=== PATIENT | male | born 1945 | race African-American/Black ===

== ENCOUNTER → 2019-02-03 | Outpatient (CLI) | payer OTHER ==
[2019-01-01 11:00] VITALS: BP 118/60
[~2019-02-03] MED LIST: ALEN70TA3 PO; AMMO225L5 TP; APIX2.5T PO; CHOL500016 PO; FERR325T58 PO; OXYC1TAB15 PO
--- NOTE | 2019-02-03 13:57 | RAD ---
EXAM: Left lower extremity venous Doppler sonogram. HISTORY: Left calf swelling and pain. TECHNIQUE: Herron scale and color Doppler sonographic evaluation of the left lower extremity veins with spectral waveform analysis was performed. FINDINGS: There is normal color flow, normal compressibility and there are normal spectral waveforms in the common femoral, superficial femoral, popliteal, posterior tibial and greater saphenous veins. IMPRESSION: No Doppler evidence of lower extremity deep venous thrombosis. Electronically signed by: Joselin Simpson MD (02/03/2019 1:54 PM) [place] [id number]
== END | disposition home or self-care (01) ==
LOC: US 13:07 → EDSEX 13:07
PROVIDERS: ATTEND Physician Assistant
DX: M79.89 Other specified soft tissue disorders (principal); M79.605 Pain in left leg
CPT/HCPCS: 93971

== ENCOUNTER 2019-03-08 14:02 | Inpatient (IN) | payer OTHER ==
[~2019-03-08] VITALS: Ht 165.1 cm; Wt 41.7 kg
--- NOTE | 2019-03-08 16:09 | PDOC1 ---
History and Physical Date of Admission Date of Admission DATE: 03/08/19 TIME: 16:07 Identification/Chief Complaint Chief Complaint Toe auto-amputation Source Source: Caregiver, Chart review, Patient History of Present Illness History of Present Illness Mr Jaimes is a 73 yo male w/ PMHx CAD s/p stenting, HTN, colorectal cancer in remission, DJD of spine, DM2 presenting to the ED per his with right heel ulcer and right necrotic appearing toes. He appears to have cognitive impairment and not a reliable historian. He has been weak and fell yesterday, prior to that he has been pretty much bedbound. No LOC. No complains of chest pain or SOA. No notation of nausea or vomiting. Upon examination and removal of his sock the end of his right middle toe has fallen off. There is a foul smell. Labs notable for Hb 10.6, Cr 1.3, Sodium 148 Past Medical History Cardiovascular: CAD, HTN GI: Other Heme/Onc: Cancer Hepatobiliary: No pertinent hx Psych: No pertinent hx Musculoskeletal: Other Rheumatologic: No pertinent hx Infectious disease: No pertinent hx Renal/: No pertinent hx Endocrine: Diabetes Past Surgical History Past Surgical History: Colon Resection Family History Family History: Diabetes Social History Smoke: No ALCOHOL: none Drugs: None Current Medications Current Medications Active Scripts Active Ammonium Lactate 226 Gm Lotion 1 Nando TP BID 10 Days Percocet 5-325 Mg Tablet (Oxycodone/Acetaminophen) 1 Each Tablet 1 Tab PO PRN Q4HRS PRN 10 Days Eliquis (Apixaban) 2.5 Mg Tablet 2.5 Mg PO BID 14 Days Reported Fosamax (Alendronate Sodium) 70 Mg Tablet 70 Mg PO WEEKLY pt takes medication on friday Vitamin D3 (Cholecalciferol (Vitamin D3)) 5,000 Unit Tablet 5,000 Unit PO WEEKLY Allergies Allergies: Coded Allergies: No Known Drug Allergies (Unverified , 11/17/14) ROS General: YES: Fatigue, Malaise; No: Chills, Night Sweats, Appetite, Other PSYCHOLOGICAL ROS: YES: Disorientation; No: Anxiety, Behavioral Disorder, Concentration difficultie, Decreased libido, Depression, Hallucinations, Hostility, Irritablity, Memory difficulties, Mood Swings, Obsessive thoughts, Physical abuse, Sexual abuse, Sleep disturbances, Suicidal ideation, Other Eyes: No Blurry vision, No Decreased vision, No Double vision, No Dry eyes, No Excessive tearing, No Eye Pain, No Itchy Eyes, No Loss of vision, No Photophobia, No Scotomata, No Uses contacts, No Uses glasses, No Other HEENT: No: Heacaches, Visual Changes, Hearing change, Nasal congestion, Nasal discharge, Oral lesions, Sinus pain, Sore Throat, Epistaxis, Sneezing, Snoring, Tinnitus, Vertigo, Vocal changes, Other ALLERGY AND IMMUNOLOGY: No: Hives, Insect Bite Sensitivity, Itchy/Watery Eyes, Nasal Congestion, Post Nasal Drip, Seasonal Allergies, Other Hematological and Lymphatic: No: Bleeding Problems, Blood Clots, Blood Transfusions, Brusing, Night Sweats, Pallor, Swollen Lymph Nodes, Other ENDOCRINE: No: Breast Changes, Galactorrhea, Hair Pattern Changes, Hot Flashes, Malaise/lethargy, Mood Swings, Palpitations, Polydipsia/polyuria, Skin Changes, Temperature Intolerance, Unexpected Weight Changes, Other Breast: No New/Changing Breast Lumps, No Nipple changes, No Nipple discharge, No Other Respiratory: No: Cough, Hemoptysis, Orthopnea, Pleuritic Pain, Shortness of breath, SOB with excertion, Sputum Changes, Stridor, Tachypnea, Wheezing, Other Cardiovascular: No Chest Pain, No Palpitations, No Orthopnea, No Paroxysmal Noc. Dyspnea, No Edema, No Lt Headedness, No Other Gastrointestinal: No Nausea, No Vomiting, No Abdominal Pain, No Diarrhea, No Constipation, No Melena, No Hematochezia, No Other Genitourinary: No Dysuria, No Frequency, No Incontinence, No Hematuria, No Retention, No Discharge, No Urgency, No Pain, No Flank Pain, No Other, No , No , No , No , No , No , No Musculoskeletal: Yes Gait Disturbance, Yes Muscular Weakness; No Joint Pain, No Joint Stiffness, No Joint Swelling, No Muscle Pain, No Pain In:, No Swelling In:, No Other Neurological: No Behavorial Changes, No Bowel/Bladder ControlChng, No Confusion, No Dizziness, No Gait Disturbance, No Headaches, No Impaired Coord/balance, No Memory Loss, No Numbness/Tingling, No Seizures, No Speech Problems, No Tremors, No Visual Changes, No Weakness, No Other Skin: Yes Dry Skin, Yes Skin Lesion Changes; No Eczema, No Hair Changes, No Lumps, No Mole Changes, No Mottling, No Nail Changes, No Pruritus, No Rash, No Other, No Acne Physical Exam General: Alert, Cooperative, No acute distress HEENT: Atraumatic, PERRLA, EOMI, Mucous membr. moist/pink Lungs: Clear to auscultation, Normal air movement Heart: S1S2, RRR, no thrills, no rubs, no gallops, no murmurs Abdomen: Normal bowel sounds, Soft, No tenderness, No hepatosplenomegaly, No masses Rectal Exam: not examined Extremities: No clubbing, No cyanosis, No edema, Other (Decreased pulses) Skin: Other (Left heel ulcer with bone palpable, right heel ulcer stage III, right middle toe dry gangree, partially autoamputated) Neuro: Normal tone, Sensation intact, Cranial nerves 3-12 NL, Reflexes 2+ Psych/Mental Status: Other (Confused) VTE Prophylaxis Ordered VTE Prophylaxis Devices: Yes VTE Pharmacological Prophylaxi: Yes Assessment/Plan Assessment/Plan A/P: Multiple wounds - Left heel ulcer with bone palpable, right heel ulcer stage III, right middle toe dry gangree, partially autoamputated. Will get arterial dopplers. Consult ID. Will need surgical correction for left heel at the very least. Empiric vancomycin and zosyn for now. 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 Poor nail care - will have podiatry to see as he has multiple ingrown nails Underweight - severe protein calorie malnutrition. It is unclear the etiology. He has no complaints about his diet. I am concerned he has an underlying memory disorder CAD - with remote stenting history, no on any cardiac meds. Will cont DM2 - diet control per his . Will place on low sliding scale NORBERTO - Cr 1.3, likely vasomotor nephropathy from poor PO intake FEN - ADA diet, npo after midnight PPX - lovenox FULL CODE Dispo - inpatient for infected decubitus ulcers CARMEN CONKLIN MD Mar 08, 2019 16:08
[2019-03-08] MEDS ORDERED: VANCOMYCIN PER PHARMACY MC ONE (16:15)
[2019-03-08] MEDS ORDERED: MORPHINE SULFATE 4 MG/ML VIAL. IV/SQ PRN (16:15)
[2019-03-08] MEDS ORDERED: PIPERACILLIN/TAZOBACTAM 4.5 GM in IV NORMAL SALINE 100ML 100 ML IV ONE (16:15)
[2019-03-08 16:24] LABS: BASO # 0.1 x10^3/uL (0.0-0.2); BASO % 1 % (0-3); EOS # 0.1 x10^3/uL (0.0-0.7); EOS % 2 % (0-3); HEMATOCRIT 33.2 % (39.0-53.0); HEMOGLOBIN 10.6 g/dL (13.0-17.5); LYMPH # 1.3 x10^3/uL (1.0-4.8); LYMPH % 21 % (24-48); MEAN CORPUSCULAR HEMOGLOBIN 29 pg (25-35); MEAN CORPUSCULAR HGB CONC 32 g/dL (31-37); MEAN CORPUSCULAR VOLUME 90 fL (79-100); MONO # 0.7 x10^3/uL (0.0-1.1); MONO % 12 % (0-9); NEUT # 3.8 x10^3/uL (1.8-7.7); NEUT % 64 % (31-73); PLATELET COUNT 375 x10^3/uL (140-400); RED BLOOD COUNT 3.69 x10^6/uL (4.30-5.70); RED CELL DISTRIBUTION WIDTH 16.7 % (11.5-14.5); WHITE BLOOD COUNT 5.9 x10^3/uL (4.0-11.0)
[2019-03-08] MEDS ORDERED: VANCOMYCIN 1.25 GM in IV NORMAL SALINE 250ML 250 ML IV ONE (16:30)
[2019-03-08] MEDS: IV NORMAL SALINE 1000ML BAG 1,000 ML IV SCH ×2 (16:42→17:40)
[2019-03-08 16:43] LABS: CALCIUM 8.8 mg/dL (8.5-10.1); CREATININE 1.3 mg/dL (0.7-1.3); GFR 65.5; POTASSIUM 3.5 mmol/L (3.5-5.1)
[2019-03-08 16:49] LABS: ALBUMIN 2.5 g/dL (3.4-5.0); ALBUMIN/GLOBULIN RATIO 0.5 (1.0-1.7); TOTAL BILIRUBIN 0.2 mg/dL (0.2-1.0); TOTAL PROTEIN 7.4 g/dL (6.4-8.2)
--- NOTE | 2019-03-08 16:50 | RAD ---
EXAM: Bilateral lower extremity venous Doppler. HISTORY: Bilateral lower extremity pain/swelling. Bilateral lower extremity nonhealing ulcers. COMPARISON: None. FINDINGS: Grayscale and Doppler analysis of the both lower extremity deep venous systems was performed with graded compression and augmentation. The common femoral, greater saphenous, superficial femoral, popliteal and calf veins were assessed. There is no evidence of deep venous thrombosis. IMPRESSION: 1. No evidence of deep venous thrombosis. Electronically signed by: Soco Jacobson MD (03/08/2019 4:47 PM) [facility]
[2019-03-08 16:56] LABS: PROTHROMBIN TIME PATIENT 13.7 SEC (11.7-14.0)
[2019-03-08] MEDS ORDERED: IV NORMAL SALINE 1000ML BAG 1,000 ML IV ONE (18:15)
[2019-03-08] MEDS ORDERED: ONDANSETRON PF 4 MG/2 ML VIAL. IV PRN ×2 (18:15→21:15)
[2019-03-08] MEDS ORDERED: MORPHINE SULFATE 4 MG/ML VIAL. IV PRN (18:15)
--- NOTE | 2019-03-08 18:24 | RAD ---
Exam: Bilateral feet 3 views INDICATION: Left heel ulcer. Right toe necrosis. TECHNIQUE: Frontal, lateral and oblique views of the left and right foot. Comparisons: None FINDINGS: Left foot: Degenerative change at the toes bilaterally. Soft tissue defect at the heel. Mild osteopenia. Scattered degenerative change noted throughout the foot. No acute fractures are identified. Right foot: Evaluation of the digits is limited secondary to positioning. No acute fractures identified. There is diffuse osteopenia. Soft tissue ulcer at the heel. IMPRESSION: 1. Soft tissue ulcers at the heels bilaterally. 2. Diffuse osteopenia without acute fracture identified. No definite evidence for osteomyelitis identified however evaluation is limited. Electronically signed by: Armani Thapa MD (03/08/2019 6:21 PM) [id number]
--- NOTE | 2019-03-08 18:48 | EKG ---
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
[2019-03-08 19:00] VITALS: BP 108/69
--- NOTE | 2019-03-08 19:02 | PHYS DOC ---
Past Medical History Past Medical History: CAD, Diabetes-Type II, Hypertension Additional Past Medical Histor: colorectal cancer, DJD spine Past Surgical History: Other Additional Past Surgical Histo: lumbar back surgery, L hip Alcohol Use: None Drug Use: None Adult General Chief Complaint Chief Complaint: LOWER EXT PAIN HPI HPI Patient is a 73 year old male with history of diabetes type 2, hypertension, CAD, who presents to the ED today with complaints of the heel ulcers on the left leg as well as necrotic toes, states patient fell down around December and fractured his hip, reports since then this patient has been immobile and has developed multiple wounds to bilateral lower extremities. states she's been trying to take care of them but they have become worse. Patient denies any complaints. Review of Systems Review of Systems Constitutional: Denies fever or chills [] Eyes: Denies change in visual acuity, redness, or eye pain [] HENT: Denies nasal congestion or sore throat [] Respiratory: Denies cough or shortness of breath [] Cardiovascular: No additional information not addressed in HPI [] GI: Denies abdominal pain, nausea, vomiting, bloody stools or diarrhea [] : Denies dysuria or hematuria [] Musculoskeletal: Denies back pain or joint pain [] Integument: Reports wounds to bilateral lower extremities Neurologic: Denies headache, focal weakness or sensory changes [] All other systems were reviewed and found to be within normal limits, except as documented in this note. Current Medications Current Medications Current Medications Medications (Trade) Dose Ordered Sig/Tomasa Start Time Stop Time Status Last Admin Dose Admin Morphine Sulfate (Morphine Sulfate) 4 mg PRN Q15MIN PRN 03/08/19 16:15 03/09/19 16:14 Piperacillin Sod/ Tazobactam Sod 4.5 gm/Sodium Chloride 100 ml @ 200 mls/hr 1X ONCE 03/08/19 16:15 03/08/19 16:44 DC 03/08/19 16:41 200 MLS/HR Sodium Chloride 1,000 ml @ 1,860 mls/hr Q33M 03/08/19 16:04 03/08/19 17:04 DC 03/08/19 17:40 1,860 MLS/HR Vancomycin HCl (Vanco Per Pharmacy) 1 each 1X ONCE 03/08/19 16:15 10/28/19 16:24 DC Vancomycin HCl 1.25 gm/Sodium Chloride 250 ml @ 167 mls/hr ONCE ONCE 03/08/19 16:30 03/08/19 17:59 DC 03/08/19 17:40 167 MLS/HR Allergies Allergies Allergies Coded Allergies Type Severity Reaction Last Updated Verified No Known Drug Allergies 11/17/14 No Physical Exam Physical Exam Constitutional: Thin appearing cachectic patient HENT: Normocephalic, atraumatic, bilateral external ears normal, oropharynx moist, no oral exudates, nose normal. [] Eyes: PERRLA, EOMI, conjunctiva normal, no discharge. [] Neck: Normal range of motion, no tenderness, supple, no stridor. [] Cardiovascular: Bradycardia Lungs & Thorax: Bilateral breath sounds clear to auscultation [] Abdomen: Bowel sounds normal, soft, no tenderness, no masses, no pulsatile masses. [] Skin: Left heel with a stage III ulcer approximately 5 x 6 cm, there is trace amount of drainage from this region, right toes appear necrotic, the right second toe tip fell out as i was i removing patients socks. Muscle wasting noted to bilateral lower extremities with very dark peeling skin. +1 bilateral pedal pulses. Limited sensation to bilateral lower extremities. Very smelly feet. Back: No tenderness, no CVA tenderness. [] Extremities: No tenderness, no cyanosis, no clubbing, ROM intact, no edema. [] Neurologic: Alert and oriented X 3, normal motor function, normal sensory function, no focal deficits noted. [] Psychologic: Affect normal, judgement normal, mood normal. [] Current Patient Data Vital Signs Vital Signs Date Time Temp Pulse Resp B/P (MAP) Pulse Ox O2 Delivery O2 Flow Rate FiO2 03/08/19 17:30 100 16 115/67 (83) 94 Room Air 03/08/19 16:05 98.8 98.8 Lab Values Laboratory Tests Test 03/08/19 16:09 White Blood Count 5.9 x10^3/uL (4.0-11.0) Red Blood Count 3.69 x10^6/uL (4.30-5.70) L Hemoglobin 10.6 g/dL (13.0-17.5) L Hematocrit 33.2 % (39.0-53.0) L Mean Corpuscular Volume 90 fL (79-100) Mean Corpuscular Hemoglobin 29 pg (25-35) Mean Corpuscular Hemoglobin Concent 32 g/dL (31-37) Red Cell Distribution Width 16.7 % (11.5-14.5) H Platelet Count 375 x10^3/uL (140-400) Neutrophils (%) (Auto) 64 % (31-73) Lymphocytes (%) (Auto) 21 % (24-48) L Monocytes (%) (Auto) 12 % (0-9) H Eosinophils (%) (Auto) 2 % (0-3) Basophils (%) (Auto) 1 % (0-3) Neutrophils # (Auto) 3.8 x10^3/uL (1.8-7.7) Lymphocytes # (Auto) 1.3 x10^3/uL (1.0-4.8) Monocytes # (Auto) 0.7 x10^3/uL (0.0-1.1) Eosinophils # (Auto) 0.1 x10^3/uL (0.0-0.7) Basophils # (Auto) 0.1 x10^3/uL (0.0-0.2) Prothrombin Time 13.7 SEC (11.7-14.0) Prothrombin Time INR 1.1 (0.8-1.1) Activated Partial Thromboplast Time 30 SEC (24-38) Sodium Level 148 mmol/L (136-145) H Potassium Level 3.5 mmol/L (3.5-5.1) Chloride Level 109 mmol/L (98-107) H Carbon Dioxide Level 33 mmol/L (21-32) H Anion Gap 6 (6-14) Blood Urea Nitrogen 18 mg/dL (8-26) Creatinine 1.3 mg/dL (0.7-1.3) Estimated GFR (Cockcroft-Gault) 65.5 BUN/Creatinine Ratio 14 (6-20) Glucose Level 84 mg/dL (70-99) Lactic Acid Level 1.3 mmol/L (0.4-2.0) Calcium Level 8.8 mg/dL (8.5-10.1) Total Bilirubin 0.2 mg/dL (0.2-1.0) Aspartate Amino Transferase (AST) 20 U/L (15-37) Alanine Aminotransferase (ALT) 11 U/L (16-63) L Alkaline Phosphatase 76 U/L (46-116) Ammonia < 10 mcmol/L (11-34) L Creatine Kinase 82 U/L (39-308) Creatine Kinase MB (Mass) 1.4 ng/mL (0.0-3.6) Creatine Kinase MB Relative Index 1.7 % (0-4) Total Protein 7.4 g/dL (6.4-8.2) Albumin 2.5 g/dL (3.4-5.0) L Albumin/Globulin Ratio 0.5 (1.0-1.7) L Lipase 115 U/L (73-393) Procalcitonin 0.19 ng/mL (0.00-0.10) H Laboratory Tests 03/08/19 16:09 Laboratory Tests 03/08/19 16:09 EKG EKG [address] Maguire sinus rhythm HR 92 no STEMI[] Radiology/Procedures Radiology/Procedures [] Course & Med Decision Making Course & Med Decision Making Pertinent Labs and Imaging studies reviewed. (See chart for details) This is a 70-year-old male patient who presents to the ED today with complaints of wounds to bilateral lower extremities. See history of present illness and documentation on the wounds on assessment. Vitals on arrival to the ED temperature 98.8, heart rate 54, O2 sats 100% on room air, blood pressure 140/88, respiration 20 room air. On arrival to the ED we started this patient on sepsis protocol including IV fluids and antibiotics. CBC with a normal WBC, CMP with Na of 148, K is normal, glucose is normal. Lactic 1.3, pro-calcitonin 0.19. Spoke with Dr. Mehta who accepted patient for admission. Routine consult placed for wound nurse I spoke with -who will follow-up with patient Dragon Disclaimer Dragon Disclaimer This electronic medical record was generated, in whole or in part, using a voice recognition dictation system. Departure Departure Impression: Primary Impression: Ulcer of left heel Additional Impression: Necrotic toes Disposition: ADMITTED INPATIENT Condition: STABLE Referrals: VIMAL ROBERT MD (PCP) Date and Time of Reassessment Date: Mar 08, 2019 Time: 17:30 Fluid Challenge Is the fluid challenge complet: No IBW Target Volume Used: No BMI > 30: No Vital Signs Vital Signs: Vital Signs Date Time Temp Pulse Resp B/P (MAP) Pulse Ox O2 Delivery O2 Flow Rate FiO2 03/08/19 17:30 100 16 115/67 (83) 94 Room Air 03/08/19 16:05 98.8 98.8 Temperature Source: Oral Respirations Respiratory Effort: Normal Respiratory Pattern: Normal Cardiovascular Pulse Rhythm: Regular Heart: Nml rate, reg. rhythm Lung Sounds Breath Sounds: Clear Capillary Refil Capillary Refill: Rt Hand > 3 seconds Peripheral Pulse Pulse Location: Monitor Pulse Strength: Normal (2+) Pulse Assessment Method: Monitor Integumentary Skin: Warm Skin Moisture: Dry Skin Turgor: Normal Skin Color: warm Fingernail Color: WNL Problem Qualifiers Primary Impression: Ulcer of left heel Non-pressure ulcer stage: unspecified non-pressure ulcer stage Qualified Codes: L97.429 - Non-pressure chronic ulcer of left heel and midfoot with unspecified severity VIRGIL MC APRN Mar 08, 2019 19:02
--- NOTE | 2019-03-08 19:30 | NUR ---
arnulfo was admitted from the er. he is npo. he came in with bilateral heel ulcers and 4 necrotic toes with strong odor. vancomycin infusing in left iv site. answers questions she and arnulfo are poor historians. uncertain about diseases and medications. they saw Dr. Millan a couple of weeks ago. . states that this problem originally started in October before his broken hip in December. she thinks he has lost approx 10 pounds and control his sugar but denies being a diabetic. unable to feel pulses.
[2019-03-08] MEDS: ENOXAPARIN 40 MG/0.4 ML SYRINGE. SQ SCH (21:31)
[2019-03-08] MEDS: DEXTROSE 50% 25 GM / 50ML DISP.SYRIN. IV PRN (21:54)
[2019-03-08 22:00] LABS: BILIRUBIN,URINE NEGATIVE (NEG); CLARITY,URINE CLOUDY; COLOR,URINE YELLOW; NITRITE,URINE NEGATIVE (NEG); PH,URINE 5.5; PROTEIN,URINE NEGATIVE (NEG-TRACE); UROBILINOGEN,URINE 0.2 mg/dL (0.2 mg/dL)
[2019-03-08] MEDS ORDERED: POTASSIUM CHLORIDE 20 MEQ TABLET.ER. PO ONE (22:00)
--- NOTE | 2019-03-08 22:00 | NUR ---
blood sugar was 66. medicated with 25 grams of dextrose. blood sugar went up to 100
[2019-03-08 22:10] LABS: BACTERIA,URINE 0 /HPF (0-FEW); RBC,URINE 0 /HPF (0-2); SQUAMOUS EPITHELIAL CELL,UR OCC /LPF
[2019-03-08] MEDS: PIPERACILLIN/TAZOBACTAM 2.25 GM in IV NORMAL SALINE 50ML 50 ML IV SCH (22:21)
[2019-03-08 23:00] VITALS: BP 124/78
--- NOTE | 2019-03-08 23:00 | NUR ---
3 pictures taken of bilateral heels and right toes. unable to measure related to the slough in the beds of ulcerations
[2019-03-09] MEDS ORDERED: PIPERACILLIN/TAZOBACTAM 3.375 GM in IV NORMAL SALINE 50ML 50 ML IV SCH ×2
--- NOTE | 2019-03-09 00:30 | RAD ---
Lower extremity arterial duplex Doppler examination with spectral analysis HISTORY: Bilateral enlargement ulcers Sonographic examination alert she was informed bilaterally multiple static images were obtained. In addition color Doppler was applied as well as arterial waveform spectral analysis. FINDINGS: On the right there is triphasic flow in the common femoral artery but monophasic flow throughout the remaining right lower cavity. There is no flow seen in the mid SFA and there is no visualization of the peroneal vein and the DPA. There is increased velocity in the common femoral artery with a peak systolic flow of 191 cm/s. On the left there is monophasic flow throughout. There is elevated velocity in the proximal SFA with a peak systolic velocity of 197 cm per second. There is nonvisualization the NUT ORCHARDIST distally on the left and nonvisualization of the DPA. IMPRESSION: 1. Monophasic flow in the lower extremities bilaterally. This is likely secondary to diffuse atherosclerotic disease. 2. Nonvisualization the right peroneal artery and in the DPA bilaterally and the distal left NUT ORCHARDIST. 3. Occlusion of the mid SFA. There is reconstitution of flow in the distal SFA through collaterals. Electronically signed by: Lobito Mcbride III, MD (03/09/2019 12:26 AM) [id number]
[2019-03-09 03:22] VITALS: BP 127/69
[2019-03-09 03:57] LABS: BASO # 0.1 x10^3/uL (0.0-0.2); BASO % 1 % (0-3); EOS # 0.1 x10^3/uL (0.0-0.7); EOS % 2 % (0-3); HEMATOCRIT 31.9 % (39.0-53.0); HEMOGLOBIN 10.2 g/dL (13.0-17.5); LYMPH # 0.8 x10^3/uL (1.0-4.8); LYMPH % 12 % (24-48); MEAN CORPUSCULAR HEMOGLOBIN 29 pg (25-35); MEAN CORPUSCULAR HGB CONC 32 g/dL (31-37); MEAN CORPUSCULAR VOLUME 90 fL (79-100); MONO # 0.7 x10^3/uL (0.0-1.1); MONO % 10 % (0-9); NEUT # 5.1 x10^3/uL (1.8-7.7); NEUT % 74 % (31-73); PLATELET COUNT 350 x10^3/uL (140-400); RED BLOOD COUNT 3.54 x10^6/uL (4.30-5.70); RED CELL DISTRIBUTION WIDTH 16.7 % (11.5-14.5); WHITE BLOOD COUNT 6.8 x10^3/uL (4.0-11.0)
[2019-03-09 04:11] LABS: CALCIUM 7.9 mg/dL (8.5-10.1); CREATININE 1.2 mg/dL (0.7-1.3); GFR 71.8; POTASSIUM 4.2 mmol/L (3.5-5.1)
[2019-03-09] MEDS: PIPERACILLIN/TAZOBACTAM 2.25 GM in IV NORMAL SALINE 50ML 50 ML IV SCH (05:54)
[2019-03-09 07:00] VITALS: BP 114/68
[2019-03-09] MEDS ORDERED: INSULIN LISPRO 300 UNITS/3 ML VIAL. SQ SCH (07:30)
[2019-03-09] MEDS: AMMONIUM LACTATE 12% TOPICAL LOTION 226GM BOTTLE. TP SCH ×2 (08:24→21:00)
[2019-03-09] MEDS ORDERED: ACETAMINOPHEN 500 MG TABLET PO PRN (08:30)
[2019-03-09] MEDS ORDERED: ACETAMINOPHEN/CODEINE 300/30MG TABLET. PO PRN (08:30)
--- NOTE | 2019-03-09 09:44 | PDOC ---
PROGRESS NOTES Chief Complaint Chief Complaint BIlateral heel ulcer/wounds with cellulitis DM 2 ? 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 NORBERTO VMN History of Present Illness History of Present Illness VEryv poor historian NO at bedside RN tells us he ambulates with cane at home I undressed dressing, foul smelling juicy pressure heel ulcers IMaging shows no signs of osteo Pt does not check BS at home PT on eliquis at home, but he cant tell u why Looking at chart, hx CAD etc Arterial studies show, maybe dec flow - might need vasc, given over all clinical picture, poor compliance, wounds etc PLAN: Ortho consulted for possible need I and d so maintain NPO and cont to hold eliquis COnsult vasc sx I rounded with ID student and he saw wounds PT.OT WIll need SNU Await wound care IV abx per ID FULL CODE Vitals Vitals Vital Signs Date Time Temp Pulse Resp B/P (MAP) Pulse Ox O2 Delivery O2 Flow Rate FiO2 03/09/19 07:00 99.2 91 18 114/68 (83) 95 Room Air 99.2 Physical Exam General: Alert, Cooperative, No acute distress Lungs: Clear Abdomen: Normal bowel sounds, Soft, No tenderness, No hepatosplenomegaly, No masses Extremities: No clubbing, No cyanosis, No edema, Other (Decreased pulses) Skin: Other (Left heel ulcer with bone palpable, right heel ulcer stage III, right middle toe dry gangree, partially autoamputated) Labs LABS Laboratory Tests Test 03/08/19 16:09 03/08/19 21:30 03/08/19 21:39 03/08/19 22:32 White Blood Count 5.9 x10^3/uL (4.0-11.0) Red Blood Count 3.69 x10^6/uL (4.30-5.70) Hemoglobin 10.6 g/dL (13.0-17.5) Hematocrit 33.2 % (39.0-53.0) Mean Corpuscular Volume 90 fL (79-100) Mean Corpuscular Hemoglobin 29 pg (25-35) Mean Corpuscular Hemoglobin Concent 32 g/dL (31-37) Red Cell Distribution Width 16.7 % (11.5-14.5) Platelet Count 375 x10^3/uL (140-400) Neutrophils (%) (Auto) 64 % (31-73) Lymphocytes (%) (Auto) 21 % (24-48) Monocytes (%) (Auto) 12 % (0-9) Eosinophils (%) (Auto) 2 % (0-3) Basophils (%) (Auto) 1 % (0-3) Neutrophils # (Auto) 3.8 x10^3/uL (1.8-7.7) Lymphocytes # (Auto) 1.3 x10^3/uL (1.0-4.8) Monocytes # (Auto) 0.7 x10^3/uL (0.0-1.1) Eosinophils # (Auto) 0.1 x10^3/uL (0.0-0.7) Basophils # (Auto) 0.1 x10^3/uL (0.0-0.2) Prothrombin Time 13.7 SEC (11.7-14.0) Prothromb Time International Ratio 1.1 (0.8-1.1) Activated Partial Thromboplast Time 30 SEC (24-38) Sodium Level 148 mmol/L (136-145) Potassium Level 3.5 mmol/L (3.5-5.1) Chloride Level 109 mmol/L (98-107) Carbon Dioxide Level 33 mmol/L (21-32) Anion Gap 6 (6-14) Blood Urea Nitrogen 18 mg/dL (8-26) Creatinine 1.3 mg/dL (0.7-1.3) Estimated GFR (Cockcroft-Gault) 65.5 BUN/Creatinine Ratio 14 (6-20) Glucose Level 84 mg/dL (70-99) Lactic Acid Level 1.3 mmol/L (0.4-2.0) Calcium Level 8.8 mg/dL (8.5-10.1) Total Bilirubin 0.2 mg/dL (0.2-1.0) Aspartate Amino Transf (AST/SGOT) 20 U/L (15-37) Alanine Aminotransferase (ALT/SGPT) 11 U/L (16-63) Alkaline Phosphatase 76 U/L (46-116) Ammonia < 10 mcmol/L (11-34) Creatine Kinase 82 U/L (39-308) Creatine Kinase MB (Mass) 1.4 ng/mL (0.0-3.6) Creatine Kinase MB Relative Index 1.7 % (0-4) Total Protein 7.4 g/dL (6.4-8.2) Albumin 2.5 g/dL (3.4-5.0) Albumin/Globulin Ratio 0.5 (1.0-1.7) Lipase 115 U/L (73-393) Procalcitonin 0.19 ng/mL (0.00-0.10) Urine Color Yellow Urine Clarity Cloudy Urine pH 5.5 Urine Specific Randolph 1.020 Urine Protein Negative mg/dL (NEG-TRACE) Urine Glucose (UA) Negative mg/dL (NEG) Urine Ketones (Stick) Negative mg/dL (NEG) Urine Blood Negative (NEG) Urine Nitrite Negative (NEG) Urine Bilirubin Negative (NEG) Urine Urobilinogen Dipstick 0.2 mg/dL (0.2 mg/dL) Urine Leukocyte Esterase Negative (NEG) Urine RBC 0 /HPF (0-2) Urine WBC 1-4 /HPF (0-4) Urine Squamous Epithelial Cells Occ /LPF Urine Bacteria 0 /HPF (0-FEW) Urine Mucus Mod /LPF Glucose (Fingerstick) 66 mg/dL (70-99) 100 mg/dL (70-99) Test 03/09/19 03:40 White Blood Count 6.8 x10^3/uL (4.0-11.0) Red Blood Count 3.54 x10^6/uL (4.30-5.70) Hemoglobin 10.2 g/dL (13.0-17.5) Hematocrit 31.9 % (39.0-53.0) Mean Corpuscular Volume 90 fL (79-100) Mean Corpuscular Hemoglobin 29 pg (25-35) Mean Corpuscular Hemoglobin Concent 32 g/dL (31-37) Red Cell Distribution Width 16.7 % (11.5-14.5) Platelet Count 350 x10^3/uL (140-400) Neutrophils (%) (Auto) 74 % (31-73) Lymphocytes (%) (Auto) 12 % (24-48) Monocytes (%) (Auto) 10 % (0-9) Eosinophils (%) (Auto) 2 % (0-3) Basophils (%) (Auto) 1 % (0-3) Neutrophils # (Auto) 5.1 x10^3/uL (1.8-7.7) Lymphocytes # (Auto) 0.8 x10^3/uL (1.0-4.8) Monocytes # (Auto) 0.7 x10^3/uL (0.0-1.1) Eosinophils # (Auto) 0.1 x10^3/uL (0.0-0.7) Basophils # (Auto) 0.1 x10^3/uL (0.0-0.2) Sodium Level 148 mmol/L (136-145) Potassium Level 4.2 mmol/L (3.5-5.1) Chloride Level 112 mmol/L (98-107) Carbon Dioxide Level 30 mmol/L (21-32) Anion Gap 6 (6-14) Blood Urea Nitrogen 13 mg/dL (8-26) Creatinine 1.2 mg/dL (0.7-1.3) Estimated GFR (Cockcroft-Gault) 71.8 Glucose Level 75 mg/dL (70-99) Calcium Level 7.9 mg/dL (8.5-10.1) Review of Systems Review of Systems leg wounds, minimal pain, rest 14 pt limited - dementia Assessment and Plan Assessmemt and Plan Problems Medical Problems: (1) Necrotic toes Status: Acute (2) Ulcer of left heel Status: Acute Comment Review of Relevant I have reviewed the following items segun (where applicable) has been applied. Labs Laboratory Tests Test 03/08/19 16:09 03/08/19 21:30 03/08/19 21:39 03/08/19 22:32 White Blood Count 5.9 x10^3/uL (4.0-11.0) Red Blood Count 3.69 x10^6/uL (4.30-5.70) Hemoglobin 10.6 g/dL (13.0-17.5) Hematocrit 33.2 % (39.0-53.0) Mean Corpuscular Volume 90 fL (79-100) Mean Corpuscular Hemoglobin 29 pg (25-35) Mean Corpuscular Hemoglobin Concent 32 g/dL (31-37) Red Cell Distribution Width 16.7 % (11.5-14.5) Platelet Count 375 x10^3/uL (140-400) Neutrophils (%) (Auto) 64 % (31-73) Lymphocytes (%) (Auto) 21 % (24-48) Monocytes (%) (Auto) 12 % (0-9) Eosinophils (%) (Auto) 2 % (0-3) Basophils (%) (Auto) 1 % (0-3) Neutrophils # (Auto) 3.8 x10^3/uL (1.8-7.7) Lymphocytes # (Auto) 1.3 x10^3/uL (1.0-4.8) Monocytes # (Auto) 0.7 x10^3/uL (0.0-1.1) Eosinophils # (Auto) 0.1 x10^3/uL (0.0-0.7) Basophils # (Auto) 0.1 x10^3/uL (0.0-0.2) Prothrombin Time 13.7 SEC (11.7-14.0) Prothromb Time International Ratio 1.1 (0.8-1.1) Activated Partial Thromboplast Time 30 SEC (24-38) Sodium Level 148 mmol/L (136-145) Potassium Level 3.5 mmol/L (3.5-5.1) Chloride Level 109 mmol/L (98-107) Carbon Dioxide Level 33 mmol/L (21-32) Anion Gap 6 (6-14) Blood Urea Nitrogen 18 mg/dL (8-26) Creatinine 1.3 mg/dL (0.7-1.3) Estimated GFR (Cockcroft-Gault) 65.5 BUN/Creatinine Ratio 14 (6-20) Glucose Level 84 mg/dL (70-99) Lactic Acid Level 1.3 mmol/L (0.4-2.0) Calcium Level 8.8 mg/dL (8.5-10.1) Total Bilirubin 0.2 mg/dL (0.2-1.0) Aspartate Amino Transf (AST/SGOT) 20 U/L (15-37) Alanine Aminotransferase (ALT/SGPT) 11 U/L (16-63) Alkaline Phosphatase 76 U/L (46-116) Ammonia < 10 mcmol/L (11-34) Creatine Kinase 82 U/L (39-308) Creatine Kinase MB (Mass) 1.4 ng/mL (0.0-3.6) Creatine Kinase MB Relative Index 1.7 % (0-4) Total Protein 7.4 g/dL (6.4-8.2) Albumin 2.5 g/dL (3.4-5.0) Albumin/Globulin Ratio 0.5 (1.0-1.7) Lipase 115 U/L (73-393) Procalcitonin 0.19 ng/mL (0.00-0.10) Urine Color Yellow Urine Clarity Cloudy Urine pH 5.5 Urine Specific Randolph 1.020 Urine Protein Negative mg/dL (NEG-TRACE) Urine Glucose (UA) Negative mg/dL (NEG) Urine Ketones (Stick) Negative mg/dL (NEG) Urine Blood Negative (NEG) Urine Nitrite Negative (NEG) Urine Bilirubin Negative (NEG) Urine Urobilinogen Dipstick 0.2 mg/dL (0.2 mg/dL) Urine Leukocyte Esterase Negative (NEG) Urine RBC 0 /HPF (0-2) Urine WBC 1-4 /HPF (0-4) Urine Squamous Epithelial Cells Occ /LPF Urine Bacteria 0 /HPF (0-FEW) Urine Mucus Mod /LPF Glucose (Fingerstick) 66 mg/dL (70-99) 100 mg/dL (70-99) Test 03/09/19 03:40 White Blood Count 6.8 x10^3/uL (4.0-11.0) Red Blood Count 3.54 x10^6/uL (4.30-5.70) Hemoglobin 10.2 g/dL (13.0-17.5) Hematocrit 31.9 % (39.0-53.0) Mean Corpuscular Volume 90 fL (79-100) Mean Corpuscular Hemoglobin 29 pg (25-35) Mean Corpuscular Hemoglobin Concent 32 g/dL (31-37) Red Cell Distribution Width 16.7 % (11.5-14.5) Platelet Count 350 x10^3/uL (140-400) Neutrophils (%) (Auto) 74 % (31-73) Lymphocytes (%) (Auto) 12 % (24-48) Monocytes (%) (Auto) 10 % (0-9) Eosinophils (%) (Auto) 2 % (0-3) Basophils (%) (Auto) 1 % (0-3) Neutrophils # (Auto) 5.1 x10^3/uL (1.8-7.7) Lymphocytes # (Auto) 0.8 x10^3/uL (1.0-4.8) Monocytes # (Auto) 0.7 x10^3/uL (0.0-1.1) Eosinophils # (Auto) 0.1 x10^3/uL (0.0-0.7) Basophils # (Auto) 0.1 x10^3/uL (0.0-0.2) Sodium Level 148 mmol/L (136-145) Potassium Level 4.2 mmol/L (3.5-5.1) Chloride Level 112 mmol/L (98-107) Carbon Dioxide Level 30 mmol/L (21-32) Anion Gap 6 (6-14) Blood Urea Nitrogen 13 mg/dL (8-26) Creatinine 1.2 mg/dL (0.7-1.3) Estimated GFR (Cockcroft-Gault) 71.8 Glucose Level 75 mg/dL (70-99) Calcium Level 7.9 mg/dL (8.5-10.1) Laboratory Tests Test 03/08/19 16:09 03/08/19 21:30 03/08/19 21:39 03/08/19 22:32 White Blood Count 5.9 x10^3/uL (4.0-11.0) Red Blood Count 3.69 x10^6/uL (4.30-5.70) Hemoglobin 10.6 g/dL (13.0-17.5) Hematocrit 33.2 % (39.0-53.0) Mean Corpuscular Volume 90 fL (79-100) Mean Corpuscular Hemoglobin 29 pg (25-35) Mean Corpuscular Hemoglobin Concent 32 g/dL (31-37) Red Cell Distribution Width 16.7 % (11.5-14.5) Platelet Count 375 x10^3/uL (140-400) Neutrophils (%) (Auto) 64 % (31-73) Lymphocytes (%) (Auto) 21 % (24-48) Monocytes (%) (Auto) 12 % (0-9) Eosinophils (%) (Auto) 2 % (0-3) Basophils (%) (Auto) 1 % (0-3) Neutrophils # (Auto) 3.8 x10^3/uL (1.8-7.7) Lymphocytes # (Auto) 1.3 x10^3/uL (1.0-4.8) Monocytes # (Auto) 0.7 x10^3/uL (0.0-1.1) Eosinophils # (Auto) 0.1 x10^3/uL (0.0-0.7) Basophils # (Auto) 0.1 x10^3/uL (0.0-0.2) Prothrombin Time 13.7 SEC (11.7-14.0) Prothromb Time International Ratio 1.1 (0.8-1.1) Activated Partial Thromboplast Time 30 SEC (24-38) Sodium Level 148 mmol/L (136-145) Potassium Level 3.5 mmol/L (3.5-5.1) Chloride Level 109 mmol/L (98-107) Carbon Dioxide Level 33 mmol/L (21-32) Anion Gap 6 (6-14) Blood Urea Nitrogen 18 mg/dL (8-26) Creatinine 1.3 mg/dL (0.7-1.3) Estimated GFR (Cockcroft-Gault) 65.5 BUN/Creatinine Ratio 14 (6-20) Glucose Level 84 mg/dL (70-99) Lactic Acid Level 1.3 mmol/L (0.4-2.0) Calcium Level 8.8 mg/dL (8.5-10.1) Total Bilirubin 0.2 mg/dL (0.2-1.0) Aspartate Amino Transf (AST/SGOT) 20 U/L (15-37) Alanine Aminotransferase (ALT/SGPT) 11 U/L (16-63) Alkaline Phosphatase 76 U/L (46-116) Ammonia < 10 mcmol/L (11-34) Creatine Kinase 82 U/L (39-308) Creatine Kinase MB (Mass) 1.4 ng/mL (0.0-3.6) Creatine Kinase MB Relative Index 1.7 % (0-4) Total Protein 7.4 g/dL (6.4-8.2) Albumin 2.5 g/dL (3.4-5.0) Albumin/Globulin Ratio 0.5 (1.0-1.7) Lipase 115 U/L (73-393) Procalcitonin 0.19 ng/mL (0.00-0.10) Urine Color Yellow Urine Clarity Cloudy Urine pH 5.5 Urine Specific Randolph 1.020 Urine Protein Negative mg/dL (NEG-TRACE) Urine Glucose (UA) Negative mg/dL (NEG) Urine Ketones (Stick) Negative mg/dL (NEG) Urine Blood Negative (NEG) Urine Nitrite Negative (NEG) Urine Bilirubin Negative (NEG) Urine Urobilinogen Dipstick 0.2 mg/dL (0.2 mg/dL) Urine Leukocyte Esterase Negative (NEG) Urine RBC 0 /HPF (0-2) Urine WBC 1-4 /HPF (0-4) Urine Squamous Epithelial Cells Occ /LPF Urine Bacteria 0 /HPF (0-FEW) Urine Mucus Mod /LPF Glucose (Fingerstick) 66 mg/dL (70-99) 100 mg/dL (70-99) Test 03/09/19 03:40 White Blood Count 6.8 x10^3/uL (4.0-11.0) Red Blood Count 3.54 x10^6/uL (4.30-5.70) Hemoglobin 10.2 g/dL (13.0-17.5) Hematocrit 31.9 % (39.0-53.0) Mean Corpuscular Volume 90 fL (79-100) Mean Corpuscular Hemoglobin 29 pg (25-35) Mean Corpuscular Hemoglobin Concent 32 g/dL (31-37) Red Cell Distribution Width 16.7 % (11.5-14.5) Platelet Count 350 x10^3/uL (140-400) Neutrophils (%) (Auto) 74 % (31-73) Lymphocytes (%) (Auto) 12 % (24-48) Monocytes (%) (Auto) 10 % (0-9) Eosinophils (%) (Auto) 2 % (0-3) Basophils (%) (Auto) 1 % (0-3) Neutrophils # (Auto) 5.1 x10^3/uL (1.8-7.7) Lymphocytes # (Auto) 0.8 x10^3/uL (1.0-4.8) Monocytes # (Auto) 0.7 x10^3/uL (0.0-1.1) Eosinophils # (Auto) 0.1 x10^3/uL (0.0-0.7) Basophils # (Auto) 0.1 x10^3/uL (0.0-0.2) Sodium Level 148 mmol/L (136-145) Potassium Level 4.2 mmol/L (3.5-5.1) Chloride Level 112 mmol/L (98-107) Carbon Dioxide Level 30 mmol/L (21-32) Anion Gap 6 (6-14) Blood Urea Nitrogen 13 mg/dL (8-26) Creatinine 1.2 mg/dL (0.7-1.3) Estimated GFR (Cockcroft-Gault) 71.8 Glucose Level 75 mg/dL (70-99) Calcium Level 7.9 mg/dL (8.5-10.1) Medications Current Medications Sodium Chloride 1,000 ml @ 1,860 mls/hr Q33M IV Last administered on 03/08/19at 17:40; Start 03/08/19 at 16:04; Stop 03/08/19 at 17:04; Status DC Piperacillin Sod/ Tazobactam Sod 4.5 gm/Sodium Chloride 100 ml @ 200 mls/hr 1X ONCE IV Last administered on 03/08/19at 16:41; Start 03/08/19 at 16:15; Stop 03/08/19 at 16:44; Status DC Vancomycin HCl (Vanco Per Pharmacy) 1 each 1X ONCE MC ; Start 03/08/19 at 16:15; Stop 03/08/19 at 16:24; Status DC Morphine Sulfate (Morphine Sulfate) 4 mg PRN Q15MIN PRN IV/SQ PAIN GREATER THAN 3/10; Start 03/08/19 at 16:15; Stop 03/09/19 at 08:35; Status DC Vancomycin HCl 1.25 gm/Sodium Chloride 250 ml @ 167 mls/hr ONCE ONCE IV Last administered on 03/08/19at 17:40; Start 03/08/19 at 16:30; Stop 03/08/19 at 17:59; Status DC Ondansetron HCl (Zofran) 4 mg PRN Q8HRS PRN IV NAUSEA/VOMITING; Start 03/08/19 at 18:15; Stop 03/08/19 at 21:18; Status DC Morphine Sulfate (Morphine Sulfate) 4 mg PRN Q2HR PRN IV SEVERE PAIN 7-10; Start 03/08/19 at 18:15; Stop 03/09/19 at 08:35; Status DC Sodium Chloride 1,000 ml @ 75 mls/hr 1X ONCE IV Last administered on 03/08/19at 21:25; Start 03/08/19 at 18:15; Stop 03/09/19 at 07:34; Status DC Ondansetron HCl (Zofran) 4 mg PRN Q6HRS PRN IV NAUSEA/VOMITING 1ST CHOICE; Start 03/08/19 at 21:15 Lactic Acid (Lac-Hydrin) 1 nando BID TP ; Start 03/09/19 at 09:00 Non-Formulary Medication (Alendronate Sodium (Fosamax)) 70 mg WEEKLY PO ; Start 03/15/19 at 09:00; Status UNV Vitamin D (Vitamin D3) 5,000 unit WEEKLY PO ; Start 03/15/19 at 09:00 Piperacillin Sod/ Tazobactam Sod 3.375 gm/Sodium Chloride 50 ml @ 100 mls/hr Q6HRS IV ; Start 03/09/19 at 00:00; Status UNV Tramadol HCl (Ultram) 50 mg PRN Q6HRS PRN PO MODERATE PAIN 4-6; Start 03/08/19 at 21:15 Insulin Human Lispro (HumaLOG) 0-5 UNITS TIDACHC SQ ; Start 03/09/19 at 07:30; Stop 03/09/19 at 08:31; Status DC Dextrose (Dextrose 50%-Water Syringe) 12.5 gm PRN Q15MIN PRN IV SEE COMMENTS Last administered on 03/08/19at 21:54; Start 03/08/19 at 21:15 Enoxaparin Sodium (Lovenox 40mg Syringe) 40 mg Q24H SQ Last administered on 03/08/19at 21:31; Start 03/08/19 at 22:00 Piperacillin Sod/ Tazobactam Sod 2.25 gm/Sodium Chloride 50 ml @ 100 mls/hr Q6HRS IV Last administered on 03/09/19at 05:54; Start 03/09/19 at 00:00 Potassium Chloride (Klor-Con) 40 meq 1X ONCE PO Last administered on 03/08/19at 22:20; Start 03/08/19 at 22:00; Stop 03/08/19 at 22:01; Status DC Acetaminophen (Tylenol) 500 mg PRN Q6HRS PRN PO MILD PAIN / TEMP; Start 03/09/19 at 08:30 Acetaminophen/ Codeine Phosphate (Tylenol #3) 1 tab PRN Q6HRS PRN PO PAIN MODERATE; Start 03/09/19 at 08:30 Morphine Sulfate (Morphine Sulfate) 2 mg PRN Q2HR PRN IV PAIN; Start 03/09/19 at 08:30 Oxycodone/ Acetaminophen (Percocet 5/325) 1 tab PRN Q4HRS PRN PO SEVERE PAIN 7- 10; Start 03/09/19 at 08:30 Active Scripts Active Ammonium Lactate 226 Gm Lotion 1 Nando TP BID 10 Days Percocet 5-325 Mg Tablet (Oxycodone/Acetaminophen) 1 Each Tablet 1 Tab PO PRN Q4HRS PRN 10 Days Eliquis (Apixaban) 2.5 Mg Tablet 2.5 Mg PO BID 14 Days Reported Fosamax (Alendronate Sodium) 70 Mg Tablet 70 Mg PO WEEKLY pt takes medication on friday Vitamin D3 (Cholecalciferol (Vitamin D3)) 5,000 Unit Tablet 5,000 Unit PO WEEKLY Vitals/I & O Vital Sign - Last 24 Hours 03/08/19 03/08/19 03/08/19 03/08/19 16:05 16:30 17:00 17:30 Temp 98.8 98.8 Pulse 54 92 96 100 Resp 20 18 18 16 B/P (MAP) 140/88 (105) 123/72 (89) 133/74 (93) 115/67 (83) Pulse Ox 100 94 95 94 O2 Delivery Room Air Room Air Room Air Room Air 03/08/19 03/08/19 03/08/19 03/08/19 18:00 18:33 19:00 20:00 Temp 98.3 98.3 Pulse 100 101 93 Resp 18 18 18 B/P (MAP) 123/66 (85) 109/67 (81) 108/69 (82) Pulse Ox 95 96 92 O2 Delivery Room Air Room Air Room Air 03/08/19 03/09/19 03/09/19 23:00 03:22 07:00 Temp 98.4 98.1 99.2 98.4 98.1 99.2 Pulse 99 98 91 Resp 20 18 18 B/P (MAP) 124/78 (93) 127/69 (88) 114/68 (83) Pulse Ox 91 90 95 O2 Delivery Room Air Room Air Intake and Output 03/08/19 03/08/19 03/09/19 15:00 23:00 07:00 Intake Total 2080 ml 240 ml Output Total 500 ml 700 ml Balance 1580 ml -460 ml HANSA SIMMS MD Mar 09, 2019 09:44
--- NOTE | 2019-03-09 10:03 | PDOC2 ---
CONSULT Date of Consult Date of Consult DATE: 03/09/19 TIME: 10:00 Reason for Consult Reason for Consult: Auto amputation right lesser toe, left heel ulcer Identification/Chief Complaint Chief Complaint Auto amputation right lesser toe, left heel ulcer Source Source: Caregiver, Chart review, Patient History of Present Illness Reason for Visit: This 73-year-old man was admitted with autoamputation of a right lesser toe. He also has heel ulcers. He is a poor historian. He reportedly lives with his and is able to use a cane but the heel ulcers with indicate that he spends much of his day bed bound. He is cachectic and speech is difficult to understand. He does report a broken hip about 3 or 4 months ago treated surgically although he could not remember where that was done Past Medical History Cardiovascular: CAD, HTN GI: Other Heme/Onc: Cancer Hepatobiliary: No pertinent hx Psych: No pertinent hx Musculoskeletal: Other Rheumatologic: No pertinent hx Infectious disease: No pertinent hx Renal/: No pertinent hx Endocrine: Diabetes Past Surgical History Past Surgical History: Colon Resection Family History Family History: Diabetes Social History No ALCOHOL: none Drugs: None Current Problem List Problem List Problems Medical Problems: (1) Necrotic toes Status: Acute (2) Ulcer of left heel Status: Acute Current Medications Current Medications Current Medications Sodium Chloride 1,000 ml @ 1,860 mls/hr Q33M IV Last administered on 03/08/19at 17:40; Start 03/08/19 at 16:04; Stop 03/08/19 at 17:04; Status DC Piperacillin Sod/ Tazobactam Sod 4.5 gm/Sodium Chloride 100 ml @ 200 mls/hr 1X ONCE IV Last administered on 03/08/19at 16:41; Start 03/08/19 at 16:15; Stop 03/08/19 at 16:44; Status DC Vancomycin HCl (Vanco Per Pharmacy) 1 each 1X ONCE MC ; Start 03/08/19 at 16:15; Stop 03/08/19 at 16:24; Status DC Morphine Sulfate (Morphine Sulfate) 4 mg PRN Q15MIN PRN IV/SQ PAIN GREATER THAN 3/10; Start 03/08/19 at 16:15; Stop 03/09/19 at 08:35; Status DC Vancomycin HCl 1.25 gm/Sodium Chloride 250 ml @ 167 mls/hr ONCE ONCE IV Last administered on 03/08/19at 17:40; Start 03/08/19 at 16:30; Stop 03/08/19 at 17:59; Status DC Ondansetron HCl (Zofran) 4 mg PRN Q8HRS PRN IV NAUSEA/VOMITING; Start 03/08/19 at 18:15; Stop 03/08/19 at 21:18; Status DC Morphine Sulfate (Morphine Sulfate) 4 mg PRN Q2HR PRN IV SEVERE PAIN 7-10; Start 03/08/19 at 18:15; Stop 03/09/19 at 08:35; Status DC Sodium Chloride 1,000 ml @ 75 mls/hr 1X ONCE IV Last administered on 03/08/19at 21:25; Start 03/08/19 at 18:15; Stop 03/09/19 at 07:34; Status DC Ondansetron HCl (Zofran) 4 mg PRN Q6HRS PRN IV NAUSEA/VOMITING 1ST CHOICE; Start 03/08/19 at 21:15 Lactic Acid (Lac-Hydrin) 1 nando BID TP ; Start 03/09/19 at 09:00 Non-Formulary Medication (Alendronate Sodium (Fosamax)) 70 mg WEEKLY PO ; Start 03/15/19 at 09:00; Status UNV Vitamin D (Vitamin D3) 5,000 unit WEEKLY PO ; Start 03/15/19 at 09:00 Piperacillin Sod/ Tazobactam Sod 3.375 gm/Sodium Chloride 50 ml @ 100 mls/hr Q6HRS IV ; Start 03/09/19 at 00:00; Status UNV Tramadol HCl (Ultram) 50 mg PRN Q6HRS PRN PO MODERATE PAIN 4-6; Start 03/08/19 at 21:15 Insulin Human Lispro (HumaLOG) 0-5 UNITS TIDACHC SQ ; Start 03/09/19 at 07:30; Stop 03/09/19 at 08:31; Status DC Dextrose (Dextrose 50%-Water Syringe) 12.5 gm PRN Q15MIN PRN IV SEE COMMENTS Last administered on 03/08/19at 21:54; Start 03/08/19 at 21:15 Enoxaparin Sodium (Lovenox 40mg Syringe) 40 mg Q24H SQ Last administered on 03/08/19at 21:31; Start 03/08/19 at 22:00 Piperacillin Sod/ Tazobactam Sod 2.25 gm/Sodium Chloride 50 ml @ 100 mls/hr Q6HRS IV Last administered on 03/09/19at 05:54; Start 03/09/19 at 00:00 Potassium Chloride (Klor-Con) 40 meq 1X ONCE PO Last administered on 03/08/19at 22:20; Start 03/08/19 at 22:00; Stop 03/08/19 at 22:01; Status DC Acetaminophen (Tylenol) 500 mg PRN Q6HRS PRN PO MILD PAIN / TEMP; Start 03/09/19 at 08:30 Acetaminophen/ Codeine Phosphate (Tylenol #3) 1 tab PRN Q6HRS PRN PO PAIN MODERATE; Start 03/09/19 at 08:30 Morphine Sulfate (Morphine Sulfate) 2 mg PRN Q2HR PRN IV PAIN; Start 03/09/19 at 08:30 Oxycodone/ Acetaminophen (Percocet 5/325) 1 tab PRN Q4HRS PRN PO SEVERE PAIN 7- 10; Start 03/09/19 at 08:30 Active Scripts Active Ammonium Lactate 226 Gm Lotion 1 Nando TP BID 10 Days Percocet 5-325 Mg Tablet (Oxycodone/Acetaminophen) 1 Each Tablet 1 Tab PO PRN Q4HRS PRN 10 Days Eliquis (Apixaban) 2.5 Mg Tablet 2.5 Mg PO BID 14 Days Reported Fosamax (Alendronate Sodium) 70 Mg Tablet 70 Mg PO WEEKLY pt takes medication on friday Vitamin D3 (Cholecalciferol (Vitamin D3)) 5,000 Unit Tablet 5,000 Unit PO WEEKLY Allergies Allergies: Coded Allergies: No Known Drug Allergies (Unverified , 11/17/14) Physical Exam Physical Exam Cachectic gentleman in no distress. Difficult to understand his speech. He took a long time to answer questions, and then was unsure of the answer such as at which hospital he had hip surgery recently General: No acute distress Extremities: Other (the right foot has auto amputation of the third toe with dry gangrene. There is an odor. The skin of both calves is dry with patterned scaling which seems most likely related to bilateral lower extremity vascular disease. Bilateral heel ulcers left greater than right. Pulses not palpable. ) Vitals VITALS Vital Signs Date Time Temp Pulse Resp B/P (MAP) Pulse Ox O2 Delivery O2 Flow Rate FiO2 03/09/19 07:00 99.2 91 18 114/68 (83) 95 Room Air 99.2 Labs Labs Laboratory Tests Test 03/08/19 16:09 03/08/19 21:30 03/08/19 21:39 03/08/19 22:32 White Blood Count 5.9 x10^3/uL (4.0-11.0) Red Blood Count 3.69 x10^6/uL (4.30-5.70) Hemoglobin 10.6 g/dL (13.0-17.5) Hematocrit 33.2 % (39.0-53.0) Mean Corpuscular Volume 90 fL (79-100) Mean Corpuscular Hemoglobin 29 pg (25-35) Mean Corpuscular Hemoglobin Concent 32 g/dL (31-37) Red Cell Distribution Width 16.7 % (11.5-14.5) Platelet Count 375 x10^3/uL (140-400) Neutrophils (%) (Auto) 64 % (31-73) Lymphocytes (%) (Auto) 21 % (24-48) Monocytes (%) (Auto) 12 % (0-9) Eosinophils (%) (Auto) 2 % (0-3) Basophils (%) (Auto) 1 % (0-3) Neutrophils # (Auto) 3.8 x10^3/uL (1.8-7.7) Lymphocytes # (Auto) 1.3 x10^3/uL (1.0-4.8) Monocytes # (Auto) 0.7 x10^3/uL (0.0-1.1) Eosinophils # (Auto) 0.1 x10^3/uL (0.0-0.7) Basophils # (Auto) 0.1 x10^3/uL (0.0-0.2) Prothrombin Time 13.7 SEC (11.7-14.0) Prothromb Time International Ratio 1.1 (0.8-1.1) Activated Partial Thromboplast Time 30 SEC (24-38) Sodium Level 148 mmol/L (136-145) Potassium Level 3.5 mmol/L (3.5-5.1) Chloride Level 109 mmol/L (98-107) Carbon Dioxide Level 33 mmol/L (21-32) Anion Gap 6 (6-14) Blood Urea Nitrogen 18 mg/dL (8-26) Creatinine 1.3 mg/dL (0.7-1.3) Estimated GFR (Cockcroft-Gault) 65.5 BUN/Creatinine Ratio 14 (6-20) Glucose Level 84 mg/dL (70-99) Lactic Acid Level 1.3 mmol/L (0.4-2.0) Calcium Level 8.8 mg/dL (8.5-10.1) Total Bilirubin 0.2 mg/dL (0.2-1.0) Aspartate Amino Transf (AST/SGOT) 20 U/L (15-37) Alanine Aminotransferase (ALT/SGPT) 11 U/L (16-63) Alkaline Phosphatase 76 U/L (46-116) Ammonia < 10 mcmol/L (11-34) Creatine Kinase 82 U/L (39-308) Creatine Kinase MB (Mass) 1.4 ng/mL (0.0-3.6) Creatine Kinase MB Relative Index 1.7 % (0-4) Total Protein 7.4 g/dL (6.4-8.2) Albumin 2.5 g/dL (3.4-5.0) Albumin/Globulin Ratio 0.5 (1.0-1.7) Lipase 115 U/L (73-393) Procalcitonin 0.19 ng/mL (0.00-0.10) Urine Color Yellow Urine Clarity Cloudy Urine pH 5.5 Urine Specific [place] 1.020 Urine Protein Negative mg/dL (NEG-TRACE) Urine Glucose (UA) Negative mg/dL (NEG) Urine Ketones (Stick) Negative mg/dL (NEG) Urine Blood Negative (NEG) Urine Nitrite Negative (NEG) Urine Bilirubin Negative (NEG) Urine Urobilinogen Dipstick 0.2 mg/dL (0.2 mg/dL) Urine Leukocyte Esterase Negative (NEG) Urine RBC 0 /HPF (0-2) Urine WBC 1-4 /HPF (0-4) Urine Squamous Epithelial Cells Occ /LPF Urine Bacteria 0 /HPF (0-FEW) Urine Mucus Mod /LPF Glucose (Fingerstick) 66 mg/dL (70-99) 100 mg/dL (70-99) Test 03/09/19 03:40 White Blood Count 6.8 x10^3/uL (4.0-11.0) Red Blood Count 3.54 x10^6/uL (4.30-5.70) Hemoglobin 10.2 g/dL (13.0-17.5) Hematocrit 31.9 % (39.0-53.0) Mean Corpuscular Volume 90 fL (79-100) Mean Corpuscular Hemoglobin 29 pg (25-35) Mean Corpuscular Hemoglobin Concent 32 g/dL (31-37) Red Cell Distribution Width 16.7 % (11.5-14.5) Platelet Count 350 x10^3/uL (140-400) Neutrophils (%) (Auto) 74 % (31-73) Lymphocytes (%) (Auto) 12 % (24-48) Monocytes (%) (Auto) 10 % (0-9) Eosinophils (%) (Auto) 2 % (0-3) Basophils (%) (Auto) 1 % (0-3) Neutrophils # (Auto) 5.1 x10^3/uL (1.8-7.7) Lymphocytes # (Auto) 0.8 x10^3/uL (1.0-4.8) Monocytes # (Auto) 0.7 x10^3/uL (0.0-1.1) Eosinophils # (Auto) 0.1 x10^3/uL (0.0-0.7) Basophils # (Auto) 0.1 x10^3/uL (0.0-0.2) Sodium Level 148 mmol/L (136-145) Potassium Level 4.2 mmol/L (3.5-5.1) Chloride Level 112 mmol/L (98-107) Carbon Dioxide Level 30 mmol/L (21-32) Anion Gap 6 (6-14) Blood Urea Nitrogen 13 mg/dL (8-26) Creatinine 1.2 mg/dL (0.7-1.3) Estimated GFR (Cockcroft-Gault) 71.8 Glucose Level 75 mg/dL (70-99) Calcium Level 7.9 mg/dL (8.5-10.1) Laboratory Tests Test 03/08/19 16:09 03/08/19 21:30 03/08/19 21:39 03/08/19 22:32 White Blood Count 5.9 x10^3/uL (4.0-11.0) Red Blood Count 3.69 x10^6/uL (4.30-5.70) Hemoglobin 10.6 g/dL (13.0-17.5) Hematocrit 33.2 % (39.0-53.0) Mean Corpuscular Volume 90 fL (79-100) Mean Corpuscular Hemoglobin 29 pg (25-35) Mean Corpuscular Hemoglobin Concent 32 g/dL (31-37) Red Cell Distribution Width 16.7 % (11.5-14.5) Platelet Count 375 x10^3/uL (140-400) Neutrophils (%) (Auto) 64 % (31-73) Lymphocytes (%) (Auto) 21 % (24-48) Monocytes (%) (Auto) 12 % (0-9) Eosinophils (%) (Auto) 2 % (0-3) Basophils (%) (Auto) 1 % (0-3) Neutrophils # (Auto) 3.8 x10^3/uL (1.8-7.7) Lymphocytes # (Auto) 1.3 x10^3/uL (1.0-4.8) Monocytes # (Auto) 0.7 x10^3/uL (0.0-1.1) Eosinophils # (Auto) 0.1 x10^3/uL (0.0-0.7) Basophils # (Auto) 0.1 x10^3/uL (0.0-0.2) Prothrombin Time 13.7 SEC (11.7-14.0) Prothromb Time International Ratio 1.1 (0.8-1.1) Activated Partial Thromboplast Time 30 SEC (24-38) Sodium Level 148 mmol/L (136-145) Potassium Level 3.5 mmol/L (3.5-5.1) Chloride Level 109 mmol/L (98-107) Carbon Dioxide Level 33 mmol/L (21-32) Anion Gap 6 (6-14) Blood Urea Nitrogen 18 mg/dL (8-26) Creatinine 1.3 mg/dL (0.7-1.3) Estimated GFR (Cockcroft-Gault) 65.5 BUN/Creatinine Ratio 14 (6-20) Glucose Level 84 mg/dL (70-99) Lactic Acid Level 1.3 mmol/L (0.4-2.0) Calcium Level 8.8 mg/dL (8.5-10.1) Total Bilirubin 0.2 mg/dL (0.2-1.0) Aspartate Amino Transf (AST/SGOT) 20 U/L (15-37) Alanine Aminotransferase (ALT/SGPT) 11 U/L (16-63) Alkaline Phosphatase 76 U/L (46-116) Ammonia < 10 mcmol/L (11-34) Creatine Kinase 82 U/L (39-308) Creatine Kinase MB (Mass) 1.4 ng/mL (0.0-3.6) Creatine Kinase MB Relative Index 1.7 % (0-4) Total Protein 7.4 g/dL (6.4-8.2) Albumin 2.5 g/dL (3.4-5.0) Albumin/Globulin Ratio 0.5 (1.0-1.7) Lipase 115 U/L (73-393) Procalcitonin 0.19 ng/mL (0.00-0.10) Urine Color Yellow Urine Clarity Cloudy Urine pH 5.5 Urine Specific [place] 1.020 Urine Protein Negative mg/dL (NEG-TRACE) Urine Glucose (UA) Negative mg/dL (NEG) Urine Ketones (Stick) Negative mg/dL (NEG) Urine Blood Negative (NEG) Urine Nitrite Negative (NEG) Urine Bilirubin Negative (NEG) Urine Urobilinogen Dipstick 0.2 mg/dL (0.2 mg/dL) Urine Leukocyte Esterase Negative (NEG) Urine RBC 0 /HPF (0-2) Urine WBC 1-4 /HPF (0-4) Urine Squamous Epithelial Cells Occ /LPF Urine Bacteria 0 /HPF (0-FEW) Urine Mucus Mod /LPF Glucose (Fingerstick) 66 mg/dL (70-99) 100 mg/dL (70-99) Test 03/09/19 03:40 White Blood Count 6.8 x10^3/uL (4.0-11.0) Red Blood Count 3.54 x10^6/uL (4.30-5.70) Hemoglobin 10.2 g/dL (13.0-17.5) Hematocrit 31.9 % (39.0-53.0) Mean Corpuscular Volume 90 fL (79-100) Mean Corpuscular Hemoglobin 29 pg (25-35) Mean Corpuscular Hemoglobin Concent 32 g/dL (31-37) Red Cell Distribution Width 16.7 % (11.5-14.5) Platelet Count 350 x10^3/uL (140-400) Neutrophils (%) (Auto) 74 % (31-73) Lymphocytes (%) (Auto) 12 % (24-48) Monocytes (%) (Auto) 10 % (0-9) Eosinophils (%) (Auto) 2 % (0-3) Basophils (%) (Auto) 1 % (0-3) Neutrophils # (Auto) 5.1 x10^3/uL (1.8-7.7) Lymphocytes # (Auto) 0.8 x10^3/uL (1.0-4.8) Monocytes # (Auto) 0.7 x10^3/uL (0.0-1.1) Eosinophils # (Auto) 0.1 x10^3/uL (0.0-0.7) Basophils # (Auto) 0.1 x10^3/uL (0.0-0.2) Sodium Level 148 mmol/L (136-145) Potassium Level 4.2 mmol/L (3.5-5.1) Chloride Level 112 mmol/L (98-107) Carbon Dioxide Level 30 mmol/L (21-32) Anion Gap 6 (6-14) Blood Urea Nitrogen 13 mg/dL (8-26) Creatinine 1.2 mg/dL (0.7-1.3) Estimated GFR (Cockcroft-Gault) 71.8 Glucose Level 75 mg/dL (70-99) Calcium Level 7.9 mg/dL (8.5-10.1) Images Images [facility] [address] [place], [place] [id number] IMAGING REPORT Signed PATIENT: ROSALIA GONZALEZ ACCOUNT: [id number] : 1945 LOCATION: ER AGE: 73 SEX: M EXAM STATUS: REG ER ORD. PHYSICIAN: VIRGIL MC APRN REASON: left heal ulcer, right toes necrosis. stiffness in bilateral legs PROCEDURE: FOOT BILAT 3V Exam: Bilateral feet 3 views INDICATION: Left heel ulcer. Right toe necrosis. TECHNIQUE: Frontal, lateral and oblique views of the left and right foot. Comparisons: None FINDINGS: Left foot: Degenerative change at the toes bilaterally. Soft tissue defect at the heel. Mild osteopenia. Scattered degenerative change noted throughout the foot. No acute fractures are identified. Right foot: Evaluation of the digits is limited secondary to positioning. No acute fractures identified. There is diffuse osteopenia. Soft tissue ulcer at the heel. IMPRESSION: 1. Soft tissue ulcers at the heels bilaterally. 2. Diffuse osteopenia without acute fracture identified. No definite evidence for osteomyelitis identified however evaluation is limited. Electronically signed by: Armani Arambula MD (03/08/2019 6:21 PM) [facility] DICTATED and SIGNED BY: ARMANI ARAMBULA MD DATE: 03/08/19 1821[facility] [address] [place] [address] IMAGING REPORT Signed PATIENT: ROSALIA GONZALEZ ACCOUNT: [id number] : 1945 LOCATION: [address] [place] [address] AGE: 73 SEX: M EXAM STATUS: ADM IN ORD. PHYSICIAN: CARMEN CONKLIN MD REASON: Bilateral LE ulcers PROCEDURE: DUPLEX LOWER EXTREMITY BILAT Lower extremity arterial duplex Doppler examination with spectral analysis HISTORY: Bilateral enlargement ulcers Sonographic examination alert she was informed bilaterally multiple static images were obtained. In addition color Doppler was applied as well as arterial waveform spectral analysis. FINDINGS: On the right there is triphasic flow in the common femoral artery but monophasic flow throughout the remaining right lower cavity. There is no flow seen in the mid SFA and there is no visualization of the peroneal vein and the DPA. There is increased velocity in the common femoral artery with a peak systolic flow of 191 cm/s. On the left there is monophasic flow throughout. There is elevated velocity in the proximal SFA with a peak systolic velocity of 197 cm per second. There is nonvisualization the COMPLIANCE MONITOR distally on the left and nonvisualization of the DPA. IMPRESSION: 1. Monophasic flow in the lower extremities bilaterally. This is likely secondary to diffuse atherosclerotic disease. 2. Nonvisualization the right peroneal artery and in the DPA bilaterally and the distal left COMPLIANCE MONITOR. 3. Occlusion of the mid SFA. There is reconstitution of flow in the distal SFA through collaterals. Electronically signed by: Maritza Tse III, MD (03/09/2019 12:26 AM) [facility] DICTATED and SIGNED BY: MARITZA TSE III, MD DATE: 03/09/19 [id number] [place] [address] IMAGING REPORT Signed PATIENT: ROSALIA GONZALEZ ACCOUNT: [id number] : 1945 LOCATION: ER AGE: 73 SEX: M EXAM STATUS: REG ER ORD. PHYSICIAN: VIRGIL MC APRN REASON: wound BLE PROCEDURE: VENOUS LOWER EXT BILATERAL EXAM: Bilateral lower extremity venous Doppler. HISTORY: Bilateral lower extremity pain/swelling. Bilateral lower extremity nonhealing ulcers. COMPARISON: None. FINDINGS: Grayscale and Doppler analysis of the both lower extremity deep venous systems was performed with graded compression and augmentation. The common femoral, greater saphenous, superficial femoral, popliteal and calf veins were assessed. There is no evidence of deep venous thrombosis. IMPRESSION: 1. No evidence of deep venous thrombosis. Electronically signed by: Soco Jacobson MD (03/08/2019 4:47 PM) [facility] DICTATED and SIGNED BY: EMMIE JACOBSON MD DATE: 03/08/19 [id number] [place] [address] IMAGING REPORT Signed PATIENT: ROSALIA GONZALEZ ACCOUNT: [id number] MRN#: [id number] : 1945 LOCATION: [facility] AGE: 73 SEX: F EXAM STATUS: REG CLI ORD. PHYSICIAN: ANA MATOS MD REASON: PROCEDURE: HIP LEFT 1 VIEW WITH PELVIS EXAM: AP pelvis, lateral view left hip DATE: 01/20/2019 12:00 AM INDICATION: f/u left hip fx 12/25/18 COMPARISON: No Prior FINDINGS: IM nail fixation of the known left intertrochanteric hip fracture, in good alignment without definite hardware complication. Atherosclerotic vascular calcifications are seen. Mild subchondral sclerosis left hip, likely degenerative. IMPRESSION: IM nail fixation of known left intertrochanteric hip fracture, in near-anatomic alignment without definite hardware complication. Electronically signed by: Ashish Samson MD (01/20/2019 1:18 PM) [facility] DICTATED and SIGNED BY: ASHISH SAMSON MD DATE: 01/20/19 1318 Assessment/Plan Assessment/Plan dry gangrene heel ulcers severe PAD skin changes I'm going to ask vascular surgery input. I doubt any toe or foot amputation would heal. I would suggest BKA, possible AKA, but I will defer to vascular gift consultant. MARITZA CONDON MD Mar 09, 2019 10:03
--- NOTE | 2019-03-09 10:30 | PDOC ---
Infectious Disease Note Vital Sign Vital Signs Vital Signs Date Time Temp Pulse Resp B/P (MAP) Pulse Ox O2 Delivery O2 Flow Rate FiO2 03/09/19 07:00 99.2 91 18 114/68 (83) 95 Room Air 99.2 Labs Lab Laboratory Tests Test 03/08/19 16:09 03/08/19 21:30 03/08/19 21:39 03/08/19 22:32 White Blood Count 5.9 x10^3/uL (4.0-11.0) Red Blood Count 3.69 x10^6/uL (4.30-5.70) Hemoglobin 10.6 g/dL (13.0-17.5) Hematocrit 33.2 % (39.0-53.0) Mean Corpuscular Volume 90 fL (79-100) Mean Corpuscular Hemoglobin 29 pg (25-35) Mean Corpuscular Hemoglobin Concent 32 g/dL (31-37) Red Cell Distribution Width 16.7 % (11.5-14.5) Platelet Count 375 x10^3/uL (140-400) Neutrophils (%) (Auto) 64 % (31-73) Lymphocytes (%) (Auto) 21 % (24-48) Monocytes (%) (Auto) 12 % (0-9) Eosinophils (%) (Auto) 2 % (0-3) Basophils (%) (Auto) 1 % (0-3) Neutrophils # (Auto) 3.8 x10^3/uL (1.8-7.7) Lymphocytes # (Auto) 1.3 x10^3/uL (1.0-4.8) Monocytes # (Auto) 0.7 x10^3/uL (0.0-1.1) Eosinophils # (Auto) 0.1 x10^3/uL (0.0-0.7) Basophils # (Auto) 0.1 x10^3/uL (0.0-0.2) Prothrombin Time 13.7 SEC (11.7-14.0) Prothromb Time International Ratio 1.1 (0.8-1.1) Activated Partial Thromboplast Time 30 SEC (24-38) Sodium Level 148 mmol/L (136-145) Potassium Level 3.5 mmol/L (3.5-5.1) Chloride Level 109 mmol/L (98-107) Carbon Dioxide Level 33 mmol/L (21-32) Anion Gap 6 (6-14) Blood Urea Nitrogen 18 mg/dL (8-26) Creatinine 1.3 mg/dL (0.7-1.3) Estimated GFR (Cockcroft-Gault) 65.5 BUN/Creatinine Ratio 14 (6-20) Glucose Level 84 mg/dL (70-99) Lactic Acid Level 1.3 mmol/L (0.4-2.0) Calcium Level 8.8 mg/dL (8.5-10.1) Total Bilirubin 0.2 mg/dL (0.2-1.0) Aspartate Amino Transf (AST/SGOT) 20 U/L (15-37) Alanine Aminotransferase (ALT/SGPT) 11 U/L (16-63) Alkaline Phosphatase 76 U/L (46-116) Ammonia < 10 mcmol/L (11-34) Creatine Kinase 82 U/L (39-308) Creatine Kinase MB (Mass) 1.4 ng/mL (0.0-3.6) Creatine Kinase MB Relative Index 1.7 % (0-4) Total Protein 7.4 g/dL (6.4-8.2) Albumin 2.5 g/dL (3.4-5.0) Albumin/Globulin Ratio 0.5 (1.0-1.7) Lipase 115 U/L (73-393) Procalcitonin 0.19 ng/mL (0.00-0.10) Urine Color Yellow Urine Clarity Cloudy Urine pH 5.5 Urine Specific [place] 1.020 Urine Protein Negative mg/dL (NEG-TRACE) Urine Glucose (UA) Negative mg/dL (NEG) Urine Ketones (Stick) Negative mg/dL (NEG) Urine Blood Negative (NEG) Urine Nitrite Negative (NEG) Urine Bilirubin Negative (NEG) Urine Urobilinogen Dipstick 0.2 mg/dL (0.2 mg/dL) Urine Leukocyte Esterase Negative (NEG) Urine RBC 0 /HPF (0-2) Urine WBC 1-4 /HPF (0-4) Urine Squamous Epithelial Cells Occ /LPF Urine Bacteria 0 /HPF (0-FEW) Urine Mucus Mod /LPF Glucose (Fingerstick) 66 mg/dL (70-99) 100 mg/dL (70-99) Test 10/29/19 03:40 White Blood Count 6.8 x10^3/uL (4.0-11.0) Red Blood Count 3.54 x10^6/uL (4.30-5.70) Hemoglobin 10.2 g/dL (13.0-17.5) Hematocrit 31.9 % (39.0-53.0) Mean Corpuscular Volume 90 fL (79-100) Mean Corpuscular Hemoglobin 29 pg (25-35) Mean Corpuscular Hemoglobin Concent 32 g/dL (31-37) Red Cell Distribution Width 16.7 % (11.5-14.5) Platelet Count 350 x10^3/uL (140-400) Neutrophils (%) (Auto) 74 % (31-73) Lymphocytes (%) (Auto) 12 % (24-48) Monocytes (%) (Auto) 10 % (0-9) Eosinophils (%) (Auto) 2 % (0-3) Basophils (%) (Auto) 1 % (0-3) Neutrophils # (Auto) 5.1 x10^3/uL (1.8-7.7) Lymphocytes # (Auto) 0.8 x10^3/uL (1.0-4.8) Monocytes # (Auto) 0.7 x10^3/uL (0.0-1.1) Eosinophils # (Auto) 0.1 x10^3/uL (0.0-0.7) Basophils # (Auto) 0.1 x10^3/uL (0.0-0.2) Sodium Level 148 mmol/L (136-145) Potassium Level 4.2 mmol/L (3.5-5.1) Chloride Level 112 mmol/L (98-107) Carbon Dioxide Level 30 mmol/L (21-32) Anion Gap 6 (6-14) Blood Urea Nitrogen 13 mg/dL (8-26) Creatinine 1.2 mg/dL (0.7-1.3) Estimated GFR (Cockcroft-Gault) 71.8 Glucose Level 75 mg/dL (70-99) Calcium Level 7.9 mg/dL (8.5-10.1) Objective Assessment Bilateral LE cellulitis L > right with dry gangrene R mid toe tip had fallen off - no notes of abnormalities with last admit December 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 Martin Thank you # [id number] JURGEN MOTA MD Mar 09, 2019 10:30
[2019-03-09 11:00] VITALS: BP 113/61
[2019-03-09] MEDS: VANCOMYCIN PER PHARMACY MC PRN (11:07)
--- NOTE | 2019-03-09 11:08 | NUR ---
Pharmacy Vancomycin Dosing Note S:Consulted to monitor and dose vancomycin started 03/08/19. O:ROSALIA GONZALEZ is a 73 year old M with osteomyelitis. Height: 5 feet, 5 inches Weight: 47.2 kg Dosing Weight: Actual Other Antibiotics: MICAMINE 100 MG IV Q24HRS ZOSYN 3.375G IV Q6HRS LABS: Last BUN: 13 Last Creatinine: 1.2 Creatinine Clearance: 36 mL/min Last WBC: 6.8 Last Procalcitonin: 0.19 Tmax (past 24 hours): 99.2 Microbiology: BLOOD CX IN PROCESS I/O: 2320/1200 A: Patient requires vancomycin for osteomyelitis. Goal trough 15-20 mcg/ml. His SCr is 1.2 with eCrCl of 36 ml/min. Patient received a one time dose of vancomycin 1250 mg yesterday in ER. P: 1. Initiate vancomycin 750 mg IV q24h 2. Follow up Trough level on 03/10/19 at 1630 3. Pharmacy will continue to monitor, follow and adjust therapy as needed. ANISH THURSTON [facility], 03/09/19 [id number]
[2019-03-09] MEDS: MICAFUNGIN 100 MG in IV DEXTROSE 5% 100ML 100 ML IV SCH (11:15)
--- NOTE | 2019-03-09 11:17 | NUR ---
ADALBERTO following for discharge planning. Discussed with RN, pt is from home with . Surgery consult today. SW will continue to follow for any discharge planning needs. Addendum: 03/09/19 at 1431 by LORA PLAZA SW SW following. ADALBERTO met with pt and pt's , Malcolm at bedside. Malcolm reports they live on a split level home, but pt stays on the one level as there is a bathroom on that level. Per pt's , pt uses a cane when they go out, but walks independent at home. Malcolm reported they have 4 children, two live out of town and the younger two sons live with them. Malcolm provided name and number of their son, Nash ([phone]). RN mentioned pt may need bilateral above knee amputation. Pt and family waiting on one more doctor to round before a decision is made. ADALBERTO will continue to follow.
[2019-03-09] MEDS: PIPERACILLIN/TAZOBACTAM 3.375 GM in IV NORMAL SALINE 50ML 50 ML IV SCH ×3 (12:13→23:29)
[2019-03-09] MEDS: DEXTROSE 50% 25 GM / 50ML DISP.SYRIN. IV PRN ×2 (12:14→17:11)
--- NOTE | 2019-03-09 14:09 | PDOC2 ---
CONSULT Date of Consult Date of Consult DATE: 03/09/19 TIME: 14:02 Reason for Consult Reason for Consult: Abnormal arterial Doppler, necrotic heel ulcers. Referring Physician Referring Physician: Dr. Mehta Identification/Chief Complaint Chief Complaint Weakness and fall. Source Source: Chart review, Patient History of Present Illness Reason for Visit: This is a 73-year-old male who was admitted for weakness and recent fall. Upon admission he was noted to have bilateral chronic heel ulcers along with multiple digit gangrene and cellulitis. The patient is a poor historian and is unable to answer questions appropriately. Most of the information is obtained from chart review. He reportedly lives with his and is able to use a cane but most recently has been bedridden . He is cachectic. Patient had surgical repair of a hip fracture back in December and was not noted to extreme dry and scaly skin on bilateral lower extremities without any significant lesions or ulcers. The is unavailable at this time. The patient reports he does use tobacco products. Past Medical History Cardiovascular: CAD, HTN GI: Other Heme/Onc: Cancer Hepatobiliary: No pertinent hx Psych: No pertinent hx Musculoskeletal: Other Rheumatologic: No pertinent hx Infectious disease: No pertinent hx Renal/: No pertinent hx Endocrine: Diabetes Past Surgical History Past Surgical History: Colon Resection, Other (Hip fracture) Family History Family History: Diabetes Social History # pack years (+ for tobacco unable to ascertain pack per year) ALCOHOL: none Drugs: None Current Problem List Problem List Problems Medical Problems: (1) Necrotic toes Status: Acute (2) Ulcer of left heel Status: Acute Current Medications Current Medications Current Medications Sodium Chloride 1,000 ml @ 1,860 mls/hr Q33M IV Last administered on 03/08/19at 17:40; Start 03/08/19 at 16:04; Stop 03/08/19 at 17:04; Status DC Piperacillin Sod/ Tazobactam Sod 4.5 gm/Sodium Chloride 100 ml @ 200 mls/hr 1X ONCE IV Last administered on 03/08/19at 16:41; Start 03/08/19 at 16:15; Stop 03/08/19 at 16:44; Status DC Vancomycin HCl (Vanco Per Pharmacy) 1 each 1X ONCE MC ; Start 03/08/19 at 16:15; Stop 03/08/19 at 16:24; Status DC Morphine Sulfate (Morphine Sulfate) 4 mg PRN Q15MIN PRN IV/SQ PAIN GREATER THAN 3/10; Start 03/08/19 at 16:15; Stop 03/09/19 at 08:35; Status DC Vancomycin HCl 1.25 gm/Sodium Chloride 250 ml @ 167 mls/hr ONCE ONCE IV Last administered on 03/08/19at 17:40; Start 03/08/19 at 16:30; Stop 03/08/19 at 17:59; Status DC Ondansetron HCl (Zofran) 4 mg PRN Q8HRS PRN IV NAUSEA/VOMITING; Start 03/08/19 at 18:15; Stop 03/08/19 at 21:18; Status DC Morphine Sulfate (Morphine Sulfate) 4 mg PRN Q2HR PRN IV SEVERE PAIN 7-10; Start 03/08/19 at 18:15; Stop 03/09/19 at 08:35; Status DC Sodium Chloride 1,000 ml @ 75 mls/hr 1X ONCE IV Last administered on 03/08/19at 21:25; Start 03/08/19 at 18:15; Stop 03/09/19 at 07:34; Status DC Ondansetron HCl (Zofran) 4 mg PRN Q6HRS PRN IV NAUSEA/VOMITING 1ST CHOICE; Start 03/08/19 at 21:15 Lactic Acid (Lac-Hydrin) 1 nando BID TP ; Start 03/09/19 at 09:00 Non-Formulary Medication (Alendronate Sodium (Fosamax)) 70 mg WEEKLY PO ; Start 03/15/19 at 09:00; Status UNV Vitamin D (Vitamin D3) 5,000 unit WEEKLY PO ; Start 03/15/19 at 09:00 Piperacillin Sod/ Tazobactam Sod 3.375 gm/Sodium Chloride 50 ml @ 100 mls/hr Q6HRS IV ; Start 03/09/19 at 00:00; Status UNV Tramadol HCl (Ultram) 50 mg PRN Q6HRS PRN PO MODERATE PAIN; Start 03/08/19 at 21:15 Insulin Human Lispro (HumaLOG) 0-5 UNITS TIDACHC SQ ; Start 03/09/19 at 07:30; Stop 03/09/19 at 08:31; Status DC Dextrose (Dextrose 50%-Water Syringe) 12.5 gm PRN Q15MIN PRN IV SEE COMMENTS Last administered on 03/09/19at 12:14; Start 03/08/19 at 21:15 Enoxaparin Sodium (Lovenox 40mg Syringe) 40 mg Q24H SQ Last administered on 03/08/19at 21:31; Start 03/08/19 at 22:00 Piperacillin Sod/ Tazobactam Sod 2.25 gm/Sodium Chloride 50 ml @ 100 mls/hr Q6HRS IV Last administered on 03/09/19at 05:54; Start 03/09/19 at 00:00; Stop 03/09/19 at 10:17; Status DC Potassium Chloride (Klor-Con) 40 meq 1X ONCE PO Last administered on 03/08/19at 22:20; Start 03/08/19 at 22:00; Stop 03/08/19 at 22:01; Status DC Acetaminophen (Tylenol) 500 mg PRN Q6HRS PRN PO TEMP/HEADACHE; Start 03/09/19 at 08:30 Acetaminophen/ Codeine Phosphate (Tylenol #3) 1 tab PRN Q6HRS PRN PO MILD PAIN 1-3; Start 03/09/19 at 08:30 Morphine Sulfate (Morphine Sulfate) 2 mg PRN Q2HR PRN IV PAIN; Start 03/09/19 at 08:30 Oxycodone/ Acetaminophen (Percocet 5/325) 1 tab PRN Q4HRS PRN PO SEVERE PAIN 7- 10; Start 03/09/19 at 08:30 Piperacillin Sod/ Tazobactam Sod 3.375 gm/Sodium Chloride 50 ml @ 100 mls/hr Q6HRS IV Last administered on 03/09/19at 12:13; Start 03/09/19 at 12:00 Micafungin Sodium 100 mg/Dextrose 100 ml @ 100 mls/hr Q24H IV Last admi nistered on 03/09/19at 11:15; Start 03/09/19 at 11:00 Vancomycin HCl (Vanco Per Pharmacy) 1 each PRN DAILY PRN MC SEE COMMENTS Last administered on 03/09/19at 11:07; Start 03/09/19 at 11:15 Vancomycin HCl 750 mg/Sodium Chloride 250 ml @ 250 mls/hr Q24H IV ; Start 03/09/19 at 17:00 Vancomycin HCl (Vancomycin Trough Level) 1 each 1X ONCE MC ; Start 03/10/19 at 16:30; Stop 03/10/19 at 16:31 Multivitamins (Thera M Plus) 1 tab DAILY PO ; Start 03/10/19 at 09:00 Active Scripts Active Ammonium Lactate 226 Gm Lotion 1 Nando TP BID 10 Days Percocet 5-325 Mg Tablet (Oxycodone/Acetaminophen) 1 Each Tablet 1 Tab PO PRN Q4HRS PRN 10 Days Eliquis (Apixaban) 2.5 Mg Tablet 2.5 Mg PO BID 14 Days Reported Fosamax (Alendronate Sodium) 70 Mg Tablet 70 Mg PO WEEKLY pt takes medication on friday Vitamin D3 (Cholecalciferol (Vitamin D3)) 5,000 Unit Tablet 5,000 Unit PO WEEKLY Allergies Allergies: Coded Allergies: No Known Drug Allergies (Unverified , 11/17/14) ROS Review of System Unable to obtain due to patient's mental status other than lower extremity pain Physical Exam Physical Exam Gen.: Awake and alert, oriented to person only. Thin. Cardiac: HRR Lungs: Nonlabored respirations. Abdomen: Soft, nontender, mild distension, no palpable masses. Extremities: Palpable bilateral femoral pulses. Unable to appreciate distal pulses. Extremely dry and scaly skin bilateral lower extremities from knees to toes. Venous stasis skin changes. RLE: Patient has multiple digit gangrene on his right foot with autoamputation of third toe tip. Necrotic heel with palpable bone. LLE: Large heel ulcer with exposed bone. Skin: As above. Neurological: Moves upper extremities without difficulty. Unable to assess lower extremity motor function or sensation. Vitals VITALS Vital Signs Date Time Temp Pulse Resp B/P (MAP) Pulse Ox O2 Delivery O2 Flow Rate FiO2 03/09/19 11:00 98.3 82 18 113/61 (78) 93 Room Air 98.3 Labs Labs Laboratory Tests Test 03/08/19 16:09 03/08/19 21:30 03/08/19 21:39 03/08/19 22:32 White Blood Count 5.9 x10^3/uL (4.0-11.0) Red Blood Count 3.69 x10^6/uL (4.30-5.70) Hemoglobin 10.6 g/dL (13.0-17.5) Hematocrit 33.2 % (39.0-53.0) Mean Corpuscular Volume 90 fL (79-100) Mean Corpuscular Hemoglobin 29 pg (25-35) Mean Corpuscular Hemoglobin Concent 32 g/dL (31-37) Red Cell Distribution Width 16.7 % (11.5-14.5) Platelet Count 375 x10^3/uL (140-400) Neutrophils (%) (Auto) 64 % (31-73) Lymphocytes (%) (Auto) 21 % (24-48) Monocytes (%) (Auto) 12 % (0-9) Eosinophils (%) (Auto) 2 % (0-3) Basophils (%) (Auto) 1 % (0-3) Neutrophils # (Auto) 3.8 x10^3/uL (1.8-7.7) Lymphocytes # (Auto) 1.3 x10^3/uL (1.0-4.8) Monocytes # (Auto) 0.7 x10^3/uL (0.0-1.1) Eosinophils # (Auto) 0.1 x10^3/uL (0.0-0.7) Basophils # (Auto) 0.1 x10^3/uL (0.0-0.2) Prothrombin Time 13.7 SEC (11.7-14.0) Prothromb Time International Ratio 1.1 (0.8-1.1) Activated Partial Thromboplast Time 30 SEC (24-38) Sodium Level 148 mmol/L (136-145) Potassium Level 3.5 mmol/L (3.5-5.1) Chloride Level 109 mmol/L (98-107) Carbon Dioxide Level 33 mmol/L (21-32) Anion Gap 6 (6-14) Blood Urea Nitrogen 18 mg/dL (8-26) Creatinine 1.3 mg/dL (0.7-1.3) Estimated GFR (Cockcroft-Gault) 65.5 BUN/Creatinine Ratio 14 (6-20) Glucose Level 84 mg/dL (70-99) Lactic Acid Level 1.3 mmol/L (0.4-2.0) Calcium Level 8.8 mg/dL (8.5-10.1) Total Bilirubin 0.2 mg/dL (0.2-1.0) Aspartate Amino Transf (AST/SGOT) 20 U/L (15-37) Alanine Aminotransferase (ALT/SGPT) 11 U/L (16-63) Alkaline Phosphatase 76 U/L (46-116) Ammonia < 10 mcmol/L (11-34) Creatine Kinase 82 U/L (39-308) Creatine Kinase MB (Mass) 1.4 ng/mL (0.0-3.6) Creatine Kinase MB Relative Index 1.7 % (0-4) Total Protein 7.4 g/dL (6.4-8.2) Albumin 2.5 g/dL (3.4-5.0) Albumin/Globulin Ratio 0.5 (1.0-1.7) Lipase 115 U/L (73-393) Procalcitonin 0.19 ng/mL (0.00-0.10) Urine Color Yellow Urine Clarity Cloudy Urine pH 5.5 Urine Specific [place] 1.020 Urine Protein Negative mg/dL (NEG-TRACE) Urine Glucose (UA) Negative mg/dL (NEG) Urine Ketones (Stick) Negative mg/dL (NEG) Urine Blood Negative (NEG) Urine Nitrite Negative (NEG) Urine Bilirubin Negative (NEG) Urine Urobilinogen Dipstick 0.2 mg/dL (0.2 mg/dL) Urine Leukocyte Esterase Negative (NEG) Urine RBC 0 /HPF (0-2) Urine WBC 1-4 /HPF (0-4) Urine Squamous Epithelial Cells Occ /LPF Urine Bacteria 0 /HPF (0-FEW) Urine Mucus Mod /LPF Glucose (Fingerstick) 66 mg/dL (70-99) 100 mg/dL (70-99) Test 03/09/19 03:40 03/09/19 11:50 03/09/19 12:43 White Blood Count 6.8 x10^3/uL (4.0-11.0) Red Blood Count 3.54 x10^6/uL (4.30-5.70) Hemoglobin 10.2 g/dL (13.0-17.5) Hematocrit 31.9 % (39.0-53.0) Mean Corpuscular Volume 90 fL (79-100) Mean Corpuscular Hemoglobin 29 pg (25-35) Mean Corpuscular Hemoglobin Concent 32 g/dL (31-37) Red Cell Distribution Width 16.7 % (11.5-14.5) Platelet Count 350 x10^3/uL (140-400) Neutrophils (%) (Auto) 74 % (31-73) Lymphocytes (%) (Auto) 12 % (24-48) Monocytes (%) (Auto) 10 % (0-9) Eosinophils (%) (Auto) 2 % (0-3) Basophils (%) (Auto) 1 % (0-3) Neutrophils # (Auto) 5.1 x10^3/uL (1.8-7.7) Lymphocytes # (Auto) 0.8 x10^3/uL (1.0-4.8) Monocytes # (Auto) 0.7 x10^3/uL (0.0-1.1) Eosinophils # (Auto) 0.1 x10^3/uL (0.0-0.7) Basophils # (Auto) 0.1 x10^3/uL (0.0-0.2) Sodium Level 148 mmol/L (136-145) Potassium Level 4.2 mmol/L (3.5-5.1) Chloride Level 112 mmol/L (98-107) Carbon Dioxide Level 30 mmol/L (21-32) Anion Gap 6 (6-14) Blood Urea Nitrogen 13 mg/dL (8-26) Creatinine 1.2 mg/dL (0.7-1.3) Estimated GFR (Cockcroft-Gault) 71.8 Glucose Level 75 mg/dL (70-99) Calcium Level 7.9 mg/dL (8.5-10.1) 25-Hydroxy Vitamin D Total 140.4 ng/mL (30-100) Glucose (Fingerstick) 54 mg/dL (70-99) 70 mg/dL (70-99) Laboratory Tests Test 03/08/19 16:09 03/08/19 21:30 03/08/19 21:39 03/08/19 22:32 White Blood Count 5.9 x10^3/uL (4.0-11.0) Red Blood Count 3.69 x10^6/uL (4.30-5.70) Hemoglobin 10.6 g/dL (13.0-17.5) Hematocrit 33.2 % (39.0-53.0) Mean Corpuscular Volume 90 fL (79-100) Mean Corpuscular Hemoglobin 29 pg (25-35) Mean Corpuscular Hemoglobin Concent 32 g/dL (31-37) Red Cell Distribution Width 16.7 % (11.5-14.5) Platelet Count 375 x10^3/uL (140-400) Neutrophils (%) (Auto) 64 % (31-73) Lymphocytes (%) (Auto) 21 % (24-48) Monocytes (%) (Auto) 12 % (0-9) Eosinophils (%) (Auto) 2 % (0-3) Basophils (%) (Auto) 1 % (0-3) Neutrophils # (Auto) 3.8 x10^3/uL (1.8-7.7) Lymphocytes # (Auto) 1.3 x10^3/uL (1.0-4.8) Monocytes # (Auto) 0.7 x10^3/uL (0.0-1.1) Eosinophils # (Auto) 0.1 x10^3/uL (0.0-0.7) Basophils # (Auto) 0.1 x10^3/uL (0.0-0.2) Prothrombin Time 13.7 SEC (11.7-14.0) Prothromb Time International Ratio 1.1 (0.8-1.1) Activated Partial Thromboplast Time 30 SEC (24-38) Sodium Level 148 mmol/L (136-145) Potassium Level 3.5 mmol/L (3.5-5.1) Chloride Level 109 mmol/L (98-107) Carbon Dioxide Level 33 mmol/L (21-32) Anion Gap 6 (6-14) Blood Urea Nitrogen 18 mg/dL (8-26) Creatinine 1.3 mg/dL (0.7-1.3) Estimated GFR (Cockcroft-Gault) 65.5 BUN/Creatinine Ratio 14 (6-20) Glucose Level 84 mg/dL (70-99) Lactic Acid Level 1.3 mmol/L (0.4-2.0) Calcium Level 8.8 mg/dL (8.5-10.1) Total Bilirubin 0.2 mg/dL (0.2-1.0) Aspartate Amino Transf (AST/SGOT) 20 U/L (15-37) Alanine Aminotransferase (ALT/SGPT) 11 U/L (16-63) Alkaline Phosphatase 76 U/L (46-116) Ammonia < 10 mcmol/L (11-34) Creatine Kinase 82 U/L (39-308) Creatine Kinase MB (Mass) 1.4 ng/mL (0.0-3.6) Creatine Kinase MB Relative Index 1.7 % (0-4) Total Protein 7.4 g/dL (6.4-8.2) Albumin 2.5 g/dL (3.4-5.0) Albumin/Globulin Ratio 0.5 (1.0-1.7) Lipase 115 U/L (73-393) Procalcitonin 0.19 ng/mL (0.00-0.10) Urine Color Yellow Urine Clarity Cloudy Urine pH 5.5 Urine Specific [place] 1.020 Urine Protein Negative mg/dL (NEG-TRACE) Urine Glucose (UA) Negative mg/dL (NEG) Urine Ketones (Stick) Negative mg/dL (NEG) Urine Blood Negative (NEG) Urine Nitrite Negative (NEG) Urine Bilirubin Negative (NEG) Urine Urobilinogen Dipstick 0.2 mg/dL (0.2 mg/dL) Urine Leukocyte Esterase Negative (NEG) Urine RBC 0 /HPF (0-2) Urine WBC 1-4 /HPF (0-4) Urine Squamous Epithelial Cells Occ /LPF Urine Bacteria 0 /HPF (0-FEW) Urine Mucus Mod /LPF Glucose (Fingerstick) 66 mg/dL (70-99) 100 mg/dL (70-99) Test 03/09/19 03:40 03/09/19 11:50 03/09/19 12:43 White Blood Count 6.8 x10^3/uL (4.0-11.0) Red Blood Count 3.54 x10^6/uL (4.30-5.70) Hemoglobin 10.2 g/dL (13.0-17.5) Hematocrit 31.9 % (39.0-53.0) Mean Corpuscular Volume 90 fL (79-100) Mean Corpuscular Hemoglobin 29 pg (25-35) Mean Corpuscular Hemoglobin Concent 32 g/dL (31-37) Red Cell Distribution Width 16.7 % (11.5-14.5) Platelet Count 350 x10^3/uL (140-400) Neutrophils (%) (Auto) 74 % (31-73) Lymphocytes (%) (Auto) 12 % (24-48) Monocytes (%) (Auto) 10 % (0-9) Eosinophils (%) (Auto) 2 % (0-3) Basophils (%) (Auto) 1 % (0-3) Neutrophils # (Auto) 5.1 x10^3/uL (1.8-7.7) Lymphocytes # (Auto) 0.8 x10^3/uL (1.0-4.8) Monocytes # (Auto) 0.7 x10^3/uL (0.0-1.1) Eosinophils # (Auto) 0.1 x10^3/uL (0.0-0.7) Basophils # (Auto) 0.1 x10^3/uL (0.0-0.2) Sodium Level 148 mmol/L (136-145) Potassium Level 4.2 mmol/L (3.5-5.1) Chloride Level 112 mmol/L (98-107) Carbon Dioxide Level 30 mmol/L (21-32) Anion Gap 6 (6-14) Blood Urea Nitrogen 13 mg/dL (8-26) Creatinine 1.2 mg/dL (0.7-1.3) Estimated GFR (Cockcroft-Gault) 71.8 Glucose Level 75 mg/dL (70-99) Calcium Level 7.9 mg/dL (8.5-10.1) 25-Hydroxy Vitamin D Total 140.4 ng/mL (30-100) Glucose (Fingerstick) 54 mg/dL (70-99) 70 mg/dL (70-99) Images Images Arterial Ultrasound: FINDINGS: On the right there is triphasic flow in the common femoral artery but monophasic flow throughout the remaining right lower cavity. There is no flow seen in the mid SFA and there is no visualization of the peroneal vein and the DPA. There is increased velocity in the common femoral artery with a peak systolic flow of 191 cm/s. On the left there is monophasic flow throughout. There is elevated velocity in the proximal SFA with a peak systolic velocity of 197 cm per second. There is nonvisualization the INDUSTRIAL ENGINEER distally on the left and nonvisualization of the DPA. IMPRESSION: 1. Monophasic flow in the lower extremities bilaterally. This is likely secondary to diffuse atherosclerotic disease. 2. Nonvisualization the right peroneal artery and in the DPA bilaterally and the distal left INDUSTRIAL ENGINEER. 3. Occlusion of the mid SFA. There is reconstitution of flow in the distal SFA through collaterals. Assessment/Plan Assessment/Plan 73-year-old male with peripheral arterial disease with necrotic heel ulcerations bilateral lower extremities. Patient has a large left heel ulcer with exposed bone. Patient has multiple digit gangrene right foot and a heel ulcer. Patient has severe venous stasis skin changes to the level of the knee. Arterial ultrasound suggest monophasic flow with diffuse atherosclerotic disease bilateral lower extremities. In order to heal any surgical debridement the patient would need revascularization. It is unlikely that he would heal a debridement on his left heel. It is unable to determine the patient's motor function and it is apparent due to the degree of pressure injury that the patient has not ambulated for some time. Patient may best be served by bilateral lower extremity amputations. Due to the poor condition of his skin the best option is above-knee. Will discuss history and physical examination with Dr. Rees, she will see patient and make additional recommendations. Dr. Conde has seen patient. If it is deemed revascularization is not an option and would defer amputation to Dr. Conde. ABDIEL ANAYA APRN Mar 09, 2019 14:09
[2019-03-09] MEDS ORDERED: TIZA4TAB2 PO (14:18)
[2019-03-09 15:00] VITALS: BP_SYST 133; BP_SYST 136; BP_SYST 138; BP_SYST 141; BP_DIAS 62; BP_DIAS 65; BP_DIAS 68; BP_DIAS 74
--- NOTE | 2019-03-09 16:33 | NUR ---
Wound care: Wound care consult for bilateral heel wounds and toe wounds. See wound intervention for details. All wounds cleansed with saline wash, measured and dressed with aquacel ag, ABD and kerlix, recommendation to change every other day and prn. Vascular notes recommending bilateral AKA, pt verbalized being aware of it. Minoo RN notified of wc dressing recommendation for now until pt decides on how to proceed about his wounds. Wound care will follow up 03/15 or earlier if POC changes.
[2019-03-09] MEDS ORDERED: VANCOMYCIN 750 MG in IV NORMAL SALINE 250ML 250 ML IV SCH (17:00)
[2019-03-09] MEDS ORDERED: IV DEXTROSE 5 %-0.45 % NACL 1,000 ML IV SCH (17:30)
--- NOTE | 2019-03-09 18:21 | CONS ---
DATE OF CONSULTATION: 03/09/2019 REQUESTING PHYSICIAN: Dr. Martin REASON FOR CONSULTATION: Necrotic toes, bilateral feet. HISTORY OF PRESENT ILLNESS: The patient is a 73-year-old gentleman. He has got a history of diabetes, additional history of colon cancer in remission, recently admitted to [facility] in 12/2018 secondary to a left hip fracture. At that time, he underwent open reduction and internal fixation of left intertrochanteric hip fracture with an InterTan nail. He now presents to [facility] Emergency Room on 03/08/2019 with complaints of heel ulcers in the left leg as well as necrotic toes. Per report, he has been immobile and developed multiple wounds bilateral to his lower extremities. Apparently, his has been trying to take care of them, but he has been getting worse. On arrival, he had a normal white blood cell count and he has been afebrile. He has been placed on vancomycin and Zosyn. X-rays of his foot have been ordered, did not show any gross osteomyelitis. There are some soft tissue ulcerations of the heels bilaterally. There is some diffuse osteopenia. Of note, he underwent removal of his sock yesterday and part of his right middle toe had fallen off. Currently, the patient is lying in bed. He is comfortable. Denies any gross pains. No fevers, chills, or sweats. He has no headaches. No sore throat, cough, or chest pain. He states he has been passing his urine okay. Additionally, he underwent lower extremity arterial Dopplers which showed some monophasic flow in the lower extremities bilaterally, nonvisualized right peroneal artery, and in the DPA bilaterally and the distal left TENANT SELECTOR, there is occlusion of the mid SFA and reconstitution of flow in the distal SFA through collaterals. PAST MEDICAL HISTORY: Positive for coronary artery disease. He has hypertension, history of colorectal cancer as mentioned above, diabetes, history of previous DJD, and the left hip fracture. PAST SURGICAL HISTORY: Positive for colon resection as well as left hip repair. REVIEW OF SYSTEMS: Otherwise negative. ALLERGIES: No known drug allergies. SOCIAL HISTORY: He is . He does have a history of tobacco use. He has no pets at home. No alcohol. FAMILY HISTORY: He denies. CURRENT MEDICATIONS: Include Zosyn 2.25 mg IV q. 6 hours, vancomycin per pharmacy, Tylenol, Imodium, Lovenox, and tramadol. Other meds are available and reviewed in the chart. PHYSICAL EXAMINATION: VITAL SIGNS: He is afebrile, temperature 99.2, pulse 91, respirations 18, and blood pressure 114/60. He is satting 95% on room air. CONSTITUTIONAL: He is lying in bed. He appears comfortable. He is in no acute distress. HEENT: He has normal conjunctivae. Oral cavity, pharynx is dry. Edentulous. NECK: Without any JVD. No fullness. LUNGS: Decreased in the bases. HEART: S1, S2. ABDOMEN: Soft. No guarding or rebound. Positive bowel sounds. EXTREMITIES: No clubbing or cyanosis. He has decreased pulses. He has a left heel ulcer with palpable bone. He also has a right heel ulcer. His right middle dry gangrene toe also has some tinea associated with it. His legs have some chronic venous stasis changes and some thick peeling skin. He has got some slight warmth to his left lower extremity. SKIN: Warm to touch without generalized signs of rash. NEUROLOGIC: He seems confused, a little bit forgetful, but is cooperative. Moves all extremities. PSYCHIATRIC: Affect is appropriate. LABORATORY DATA: White count 6.8, hemoglobin 10.2, platelets of 350, neutrophils 78, and lymphs are 12. Creatinine of 1.2 and glucose 75. Calcitonin was 0.19. Urinalysis clean. RADIOLOGY: Reviewed in history of present illness. IMPRESSION: 1. Bilateral lower extremity cellulitis, left greater than right with dry gangrene in the right middle toe and the tip has fallen off. No notes of abnormalities with his last admit in December. 2. Left heel osteopenia with exposed bone. 3. Tinea. 4. Peripheral arterial disease. RECOMMENDATIONS: Agree with vancomycin and Zosyn, but we will increase to 3.375 mg q. 6 hours. Add micafungin. Await ortho evaluation. Needs vascular evaluation. We will follow up labs and cultures. This was discussed with Dr. Martin. Thank you for asking me to participate in the patient's care. If you have any questions, please do not hesitate to contact me. JURGEN MOTA MD DR: JOHN PAUL/lashon JOB#: [id number] / [id number] YANELI
[2019-03-09 19:15] VITALS: BP 132/62
[2019-03-09] MEDS: ENOXAPARIN 40 MG/0.4 ML SYRINGE. SQ SCH (21:24)
[2019-03-09 23:21] VITALS: BP 132/77
[2019-03-10 00:08] LABS: HEMOGLOBIN A1C 5.6 % (4.8-5.6)
[2019-03-10 02:55] VITALS: BP 134/68
[2019-03-10 04:16] LABS: CALCIUM 7.5 mg/dL (8.5-10.1); CREATININE 1.2 mg/dL (0.7-1.3); GFR 71.8; POTASSIUM 3.6 mmol/L (3.5-5.1)
[2019-03-10] MEDS: PIPERACILLIN/TAZOBACTAM 3.375 GM in IV NORMAL SALINE 50ML 50 ML IV SCH ×3 (05:51→18:35)
[2019-03-10 07:00] VITALS: BP 133/74
[2019-03-10] MEDS: AMMONIUM LACTATE 12% TOPICAL LOTION 226GM BOTTLE. TP SCH ×2 (09:00→21:00)
[2019-03-10] MEDS: VANCOMYCIN PER PHARMACY MC PRN ×3 (09:23→17:17)
--- NOTE | 2019-03-10 09:50 | PDOC ---
Infectious Disease Note Subjective Subjective Denies pain. No F/C/S/N/V/D/SOA/rash ROS ROS o/w neg Vital Sign Vital Signs Vital Signs Date Time Temp Pulse Resp B/P (MAP) Pulse Ox O2 Delivery O2 Flow Rate FiO2 03/10/19 07:00 97.8 83 16 133/74 (93) 99 Room Air 97.8 Physical Exam PHYSICAL EXAM CONSTITUTIONAL: He is lying in bed. He appears comfortable. He is in no acute distress. HEENT: He has normal conjunctivae. Oral cavity, pharynx is dry. Edentulous. NECK: Without any JVD. No fullness. LUNGS: Decreased in the bases. HEART: S1, S2. ABDOMEN: Soft. No guarding or rebound. Positive bowel sounds. EXTREMITIES: No clubbing or cyanosis. He has decreased pulses. wounds are dressed today. 03/09 He has a left heel ulcer with palpable bone. He also has a right heel ulcer. His right middle dry gangrene toe also has some tinea associated with it. His legs have some chronic venous stasis changes and some thick peeling skin. He has got some slight warmth to his left lower extremity. SKIN: Warm to touch without generalized signs of rash. NEUROLOGIC: He seems confused, a little bit forgetful, but is cooperative. Moves all extremities. PSYCHIATRIC: Affect is appropriate. Labs Lab Laboratory Tests Test 03/09/19 11:50 03/09/19 12:43 03/09/19 14:02 03/09/19 17:07 Glucose (Fingerstick) 54 mg/dL (70-99) 70 mg/dL (70-99) 71 mg/dL (70-99) 47 mg/dL (70-99) Test 03/09/19 17:28 03/09/19 18:22 03/09/19 21:06 03/10/19 03:40 Glucose (Fingerstick) 84 mg/dL (70-99) 89 mg/dL (70-99) 80 mg/dL (70-99) Sodium Level 146 mmol/L (136-145) Potassium Level 3.6 mmol/L (3.5-5.1) Chloride Level 111 mmol/L (98-107) Carbon Dioxide Level 29 mmol/L (21-32) Anion Gap 6 (6-14) Blood Urea Nitrogen 10 mg/dL (8-26) Creatinine 1.2 mg/dL (0.7-1.3) Estimated GFR (Cockcroft-Gault) 71.8 Glucose Level 74 mg/dL (70-99) Calcium Level 7.5 mg/dL (8.5-10.1) Test 03/10/19 07:44 Glucose (Fingerstick) 60 mg/dL (70-99) Micro Microbiology 03/08/19 Blood Culture - Preliminary, Resulted NO GROWTH AFTER 1 DAY Objective Assessment Bilateral LE cellulitis L > right with dry gangrene R mid toe tip had fallen off - no notes of abnormalities with last admit December Left heel osteo with exposed bone Tinea PAD Plan Plan of Care Cont Vanc/Zosyn 3.375 and Micafungin Await surgical decision as both Ortho and Vascular recommending Amputation of left if not both LE F/u labs and cults D/w nursing JURGEN MOTA MD Mar 10, 2019 09:50
[2019-03-10] MEDS: MULTIVITAMIN with MINERAL TABLET. PO SCH (10:06)
[2019-03-10] MEDS: MICAFUNGIN 100 MG in IV DEXTROSE 5% 100ML 100 ML IV SCH (10:08)
--- NOTE | 2019-03-10 10:14 | PDOC ---
PROGRESS NOTES Chief Complaint Chief Complaint IMPRESSION BIlateral heel ulcer/wounds with cellulitis Monophasic flow in the lower extremities bilaterally. This is likely secondary to diffuse atherosclerotic disease. 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 Occlusion of the mid SFA. There is reconstitution of flow in the distal SFA through collaterals. DM 2 ? 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 NORBERTO VMN Cont Vanc/Zosyn 3.375 and Micafungin Await surgical decision as both Ortho and Vascular recommending Amputation of left if not both LE 38 MIN PT EXAM, CHART REVIEW, > 50% OF TIME SPENT WITH EXAM, CHART REVIEW, PT CARE COORDINATION History of Present Illness History of Present Illness VEryv poor historian NO at bedside RN tells us he ambulates with cane at home I undressed dressing, foul smelling juicy pressure heel ulcers IMaging shows no signs of osteo Pt does not check BS at home PT on eliquis at home, but he cant tell u why Looking at chart, hx CAD etc Arterial studies show, maybe dec flow - might need vasc, given over all clinical picture, poor compliance, wounds etc PLAN: Ortho consulted for possible hold eliquis vasc sg following I rounded with ID student and he saw wounds PT.OT WIll need SNU Await wound care IV abx per ID FULL CODE Cont Vanc/Zosyn 3.375 and Micafungin Await surgical decision as both Ortho and Vascular recommending Amputation of left if not both LE Vitals Vitals Vital Signs Date Time Temp Pulse Resp B/P (MAP) Pulse Ox O2 Delivery O2 Flow Rate FiO2 03/10/19 07:00 97.8 83 16 133/74 (93) 99 Room Air 97.8 Physical Exam Physical Exam CONSTITUTIONAL: He is lying in bed. He appears comfortable. He is in no acute distress. HEENT: He has normal conjunctivae. Oral cavity, pharynx is dry. Edentulous. NECK: Without any JVD. No fullness. LUNGS: Decreased in the bases. HEART: S1, S2. ABDOMEN: Soft. No guarding or rebound. Positive bowel sounds. EXTREMITIES: No clubbing or cyanosis. He has decreased pulses. He has a left heel ulcer with palpable bone. He also has a right heel ulcer. His right middle dry gangrene toe also has some tinea associated with it. His legs have some chronic venous stasis changes and some thick peeling skin. He has got some slight warmth to his left lower extremity. SKIN: Warm to touch without generalized signs of rash. NEUROLOGIC: He seems confused, a little bit forgetful, but is cooperative. Moves all extremities. PSYCHIATRIC: Affect is appropriate. 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 There is an odor. The skin of both calves is dry with patterned scaling which seems most likely related to bilateral lower extremity vascular disease. Bilateral heel ulcers left greater than right. Pulses not palpable. ) Skin: Other (Left heel ulcer with bone palpable, right heel ulcer stage III, right middle toe dry gangree, partially autoamputated) Labs LABS : 1945 LOCATION: ER AGE: 73 SEX: M EXAM STATUS: REG ER ORD. PHYSICIAN: VIRGIL MC APRN REASON: left heal ulcer, right toes necrosis. stiffness in bilateral legs PROCEDURE: FOOT BILAT 3V Exam: Bilateral feet 3 views INDICATION: Left heel ulcer. Right toe necrosis. TECHNIQUE: Frontal, lateral and oblique views of the left and right foot. Comparisons: None FINDINGS: Left foot: Degenerative change at the toes bilaterally. Soft tissue defect at the heel. Mild osteopenia. Scattered degenerative change noted throughout the foot. No acute fractures are identified. Right foot: Evaluation of the digits is limited secondary to positioning. No acute fractures identified. There is diffuse osteopenia. Soft tissue ulcer at the heel. IMPRESSION: 1. Soft tissue ulcers at the heels bilaterally. 2. Diffuse osteopenia without acute fracture identified. No definite evidence for osteomyelitis identified however evaluation is limited. Electronically signed by: Armani Arambula MD (03/08/2019 6:21 PM) [facility] DICTATED and SIGNED BY: ARMANI ARAMBULA MD DATE: 03/08/19 1821 REASON: Bilateral LE ulcers PROCEDURE: DUPLEX LOWER EXTREMITY BILAT Lower extremity arterial duplex Doppler examination with spectral analysis HISTORY: Bilateral enlargement ulcers Sonographic examination alert she was informed bilaterally multiple static images were obtained. In addition color Doppler was applied as well as arterial waveform spectral analysis. FINDINGS: On the right there is triphasic flow in the common femoral artery but monophasic flow throughout the remaining right lower cavity. There is no flow seen in the mid SFA and there is no visualization of the peroneal vein and the DPA. There is increased velocity in the common femoral artery with a peak systolic flow of 191 cm/s. On the left there is monophasic flow throughout. There is elevated velocity in the proximal SFA with a peak systolic velocity of 197 cm per second. There is nonvisualization the SHEET ROCK APPLIER distally on the left and nonvisualization of the DPA. IMPRESSION: 1. Monophasic flow in the lower extremities bilaterally. This is likely secondary to diffuse atherosclerotic disease. 2. 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 3. Occlusion of the mid SFA. There is reconstitution of flow in the distal SFA through collaterals. Electronically signed by: Lobito Mcbride III, MD (03/09/2019 12:26 AM) [facility] Laboratory Tests Test 03/09/19 11:50 03/09/19 12:43 03/09/19 14:02 03/09/19 17:07 Glucose (Fingerstick) 54 mg/dL (70-99) 70 mg/dL (70-99) 71 mg/dL (70-99) 47 mg/dL (70-99) Test 03/09/19 17:28 03/09/19 18:22 03/09/19 21:06 03/10/19 03:40 Glucose (Fingerstick) 84 mg/dL (70-99) 89 mg/dL (70-99) 80 mg/dL (70-99) Sodium Level 146 mmol/L (136-145) Potassium Level 3.6 mmol/L (3.5-5.1) Chloride Level 111 mmol/L (98-107) Carbon Dioxide Level 29 mmol/L (21-32) Anion Gap 6 (6-14) Blood Urea Nitrogen 10 mg/dL (8-26) Creatinine 1.2 mg/dL (0.7-1.3) Estimated GFR (Cockcroft-Gault) 71.8 Glucose Level 74 mg/dL (70-99) Calcium Level 7.5 mg/dL (8.5-10.1) Test 03/10/19 07:44 Glucose (Fingerstick) 60 mg/dL (70-99) Assessment and Plan Assessmemt and Plan Problems Medical Problems: (1) Necrotic toes Status: Acute (2) Ulcer of left heel Status: Acute Comment Review of Relevant I have reviewed the following items segun (where applicable) has been applied. Labs Laboratory Tests Test 03/08/19 16:09 03/08/19 21:30 03/08/19 21:39 03/08/19 22:32 White Blood Count 5.9 x10^3/uL (4.0-11.0) Red Blood Count 3.69 x10^6/uL (4.30-5.70) Hemoglobin 10.6 g/dL (13.0-17.5) Hematocrit 33.2 % (39.0-53.0) Mean Corpuscular Volume 90 fL (79-100) Mean Corpuscular Hemoglobin 29 pg (25-35) Mean Corpuscular Hemoglobin Concent 32 g/dL (31-37) Red Cell Distribution Width 16.7 % (11.5-14.5) Platelet Count 375 x10^3/uL (140-400) Neutrophils (%) (Auto) 64 % (31-73) Lymphocytes (%) (Auto) 21 % (24-48) Monocytes (%) (Auto) 12 % (0-9) Eosinophils (%) (Auto) 2 % (0-3) Basophils (%) (Auto) 1 % (0-3) Neutrophils # (Auto) 3.8 x10^3/uL (1.8-7.7) Lymphocytes # (Auto) 1.3 x10^3/uL (1.0-4.8) Monocytes # (Auto) 0.7 x10^3/uL (0.0-1.1) Eosinophils # (Auto) 0.1 x10^3/uL (0.0-0.7) Basophils # (Auto) 0.1 x10^3/uL (0.0-0.2) Prothrombin Time 13.7 SEC (11.7-14.0) Prothromb Time International Ratio 1.1 (0.8-1.1) Activated Partial Thromboplast Time 30 SEC (24-38) Sodium Level 148 mmol/L (136-145) Potassium Level 3.5 mmol/L (3.5-5.1) Chloride Level 109 mmol/L (98-107) Carbon Dioxide Level 33 mmol/L (21-32) Anion Gap 6 (6-14) Blood Urea Nitrogen 18 mg/dL (8-26) Creatinine 1.3 mg/dL (0.7-1.3) Estimated GFR (Cockcroft-Gault) 65.5 BUN/Creatinine Ratio 14 (6-20) Glucose Level 84 mg/dL (70-99) Lactic Acid Level 1.3 mmol/L (0.4-2.0) Calcium Level 8.8 mg/dL (8.5-10.1) Total Bilirubin 0.2 mg/dL (0.2-1.0) Aspartate Amino Transf (AST/SGOT) 20 U/L (15-37) Alanine Aminotransferase (ALT/SGPT) 11 U/L (16-63) Alkaline Phosphatase 76 U/L (46-116) Ammonia < 10 mcmol/L (11-34) Creatine Kinase 82 U/L (39-308) Creatine Kinase MB (Mass) 1.4 ng/mL (0.0-3.6) Creatine Kinase MB Relative Index 1.7 % (0-4) Total Protein 7.4 g/dL (6.4-8.2) Albumin 2.5 g/dL (3.4-5.0) Albumin/Globulin Ratio 0.5 (1.0-1.7) Lipase 115 U/L (73-393) Procalcitonin 0.19 ng/mL (0.00-0.10) Urine Color Yellow Urine Clarity Cloudy Urine pH 5.5 Urine Specific [place] 1.020 Urine Protein Negative mg/dL (NEG-TRACE) Urine Glucose (UA) Negative mg/dL (NEG) Urine Ketones (Stick) Negative mg/dL (NEG) Urine Blood Negative (NEG) Urine Nitrite Negative (NEG) Urine Bilirubin Negative (NEG) Urine Urobilinogen Dipstick 0.2 mg/dL (0.2 mg/dL) Urine Leukocyte Esterase Negative (NEG) Urine RBC 0 /HPF (0-2) Urine WBC 1-4 /HPF (0-4) Urine Squamous Epithelial Cells Occ /LPF Urine Bacteria 0 /HPF (0-FEW) Urine Mucus Mod /LPF Glucose (Fingerstick) 66 mg/dL (70-99) 100 mg/dL (70-99) Test 03/09/19 03:40 03/09/19 11:50 03/09/19 12:43 03/09/19 14:02 White Blood Count 6.8 x10^3/uL (4.0-11.0) Red Blood Count 3.54 x10^6/uL (4.30-5.70) Hemoglobin 10.2 g/dL (13.0-17.5) Hematocrit 31.9 % (39.0-53.0) Mean Corpuscular Volume 90 fL (79-100) Mean Corpuscular Hemoglobin 29 pg (25-35) Mean Corpuscular Hemoglobin Concent 32 g/dL (31-37) Red Cell Distribution Width 16.7 % (11.5-14.5) Platelet Count 350 x10^3/uL (140-400) Neutrophils (%) (Auto) 74 % (31-73) Lymphocytes (%) (Auto) 12 % (24-48) Monocytes (%) (Auto) 10 % (0-9) Eosinophils (%) (Auto) 2 % (0-3) Basophils (%) (Auto) 1 % (0-3) Neutrophils # (Auto) 5.1 x10^3/uL (1.8-7.7) Lymphocytes # (Auto) 0.8 x10^3/uL (1.0-4.8) Monocytes # (Auto) 0.7 x10^3/uL (0.0-1.1) Eosinophils # (Auto) 0.1 x10^3/uL (0.0-0.7) Basophils # (Auto) 0.1 x10^3/uL (0.0-0.2) Sodium Level 148 mmol/L (136-145) Potassium Level 4.2 mmol/L (3.5-5.1) Chloride Level 112 mmol/L (98-107) Carbon Dioxide Level 30 mmol/L (21-32) Anion Gap 6 (6-14) Blood Urea Nitrogen 13 mg/dL (8-26) Creatinine 1.2 mg/dL (0.7-1.3) Estimated GFR (Cockcroft-Gault) 71.8 Glucose Level 75 mg/dL (70-99) Hemoglobin A1c 5.6 % (4.8-5.6) Calcium Level 7.9 mg/dL (8.5-10.1) 25-Hydroxy Vitamin D Total 140.4 ng/mL (30-100) Glucose (Fingerstick) 54 mg/dL (70-99) 70 mg/dL (70-99) 71 mg/dL (70-99) Test 03/09/19 17:07 03/09/19 17:28 03/09/19 18:22 03/09/19 21:06 Glucose (Fingerstick) 47 mg/dL (70-99) 84 mg/dL (70-99) 89 mg/dL (70-99) 80 mg/dL (70-99) Test 03/10/19 03:40 03/10/19 07:44 Sodium Level 146 mmol/L (136-145) Potassium Level 3.6 mmol/L (3.5-5.1) Chloride Level 111 mmol/L (98-107) Carbon Dioxide Level 29 mmol/L (21-32) Anion Gap 6 (6-14) Blood Urea Nitrogen 10 mg/dL (8-26) Creatinine 1.2 mg/dL (0.7-1.3) Estimated GFR (Cockcroft-Gault) 71.8 Glucose Level 74 mg/dL (70-99) Calcium Level 7.5 mg/dL (8.5-10.1) Glucose (Fingerstick) 60 mg/dL (70-99) Laboratory Tests Test 03/09/19 11:50 03/09/19 12:43 03/09/19 14:02 03/09/19 17:07 Glucose (Fingerstick) 54 mg/dL (70-99) 70 mg/dL (70-99) 71 mg/dL (70-99) 47 mg/dL (70-99) Test 03/09/19 17:28 03/09/19 18:22 03/09/19 21:06 03/10/19 03:40 Glucose (Fingerstick) 84 mg/dL (70-99) 89 mg/dL (70-99) 80 mg/dL (70-99) Sodium Level 146 mmol/L (136-145) Potassium Level 3.6 mmol/L (3.5-5.1) Chloride Level 111 mmol/L (98-107) Carbon Dioxide Level 29 mmol/L (21-32) Anion Gap 6 (6-14) Blood Urea Nitrogen 10 mg/dL (8-26) Creatinine 1.2 mg/dL (0.7-1.3) Estimated GFR (Cockcroft-Gault) 71.8 Glucose Level 74 mg/dL (70-99) Calcium Level 7.5 mg/dL (8.5-10.1) Test 03/10/19 07:44 Glucose (Fingerstick) 60 mg/dL (70-99) Microbiology 03/08/19 Blood Culture - Preliminary, Resulted NO GROWTH AFTER 1 DAY Medications Current Medications Sodium Chloride 1,000 ml @ 1,860 mls/hr Q33M IV Last administered on 03/08/19at 17:40; Start 03/08/19 at 16:04; Stop 03/08/19 at 17:04; Status DC Piperacillin Sod/ Tazobactam Sod 4.5 gm/Sodium Chloride 100 ml @ 200 mls/hr 1X ONCE IV Last administered on 03/08/19at 16:41; Start 03/08/19 at 16:15; Stop 03/08/19 at 16:44; Status DC Vancomycin HCl (Vanco Per Pharmacy) 1 each 1X ONCE MC ; Start 03/08/19 at 16:15; Stop 03/08/19 at 16:24; Status DC Morphine Sulfate (Morphine Sulfate) 4 mg PRN Q15MIN PRN IV/SQ PAIN GREATER THAN 3/10; Start 03/08/19 at 16:15; Stop 03/09/19 at 08:35; Status DC Vancomycin HCl 1.25 gm/Sodium Chloride 250 ml @ 167 mls/hr ONCE ONCE IV Last administered on 03/08/19at 17:40; Start 03/08/19 at 16:30; Stop 03/08/19 at 17:59; Status DC Ondansetron HCl (Zofran) 4 mg PRN Q8HRS PRN IV NAUSEA/VOMITING; Start 03/08/19 at 18:15; Stop 03/08/19 at 21:18; Status DC Morphine Sulfate (Morphine Sulfate) 4 mg PRN Q2HR PRN IV SEVERE PAIN 7-10; Start 03/08/19 at 18:15; Stop 03/09/19 at 08:35; Status DC Sodium Chloride 1,000 ml @ 75 mls/hr 1X ONCE IV Last administered on 03/08/19at 21:25; Start 03/08/19 at 18:15; Stop 03/09/19 at 07:34; Status DC Ondansetron HCl (Zofran) 4 mg PRN Q6HRS PRN IV NAUSEA/VOMITING 1ST CHOICE; Start 03/08/19 at 21:15 Lactic Acid (Lac-Hydrin) 1 nando BID TP Last administered on 03/10/19at 09:00; Start 03/09/19 at 09:00 Non-Formulary Medication (Alendronate Sodium (Fosamax)) 70 mg WEEKLY PO ; Start 03/15/19 at 09:00; Status UNV Vitamin D (Vitamin D3) 5,000 unit WEEKLY PO ; Start 03/15/19 at 09:00 Piperacillin Sod/ Tazobactam Sod 3.375 gm/Sodium Chloride 50 ml @ 100 mls/hr Q6HRS IV ; Start 03/09/19 at 00:00; Status UNV Tramadol HCl (Ultram) 50 mg PRN Q6HRS PRN PO MODERATE PAIN; Start 03/08/19 at 21:15 Insulin Human Lispro (HumaLOG) 0-5 UNITS TIDACHC SQ ; Start 03/09/19 at 07:30; Stop 03/09/19 at 08:31; Status DC Dextrose (Dextrose 50%-Water Syringe) 12.5 gm PRN Q15MIN PRN IV SEE COMMENTS Last administered on 03/09/19at 17:11; Start 03/08/19 at 21:15 Enoxaparin Sodium (Lovenox 40mg Syringe) 40 mg Q24H SQ Last administered on 03/09/19at 21:24; Start 03/08/19 at 22:00 Piperacillin Sod/ Tazobactam Sod 2.25 gm/Sodium Chloride 50 ml @ 100 mls/hr Q6HRS IV Last administered on 03/09/19at 05:54; Start 03/09/19 at 00:00; Stop 03/09/19 at 10:17; Status DC Potassium Chloride (Klor-Con) 40 meq 1X ONCE PO Last administered on 03/08/19at 22:20; Start 03/08/19 at 22:00; Stop 03/08/19 at 22:01; Status DC Acetaminophen (Tylenol) 500 mg PRN Q6HRS PRN PO TEMP/HEADACHE; Start 03/09/19 at 08:30 Acetaminophen/ Codeine Phosphate (Tylenol #3) 1 tab PRN Q6HRS PRN PO MILD PAIN 1-3; Start 03/09/19 at 08:30 Morphine Sulfate (Morphine Sulfate) 2 mg PRN Q2HR PRN IV PAIN; Start 03/09/19 at 08:30 Oxycodone/ Acetaminophen (Percocet 5/325) 1 tab PRN Q4HRS PRN PO SEVERE PAIN 7- 10; Start 03/09/19 at 08:30 Piperacillin Sod/ Tazobactam Sod 3.375 gm/Sodium Chloride 50 ml @ 100 mls/hr Q6HRS IV Last administered on 03/10/19at 05:51; Start 03/09/19 at 12:00 Micafungin Sodium 100 mg/Dextrose 100 ml @ 100 mls/hr Q24H IV Last administered on 03/10/19at 10:08; Start 03/09/19 at 11:00 Vancomycin HCl (Vanco Per Pharmacy) 1 each PRN DAILY PRN MC SEE COMMENTS Last administered on 03/10/19at 09:23; Start 03/09/19 at 11:15 Vancomycin HCl 750 mg/Sodium Chloride 250 ml @ 250 mls/hr Q24H IV Last administered on 03/09/19at 17:11; Start 03/09/19 at 17:00 Vancomycin HCl (Vancomycin Trough Level) 1 each 1X ONCE MC ; Start 03/10/19 at 16:30; Stop 03/10/19 at 16:31 Multivitamins (Thera M Plus) 1 tab DAILY PO Last administered on 03/10/19at 10:06; Start 03/10/19 at 09:00 Dextrose/Sodium Chloride 1,000 ml @ 75 mls/hr [id number] IV Last administered on 03/09/19at 17:30; Start 03/09/19 at 17:30; Stop 03/10/19 at 06:49; Status DC Active Scripts Active Ammonium Lactate 226 Gm Lotion 1 Nando TP BID 10 Days Percocet 5-325 Mg Tablet (Oxycodone/Acetaminophen) 1 Each Tablet 1 Tab PO PRN Q4HRS PRN 10 Days Eliquis (Apixaban) 2.5 Mg Tablet 2.5 Mg PO BID 14 Days Reported Tizanidine Hcl 4 Mg Tablet 1 Tab PO QHS Fosamax (Alendronate Sodium) 70 Mg Tablet 70 Mg PO WEEKLY pt takes medication on friday Vitamin D3 (Cholecalciferol (Vitamin D3)) 5,000 Unit Tablet 5,000 Unit PO WEEKLY Vitals/I & O Vital Sign - Last 24 Hours 03/09/19 03/09/19 03/09/19 03/09/19 11:00 15:00 19:15 20:00 Temp 98.3 98.3 98.4 98.3 98.3 98.4 Pulse 82 80 80 Resp 18 18 18 B/P (MAP) 113/61 (78) 141/68 (92) 132/62 (85) Pulse Ox 93 93 94 O2 Delivery Room Air Room Air Room Air Room Air 03/09/19 03/10/19 03/10/19 23:21 02:55 07:00 Temp 98.1 98.1 97.8 98.1 98.1 97.8 Pulse 87 84 83 Resp 18 18 16 B/P (MAP) 132/77 (95) 134/68 (90) 133/74 (93) Pulse Ox 93 94 99 O2 Delivery Room Air Room Air Room Air Intake and Output 03/09/19 03/09/19 03/10/19 15:00 23:00 07:00 Intake Total 120 ml Output Total 250 ml 100 ml 200 ml Balance -250 ml -100 ml -80 ml Nutrition Consultation Dietary Evaluation: Recommendations by RD: Increase Calorie Intake, Protein supplementation Comments: REC ADA, Cardiac diet with glucerna bid and rosa bid REC mvi q day per wound protocal, discused w/ RN Anitra Expected Outcomes/Goals: to meet >75% est nutr needs improved wound status BS control Interpretation of weight loss: >1-2% in 1 week Malnutrition Findings: Body Fat Depletion (Non Severe: Mod to Severe Weight Status: Underweight NIHARIKA BONNER MD Mar 10, 2019 10:14
[2019-03-10 11:00] VITALS: BP 139/74
--- NOTE | 2019-03-10 12:36 | NUR ---
SW following for discharge planning. Discussed with RN, awaiting surgical decision. SW will continue to follow for discharge planning needs.
--- NOTE | 2019-03-10 13:09 | PDOC ---
Provider Note Provider Note I again visited with the patient. I reviewed the vascular surgery consultation. I spoke to Dr. Rees personally about this patient. She and I both agree that above-knee amputation bilaterally is recommended. He is not a good candidate for revascularization. Lower level amputation is quite unlikely to heal and simply will cause him to have multiple surgeries. I discussed this with him, and recommended bilateral above-knee indications on Friday. His was not present who is his power of patient transport orderly for healthcare. I will try to speak to her directly or by phone and tentatively schedule surgery for Friday. MARITZA CONDON MD Mar 10, 2019 13:09
[2019-03-10 15:00] VITALS: BP 150/60
[2019-03-10 16:48] LABS: VANC TR 11.5 mcg/mL (10.0-20.0)
--- NOTE | 2019-03-10 17:20 | NUR ---
Pharmacy Vancomycin Dosing Note S:Consulted to monitor and dose vancomycin started 03/08/19. O:ROSALIA GONZALEZ is a 73 year old M with Osteomyelitis. Height: 5 feet, 5 inches Weight: 47.190342 kg [place] Body Weight: 61.50 Adjusted Body Weight: 55.70 Dosing Weight: Actual Other Antibiotics: MICAMINE 100 MG IV Q24HRS ZOSYN 3.375G IV Q6HRS LABS: Last BUN: 10 Last Creatinine: 1.2 Creatinine Clearance: 36 mL/min Last WBC: 6.8 Last Procalcitonin: 0.19 Tmax (past 24 hours): 99.2 Microbiology: 03/10 BLOOD CX NG x 1 day I/O: 120/550 + 1 void Drug Levels: Last Trough level: 11.5 on 03/10/19 at 1615 Last dose given 03/09/19 at 1711 Vancomycin Dosing: Loading Dose: 1250 mg x1 Dosing Weight: Actual Target Trough: 15-20 A: Based on: Patient's vancomycin trough of 11.5 drawn prior to the 3rd dose, patient's renal function, PMH, and severity of suspected infection: P: 1. Will increase the dose to Vancomycin 1000 mg IV q24h 2. Follow up Trough level on 03/12/19 at 1700 3. Pharmacy will continue to monitor, follow and adjust therapy as needed. DOMINGUEZ GONZALEZ [facility], 03/10/19 1720
[2019-03-10] MEDS: VANCOMYCIN 1 GM in IV NORMAL SALINE 250ML 250 ML IV SCH (17:29)
[2019-03-10 19:00] VITALS: BP 136/74
[2019-03-10] MEDS: ENOXAPARIN 40 MG/0.4 ML SYRINGE. SQ SCH (21:23)
[2019-03-10] MEDS: LACTOBACILLUS RHAMNOSUS GG 1 CAPSULE. PO SCH (21:23)
[2019-03-10 23:00] VITALS: BP 156/87
[2019-03-11] MEDS: PIPERACILLIN/TAZOBACTAM 3.375 GM in IV NORMAL SALINE 50ML 50 ML IV SCH ×4 (00:09→18:48)
[2019-03-11 03:00] VITALS: BP 131/78
[2019-03-11 04:25] LABS: BASO # 0.1 x10^3/uL (0.0-0.2); BASO % 2 % (0-3); EOS # 0.4 x10^3/uL (0.0-0.7); EOS % 9 % (0-3); HEMATOCRIT 31.8 % (39.0-53.0); HEMOGLOBIN 10.1 g/dL (13.0-17.5); LYMPH # 0.8 x10^3/uL (1.0-4.8); LYMPH % 19 % (24-48); MEAN CORPUSCULAR HEMOGLOBIN 29 pg (25-35); MEAN CORPUSCULAR HGB CONC 32 g/dL (31-37); MEAN CORPUSCULAR VOLUME 90 fL (79-100); MONO # 0.5 x10^3/uL (0.0-1.1); MONO % 12 % (0-9); NEUT # 2.4 x10^3/uL (1.8-7.7); NEUT % 58 % (31-73); PLATELET COUNT 311 x10^3/uL (140-400); RED BLOOD COUNT 3.54 x10^6/uL (4.30-5.70); RED CELL DISTRIBUTION WIDTH 16.4 % (11.5-14.5); WHITE BLOOD COUNT 4.2 x10^3/uL (4.0-11.0)
[2019-03-11 04:42] LABS: CREATININE 1.2 mg/dL (0.7-1.3); GFR 71.8
[2019-03-11 04:45] LABS: ALBUMIN 1.8 g/dL (3.4-5.0); ALBUMIN/GLOBULIN RATIO 0.6 (1.0-1.7); CALCIUM 7.5 mg/dL (8.5-10.1); CREATININE 1.1 mg/dL (0.7-1.3); GFR 79.4; POTASSIUM 3.8 mmol/L (3.5-5.1); TOTAL BILIRUBIN 0.3 mg/dL (0.2-1.0)
[2019-03-11 07:00] VITALS: BP 147/87
--- NOTE | 2019-03-11 08:31 | PDOC ---
Infectious Disease Note Subjective Subjective Denies pain but is cold this am. No F/C/S/N/V/D/SOA/rash ROS ROS o/w neg Vital Sign Vital Signs Vital Signs Date Time Temp Pulse Resp B/P (MAP) Pulse Ox O2 Delivery O2 Flow Rate FiO2 03/11/19 03:00 97.4 72 18 131/78 (95) 90 Room Air 97.4 Physical Exam PHYSICAL EXAM CONSTITUTIONAL: He is lying in bed. He appears comfortable. He is in no acute distress. HEENT: He has normal conjunctivae. Oral cavity, pharynx is dry. Edentulous. NECK: Without any JVD. No fullness. LUNGS: Decreased in the bases. HEART: S1, S2. ABDOMEN: Soft. No guarding or rebound. Positive bowel sounds. EXTREMITIES: No clubbing or cyanosis. He has decreased pulses. wounds are dr obando today. 03/09 He has a left heel ulcer with palpable bone. He also has a right heel ulcer. His right middle dry gangrene toe also has some tinea associated with it. His legs have some chronic venous stasis changes and some thick peeling skin. He has got some slight warmth to his left lower extremity. SKIN: Warm to touch without generalized signs of rash. NEUROLOGIC: alert cooperative. Moves all extremities. PSYCHIATRIC: Affect is appropriate. Labs Lab Laboratory Tests Test 03/10/19 11:57 03/10/19 16:15 03/10/19 17:29 03/10/19 20:32 Glucose (Fingerstick) 90 mg/dL (70-99) 96 mg/dL (70-99) 72 mg/dL (70-99) Vancomycin Level Trough 11.5 mcg/mL (10.0-20.0) Vancomycin Last Dose Date 03/09/19 Vancomycin Last Dose Time 1700 Test 03/11/19 03:20 03/11/19 07:22 White Blood Count 4.2 x10^3/uL (4.0-11.0) Red Blood Count 3.54 x10^6/uL (4.30-5.70) Hemoglobin 10.1 g/dL (13.0-17.5) Hematocrit 31.8 % (39.0-53.0) Mean Corpuscular Volume 90 fL (79-100) Mean Corpuscular Hemoglobin 29 pg (25-35) Mean Corpuscular Hemoglobin Concent 32 g/dL (31-37) Red Cell Distribution Width 16.4 % (11.5-14.5) Platelet Count 311 x10^3/uL (140-400) Neutrophils (%) (Auto) 58 % (31-73) Lymphocytes (%) (Auto) 19 % (24-48) Monocytes (%) (Auto) 12 % (0-9) Eosinophils (%) (Auto) 9 % (0-3) Basophils (%) (Auto) 2 % (0-3) Neutrophils # (Auto) 2.4 x10^3/uL (1.8-7.7) Lymphocytes # (Auto) 0.8 x10^3/uL (1.0-4.8) Monocytes # (Auto) 0.5 x10^3/uL (0.0-1.1) Eosinophils # (Auto) 0.4 x10^3/uL (0.0-0.7) Basophils # (Auto) 0.1 x10^3/uL (0.0-0.2) Sodium Level 144 mmol/L (136-145) Potassium Level 3.8 mmol/L (3.5-5.1) Chloride Level 109 mmol/L (98-107) Carbon Dioxide Level 28 mmol/L (21-32) Anion Gap 7 (6-14) Blood Urea Nitrogen 8 mg/dL (8-26) Creatinine 1.1 mg/dL (0.7-1.3) Estimated GFR (Cockcroft-Gault) 79.4 BUN/Creatinine Ratio 7 (6-20) Glucose Level 72 mg/dL (70-99) Calcium Level 7.5 mg/dL (8.5-10.1) Total Bilirubin 0.3 mg/dL (0.2-1.0) Aspartate Amino Transf (AST/SGOT) 22 U/L (15-37) Alanine Aminotransferase (ALT/SGPT) 9 U/L (16-63) Alkaline Phosphatase 58 U/L (46-116) Total Protein 5.0 g/dL (6.4-8.2) Albumin 1.8 g/dL (3.4-5.0) Albumin/Globulin Ratio 0.6 (1.0-1.7) Glucose (Fingerstick) 59 mg/dL (70-99) Micro Microbiology 03/08/19 Blood Culture - Preliminary, Resulted NO GROWTH AFTER 1 DAY Objective Assessment Bilateral LE cellulitis L > right with dry gangrene R mid toe tip had fallen off - no notes of abnormalities with last admit December Left heel osteo with exposed bone Tinea PAD Plan Plan of Care Cont Vanc/Zosyn 3.375 and Micafungin Await surgical decision as both Ortho and Vascular recommending Amputations / scheduled for 03/12 F/u labs and cults D/w nursing JURGEN MOTA MD Mar 11, 2019 08:31
[2019-03-11] MEDS: MULTIVITAMIN with MINERAL TABLET. PO SCH (08:40)
[2019-03-11] MEDS: LACTOBACILLUS RHAMNOSUS GG 1 CAPSULE. PO SCH ×2 (08:40→21:15)
[2019-03-11] MEDS: AMMONIUM LACTATE 12% TOPICAL LOTION 226GM BOTTLE. TP SCH ×2 (08:40→21:00)
--- NOTE | 2019-03-11 10:30 | PDOC ---
PROGRESS NOTES Chief Complaint Chief Complaint IMPRESSION BIlateral heel ulcer/wounds with cellulitis SEVERE PROTEIN-CALORIC MALNUTRITION Monophasic flow in the lower extremities bilaterally. This is likely secondary to diffuse atherosclerotic disease. 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 Occlusion of the mid SFA. There is reconstitution of flow in the distal SFA through collaterals. DM 2 ? 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 NORBERTO VMN BORDERLINE HYPOXIA, CHK ABG CAD: cardiac repair in the past and also remote PCI/stent HTN: controlled Cont Vanc/Zosyn 3.375 and Micafungin both Ortho and Vascular recommending Amputation both LE CONSULT CARDIOLOGY, PULM PRE-OP ABG 38 MIN PT EXAM, CHART REVIEW, > 50% OF TIME SPENT WITH EXAM, CHART REVIEW, PT CARE COORDINATION History of Present Illness History of Present Illness VEryv poor historian NO at bedside RN tells us he ambulates with cane at home I undressed dressing, foul smelling juicy pressure heel ulcers IMaging shows no signs of osteo Pt does not check BS at home PT on eliquis at home, but he cant tell u why Looking at chart, hx CAD etc Arterial studies show, maybe dec flow - might need vasc, given over all clinical picture, poor compliance, wounds etc PLAN: Ortho consulted for possible hold eliquis vasc sg following I rounded with ID student and he saw wounds PT.OT WIll need SNU Await wound care IV abx per ID FULL CODE Cont Vanc/Zosyn 3.375 and Micafungin Await surgical decision as both Ortho and Vascular recommending Amputation of left if not both LE Vitals Vitals Vital Signs Date Time Temp Pulse Resp B/P (MAP) Pulse Ox O2 Delivery O2 Flow Rate FiO2 03/11/19 07:00 97.9 67 18 147/87 (107) 93 Room Air 97.9 Physical Exam Physical Exam CONSTITUTIONAL: He is lying in bed. He appears comfortable. He is in no acute distress. HEENT: He has normal conjunctivae. Oral cavity, pharynx is dry. Edentulous. NECK: Without any JVD. No fullness. LUNGS: Decreased in the bases. HEART: S1, S2. ABDOMEN: Soft. No guarding or rebound. Positive bowel sounds. EXTREMITIES: No clubbing or cyanosis. He has decreased pulses. wounds are dressed today. 03/09 He has a left heel ulcer with palpable bone. He also has a right heel ulcer. His right middle dry gangrene toe also has some tinea His legs have chronic venous stasis changes and some thick peeling skin. slight warmth to his left lower extremity. SKIN: Warm to touch without generalized signs of rash. NEUROLOGIC: alert cooperative. Moves all extremities. PSYCHIATRIC: Affect is appropriate. 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 There is an odor. The skin of both calves is dry with patterned scaling which seems most likely related to bilateral lower extremity vascular disease. Bilateral heel ulcers left greater than right. Pulses not palpable. ) Skin: Other (Left heel ulcer with bone palpable, right heel ulcer stage III, right middle toe dry gangree, partially autoamputated) Labs LABS Laboratory Tests Test 03/10/19 11:57 03/10/19 16:15 03/10/19 17:29 03/10/19 20:32 Glucose (Fingerstick) 90 mg/dL (70-99) 96 mg/dL (70-99) 72 mg/dL (70-99) Vancomycin Level Trough 11.5 mcg/mL (10.0-20.0) Vancomycin Last Dose Date 03/09/19 Vancomycin Last Dose Time 1700 Test 03/11/19 03:20 03/11/19 07:22 White Blood Count 4.2 x10^3/uL (4.0-11.0) Red Blood Count 3.54 x10^6/uL (4.30-5.70) Hemoglobin 10.1 g/dL (13.0-17.5) Hematocrit 31.8 % (39.0-53.0) Mean Corpuscular Volume 90 fL (79-100) Mean Corpuscular Hemoglobin 29 pg (25-35) Mean Corpuscular Hemoglobin Concent 32 g/dL (31-37) Red Cell Distribution Width 16.4 % (11.5-14.5) Platelet Count 311 x10^3/uL (140-400) Neutrophils (%) (Auto) 58 % (31-73) Lymphocytes (%) (Auto) 19 % (24-48) Monocytes (%) (Auto) 12 % (0-9) Eosinophils (%) (Auto) 9 % (0-3) Basophils (%) (Auto) 2 % (0-3) Neutrophils # (Auto) 2.4 x10^3/uL (1.8-7.7) Lymphocytes # (Auto) 0.8 x10^3/uL (1.0-4.8) Monocytes # (Auto) 0.5 x10^3/uL (0.0-1.1) Eosinophils # (Auto) 0.4 x10^3/uL (0.0-0.7) Basophils # (Auto) 0.1 x10^3/uL (0.0-0.2) Sodium Level 144 mmol/L (136-145) Potassium Level 3.8 mmol/L (3.5-5.1) Chloride Level 109 mmol/L (98-107) Carbon Dioxide Level 28 mmol/L (21-32) Anion Gap 7 (6-14) Blood Urea Nitrogen 8 mg/dL (8-26) Creatinine 1.1 mg/dL (0.7-1.3) Estimated GFR (Cockcroft-Gault) 79.4 BUN/Creatinine Ratio 7 (6-20) Glucose Level 72 mg/dL (70-99) Calcium Level 7.5 mg/dL (8.5-10.1) Total Bilirubin 0.3 mg/dL (0.2-1.0) Aspartate Amino Transf (AST/SGOT) 22 U/L (15-37) Alanine Aminotransferase (ALT/SGPT) 9 U/L (16-63) Alkaline Phosphatase 58 U/L (46-116) Total Protein 5.0 g/dL (6.4-8.2) Albumin 1.8 g/dL (3.4-5.0) Albumin/Globulin Ratio 0.6 (1.0-1.7) Glucose (Fingerstick) 59 mg/dL (70-99) Assessment and Plan Assessmemt and Plan Problems Medical Problems: (1) Necrotic toes Status: Acute (2) Ulcer of left heel Status: Acute Comment Review of Relevant I have reviewed the following items segun (where applicable) has been applied. Labs Laboratory Tests Test 03/09/19 11:50 03/09/19 12:43 03/09/19 14:02 03/09/19 17:07 Glucose (Fingerstick) 54 mg/dL (70-99) 70 mg/dL (70-99) 71 mg/dL (70-99) 47 mg/dL (70-99) Test 03/09/19 17:28 03/09/19 18:22 03/09/19 21:06 03/10/19 03:40 Glucose (Fingerstick) 84 mg/dL (70-99) 89 mg/dL (70-99) 80 mg/dL (70-99) Sodium Level 146 mmol/L (136-145) Potassium Level 3.6 mmol/L (3.5-5.1) Chloride Level 111 mmol/L (98-107) Carbon Dioxide Level 29 mmol/L (21-32) Anion Gap 6 (6-14) Blood Urea Nitrogen 10 mg/dL (8-26) Creatinine 1.2 mg/dL (0.7-1.3) Estimated GFR (Cockcroft-Gault) 71.8 Glucose Level 74 mg/dL (70-99) Calcium Level 7.5 mg/dL (8.5-10.1) Test 03/10/19 07:44 03/10/19 11:57 03/10/19 16:15 03/10/19 17:29 Glucose (Fingerstick) 60 mg/dL (70-99) 90 mg/dL (70-99) 96 mg/dL (70-99) Vancomycin Level Trough 11.5 mcg/mL (10.0-20.0) Vancomycin Last Dose Date 03/09/19 Vancomycin Last Dose Time 1700 Test 03/10/19 20:32 03/11/19 03:20 03/11/19 07:22 Glucose (Fingerstick) 72 mg/dL (70-99) 59 mg/dL (70-99) White Blood Count 4.2 x10^3/uL (4.0-11.0) Red Blood Count 3.54 x10^6/uL (4.30-5.70) Hemoglobin 10.1 g/dL (13.0-17.5) Hematocrit 31.8 % (39.0-53.0) Mean Corpuscular Volume 90 fL (79-100) Mean Corpuscular Hemoglobin 29 pg (25-35) Mean Corpuscular Hemoglobin Concent 32 g/dL (31-37) Red Cell Distribution Width 16.4 % (11.5-14.5) Platelet Count 311 x10^3/uL (140-400) Neutrophils (%) (Auto) 58 % (31-73) Lymphocytes (%) (Auto) 19 % (24-48) Monocytes (%) (Auto) 12 % (0-9) Eosinophils (%) (Auto) 9 % (0-3) Basophils (%) (Auto) 2 % (0-3) Neutrophils # (Auto) 2.4 x10^3/uL (1.8-7.7) Lymphocytes # (Auto) 0.8 x10^3/uL (1.0-4.8) Monocytes # (Auto) 0.5 x10^3/uL (0.0-1.1) Eosinophils # (Auto) 0.4 x10^3/uL (0.0-0.7) Basophils # (Auto) 0.1 x10^3/uL (0.0-0.2) Sodium Level 144 mmol/L (136-145) Potassium Level 3.8 mmol/L (3.5-5.1) Chloride Level 109 mmol/L (98-107) Carbon Dioxide Level 28 mmol/L (21-32) Anion Gap 7 (6-14) Blood Urea Nitrogen 8 mg/dL (8-26) Creatinine 1.1 mg/dL (0.7-1.3) Estimated GFR (Cockcroft-Gault) 79.4 BUN/Creatinine Ratio 7 (6-20) Glucose Level 72 mg/dL (70-99) Calcium Level 7.5 mg/dL (8.5-10.1) Total Bilirubin 0.3 mg/dL (0.2-1.0) Aspartate Amino Transf (AST/SGOT) 22 U/L (15-37) Alanine Aminotransferase (ALT/SGPT) 9 U/L (16-63) Alkaline Phosphatase 58 U/L (46-116) Total Protein 5.0 g/dL (6.4-8.2) Albumin 1.8 g/dL (3.4-5.0) Albumin/Globulin Ratio 0.6 (1.0-1.7) Laboratory Tests Test 03/10/19:57 03/10/19 16:15 03/10/19 17:29 03/10/19 20:32 Glucose (Fingerstick) 90 mg/dL (70-99) 96 mg/dL (70-99) 72 mg/dL (70-99) Vancomycin Level Trough 11.5 mcg/mL (10.0-20.0) Vancomycin Last Dose Date 03/09/19 Vancomycin Last Dose Time 1700 Test 03/11/19 03:20 03/11/19 07:22 White Blood Count 4.2 x10^3/uL (4.0-11.0) Red Blood Count 3.54 x10^6/uL (4.30-5.70) Hemoglobin 10.1 g/dL (13.0-17.5) Hematocrit 31.8 % (39.0-53.0) Mean Corpuscular Volume 90 fL (79-100) Mean Corpuscular Hemoglobin 29 pg (25-35) Mean Corpuscular Hemoglobin Concent 32 g/dL (31-37) Red Cell Distribution Width 16.4 % (11.5-14.5) Platelet Count 311 x10^3/uL (140-400) Neutrophils (%) (Auto) 58 % (31-73) Lymphocytes (%) (Auto) 19 % (24-48) Monocytes (%) (Auto) 12 % (0-9) Eosinophils (%) (Auto) 9 % (0-3) Basophils (%) (Auto) 2 % (0-3) Neutrophils # (Auto) 2.4 x10^3/uL (1.8-7.7) Lymphocytes # (Auto) 0.8 x10^3/uL (1.0-4.8) Monocytes # (Auto) 0.5 x10^3/uL (0.0-1.1) Eosinophils # (Auto) 0.4 x10^3/uL (0.0-0.7) Basophils # (Auto) 0.1 x10^3/uL (0.0-0.2) Sodium Level 144 mmol/L (136-145) Potassium Level 3.8 mmol/L (3.5-5.1) Chloride Level 109 mmol/L (98-107) Carbon Dioxide Level 28 mmol/L (21-32) Anion Gap 7 (6-14) Blood Urea Nitrogen 8 mg/dL (8-26) Creatinine 1.1 mg/dL (0.7-1.3) Estimated GFR (Cockcroft-Gault) 79.4 BUN/Creatinine Ratio 7 (6-20) Glucose Level 72 mg/dL (70-99) Calcium Level 7.5 mg/dL (8.5-10.1) Total Bilirubin 0.3 mg/dL (0.2-1.0) Aspartate Amino Transf (AST/SGOT) 22 U/L (15-37) Alanine Aminotransferase (ALT/SGPT) 9 U/L (16-63) Alkaline Phosphatase 58 U/L (46-116) Total Protein 5.0 g/dL (6.4-8.2) Albumin 1.8 g/dL (3.4-5.0) Albumin/Globulin Ratio 0.6 (1.0-1.7) Glucose (Fingerstick) 59 mg/dL (70-99) Microbiology 03/08/19 Blood Culture - Preliminary, Resulted NO GROWTH AFTER 2 DAYS Medications Current Medications Sodium Chloride 1,000 ml @ 1,860 mls/hr Q33M IV Last administered on 03/08/19at 17:40; Start 03/08/19 at 16:04; Stop 03/08/19 at 17:04; Status DC Piperacillin Sod/ Tazobactam Sod 4.5 gm/Sodium Chloride 100 ml @ 200 mls/hr 1X ONCE IV Last administered on 03/08/19at 16:41; Start 03/08/19 at 16:15; Stop 03/08/19 at 16:44; Status DC Vancomycin HCl (Vanco Per Pharmacy) 1 each 1X ONCE MC ; Start 03/08/19 at 16:15; Stop 03/08/19 at 16:24; Status DC Morphine Sulfate (Morphine Sulfate) 4 mg PRN Q15MIN PRN IV/SQ PAIN GREATER THAN 3/10; Start 03/08/19 at 16:15; Stop 03/09/19 at 08:35; Status DC Vancomycin HCl 1.25 gm/Sodium Chloride 250 ml @ 167 mls/hr ONCE ONCE IV Last administered on 03/08/19at 17:40; Start 03/08/19 at 16:30; Stop 03/08/19 at 17:59; Status DC Ondansetron HCl (Zofran) 4 mg PRN Q8HRS PRN IV NAUSEA/VOMITING; Start 03/08/19 at 18:15; Stop 03/08/19 at 21:18; Status DC Morphine Sulfate (Morphine Sulfate) 4 mg PRN Q2HR PRN IV SEVERE PAIN 7-10; Start 03/08/19 at 18:15; Stop 03/09/19 at 08:35; Status DC Sodium Chloride 1,000 ml @ 75 mls/hr 1X ONCE IV Last administered on 03/08/19at 21:25; Start 03/08/19 at 18:15; Stop 03/09/19 at 07:34; Status DC Ondansetron HCl (Zofran) 4 mg PRN Q6HRS PRN IV NAUSEA/VOMITING 1ST CHOICE; Start 03/08/19 at 21:15 Lactic Acid (Lac-Hydrin) 1 nando BID TP Last administered on 03/11/19at 08:40; Start 03/09/19 at 09:00 Non-Formulary Medication (Alendronate Sodium (Fosamax)) 70 mg WEEKLY PO ; Start 03/15/19 at 09:00; Status UNV Vitamin D (Vitamin D3) 5,000 unit WEEKLY PO ; Start 03/15/19 at 09:00 Piperacillin Sod/ Tazobactam Sod 3.375 gm/Sodium Chloride 50 ml @ 100 mls/hr Q6HRS IV ; Start 03/09/19 at 00:00; Status UNV Tramadol HCl (Ultram) 50 mg PRN Q6HRS PRN PO MODERATE PAIN; Start 03/08/19 at 21:15 Insulin Human Lispro (HumaLOG) 0-5 UNITS TIDACHC SQ ; Start 03/09/19 at 07:30; Stop 03/09/19 at 08:31; Status DC Dextrose (Dextrose 50%-Water Syringe) 12.5 gm PRN Q15MIN PRN IV SEE COMMENTS Last administered on 03/09/19at 17:11; Start 03/08/19 at 21:15 Enoxaparin Sodium (Lovenox 40mg Syringe) 40 mg Q24H SQ Last administered on 03/10/19at 21:23; Start 03/08/19 at 22:00 Piperacillin Sod/ Tazobactam Sod 2.25 gm/Sodium Chloride 50 ml @ 100 mls/hr Q6HRS IV Last administered on 03/09/19at 05:54; Start 03/09/19 at 00:00; Stop 03/09/19 at 10:17; Status DC Potassium Chloride (Klor-Con) 40 meq 1X ONCE PO Last administered on 03/08/19at 22:20; Start 03/08/19 at 22:00; Stop 03/08/19 at 22:01; Status DC Acetaminophen (Tylenol) 500 mg PRN Q6HRS PRN PO TEMP/HEADACHE; Start 03/09/19 at 08:30 Acetaminophen/ Codeine Phosphate (Tylenol #3) 1 tab PRN Q6HRS PRN PO MILD PAIN 1-3; Start 03/09/19 at 08:30 Morphine Sulfate (Morphine Sulfate) 2 mg PRN Q2HR PRN IV PAIN; Start 03/09/19 at 08:30 Oxycodone/ Acetaminophen (Percocet 5/325) 1 tab PRN Q4HRS PRN PO SEVERE PAIN 7- 10; Start 03/09/19 at 08:30 Piperacillin Sod/ Tazobactam Sod 3.375 gm/Sodium Chloride 50 ml @ 100 mls/hr Q6HRS IV Last administered on 03/11/19at 05:58; Start 03/09/19 at 12:00 Micafungin Sodium 100 mg/Dextrose 100 ml @ 100 mls/hr Q24H IV Last administered on 03/10/19at 10:08; Start 03/09/19 at 11:00 Vancomycin HCl (Vanco Per Pharmacy) 1 each PRN DAILY PRN MC SEE COMMENTS Last administered on 03/10/19at 17:17; Start 03/09/19 at 11:15 Vancomycin HCl 750 mg/Sodium Chloride 250 ml @ 250 mls/hr Q24H IV Last administered on 03/09/19at 17:11; Start 03/09/19 at 17:00; Stop 03/10/19 at 17:02; Status DC Vancomycin HCl (Vancomycin Trough Level) 1 each 1X ONCE MC Last administered on 03/10/19at 16:30; Start 03/10/19 at 16:30; Stop 03/10/19 at 16:31; Status DC Multivitamins (Thera M Plus) 1 tab DAILY PO Last administered on 03/11/19at 08:40; Start 03/10/19 at 09:00 Dextrose/Sodium Chloride 1,000 ml @ 75 mls/hr [id number] IV Last administered on 03/09/19at 17:30; Start 03/09/19 at 17:30; Stop 03/10/19 at 06:49; Status DC Lactobacillus Rhamnosus (Culturelle) 1 cap BID PO Last administered on 03/11/19at 08:40; Start 03/10/19 at 21:00 Vancomycin HCl 1 gm/Sodium Chloride 250 ml @ 250 mls/hr Q24H IV Last administered on 03/10/19at 17:29; Start 03/10/19 at 17:30 Vancomycin HCl (Vancomycin Trough Level) 1 each 1X ONCE MC ; Start 03/12/19 at 17:00; Stop 03/12/19 at 17:01 Active Scripts Active Ammonium Lactate 226 Gm Lotion 1 Nando TP BID 10 Days Percocet 5-325 Mg Tablet (Oxycodone/Acetaminophen) 1 Each Tablet 1 Tab PO PRN Q4HRS PRN 10 Days Eliquis (Apixaban) 2.5 Mg Tablet 2.5 Mg PO BID 14 Days Reported Tizanidine Hcl 4 Mg Tablet 1 Tab PO QHS Fosamax (Alendronate Sodium) 70 Mg Tablet 70 Mg PO WEEKLY pt takes medication on friday Vitamin D3 (Cholecalciferol (Vitamin D3)) 5,000 Unit Tablet 5,000 Unit PO WEEKLY Vitals/I & O Vital Sign - Last 24 Hours 03/10/19 03/10/19 03/10/19 03/10/19 11:00 15:00 19:00 20:00 Temp 97.8 98.8 98.9 97.8 98.8 98.9 Pulse 40 44 76 Resp 16 16 18 B/P (MAP) 139/74 (95) 150/60 (90) 136/74 (94) Pulse Ox 95 92 93 O2 Delivery Room Air Room Air Room Air Room Air 03/10/19 03/11/19 03/11/19 23:00 03:00 07:00 Temp 97.9 97.4 97.9 97.9 97.4 97.9 Pulse 82 72 67 Resp 18 18 18 B/P (MAP) 156/87 (110) 131/78 (95) 147/87 (107) Pulse Ox 90 90 93 O2 Delivery Room Air Room Air Room Air Intake and Output 03/10/19 03/10/19 03/11/19 15:00 23:00 07:00 Output Total 450 ml 250 ml Balance -450 ml -250 ml Nutrition Consultation Dietary Evaluation: Recommendations by RD: Increase Calorie Intake, Protein supplementation Comments: REC ADA, Cardiac diet with glucerna bid and rosa bid REC mvi q day per wound protocal, discused w/ RN Anitra Expected Outcomes/Goals: to meet >75% est nutr needs improved wound status BS control Interpretation of weight loss: >1-2% in 1 week Malnutrition Findings: Body Fat Depletion (Non Severe: Mod to Severe Weight Status: Underweight NIHARIKA BONNER MD Mar 11, 2019 10:30
[2019-03-11 11:00] VITALS: BP 128/77
[2019-03-11] MEDS: MICAFUNGIN 100 MG in IV DEXTROSE 5% 100ML 100 ML IV SCH (11:38)
--- NOTE | 2019-03-11 11:49 | NUR ---
SW following for discharge planning. Chart reviewed, discussed with RN. Surgery recommendation is bilateral AKA, potential for surgery to occur on Friday03/12/19. SW will continue to follow.
--- NOTE | 2019-03-11 12:56 | PDOC2 ---
CARDIAC CONSULT DATE OF CONSULT Date of Consult DATE: 03/11/19 TIME: 12:48 REASON FOR CONSULT Reason for Consult: preop eval REFERRING PHYSICIAN Referring Physician: Fullbright SOURCE Source: Chart review HISTORY OF PRESENT ILLNESS HISTORY OF PRESENT ILLNESS This is a 73 yo male admitted for complains of heel ulcers with necrotic toes. After further testing it has been deemed that he needed bilateral AKA with severe bilateral LE PAD. He is a poor historian and has been basically WC and bed bound. He has had episodes of fall with recent ORIF of his hip. He tolerated the procedure well. He has not been having any chest pain or SOA. No complains of palpitations. PAST MEDICAL HISTORY Past Medical History Cardiovascular: CAD (cardiac stent repaired hole in heart in ), HTN GI: Other Heme/Onc: Cancer (rectal hx burton transrectal excision and then chemo and radiation rx ) Hepatobiliary: No pertinent hx Psych: No pertinent hx Musculoskeletal: Other (degenerative disc disease) Rheumatologic: No pertinent hx Infectious disease: No pertinent hx ENT: No pertinent hx Renal/: No pertinent hx Endocrine: Diabetes Dermatology: No pertinent hx PAST SURGICAL HISTORY Past Surgical History back surgery transrectal excision of maliqnant colon polyp, PCI, left ORIF hip FAMILY HISTORY Family History: Diabetes SOCIAL HISTORY Smoke: Quit ALCOHOL: none Drugs: None CURRENT MEDICATIONS CURRENT MEDICATIONS Current Medications Medications (Trade) Dose Ordered Sig/Tomasa Route PRN Reason Start Time Stop Time Status Last Admin Dose Admin Vancomycin HCl (Vancomycin Trough Level) 1 each 1X ONCE MC 03/10/19 16:30 03/10/19 16:31 DC 03/10/19 16:30 Lactobacillus Rhamnosus (Culturelle) 1 cap BID PO 03/10/19 21:00 03/11/19 08:40 Vancomycin HCl 1 gm/Sodium Chloride 250 ml @ 250 mls/hr Q24H IV 03/10/19 17:30 03/10/19 17:29 ALLERGIES ALLERGIES: Coded Allergies: No Known Drug Allergies (Unverified , 11/17/14) ROS Review of System limited poor historian PHYSICAL EXAM General: Alert, Oriented X3, Cooperative, No acute distress HEENT: Atraumatic, Mucous membr. moist/pink Lungs: Clear to auscultation, Normal air movement Heart: Regular rate (SR per EKG), Normal S1, Normal S2, Other (S/6 systolic murmur to LLS border) Abdomen: Soft, No tenderness Extremities: No cyanosis, No edema Skin: Other (necrotic toes with heel ulcers, scaly LE skin) Neuro: Normal speech, Sensation intact Psych/Mental Status: Other (anxious) MUSCULOSKELETAL: Osteoarthritic changes both hands VITALS/I&O VITALS/I&O: Vital Signs Date Time Temp Pulse Resp B/P (MAP) Pulse Ox O2 Delivery O2 Flow Rate FiO2 03/11/19 08:00 Room Air 03/11/19 07:00 97.9 67 18 147/87 (107) 93 97.9 I & O 03/10/19 03/10/19 03/11/19 15:00 23:00 07:00 Output Total 450 ml 250 ml Balance -450 ml -250 ml LABS Lab: Laboratory Tests Test 03/10/19 16:15 03/10/19 17:29 03/10/19 20:32 03/11/19 03:20 Vancomycin Level Trough 11.5 mcg/mL (10.0-20.0) Vancomycin Last Dose Date 03/09/19 Vancomycin Last Dose Time 1700 Glucose (Fingerstick) 96 mg/dL (70-99) 72 mg/dL (70-99) White Blood Count 4.2 x10^3/uL (4.0-11.0) Red Blood Count 3.54 x10^6/uL (4.30-5.70) L Hemoglobin 10.1 g/dL (13.0-17.5) L Hematocrit 31.8 % (39.0-53.0) L Mean Corpuscular Volume 90 fL (79-100) Mean Corpuscular Hemoglobin 29 pg (25-35) Mean Corpuscular Hemoglobin Concent 32 g/dL (31-37) Red Cell Distribution Width 16.4 % (11.5-14.5) H Platelet Count 311 x10^3/uL (140-400) Neutrophils (%) (Auto) 58 % (31-73) Lymphocytes (%) (Auto) 19 % (24-48) L Monocytes (%) (Auto) 12 % (0-9) H Eosinophils (%) (Auto) 9 % (0-3) H Basophils (%) (Auto) 2 % (0-3) Neutrophils # (Auto) 2.4 x10^3/uL (1.8-7.7) Lymphocytes # (Auto) 0.8 x10^3/uL (1.0-4.8) L Monocytes # (Auto) 0.5 x10^3/uL (0.0-1.1) Eosinophils # (Auto) 0.4 x10^3/uL (0.0-0.7) Basophils # (Auto) 0.1 x10^3/uL (0.0-0.2) Sodium Level 144 mmol/L (136-145) Potassium Level 3.8 mmol/L (3.5-5.1) Chloride Level 109 mmol/L (98-107) H Carbon Dioxide Level 28 mmol/L (21-32) Anion Gap 7 (6-14) Blood Urea Nitrogen 8 mg/dL (8-26) Creatinine 1.1 mg/dL (0.7-1.3) Estimated GFR (Cockcroft-Gault) 79.4 BUN/Creatinine Ratio 7 (6-20) Glucose Level 72 mg/dL (70-99) Calcium Level 7.5 mg/dL (8.5-10.1) L Total Bilirubin 0.3 mg/dL (0.2-1.0) Aspartate Amino Transferase (AST) 22 U/L (15-37) Alanine Aminotransferase (ALT) 9 U/L (16-63) L Alkaline Phosphatase 58 U/L (46-116) Total Protein 5.0 g/dL (6.4-8.2) L Albumin 1.8 g/dL (3.4-5.0) L Albumin/Globulin Ratio 0.6 (1.0-1.7) L Test 03/11/19 07:22 03/11/19 11:01 Glucose (Fingerstick) 59 mg/dL (70-99) L 103 mg/dL (70-99) H Laboratory Tests 03/11/19 03:20 Laboratory Tests 03/11/19 03:20 ECHOCARDIOGRAM ECHOCARDIOGRAM <Conclusion> The left ventricle is normal size. The left ventricular systolic function is normal and the ejection fraction is within normal range. LV ejection fraction is 50-55%. There is normal LV segmental wall motion. There is borderline concentric left ventricular hypertrophy. There is no significant aortic valvular stenosis. Doppler and Color Flow revealed no significant aortic regurgitation. Doppler and Color Flow revealed trace mitral valve regurgitation. Doppler and Color Flow revealed mild tricuspid regurgitation with an estimated PAP of 47 mmHg. DATE: 12/25/18 1423 ASSESSMENT/PLAN ASSESSMENT/PLAN 1. Mechanical fall with severe PAD and bilateral heel ulcers 2. CAD: cardiac repair in the past and also remote PCI/stent, clinically stable 3. HTN: controlled 4. DM2 5. Suspect dementia 6. Tobaccoism 7. Preop eval for bilateral AKA 8. Cachexia Recommendations 1. ASA. statin 2. Moderate risks for perioperative CV events for noncardiac surgery. 3. Smoking cessation 4. Currently no noted BP meds and BP is controlled. Will place on metoprolol IV PRN ETHAN RICHARDS APRN Mar 11, 2019 12:56
[2019-03-11 15:00] VITALS: BP 120/70
[2019-03-11] MEDS: VANCOMYCIN PER PHARMACY MC PRN (15:33)
[2019-03-11] MEDS ORDERED: METOPROLOL TARTRATE 5 MG/5 ML VIAL. IVP PRN (16:00)
[2019-03-11 16:15] LABS: BASE EXCESS COOX 2 mmol/L (-3-3); HCO3 COOX 27 mmol/L (21-28); METHEMOGLOBIN 0.1 % (0.0-1.9); OXYHEMOGLOBIN 88.5 %; PCO2 COOX 46 mmHg (35-46); PO2 COOX 57 mmHg (65-108); SAT O2 COOX 89 % (92-99)
--- NOTE | 2019-03-11 16:38 | PDOC ---
PULMONARY PROGRESS NOTES Vitals Vital Signs Date Time Temp Pulse Resp B/P (MAP) Pulse Ox O2 Delivery O2 Flow Rate FiO2 03/11/19 16:13 93 03/11/19 11:00 97.7 74 16 128/77 (94) Room Air 97.7 Lungs: Clear Skin: Warm Labs Laboratory Tests Test 03/09/19 17:07 03/09/19 17:28 03/09/19 18:22 03/09/19 21:06 Glucose (Fingerstick) 47 mg/dL (70-99) 84 mg/dL (70-99) 89 mg/dL (70-99) 80 mg/dL (70-99) Test 03/10/19 03:40 03/10/19 07:44 03/10/19 11:57 03/10/19 16:15 Sodium Level 146 mmol/L (136-145) Potassium Level 3.6 mmol/L (3.5-5.1) Chloride Level 111 mmol/L (98-107) Carbon Dioxide Level 29 mmol/L (21-32) Anion Gap 6 (6-14) Blood Urea Nitrogen 10 mg/dL (8-26) Creatinine 1.2 mg/dL (0.7-1.3) Estimated GFR (Cockcroft-Gault) 71.8 Glucose Level 74 mg/dL (70-99) Calcium Level 7.5 mg/dL (8.5-10.1) Glucose (Fingerstick) 60 mg/dL (70-99) 90 mg/dL (70-99) Vancomycin Level Trough 11.5 mcg/mL (10.0-20.0) Vancomycin Last Dose Date 03/09/19 Vancomycin Last Dose Time 1700 Test 03/10/19 17:29 03/10/19 20:32 03/11/19 03:20 03/11/19 07:22 Glucose (Fingerstick) 96 mg/dL (70-99) 72 mg/dL (70-99) 59 mg/dL (70-99) White Blood Count 4.2 x10^3/uL (4.0-11.0) Red Blood Count 3.54 x10^6/uL (4.30-5.70) Hemoglobin 10.1 g/dL (13.0-17.5) Hematocrit 31.8 % (39.0-53.0) Mean Corpuscular Volume 90 fL (79-100) Mean Corpuscular Hemoglobin 29 pg (25-35) Mean Corpuscular Hemoglobin Concent 32 g/dL (31-37) Red Cell Distribution Width 16.4 % (11.5-14.5) Platelet Count 311 x10^3/uL (140-400) Neutrophils (%) (Auto) 58 % (31-73) Lymphocytes (%) (Auto) 19 % (24-48) Monocytes (%) (Auto) 12 % (0-9) Eosinophils (%) (Auto) 9 % (0-3) Basophils (%) (Auto) 2 % (0-3) Neutrophils # (Auto) 2.4 x10^3/uL (1.8-7.7) Lymphocytes # (Auto) 0.8 x10^3/uL (1.0-4.8) Monocytes # (Auto) 0.5 x10^3/uL (0.0-1.1) Eosinophils # (Auto) 0.4 x10^3/uL (0.0-0.7) Basophils # (Auto) 0.1 x10^3/uL (0.0-0.2) Sodium Level 144 mmol/L (136-145) Potassium Level 3.8 mmol/L (3.5-5.1) Chloride Level 109 mmol/L (98-107) Carbon Dioxide Level 28 mmol/L (21-32) Anion Gap 7 (6-14) Blood Urea Nitrogen 8 mg/dL (8-26) Creatinine 1.1 mg/dL (0.7-1.3) Estimated GFR (Cockcroft-Gault) 79.4 BUN/Creatinine Ratio 7 (6-20) Glucose Level 72 mg/dL (70-99) Calcium Level 7.5 mg/dL (8.5-10.1) Total Bilirubin 0.3 mg/dL (0.2-1.0) Aspartate Amino Transf (AST/SGOT) 22 U/L (15-37) Alanine Aminotransferase (ALT/SGPT) 9 U/L (16-63) Alkaline Phosphatase 58 U/L (46-116) Total Protein 5.0 g/dL (6.4-8.2) Albumin 1.8 g/dL (3.4-5.0) Albumin/Globulin Ratio 0.6 (1.0-1.7) Test 03/11/19 11:01 03/11/19 16:13 Glucose (Fingerstick) 103 mg/dL (70-99) O2 Saturation 89 % (92-99) Arterial Blood pH 7.39 (7.35-7.45) Arterial Blood pCO2 at Patient Temp 46 mmHg (35-46) Arterial Blood pO2 at Patient Temp 57 mmHg (65-108) Arterial Blood HCO3 27 mmol/L (21-28) Arterial Blood Base Excess 2 mmol/L (-3-3) Oxyhemoglobin 88.5 % Methemoglobin 0.1 % (0.0-1.9) Carbon Monoxide, Quantitative 0.5 % (0.0-1.9) FiO2 21 Laboratory Tests Test 03/10/19 17:29 03/10/19 20:32 03/11/19 03:20 03/11/19 07:22 Glucose (Fingerstick) 96 mg/dL (70-99) 72 mg/dL (70-99) 59 mg/dL (70-99) White Blood Count 4.2 x10^3/uL (4.0-11.0) Red Blood Count 3.54 x10^6/uL (4.30-5.70) Hemoglobin 10.1 g/dL (13.0-17.5) Hematocrit 31.8 % (39.0-53.0) Mean Corpuscular Volume 90 fL (79-100) Mean Corpuscular Hemoglobin 29 pg (25-35) Mean Corpuscular Hemoglobin Concent 32 g/dL (31-37) Red Cell Distribution Width 16.4 % (11.5-14.5) Platelet Count 311 x10^3/uL (140-400) Neutrophils (%) (Auto) 58 % (31-73) Lymphocytes (%) (Auto) 19 % (24-48) Monocytes (%) (Auto) 12 % (0-9) Eosinophils (%) (Auto) 9 % (0-3) Basophils (%) (Auto) 2 % (0-3) Neutrophils # (Auto) 2.4 x10^3/uL (1.8-7.7) Lymphocytes # (Auto) 0.8 x10^3/uL (1.0-4.8) Monocytes # (Auto) 0.5 x10^3/uL (0.0-1.1) Eosinophils # (Auto) 0.4 x10^3/uL (0.0-0.7) Basophils # (Auto) 0.1 x10^3/uL (0.0-0.2) Sodium Level 144 mmol/L (136-145) Potassium Level 3.8 mmol/L (3.5-5.1) Chloride Level 109 mmol/L (98-107) Carbon Dioxide Level 28 mmol/L (21-32) Anion Gap 7 (6-14) Blood Urea Nitrogen 8 mg/dL (8-26) Creatinine 1.1 mg/dL (0.7-1.3) Estimated GFR (Cockcroft-Gault) 79.4 BUN/Creatinine Ratio 7 (6-20) Glucose Level 72 mg/dL (70-99) Calcium Level 7.5 mg/dL (8.5-10.1) Total Bilirubin 0.3 mg/dL (0.2-1.0) Aspartate Amino Transf (AST/SGOT) 22 U/L (15-37) Alanine Aminotransferase (ALT/SGPT) 9 U/L (16-63) Alkaline Phosphatase 58 U/L (46-116) Total Protein 5.0 g/dL (6.4-8.2) Albumin 1.8 g/dL (3.4-5.0) Albumin/Globulin Ratio 0.6 (1.0-1.7) Test 03/11/19 11:01 03/11/19 16:13 Glucose (Fingerstick) 103 mg/dL (70-99) O2 Saturation 89 % (92-99) Arterial Blood pH 7.39 (7.35-7.45) Arterial Blood pCO2 at Patient Temp 46 mmHg (35-46) Arterial Blood pO2 at Patient Temp 57 mmHg (65-108) Arterial Blood HCO3 27 mmol/L (21-28) Arterial Blood Base Excess 2 mmol/L (-3-3) Oxyhemoglobin 88.5 % Methemoglobin 0.1 % (0.0-1.9) Carbon Monoxide, Quantitative 0.5 % (0.0-1.9) FiO2 21 Medications Active Scripts Medications Dose Route/Sig Max Daily Dose Days Date Category Dose Instructions Tizanidine Hcl 4 Mg Tablet 1 Tab PO QHS 03/09/19 Reported Ammonium Lactate 226 Gm Lotion 1 Nando TP BID 10 12/31/18 Rx Percocet 5-325 Mg Tablet (Oxycodone/Acetaminophen) 1 Each Tablet 1 Tab PO PRN Q4HRS PRN 10 12/31/18 Rx Eliquis (Apixaban) 2.5 Mg Tablet 2.5 Mg PO BID 14 12/31/18 Rx Fosamax (Alendronate Sodium) 70 Mg Tablet 70 Mg PO WEEKLY 12/25/18 Reported pt takes medication on friday Vitamin D3 (Cholecalciferol (Vitamin D3)) 5,000 Unit Tablet 5,000 Unit PO WEEKLY 11/17/14 Reported Impression . FULL NOTE DICTATED THANKS HYPOXEMIA OK TO PROCEED WITH SURGERY MEHREEN BANSAL MD Mar 11, 2019 16:38
[2019-03-11] MEDS: VANCOMYCIN 1 GM in IV NORMAL SALINE 250ML 250 ML IV SCH (17:24)
[2019-03-11 19:15] VITALS: BP 123/74
--- NOTE | 2019-03-11 19:40 | CONS ---
DATE OF CONSULTATION: 03/11/2019 ATTENDING PHYSICIAN: Dr. Francois. REASON FOR CONSULTATION: The patient is seen in pulmonary consultation at the request of Dr. Francois for hypoxemia, pH of 7.39, PaCO2 of 46, pO2 of 57 on room air. HISTORY OF PRESENT ILLNESS: The patient is a 73-year-old with comorbidities including coronary artery disease, hypertension, colorectal cancer, diabetes and peripheral vascular disease, previous degenerative joint disease, presented with necrotic toe, bilateral feet. He is tentatively scheduled to undergo surgery. I was asked to see him in consultation for his hypoxemia. He has had bilateral lower extremity cellulitis, left greater than right, some right gangrene of the right mid toe, which had fallen off. He has left heel osteomyelitis. He is scheduled to tentatively undergo surgical intervention. The patient is scheduled to undergo above-knee amputation bilaterally. The patient does have a history of tobacco use, but has never been told that he has COPD. He does not frequently experience COPD exacerbation. He does not wear oxygen. He was smoking up until the day of his admission. PAST MEDICAL HISTORY: Remarkable for coronary artery disease, tobacco dependent, possible COPD, hypertension, colorectal cancer, peripheral vascular disease, previous left hip fracture. PAST SURGICAL HISTORY: Positive for colon cancer resection, left hip repair. ALLERGIES: No known drug allergies. CURRENT MEDICATIONS: List was reviewed. SOCIAL HISTORY: The patient continues to smoke. He has had multiple occupations. FAMILY HISTORY: No family history of early lung disorders. REVIEW OF SYSTEMS: As indicated above, otherwise, the 10-point system was reviewed and negative. PHYSICAL EXAMINATION: GENERAL: The patient appeared to be older than stated age. According to his , he has lost a great deal of weight. He has some temporal wasting. HEENT: Eyes, the sclerae were nonicteric. NECK: Jugular venous distention was not elevated. No lymphadenopathy. CHEST: Full expansion. LUNGS: Poor airway flow with no wheezes. CARDIOVASCULAR: Regular rate and rhythm with S1, S2, no S3. ABDOMEN: Soft, nontender. EXTREMITIES: Evidence of peripheral vascular disease. He had necrotic toes. LABORATORY DATA: Reviewed. Arterial blood as indicated above. White count was noted. Electrolytes were noted. BUN and creatinine were normal. Albumin is quite low. UA was noted. Chest x-ray, none in the last week. Lower extremity ultrasound revealed no evidence of deep venous thrombosis. His duplex scan revealed occlusion of the mid superior femoral artery. IMPRESSION: 1. Hypoxemia. 2. Chronic obstructive pulmonary disease. 3. Osteomyelitis. 4. Peripheral vascular disease requiring surgical intervention possible below-knee amputation. 5. Severe protein malnutrition. 6. Osteomyelitis. 7. Severe weight loss. PLAN: Proceed with surgery, considering the patient's underlying COPD, malnutrition and significant weight loss, he is certainly at risk for postop complications including postop respiratory distress, subacute bronchitis, pneumonia. We will follow along. Arterial blood gas has been noted. Recommend 2 liters of oxygen supplementation per nasal cannula. DVT and GI prophylaxis postoperatively. I do appreciate the privilege in sharing in the patient's care. MEHREEN BANSAL MD DR: JONAH/lashon JOB#: [id number] / [id number]
[2019-03-11] MEDS: ENOXAPARIN 40 MG/0.4 ML SYRINGE. SQ SCH (21:15)
[2019-03-11] MEDS: ATORVASTATIN CALCIUM 10 MG TABLET. PO SCH (21:15)
[2019-03-11 23:35] VITALS: BP 124/74
--- NOTE | 2019-03-11 23:49 | RAD ---
PORTABLE CHEST 1V Clinical History: COPD Technique: AP view of the chest was obtained at 03/11/2019 5:10 PM. Comparison: None. Findings: The cardiomediastinal silhouette is normal. The pulmonary vasculature is normal. Reticular opacities of the lungs is likely chronic pulmonary fibrosis. Impression: No evidence of an acute cardiopulmonary process. Electronically signed by: Lobito Mcbride III, MD (03/11/2019 11:46 PM) [id number]
[2019-03-12] VITALS (9 sets, daily range): BP systolic 76–145; BP diastolic 44–79
[2019-03-12] MEDS: PIPERACILLIN/TAZOBACTAM 3.375 GM in IV NORMAL SALINE 50ML 50 ML IV SCH ×5 (06:00→17:30)
[2019-03-12 06:43] LABS: BASO # 0.1 x10^3/uL (0.0-0.2); BASO % 2 % (0-3); EOS # 0.4 x10^3/uL (0.0-0.7); EOS % 9 % (0-3); HEMATOCRIT 32.3 % (39.0-53.0); HEMOGLOBIN 10.4 g/dL (13.0-17.5); LYMPH # 0.8 x10^3/uL (1.0-4.8); LYMPH % 18 % (24-48); MEAN CORPUSCULAR HEMOGLOBIN 29 pg (25-35); MEAN CORPUSCULAR HGB CONC 32 g/dL (31-37); MEAN CORPUSCULAR VOLUME 89 fL (79-100); MONO # 0.4 x10^3/uL (0.0-1.1); MONO % 9 % (0-9); NEUT # 2.8 x10^3/uL (1.8-7.7); NEUT % 62 % (31-73); PLATELET COUNT 321 x10^3/uL (140-400); RED BLOOD COUNT 3.62 x10^6/uL (4.30-5.70); RED CELL DISTRIBUTION WIDTH 16.6 % (11.5-14.5); WHITE BLOOD COUNT 4.6 x10^3/uL (4.0-11.0)
[2019-03-12] MEDS ORDERED: HYDROmorphone 2 MG/ML VIAL IV PRN (07:00)
[2019-03-12] MEDS ORDERED: ONDANSETRON PF 4 MG/2 ML VIAL. IV PRN (07:00)
[2019-03-12] MEDS ORDERED: LIDOCAINE 1% PF 2 ML VIAL. ID PRN (07:00)
[2019-03-12] MEDS ORDERED: IV RINGERS,LACTATED 1000ML 1,000 ML IV SCH (07:00)
[2019-03-12] MEDS ORDERED: PROCHLORPERAZINE 10 MG/2 ML VIAL. IV PRN (07:00)
[2019-03-12] MEDS ORDERED: fentaNYL PF VIAL 100 MCG/2 ML VIAL IV PRN (07:00)
[2019-03-12] MEDS ORDERED: MORPHINE SULFATE 2 MG/ML VIAL. IV PRN (07:00)
[2019-03-12 07:03] LABS: ALBUMIN 1.8 g/dL (3.4-5.0); ALBUMIN/GLOBULIN RATIO 0.4 (1.0-1.7); CALCIUM 8.2 mg/dL (8.5-10.1); CREATININE 1.2 mg/dL (0.7-1.3); GFR 71.8; POTASSIUM 3.5 mmol/L (3.5-5.1); TOTAL BILIRUBIN 0.3 mg/dL (0.2-1.0)
[2019-03-12] MEDS: DEXTROSE 50% 25 GM / 50ML DISP.SYRIN. IV PRN ×2 (07:20→17:13)
--- NOTE | 2019-03-12 07:57 | NUR ---
BS this am at 0715 was 42, D50 given, Dr. Martin notified, telephone orders received. Retaken at 91.
[2019-03-12] MEDS: AMMONIUM LACTATE 12% TOPICAL LOTION 226GM BOTTLE. TP SCH ×2 (08:00→21:00)
[2019-03-12] MEDS: ASPIRIN ENTERIC COATED 81 MG TABLET.DR. PO SCH (08:00)
[2019-03-12] MEDS ORDERED: BUPIVACAINE-EPI 0.25%-1:200000 MPF 30 ML VIAL. INJ ONE (08:00)
[2019-03-12] MEDS: MULTIVITAMIN with MINERAL TABLET. PO SCH (08:00)
[2019-03-12] MEDS: LACTOBACILLUS RHAMNOSUS GG 1 CAPSULE. PO SCH ×2 (08:28→21:00)
[2019-03-12] MEDS: POTASSIUM CL 20MEQ D5-0.45NACL 1,000 ML IV SCH (09:08)
--- NOTE | 2019-03-12 09:25 | PDOC ---
PROGRESS NOTES Chief Complaint Chief Complaint IMPRESSION BIlateral heel ulcer/wounds with cellulitis SEVERE PROTEIN-CALORIC MALNUTRITION Monophasic flow in the lower extremities bilaterally. This is likely secondary to diffuse atherosclerotic disease. 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 Occlusion of the mid SFA. There is reconstitution of flow in the distal SFA through collaterals. DM 2 ? 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 NORBERTO VMN BORDERLINE HYPOXIA, CHK ABG CAD: cardiac repair in the past and also remote PCI/stent HTN: controlled Cont Vanc/Zosyn 3.375 and Micafungin both Ortho and Vascular recommending Amputation both LE CONSULT CARDIOLOGY, PULM PRE-OP ABG 38 MIN PT EXAM, CHART REVIEW, > 50% OF TIME SPENT WITH EXAM, CHART REVIEW, PT CARE COORDINATION History of Present Illness History of Present Illness hypoglycemia again today, start PPN for malnutrition, severe malnutrition plan surg today , vasc, ortho following , poor compliance, wounds etc WIll need SNU Await wound care IV abx per ID FULL CODE Cont Vanc/Zosyn 3.375 and Micafungin Vitals Vitals Vital Signs Date Time Temp Pulse Resp B/P (MAP) Pulse Ox O2 Delivery O2 Flow Rate FiO2 03/12/19 07:00 98.2 80 16 136/77 (96) 95 Room Air 98.2 Physical Exam Physical Exam CONSTITUTIONAL: He is lying in bed. He appears comfortable. He is in no acute distress. HEENT: He has normal conjunctivae. Oral cavity, pharynx is dry. Edentulous. NECK: Without any JVD. No fullness. LUNGS: Decreased in the bases. HEART: S1, S2. ABDOMEN: Soft. No guarding or rebound. Positive bowel sounds. EXTREMITIES: No clubbing or cyanosis. He has decreased pulses. wounds are dressed today. 03/09 He has a left heel ulcer with palpable bone. He also has a right heel ulcer. His right middle dry gangrene toe also has some tinea His legs have chronic venous stasis changes and some thick peeling skin. slight warmth to his left lower extremity. SKIN: Warm to touch without generalized signs of rash. NEUROLOGIC: alert cooperative. Moves all extremities. PSYCHIATRIC: Affect is appropriate. CONFUSED TO DETAILS General: Alert, Oriented X3, Cooperative, No acute distress Heart: Regular rate (SR per EKG), Normal S1, Normal S2, Other (S/6 systolic murmur to LLS border) Lungs: Clear Abdomen: Soft, No tenderness Extremities: No cyanosis, No edema Skin: Other (necrotic toes with heel ulcers, scaly LE skin) Labs LABS Laboratory Tests Test 03/11/19 11:01 03/11/19 16:13 03/11/19 17:11 03/11/19 21:20 Glucose (Fingerstick) 103 mg/dL (70-99) 96 mg/dL (70-99) 71 mg/dL (70-99) O2 Saturation 89 % (92-99) Arterial Blood pH 7.39 (7.35-7.45) Arterial Blood pCO2 at Patient Temp 46 mmHg (35-46) Arterial Blood pO2 at Patient Temp 57 mmHg (65-108) Arterial Blood HCO3 27 mmol/L (21-28) Arterial Blood Base Excess 2 mmol/L (-3-3) Oxyhemoglobin 88.5 % Methemoglobin 0.1 % (0.0-1.9) Carbon Monoxide, Quantitative 0.5 % (0.0-1.9) FiO2 21 Test 03/12/19 05:25 03/12/19 07:14 03/12/19 07:56 White Blood Count 4.6 x10^3/uL (4.0-11.0) Red Blood Count 3.62 x10^6/uL (4.30-5.70) Hemoglobin 10.4 g/dL (13.0-17.5) Hematocrit 32.3 % (39.0-53.0) Mean Corpuscular Volume 89 fL (79-100) Mean Corpuscular Hemoglobin 29 pg (25-35) Mean Corpuscular Hemoglobin Concent 32 g/dL (31-37) Red Cell Distribution Width 16.6 % (11.5-14.5) Platelet Count 321 x10^3/uL (140-400) Neutrophils (%) (Auto) 62 % (31-73) Lymphocytes (%) (Auto) 18 % (24-48) Monocytes (%) (Auto) 9 % (0-9) Eosinophils (%) (Auto) 9 % (0-3) Basophils (%) (Auto) 2 % (0-3) Neutrophils # (Auto) 2.8 x10^3/uL (1.8-7.7) Lymphocytes # (Auto) 0.8 x10^3/uL (1.0-4.8) Monocytes # (Auto) 0.4 x10^3/uL (0.0-1.1) Eosinophils # (Auto) 0.4 x10^3/uL (0.0-0.7) Basophils # (Auto) 0.1 x10^3/uL (0.0-0.2) Sodium Level 142 mmol/L (136-145) Potassium Level 3.5 mmol/L (3.5-5.1) Chloride Level 107 mmol/L (98-107) Carbon Dioxide Level 29 mmol/L (21-32) Anion Gap 6 (6-14) Blood Urea Nitrogen 6 mg/dL (8-26) Creatinine 1.2 mg/dL (0.7-1.3) Estimated GFR (Cockcroft-Gault) 71.8 BUN/Creatinine Ratio 5 (6-20) Glucose Level 50 mg/dL (70-99) Calcium Level 8.2 mg/dL (8.5-10.1) Total Bilirubin 0.3 mg/dL (0.2-1.0) Aspartate Amino Transf (AST/SGOT) 24 U/L (15-37) Alanine Aminotransferase (ALT/SGPT) 7 U/L (16-63) Alkaline Phosphatase 59 U/L (46-116) Total Protein 6.0 g/dL (6.4-8.2) Albumin 1.8 g/dL (3.4-5.0) Albumin/Globulin Ratio 0.4 (1.0-1.7) Glucose (Fingerstick) 42 mg/dL (70-99) 91 mg/dL (70-99) Review of Systems Review of Systems no n.v.d Assessment and Plan Assessmemt and Plan Problems Medical Problems: (1) Necrotic toes Status: Acute (2) Ulcer of left heel Status: Acute Comment Review of Relevant I have reviewed the following items segun (where applicable) has been applied. Labs Laboratory Tests Test 03/10/19 11:57 03/10/19 16:15 03/10/19 17:29 03/10/19 20:32 Glucose (Fingerstick) 90 mg/dL (70-99) 96 mg/dL (70-99) 72 mg/dL (70-99) Vancomycin Level Trough 11.5 mcg/mL (10.0-20.0) Vancomycin Last Dose Date 03/09/19 Vancomycin Last Dose Time 1700 Test 03/11/19 03:20 03/11/19 07:22 03/11/19 11:01 03/11/19 16:13 White Blood Count 4.2 x10^3/uL (4.0-11.0) Red Blood Count 3.54 x10^6/uL (4.30-5.70) Hemoglobin 10.1 g/dL (13.0-17.5) Hematocrit 31.8 % (39.0-53.0) Mean Corpuscular Volume 90 fL (79-100) Mean Corpuscular Hemoglobin 29 pg (25-35) Mean Corpuscular Hemoglobin Concent 32 g/dL (31-37) Red Cell Distribution Width 16.4 % (11.5-14.5) Platelet Count 311 x10^3/uL (140-400) Neutrophils (%) (Auto) 58 % (31-73) Lymphocytes (%) (Auto) 19 % (24-48) Monocytes (%) (Auto) 12 % (0-9) Eosinophils (%) (Auto) 9 % (0-3) Basophils (%) (Auto) 2 % (0-3) Neutrophils # (Auto) 2.4 x10^3/uL (1.8-7.7) Lymphocytes # (Auto) 0.8 x10^3/uL (1.0-4.8) Monocytes # (Auto) 0.5 x10^3/uL (0.0-1.1) Eosinophils # (Auto) 0.4 x10^3/uL (0.0-0.7) Basophils # (Auto) 0.1 x10^3/uL (0.0-0.2) Sodium Level 144 mmol/L (136-145) Potassium Level 3.8 mmol/L (3.5-5.1) Chloride Level 109 mmol/L (98-107) Carbon Dioxide Level 28 mmol/L (21-32) Anion Gap 7 (6-14) Blood Urea Nitrogen 8 mg/dL (8-26) Creatinine 1.1 mg/dL (0.7-1.3) Estimated GFR (Cockcroft-Gault) 79.4 BUN/Creatinine Ratio 7 (6-20) Glucose Level 72 mg/dL (70-99) Calcium Level 7.5 mg/dL (8.5-10.1) Total Bilirubin 0.3 mg/dL (0.2-1.0) Aspartate Amino Transf (AST/SGOT) 22 U/L (15-37) Alanine Aminotransferase (ALT/SGPT) 9 U/L (16-63) Alkaline Phosphatase 58 U/L (46-116) Total Protein 5.0 g/dL (6.4-8.2) Albumin 1.8 g/dL (3.4-5.0) Albumin/Globulin Ratio 0.6 (1.0-1.7) Glucose (Fingerstick) 59 mg/dL (70-99) 103 mg/dL (70-99) O2 Saturation 89 % (92-99) Arterial Blood pH 7.39 (7.35-7.45) Arterial Blood pCO2 at Patient Temp 46 mmHg (35-46) Arterial Blood pO2 at Patient Temp 57 mmHg (65-108) Arterial Blood HCO3 27 mmol/L (21-28) Arterial Blood Base Excess 2 mmol/L (-3-3) Oxyhemoglobin 88.5 % Methemoglobin 0.1 % (0.0-1.9) Carbon Monoxide, Quantitative 0.5 % (0.0-1.9) FiO2 21 Test 03/11/19 17:11 03/11/19 21:20 03/12/19 05:25 03/12/19 07:14 Glucose (Fingerstick) 96 mg/dL (70-99) 71 mg/dL (70-99) 42 mg/dL (70-99) White Blood Count 4.6 x10^3/uL (4.0-11.0) Red Blood Count 3.62 x10^6/uL (4.30-5.70) Hemoglobin 10.4 g/dL (13.0-17.5) Hematocrit 32.3 % (39.0-53.0) Mean Corpuscular Volume 89 fL (79-100) Mean Corpuscular Hemoglobin 29 pg (25-35) Mean Corpuscular Hemoglobin Concent 32 g/dL (31-37) Red Cell Distribution Width 16.6 % (11.5-14.5) Platelet Count 321 x10^3/uL (140-400) Neutrophils (%) (Auto) 62 % (31-73) Lymphocytes (%) (Auto) 18 % (24-48) Monocytes (%) (Auto) 9 % (0-9) Eosinophils (%) (Auto) 9 % (0-3) Basophils (%) (Auto) 2 % (0-3) Neutrophils # (Auto) 2.8 x10^3/uL (1.8-7.7) Lymphocytes # (Auto) 0.8 x10^3/uL (1.0-4.8) Monocytes # (Auto) 0.4 x10^3/uL (0.0-1.1) Eosinophils # (Auto) 0.4 x10^3/uL (0.0-0.7) Basophils # (Auto) 0.1 x10^3/uL (0.0-0.2) Sodium Level 142 mmol/L (136-145) Potassium Level 3.5 mmol/L (3.5-5.1) Chloride Level 107 mmol/L (98-107) Carbon Dioxide Level 29 mmol/L (21-32) Anion Gap 6 (6-14) Blood Urea Nitrogen 6 mg/dL (8-26) Creatinine 1.2 mg/dL (0.7-1.3) Estimated GFR (Cockcroft-Gault) 71.8 BUN/Creatinine Ratio 5 (6-20) Glucose Level 50 mg/dL (70-99) Calcium Level 8.2 mg/dL (8.5-10.1) Total Bilirubin 0.3 mg/dL (0.2-1.0) Aspartate Amino Transf (AST/SGOT) 24 U/L (15-37) Alanine Aminotransferase (ALT/SGPT) 7 U/L (16-63) Alkaline Phosphatase 59 U/L (46-116) Total Protein 6.0 g/dL (6.4-8.2) Albumin 1.8 g/dL (3.4-5.0) Albumin/Globulin Ratio 0.4 (1.0-1.7) Test 03/12/19 07:56 Glucose (Fingerstick) 91 mg/dL (70-99) Laboratory Tests Test 03/11/19 11:01 03/11/19 16:13 03/11/19 17:11 03/11/19 21:20 Glucose (Fingerstick) 103 mg/dL (70-99) 96 mg/dL (70-99) 71 mg/dL (70-99) O2 Saturation 89 % (92-99) Arterial Blood pH 7.39 (7.35-7.45) Arterial Blood pCO2 at Patient Temp 46 mmHg (35-46) Arterial Blood pO2 at Patient Temp 57 mmHg (65-108) Arterial Blood HCO3 27 mmol/L (21-28) Arterial Blood Base Excess 2 mmol/L (-3-3) Oxyhemoglobin 88.5 % Methemoglobin 0.1 % (0.0-1.9) Carbon Monoxide, Quantitative 0.5 % (0.0-1.9) FiO2 21 Test 03/12/19 05:25 03/12/19 07:14 03/12/19 07:56 White Blood Count 4.6 x10^3/uL (4.0-11.0) Red Blood Count 3.62 x10^6/uL (4.30-5.70) Hemoglobin 10.4 g/dL (13.0-17.5) Hematocrit 32.3 % (39.0-53.0) Mean Corpuscular Volume 89 fL (79-100) Mean Corpuscular Hemoglobin 29 pg (25-35) Mean Corpuscular Hemoglobin Concent 32 g/dL (31-37) Red Cell Distribution Width 16.6 % (11.5-14.5) Platelet Count 321 x10^3/uL (140-400) Neutrophils (%) (Auto) 62 % (31-73) Lymphocytes (%) (Auto) 18 % (24-48) Monocytes (%) (Auto) 9 % (0-9) Eosinophils (%) (Auto) 9 % (0-3) Basophils (%) (Auto) 2 % (0-3) Neutrophils # (Auto) 2.8 x10^3/uL (1.8-7.7) Lymphocytes # (Auto) 0.8 x10^3/uL (1.0-4.8) Monocytes # (Auto) 0.4 x10^3/uL (0.0-1.1) Eosinophils # (Auto) 0.4 x10^3/uL (0.0-0.7) Basophils # (Auto) 0.1 x10^3/uL (0.0-0.2) Sodium Level 142 mmol/L (136-145) Potassium Level 3.5 mmol/L (3.5-5.1) Chloride Level 107 mmol/L (98-107) Carbon Dioxide Level 29 mmol/L (21-32) Anion Gap 6 (6-14) Blood Urea Nitrogen 6 mg/dL (8-26) Creatinine 1.2 mg/dL (0.7-1.3) Estimated GFR (Cockcroft-Gault) 71.8 BUN/Creatinine Ratio 5 (6-20) Glucose Level 50 mg/dL (70-99) Calcium Level 8.2 mg/dL (8.5-10.1) Total Bilirubin 0.3 mg/dL (0.2-1.0) Aspartate Amino Transf (AST/SGOT) 24 U/L (15-37) Alanine Aminotransferase (ALT/SGPT) 7 U/L (16-63) Alkaline Phosphatase 59 U/L (46-116) Total Protein 6.0 g/dL (6.4-8.2) Albumin 1.8 g/dL (3.4-5.0) Albumin/Globulin Ratio 0.4 (1.0-1.7) Glucose (Fingerstick) 42 mg/dL (70-99) 91 mg/dL (70-99) Microbiology 03/08/19 Blood Culture - Preliminary, Resulted NO GROWTH AFTER 3 DAYS Medications Current Medications Sodium Chloride 1,000 ml @ 1,860 mls/hr Q33M IV Last administered on 03/08/19at 17:40; Start 03/08/19 at 16:04; Stop 03/08/19 at 17:04; Status DC Piperacillin Sod/ Tazobactam Sod 4.5 gm/Sodium Chloride 100 ml @ 200 mls/hr 1X ONCE IV Last administered on 03/08/19at 16:41; Start 03/08/19 at 16:15; Stop 03/08/19 at 16:44; Status DC Vancomycin HCl (Vanco Per Pharmacy) 1 each 1X ONCE MC ; Start 03/08/19 at 16:15; Stop 03/08/19 at 16:24; Status DC Morphine Sulfate (Morphine Sulfate) 4 mg PRN Q15MIN PRN IV/SQ PAIN GREATER THAN 3/10; Start 03/08/19 at 16:15; Stop 03/09/19 at 08:35; Status DC Vancomycin HCl 1.25 gm/Sodium Chloride 250 ml @ 167 mls/hr ONCE ONCE IV Last administered on 03/08/19at 17:40; Start 03/08/19 at 16:30; Stop 03/08/19 at 17:59; Status DC Ondansetron HCl (Zofran) 4 mg PRN Q8HRS PRN IV NAUSEA/VOMITING; Start 03/08/19 at 18:15; Stop 03/08/19 at 21:18; Status DC Morphine Sulfate (Morphine Sulfate) 4 mg PRN Q2HR PRN IV SEVERE PAIN 7-10; Start 03/08/19 at 18:15; Stop 03/09/19 at 08:35; Status DC Sodium Chloride 1,000 ml @ 75 mls/hr 1X ONCE IV Last administered on 03/08/19at 21:25; Start 03/08/19 at 18:15; Stop 03/09/19 at 07:34; Status DC Ondansetron HCl (Zofran) 4 mg PRN Q6HRS PRN IV NAUSEA/VOMITING 1ST CHOICE; Start 03/08/19 at 21:15 Lactic Acid (Lac-Hydrin) 1 nando BID TP Last administered on 03/11/19at 21:00; Start 03/09/19 at 09:00 Non-Formulary Medication (Alendronate Sodium (Fosamax)) 70 mg WEEKLY PO ; Start 03/15/19 at 09:00; Status UNV Vitamin D (Vitamin D3) 5,000 unit WEEKLY PO ; Start 03/15/19 at 09:00 Piperacillin Sod/ Tazobactam Sod 3.375 gm/Sodium Chloride 50 ml @ 100 mls/hr Q6HRS IV ; Start 03/09/19 at 00:00; Status UNV Tramadol HCl (Ultram) 50 mg PRN Q6HRS PRN PO MODERATE PAIN; Start 03/08/19 at 21:15 Insulin Human Lispro (HumaLOG) 0-5 UNITS TIDACHC SQ ; Start 03/09/19 at 07:30; Stop 03/09/19 at 08:31; Status DC Dextrose (Dextrose 50%-Water Syringe) 12.5 gm PRN Q15MIN PRN IV SEE COMMENTS Last administered on 03/12/19at 07:20; Start 03/08/19 at 21:15 Enoxaparin Sodium (Lovenox 40mg Syringe) 40 mg Q24H SQ Last administered on 03/11/19at 21:15; Start 03/08/19 at 22:00 Piperacillin Sod/ Tazobactam Sod 2.25 gm/Sodium Chloride 50 ml @ 100 mls/hr Q6HRS IV Last administered on 03/09/19at 05:54; Start 03/09/19 at 00:00; Stop 03/09/19 at 10:17; Status DC Potassium Chloride (Klor-Con) 40 meq 1X ONCE PO Last administered on 03/08/19at 22:20; Start 03/08/19 at 22:00; Stop 03/08/19 at 22:01; Status DC Acetaminophen (Tylenol) 500 mg PRN Q6HRS PRN PO TEMP/HEADACHE; Start 03/09/19 at 08:30 Acetaminophen/ Codeine Phosphate (Tylenol #3) 1 tab PRN Q6HRS PRN PO MILD PAIN 1-3; Start 03/09/19 at 08:30 Morphine Sulfate (Morphine Sulfate) 2 mg PRN Q2HR PRN IV PAIN; Start 03/09/19 at 08:30 Oxycodone/ Acetaminophen (Percocet 5/325) 1 tab PRN Q4HRS PRN PO SEVERE PAIN 7- 10; Start 03/09/19 at 08:30 Piperacillin Sod/ Tazobactam Sod 3.375 gm/Sodium Chloride 50 ml @ 100 mls/hr Q6HRS IV Last administered on 03/12/19at 06:00; Start 03/09/19 at 12:00 Micafungin Sodium 100 mg/Dextrose 100 ml @ 100 mls/hr Q24H IV Last administered on 03/11/19at 11:38; Start 03/09/19 at 11:00 Vancomycin HCl (Vanco Per Pharmacy) 1 each PRN DAILY PRN MC SEE COMMENTS Last administered on 03/11/19at 15:33; Start 03/09/19 at 11:15 Vancomycin HCl 750 mg/Sodium Chloride 250 ml @ 250 mls/hr Q24H IV Last administered on 03/09/19at 17:11; Start 03/09/19 at 17:00; Stop 03/10/19 at 17:02; Status DC Vancomycin HCl (Vancomycin Trough Level) 1 each 1X ONCE MC Last administered on 03/10/19at 16:30; Start 03/10/19 at 16:30; Stop 03/10/19 at 16:31; Status DC Multivitamins (Thera M Plus) 1 tab DAILY PO Last administered on 03/11/19at 08:40; Start 03/10/19 at 09:00 Dextrose/Sodium Chloride 1,000 ml @ 75 mls/hr [id number] IV Last administered on 03/09/19at 17:30; Start 03/09/19 at 17:30; Stop 03/10/19 at 06:49; Status DC Lactobacillus Rhamnosus (Culturelle) 1 cap BID PO Last administered on 03/11/19at 21:15; Start 03/10/19 at 21:00 Vancomycin HCl 1 gm/Sodium Chloride 250 ml @ 250 mls/hr Q24H IV Last administered on 03/11/19at 17:24; Start 03/10/19 at 17:30 Vancomycin HCl (Vancomycin Trough Level) 1 each 1X ONCE MC ; Start 03/12/19 at 17:00; Stop 03/12/19 at 17:01 Bupivacaine HCl/ Epinephrine Bitart (Sensorcaine-Epi 0.25%-1:131019 Mpf) 30 ml 1X ONCE INJ ; Start 03/12/19 at 08:00; Stop 03/12/19 at 08:01; Status DC Aspirin (Ecotrin) 81 mg DAILYWBKFT PO ; Start 03/12/19 at 08:00 Atorvastatin Calcium (Lipitor) 10 mg QHS PO Last administered on 03/11/19at 21:15; Start 03/11/19 at 21:00 Metoprolol Tartrate (Lopressor Vial) 5 mg PRN Q6HRS PRN IVP HYPERTENSION; Start 03/11/19 at 16:00 Ondansetron HCl (Zofran) 4 mg PRN Q6HRS PRN IV NAUSEA/VOMITING; Start 03/12/19 at 07:00; Stop 03/13/19 at 06:59 Fentanyl Citrate (Fentanyl 2ml Vial) 25 mcg PRN Q5MIN PRN IV MILD PAIN 1-3; Start 03/12/19 at 07:00; Stop 03/13/19 at 06:59 Fentanyl Citrate (Fentanyl 2ml Vial) 50 mcg PRN Q5MIN PRN IV MODERATE TO SEVERE PAIN; Start 03/12/19 at 07:00; Stop 03/13/19 at 06:59 Morphine Sulfate (Morphine Sulfate) 1 mg PRN Q10MIN PRN IV SEVERE PAIN 7-10; Start 03/12/19 at 07:00; Stop 03/13/19 at 06:59 Ringer's Solution 1,000 ml @ 30 mls/hr Q24H IV ; Start 03/12/19 at 07:00; Stop 03/12/19 at 18:59 Lidocaine HCl (Xylocaine-Mpf 1% 2ml Vial) 2 ml PRN 1X PRN ID PRIOR TO IV START; Start 03/12/19 at 07:00; Stop 03/13/19 at 06:59 Hydromorphone HCl (Dilaudid) 0.5 mg PRN Q10MIN PRN IV SEV PAIN, Second choice; Start 03/12/19 at 07:00; Stop 03/13/19 at 06:59 Prochlorperazine Edisylate (Compazine) 5 mg PACU PRN PRN IV NAUSEA, MRX1; Start 03/12/19 at 07:00; Stop 03/13/19 at 06:59 Potassium Chloride/Dextrose/ Sod Cl 1,000 ml @ 50 mls/hr Q20H IV Last administered on 03/12/19at 09:08; Start 03/12/19 at 07:45 Active Scripts Active Ammonium Lactate 226 Gm Lotion 1 Nando TP BID 10 Days Percocet 5-325 Mg Tablet (Oxycodone/Acetaminophen) 1 Each Tablet 1 Tab PO PRN Q4HRS PRN 10 Days Eliquis (Apixaban) 2.5 Mg Tablet 2.5 Mg PO BID 14 Days Reported Tizanidine Hcl 4 Mg Tablet 1 Tab PO QHS Fosamax (Alendronate Sodium) 70 Mg Tablet 70 Mg PO WEEKLY pt takes medication on friday Vitamin D3 (Cholecalciferol (Vitamin D3)) 5,000 Unit Tablet 5,000 Unit PO WEEKLY Vitals/I & O Vital Sign - Last 24 Hours 03/11/19 03/11/19 03/11/19 03/11/19 11:00 15:00 16:13 19:15 Temp 97.7 98.0 98.4 97.7 98.0 98.4 Pulse 74 75 78 Resp 16 16 18 B/P (MAP) 128/77 (94) 120/70 (87) 123/74 (90) Pulse Ox 96 96 93 92 O2 Delivery Room Air Room Air Room Air 03/11/19 03/11/19 03/12/19 03/12/19 20:00 23:35 03:31 07:00 Temp 98.5 98.0 98.2 98.5 98.0 98.2 Pulse 78 80 80 Resp 18 18 16 B/P (MAP) 124/74 (91) 128/74 (92) 136/77 (96) Pulse Ox 93 99 95 O2 Delivery Room Air Room Air Room Air Room Air Intake and Output0 03/11/19 03/11/19 03/12/19 14:59 22:59 06:59 Intake Total 315 ml 350 ml 120 ml Output Total 180 ml 350 ml Balance 135 ml 350 ml -230 ml Nutrition Consultation Dietary Evaluation: Recommendations by RD: Increase Calorie Intake, Protein supplementation Comments: REC ADA, Cardiac diet with glucerna bid and rosa bid REC mvi q day per wound protocal, discused w/ RN Anitra Expected Outcomes/Goals: to meet >75% est nutr needs improved wound status BS control Interpretation of weight loss: >1-2% in 1 week Malnutrition Findings: Body Fat Depletion (Non Severe: Mod to Severe Weight Status: Underweight MARY STEVENSON MD Mar 12, 2019 09:25
[2019-03-12] MEDS ORDERED: AMINO AC 3%/ELECTROLYTE/GLYCER 1,000 ML IV SCH (09:30)
--- NOTE | 2019-03-12 10:14 | PDOC ---
PULMONARY PROGRESS NOTES Vitals Vital Signs Date Time Temp Pulse Resp B/P (MAP) Pulse Ox O2 Delivery O2 Flow Rate FiO2 03/12/19 07:00 98.2 80 16 136/77 (96) 95 Room Air 98.2 Lungs: Clear Skin: Warm Labs Laboratory Tests Test 03/10/19 11:57 03/10/19 16:15 03/10/19 17:29 03/10/19 20:32 Glucose (Fingerstick) 90 mg/dL (70-99) 96 mg/dL (70-99) 72 mg/dL (70-99) Vancomycin Level Trough 11.5 mcg/mL (10.0-20.0) Vancomycin Last Dose Date 03/09/19 Vancomycin Last Dose Time 1700 Test 03/11/19 03:20 03/11/19 07:22 03/11/19 11:01 03/11/19 16:13 White Blood Count 4.2 x10^3/uL (4.0-11.0) Red Blood Count 3.54 x10^6/uL (4.30-5.70) Hemoglobin 10.1 g/dL (13.0-17.5) Hematocrit 31.8 % (39.0-53.0) Mean Corpuscular Volume 90 fL (79-100) Mean Corpuscular Hemoglobin 29 pg (25-35) Mean Corpuscular Hemoglobin Concent 32 g/dL (31-37) Red Cell Distribution Width 16.4 % (11.5-14.5) Platelet Count 311 x10^3/uL (140-400) Neutrophils (%) (Auto) 58 % (31-73) Lymphocytes (%) (Auto) 19 % (24-48) Monocytes (%) (Auto) 12 % (0-9) Eosinophils (%) (Auto) 9 % (0-3) Basophils (%) (Auto) 2 % (0-3) Neutrophils # (Auto) 2.4 x10^3/uL (1.8-7.7) Lymphocytes # (Auto) 0.8 x10^3/uL (1.0-4.8) Monocytes # (Auto) 0.5 x10^3/uL (0.0-1.1) Eosinophils # (Auto) 0.4 x10^3/uL (0.0-0.7) Basophils # (Auto) 0.1 x10^3/uL (0.0-0.2) Sodium Level 144 mmol/L (136-145) Potassium Level 3.8 mmol/L (3.5-5.1) Chloride Level 109 mmol/L (98-107) Carbon Dioxide Level 28 mmol/L (21-32) Anion Gap 7 (6-14) Blood Urea Nitrogen 8 mg/dL (8-26) Creatinine 1.1 mg/dL (0.7-1.3) Estimated GFR (Cockcroft-Gault) 79.4 BUN/Creatinine Ratio 7 (6-20) Glucose Level 72 mg/dL (70-99) Calcium Level 7.5 mg/dL (8.5-10.1) Total Bilirubin 0.3 mg/dL (0.2-1.0) Aspartate Amino Transf (AST/SGOT) 22 U/L (15-37) Alanine Aminotransferase (ALT/SGPT) 9 U/L (16-63) Alkaline Phosphatase 58 U/L (46-116) Total Protein 5.0 g/dL (6.4-8.2) Albumin 1.8 g/dL (3.4-5.0) Albumin/Globulin Ratio 0.6 (1.0-1.7) Glucose (Fingerstick) 59 mg/dL (70-99) 103 mg/dL (70-99) O2 Saturation 89 % (92-99) Arterial Blood pH 7.39 (7.35-7.45) Arterial Blood pCO2 at Patient Temp 46 mmHg (35-46) Arterial Blood pO2 at Patient Temp 57 mmHg (65-108) Arterial Blood HCO3 27 mmol/L (21-28) Arterial Blood Base Excess 2 mmol/L (-3-3) Oxyhemoglobin 88.5 % Methemoglobin 0.1 % (0.0-1.9) Carbon Monoxide, Quantitative 0.5 % (0.0-1.9) FiO2 21 Test 03/11/19 17:11 03/11/19 21:20 03/12/19 05:25 03/12/19 07:14 Glucose (Fingerstick) 96 mg/dL (70-99) 71 mg/dL (70-99) 42 mg/dL (70-99) White Blood Count 4.6 x10^3/uL (4.0-11.0) Red Blood Count 3.62 x10^6/uL (4.30-5.70) Hemoglobin 10.4 g/dL (13.0-17.5) Hematocrit 32.3 % (39.0-53.0) Mean Corpuscular Volume 89 fL (79-100) Mean Corpuscular Hemoglobin 29 pg (25-35) Mean Corpuscular Hemoglobin Concent 32 g/dL (31-37) Red Cell Distribution Width 16.6 % (11.5-14.5) Platelet Count 321 x10^3/uL (140-400) Neutrophils (%) (Auto) 62 % (31-73) Lymphocytes (%) (Auto) 18 % (24-48) Monocytes (%) (Auto) 9 % (0-9) Eosinophils (%) (Auto) 9 % (0-3) Basophils (%) (Auto) 2 % (0-3) Neutrophils # (Auto) 2.8 x10^3/uL (1.8-7.7) Lymphocytes # (Auto) 0.8 x10^3/uL (1.0-4.8) Monocytes # (Auto) 0.4 x10^3/uL (0.0-1.1) Eosinophils # (Auto) 0.4 x10^3/uL (0.0-0.7) Basophils # (Auto) 0.1 x10^3/uL (0.0-0.2) Sodium Level 142 mmol/L (136-145) Potassium Level 3.5 mmol/L (3.5-5.1) Chloride Level 107 mmol/L (98-107) Carbon Dioxide Level 29 mmol/L (21-32) Anion Gap 6 (6-14) Blood Urea Nitrogen 6 mg/dL (8-26) Creatinine 1.2 mg/dL (0.7-1.3) Estimated GFR (Cockcroft-Gault) 71.8 BUN/Creatinine Ratio 5 (6-20) Glucose Level 50 mg/dL (70-99) Calcium Level 8.2 mg/dL (8.5-10.1) Total Bilirubin 0.3 mg/dL (0.2-1.0) Aspartate Amino Transf (AST/SGOT) 24 U/L (15-37) Alanine Aminotransferase (ALT/SGPT) 7 U/L (16-63) Alkaline Phosphatase 59 U/L (46-116) Total Protein 6.0 g/dL (6.4-8.2) Albumin 1.8 g/dL (3.4-5.0) Albumin/Globulin Ratio 0.4 (1.0-1.7) Test 03/12/19 07:56 Glucose (Fingerstick) 91 mg/dL (70-99) Laboratory Tests Test 03/11/19 11:01 03/11/19 16:13 03/11/19 17:11 03/11/19 21:20 Glucose (Fingerstick) 103 mg/dL (70-99) 96 mg/dL (70-99) 71 mg/dL (70-99) O2 Saturation 89 % (92-99) Arterial Blood pH 7.39 (7.35-7.45) Arterial Blood pCO2 at Patient Temp 46 mmHg (35-46) Arterial Blood pO2 at Patient Temp 57 mmHg (65-108) Arterial Blood HCO3 27 mmol/L (21-28) Arterial Blood Base Excess 2 mmol/L (-3-3) Oxyhemoglobin 88.5 % Methemoglobin 0.1 % (0.0-1.9) Carbon Monoxide, Quantitative 0.5 % (0.0-1.9) FiO2 21 Test 03/12/19 05:25 03/12/19 07:14 03/12/19 07:56 White Blood Count 4.6 x10^3/uL (4.0-11.0) Red Blood Count 3.62 x10^6/uL (4.30-5.70) Hemoglobin 10.4 g/dL (13.0-17.5) Hematocrit 32.3 % (39.0-53.0) Mean Corpuscular Volume 89 fL (79-100) Mean Corpuscular Hemoglobin 29 pg (25-35) Mean Corpuscular Hemoglobin Concent 32 g/dL (31-37) Red Cell Distribution Width 16.6 % (11.5-14.5) Platelet Count 321 x10^3/uL (140-400) Neutrophils (%) (Auto) 62 % (31-73) Lymphocytes (%) (Auto) 18 % (24-48) Monocytes (%) (Auto) 9 % (0-9) Eosinophils (%) (Auto) 9 % (0-3) Basophils (%) (Auto) 2 % (0-3) Neutrophils # (Auto) 2.8 x10^3/uL (1.8-7.7) Lymphocytes # (Auto) 0.8 x10^3/uL (1.0-4.8) Monocytes # (Auto) 0.4 x10^3/uL (0.0-1.1) Eosinophils # (Auto) 0.4 x10^3/uL (0.0-0.7) Basophils # (Auto) 0.1 x10^3/uL (0.0-0.2) Sodium Level 142 mmol/L (136-145) Potassium Level 3.5 mmol/L (3.5-5.1) Chloride Level 107 mmol/L (98-107) Carbon Dioxide Level 29 mmol/L (21-32) Anion Gap 6 (6-14) Blood Urea Nitrogen 6 mg/dL (8-26) Creatinine 1.2 mg/dL (0.7-1.3) Estimated GFR (Cockcroft-Gault) 71.8 BUN/Creatinine Ratio 5 (6-20) Glucose Level 50 mg/dL (70-99) Calcium Level 8.2 mg/dL (8.5-10.1) Total Bilirubin 0.3 mg/dL (0.2-1.0) Aspartate Amino Transf (AST/SGOT) 24 U/L (15-37) Alanine Aminotransferase (ALT/SGPT) 7 U/L (16-63) Alkaline Phosphatase 59 U/L (46-116) Total Protein 6.0 g/dL (6.4-8.2) Albumin 1.8 g/dL (3.4-5.0) Albumin/Globulin Ratio 0.4 (1.0-1.7) Glucose (Fingerstick) 42 mg/dL (70-99) 91 mg/dL (70-99) Medications Active Scripts Medications Dose Route/Sig Max Daily Dose Days Date Category Dose Instructions Tizanidine Hcl 4 Mg Tablet 1 Tab PO QHS 03/09/19 Reported Ammonium Lactate 226 Gm Lotion 1 Nando TP BID 12/31/18 Rx Percocet 5-325 Mg Tablet (Oxycodone/Acetaminophen) 1 Each Tablet 1 Tab PO PRN Q4HRS PRN 12/31/18 Rx Eliquis (Apixaban) 2.5 Mg Tablet 2.5 Mg PO BID 14 12/31/18 Rx Fosamax (Alendronate Sodium) 70 Mg Tablet 70 Mg PO WEEKLY 12/25/18 Reported pt takes medication on friday Vitamin D3 (Cholecalciferol (Vitamin D3)) 5,000 Unit Tablet 5,000 Unit PO WEEKLY 11/17/14 Reported Impression . IMPRESSION: 1. Hypoxemia. 2. Chronic obstructive pulmonary disease. 3. Osteomyelitis. 4. Peripheral vascular disease requiring surgical intervention possible below-knee amputation. 5. Severe protein malnutrition. 6. Osteomyelitis. 7. Severe weight loss. Plan . Proceed with surgery, considering the patient's underlying COPD, malnutrition and significant weight loss, he is certainly at risk for postop complications including postop respiratory distress, subacute bronchitis, pneumonia. We will follow along. Arterial blood gas has been noted. Recommend 2 liters of oxygen supplementation per nasal cannula. DVT and GI prophylaxis postoperatively. I do appreciate the privilege in sharing in the patient's care. MEHREEN BANSAL MD Mar 12, 2019 10:14
[2019-03-12] MEDS: MICAFUNGIN 100 MG in IV DEXTROSE 5% 100ML 100 ML IV SCH (11:03)
--- NOTE | 2019-03-12 11:22 | PDOC ---
Infectious Disease Note Subjective Subjective Denies pain No F/C/S/N/V/D/SOA/rash ROS ROS o/w neg Vital Sign Vital Signs Vital Signs Date Time Temp Pulse Resp B/P (MAP) Pulse Ox O2 Delivery O2 Flow Rate FiO2 03/12/19 08:00 Room Air 03/12/19 07:00 98.2 80 16 136/77 (96) 95 98.2 Physical Exam PHYSICAL EXAM CONSTITUTIONAL: He is lying in bed. He appears comfortable. He is in no acute distress. HEENT: He has normal conjunctivae. Oral cavity, pharynx is dry. Edentulous. NECK: Without any JVD. No fullness. LUNGS: Decreased in the bases. HEART: S1, S2. ABDOMEN: Soft. No guarding or rebound. Positive bowel sounds. EXTREMITIES: No clubbing or cyanosis. Less edema - He has decreased pulses. wounds are dressed today. 03/09 He has a left heel ulcer with palpable bone. He also has a right heel ulcer. His right middle dry gangrene toe also has some tinea His legs have chronic venous stasis changes and some thick peeling skin. slight warmth to his left lower extremity. SKIN: Warm to touch without generalized signs of rash. NEUROLOGIC: alert cooperative. Moves all extremities. PSYCHIATRIC: Affect is appropriate. CONFUSED TO DETAILS Labs Lab Laboratory Tests Test 03/11/19 16:13 03/11/19 17:11 03/11/19 21:20 03/12/19 05:25 O2 Saturation 89 % (92-99) Arterial Blood pH 7.39 (7.35-7.45) Arterial Blood pCO2 at Patient Temp 46 mmHg (35-46) Arterial Blood pO2 at Patient Temp 57 mmHg (65-108) Arterial Blood HCO3 27 mmol/L (21-28) Arterial Blood Base Excess 2 mmol/L (-3-3) Oxyhemoglobin 88.5 % Methemoglobin 0.1 % (0.0-1.9) Carbon Monoxide, Quantitative 0.5 % (0.0-1.9) FiO2 21 Glucose (Fingerstick) 96 mg/dL (70-99) 71 mg/dL (70-99) White Blood Count 4.6 x10^3/uL (4.0-11.0) Red Blood Count 3.62 x10^6/uL (4.30-5.70) Hemoglobin 10.4 g/dL (13.0-17.5) Hematocrit 32.3 % (39.0-53.0) Mean Corpuscular Volume 89 fL (79-100) Mean Corpuscular Hemoglobin 29 pg (25-35) Mean Corpuscular Hemoglobin Concent 32 g/dL (31-37) Red Cell Distribution Width 16.6 % (11.5-14.5) Platelet Count 321 x10^3/uL (140-400) Neutrophils (%) (Auto) 62 % (31-73) Lymphocytes (%) (Auto) 18 % (24-48) Monocytes (%) (Auto) 9 % (0-9) Eosinophils (%) (Auto) 9 % (0-3) Basophils (%) (Auto) 2 % (0-3) Neutrophils # (Auto) 2.8 x10^3/uL (1.8-7.7) Lymphocytes # (Auto) 0.8 x10^3/uL (1.0-4.8) Monocytes # (Auto) 0.4 x10^3/uL (0.0-1.1) Eosinophils # (Auto) 0.4 x10^3/uL (0.0-0.7) Basophils # (Auto) 0.1 x10^3/uL (0.0-0.2) Sodium Level 142 mmol/L (136-145) Potassium Level 3.5 mmol/L (3.5-5.1) Chloride Level 107 mmol/L (98-107) Carbon Dioxide Level 29 mmol/L (21-32) Anion Gap 6 (6-14) Blood Urea Nitrogen 6 mg/dL (8-26) Creatinine 1.2 mg/dL (0.7-1.3) Estimated GFR (Cockcroft-Gault) 71.8 BUN/Creatinine Ratio 5 (6-20) Glucose Level 50 mg/dL (70-99) Calcium Level 8.2 mg/dL (8.5-10.1) Total Bilirubin 0.3 mg/dL (0.2-1.0) Aspartate Amino Transf (AST/SGOT) 24 U/L (15-37) Alanine Aminotransferase (ALT/SGPT) 7 U/L (16-63) Alkaline Phosphatase 59 U/L (46-116) Total Protein 6.0 g/dL (6.4-8.2) Albumin 1.8 g/dL (3.4-5.0) Albumin/Globulin Ratio 0.4 (1.0-1.7) Test 03/12/19 07:14 03/12/19 07:56 Glucose (Fingerstick) 42 mg/dL (70-99) 91 mg/dL (70-99) Micro Microbiology 03/08/19 Blood Culture - Preliminary, Resulted NO GROWTH AFTER 1 DAY Objective Assessment Bilateral LE cellulitis L > right with dry gangrene R mid toe tip had fallen off - no notes of abnormalities with last admit December Left heel osteo with exposed bone Tinea PAD Plan Plan of Care Cont Vanc/Zosyn 3.375 and Micafungin Await surgical decision as both Ortho and Vascular recommending Amputations awaiting clearance F/u labs and cults D/w nursing JURGEN MOTA MD Mar 12, 2019 11:22
[2019-03-12] MEDS: VANCOMYCIN PER PHARMACY MC PRN ×2 (13:33→17:23)
--- NOTE | 2019-03-12 15:00 | NUR ---
Pt. down to OR via bed per transportation, at bedside.
[2019-03-12] MEDS ORDERED: ROCURONIUM 50 MG/5 ML VIAL. ONE (15:32)
[2019-03-12] MEDS ORDERED: fentaNYL PF VIAL 100 MCG/2 ML VIAL ONE (15:32)
[2019-03-12] MEDS ORDERED: SEVOFLURANE > 120 MINUTES. IH ONE (15:32)
[2019-03-12] MEDS ORDERED: DEXAMETHASONE SOD PHOS 4 MG/ML VIAL ONE (15:33)
[2019-03-12] MEDS ORDERED: NEOSTIGMINE METHYLSULFATE 5 MG/5 ML SYRINGE. ONE (15:33)
[2019-03-12] MEDS ORDERED: ONDANSETRON PF 4 MG/2 ML VIAL. ONE (15:33)
[2019-03-12] MEDS ORDERED: PROPOFOL 20 ML IV ONE (15:33)
[2019-03-12] MEDS ORDERED: LIDOCAINE 2% PF 5 ML VIAL. ONE (15:33)
[2019-03-12] MEDS ORDERED: GLYCOPYRROLATE 1 MG/5 ML VIAL. ONE (15:33)
[2019-03-12 17:09] LABS: VANC TR 15.5 mcg/mL (10.0-20.0)
--- NOTE | 2019-03-12 17:24 | NUR ---
Pharmacy Vancomycin Dosing Note S: Consulted to monitor and dose vancomycin started 03/08/19. O: ROSALIA GONZALEZ is a 73 year old M with Osteomyelitis Other Antibiotics: MICAMINE 100 MG IV Q24HRS ZOSYN 3.375G IV Q6HRS LABS: Last BUN: 6 Last Creatinine: 1.2 Creatinine Clearance: 36 mL/min Last WBC: 4.6 Last Procalcitonin: 0.19 Tmax (past 24 hours): 98.5 Microbiology: 03/10 BLOOD CX NG x 2 days I/O: 785/530 Drug Levels: Last Trough level: 15.5 on 03/12/19 at 1645 Last dose given 03/11/19 at 1724 Vancomycin Dosing: Dosing Weight: Actual Target Trough: 15-20 A: Based on: trough P: 1. Continue Vancomycin 1000 mg IV q24h 2. Follow up Trough level in 5 days if needed 3. Pharmacy will continue to monitor, follow and adjust therapy as needed. Dixie Soto RPH, 03/12/19 [id number]
[2019-03-12] MEDS ORDERED: PHENYLEPHRINE in 0.9% NACL PF 1 MG/10 ML SYRINGE. IV ONE (17:27)
[2019-03-12] MEDS: VANCOMYCIN 1 GM in IV NORMAL SALINE 250ML 250 ML IV SCH (17:30)
[2019-03-12] MEDS ORDERED: ePHEDrine PF IN SALINE 50 MG/10 ML SYRINGE. IV ONE (17:43)
--- NOTE | 2019-03-12 19:36 | PDOC4 ---
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 I asked for a second opinion from vascular surgery, who recommended bilateral above-knee amputation which was also my recommendation. I spoke to the patient and his his DPOA about my recommendations. The patient and I and his talked about the potential risks of wound breakdown, need for additional surgery, poor healing, phantom pain, bleeding, infection, or other potential surgical or anesthetic complications. All of their questions about surgery were answered and they desired to proceed. Written consent was obtained. Procedure in Detail: The patient was identified in the preoperative holding area. Bilateral lower extremity is were marked on the thigh by me with a surgical marker. The patient was taken to the operating room where general anesthesia was used. The patient was positioned supine on the operating table. The patient remains on scheduled antibiotics and no additional doses were given, he recently received vancomycin and Zosyn. A timeout procedure was performed. A tourniquet was applied to the upper thigh bilaterally. The lower limbs were draped non-sterilely with adhesive drapes below the knee. The skin was scrubbed with chlorhexidine scrub brushes on the thighs. Finally both lower extremities were prepared from the tourniquet to the lower non-sterile drapes with ChloraPrep solution. Impervious sterile stockinettes were now placed over the lower limb covering the nonsterile drapes. A bilateral limb drape was used. The right leg was elevated and exsanguinated in the calf and thigh with an Esmarch bandage. The tourniquet was inflated to 350 mmHg. A fishmouth incision was planned with a marker with anterior and posterior flaps. A 10 blade scalpel was used and the anterior incision was made. Medially I did scissor dissection and identified the femoral artery and associated veins. These were ligated first with a 0 silk pop-off stick tie, and proximal to that an 0 silk free tie. The vessels were transected with scissors. The sciatic nerve was identified and injected with local anesthetic and epinephrine to help prevent phantom pain. Later, the sciatic nerve was pulled taut, and transected sharply with a scalpel and allowed to withdraw within the tissues. The posterior incision was made through the skin and soft tissues, with a scalpel. The soft tissues were retracted with an elevator, up the femoral shaft proximal to the skin incision. An oscillating saw was used to transect the femur. The specimen was removed. The Kandis interpulse manager er was used and saline irrigation was used. The tourniquet was released. Electrocautery was used as needed for additional hemostasis. I debulked any additional muscle or tendon. The flaps were now reapproximated. I used #2 PDS and #1 PDS to repair the quadriceps tendon to the posterior fascia in a [id number] fashion. #2-0 PDS was used in subcutaneous tissues. Armida were placed in the skin. My patient services assistant did much of that closure of the 2-0 PDS and armida. The left leg was elevated and exsanguinated at the calf and thigh with an Esmarch bandage. The tourniquet was inflated to 350 mmHg. A fishmouth incision was planned with a marker. 10 blade scalpel was used and the anterior incision was made. Medially I did scissor dissection and identified the femoral artery and associated veins. These were ligated first with a 0 silk pop-off stick tie, and proximal to that an 0 silk free tie. The vessels were transected with sci ssors. The sciatic nerve was identified and injected with local anesthetic and epinephrine to help prevent phantom pain. Later, the sciatic nerve was pulled taut, and transected sharply with a scalpel and allowed to withdraw within the tissues. The posterior incision was made through the skin and soft tissues, with a scalpel. The quadriceps was elevated with an elevator, proximal to the level of the skin incision. An oscillating saw was used to transect the femur. The specimen was removed. The Kandis interpulse manager er was used and saline irrigation was used. The tourniquet was released. Electrocautery was used as needed for additional hemostasis. I debulked any additional muscle or tendon. The flaps were now reapproximated. I used #1 PDS to repair the quadriceps tendon to the posterior fascia in a [id number] fashion. #2-0 PDS was used in subcutaneous tissues. Armida were placed in the skin. My patient services assistant did much of that closure of the 2-0 PDS and armida. Sterile dressings were applied with Xeroform, 4 x 4s, ABDs, soft roll and Andrew wraps. Needle and sponge counts were correct. There were no apparent complications. The patient tolerated the procedure well and returned to the PACU in stable condition. MARITZA CONDE MD Mar 12, 2019 19:36
[2019-03-12] MEDS ORDERED: ALBUTEROL SULFATE 2.5 MG/3 ML NEBU. ONE (20:06)
[2019-03-12] MEDS ORDERED: ALBUTEROL SULFATE 2.5 MG/3 ML NEBU. NEB ONE (20:15)
[2019-03-12] MEDS: fentaNYL PF VIAL 100 MCG/2 ML VIAL IV PRN ×2 (20:23→21:28)
--- NOTE | 2019-03-12 20:45 | NUR ---
Patient arrived per bed from PACU post bilateral AKA. left side some oozing noted Addendum: 03/12/19 at 2342 by DIANNE MUELLER RN Amended: Links added.
[2019-03-12] MEDS: ATORVASTATIN CALCIUM 10 MG TABLET. PO SCH (21:00)
[2019-03-12] MEDS: ENOXAPARIN 40 MG/0.4 ML SYRINGE. SQ SCH (22:00)
[2019-03-12] MEDS: MORPHINE SULFATE 2 MG/ML VIAL. IV PRN (22:15)
[2019-03-13] VITALS (9 sets, daily range): BP systolic 104–135; BP diastolic 61–91
[2019-03-13] MEDS: PIPERACILLIN/TAZOBACTAM 3.375 GM in IV NORMAL SALINE 50ML 50 ML IV SCH ×6 (06:00→23:50)
[2019-03-13 06:03] LABS: BASO % 0 % (0-3); EOS % 0 % (0-3); HEMATOCRIT 29.3 % (39.0-53.0); HEMOGLOBIN 9.4 g/dL (13.0-17.5); LYMPH # 0.7 x10^3/uL (1.0-4.8); LYMPH % 6 % (24-48); MEAN CORPUSCULAR HEMOGLOBIN 29 pg (25-35); MEAN CORPUSCULAR HGB CONC 32 g/dL (31-37); MEAN CORPUSCULAR VOLUME 90 fL (79-100); MONO # 0.9 x10^3/uL (0.0-1.1); MONO % 9 % (0-9); NEUT # 9.4 x10^3/uL (1.8-7.7); NEUT % 85 % (31-73); PLATELET COUNT 316 x10^3/uL (140-400); RED BLOOD COUNT 3.27 x10^6/uL (4.30-5.70); RED CELL DISTRIBUTION WIDTH 16.4 % (11.5-14.5); WHITE BLOOD COUNT 11.1 x10^3/uL (4.0-11.0)
[2019-03-13 06:26] LABS: ALBUMIN 1.7 g/dL (3.4-5.0); ALBUMIN/GLOBULIN RATIO 0.4 (1.0-1.7); CALCIUM 7.7 mg/dL (8.5-10.1); CREATININE 1.3 mg/dL (0.7-1.3); GFR 65.5; POTASSIUM 3.7 mmol/L (3.5-5.1); TOTAL BILIRUBIN 0.3 mg/dL (0.2-1.0); TOTAL PROTEIN 5.9 g/dL (6.4-8.2)
--- NOTE | 2019-03-13 07:50 | PDOC ---
Infectious Disease Note Subjective Subjective Denies pain No F/C/S/N/V/D/SOA/rash ROS ROS o/w neg Vital Sign Vital Signs Vital Signs Date Time Temp Pulse Resp B/P (MAP) Pulse Ox O2 Delivery O2 Flow Rate FiO2 03/13/19 03:10 97.5 89 19 126/74 (91) 97 Venturi Mask 15.0 97.5 Physical Exam PHYSICAL EXAM CONSTITUTIONAL: He is lying in bed. He appears comfortable. He is in no acute distress. HEENT: He has normal conjunctivae. Oral cavity, pharynx is dry. Edentulous. NECK: Without any JVD. No fullness. LUNGS: Decreased in the bases.on Venti mask HEART: S1, S2. ABDOMEN: Soft. No guarding or rebound. Positive bowel sounds. EXTREMITIES: No clubbing or cyanosis. Less edema - He has decreased pulses. w ounds are dressed today. Post op wounds SKIN: Warm to touch without generalized signs of rash. NEUROLOGIC: alert cooperative. Moves all extremities. PSYCHIATRIC: Affect is appropriate. Labs Lab Laboratory Tests Test 03/12/19 07:56 03/12/19 11:35 03/12/19 16:45 03/12/19 17:10 Glucose (Fingerstick) 91 mg/dL (70-99) 71 mg/dL (70-99) 47 mg/dL (70-99) Vancomycin Level Trough 15.5 mcg/mL (10.0-20.0) Vancomycin Last Dose Date 03/11/19 Vancomycin Last Dose Time 1730 Test 03/12/19 17:57 03/12/19 19:49 03/13/19 00:29 03/13/19 05:23 Glucose (Fingerstick) 87 mg/dL (70-99) 114 mg/dL (70-99) 119 mg/dL (70-99) White Blood Count 11.1 x10^3/uL (4.0-11.0) Red Blood Count 3.27 x10^6/uL (4.30-5.70) Hemoglobin 9.4 g/dL (13.0-17.5) Hematocrit 29.3 % (39.0-53.0) Mean Corpuscular Volume 90 fL (79-100) Mean Corpuscular Hemoglobin 29 pg (25-35) Mean Corpuscular Hemoglobin Concent 32 g/dL (31-37) Red Cell Distribution Width 16.4 % (11.5-14.5) Platelet Count 316 x10^3/uL (140-400) Neutrophils (%) (Auto) 85 % (31-73) Lymphocytes (%) (Auto) 6 % (24-48) Monocytes (%) (Auto) 9 % (0-9) Eosinophils (%) (Auto) 0 % (0-3) Basophils (%) (Auto) 0 % (0-3) Neutrophils # (Auto) 9.4 x10^3/uL (1.8-7.7) Lymphocytes # (Auto) 0.7 x10^3/uL (1.0-4.8) Monocytes # (Auto) 0.9 x10^3/uL (0.0-1.1) Eosinophils # (Auto) 0.0 x10^3/uL (0.0-0.7) Basophils # (Auto) 0.0 x10^3/uL (0.0-0.2) Sodium Level 140 mmol/L (136-145) Potassium Level 3.7 mmol/L (3.5-5.1) Chloride Level 105 mmol/L (98-107) Carbon Dioxide Level 31 mmol/L (21-32) Anion Gap 4 (6-14) Blood Urea Nitrogen 5 mg/dL (8-26) Creatinine 1.3 mg/dL (0.7-1.3) Estimated GFR (Cockcroft-Gault) 65.5 BUN/Creatinine Ratio 4 (6-20) Glucose Level 144 mg/dL (70-99) Calcium Level 7.7 mg/dL (8.5-10.1) Total Bilirubin 0.3 mg/dL (0.2-1.0) Aspartate Amino Transf (AST/SGOT) 27 U/L (15-37) Alanine Aminotransferase (ALT/SGPT) 10 U/L (16-63) Alkaline Phosphatase 53 U/L (46-116) Total Protein 5.9 g/dL (6.4-8.2) Albumin 1.7 g/dL (3.4-5.0) Albumin/Globulin Ratio 0.4 (1.0-1.7) Micro Microbiology 03/08/19 Blood Culture - Preliminary, Resulted NO GROWTH AFTER 1 DAY Objective Assessment S/p Amputation, thigh, through femur (above-knee amputation), bilateral 03/12 - closed Leukocytosis - post op and s/p Steroid 03/12 Bilateral LE cellulitis L > right with dry gangrene R mid toe tip had fallen off - no notes of abnormalities with last admit December Left heel osteo with exposed bone Tinea PAD Plan Plan of Care Cont Vanc/Zosyn 3.375 and Micafungin - wean in next day or so F/u labs and cults D/w nursing JURGEN MOTA MD Mar 13, 2019 07:50
[2019-03-13 08:02] LABS: % ATYL 1 % (0-0); % LYMPHS 5 % (24-48); % MONOS 8 % (0-10); % SEGS 68 % (35-66)
[2019-03-13 08:03] LABS: % BANDS 18 % (0-9); PLT ESTIMATE ADEQUATE (ADEQUATE)
[2019-03-13 08:04] LABS: ANISOCYTOSIS SLIGHT; BURR CELLS OCC; OVALOCYTES FEW
[2019-03-13] MEDS: AMMONIUM LACTATE 12% TOPICAL LOTION 226GM BOTTLE. TP SCH ×2 (09:00→21:00)
[2019-03-13] MEDS: POTASSIUM CL 20MEQ D5-0.45NACL 1,000 ML IV SCH ×3 (09:30→23:50)
--- NOTE | 2019-03-13 09:47 | PDOC ---
PROGRESS NOTES Chief Complaint Chief Complaint BIlateral heel ulcer/wounds with cellulitis SEVERE PROTEIN-CALORIC MALNUTRITION Monophasic flow in the lower extremities bilaterally. This is likely secondary to diffuse atherosclerotic disease. 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 Occlusion of the mid SFA. There is reconstitution of flow in the distal SFA through collaterals. DM 2 ? 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 HE has no complaints HE is bilateral AKA HE came from home with and refuses SNU Some hypoglycemia few days, seems better now - On IV abx and IV micafungin per ID PLAn: CPM LAbs, cultures PT OT SW - will need on dc dispo/plans Vitals Vitals Vital Signs Date Time Temp Pulse Resp B/P (MAP) Pulse Ox O2 Delivery O2 Flow Rate FiO2 03/13/19 07:00 98.0 86 18 114/73 (87) 100 Venturi Mask 15.0 98.0 Physical Exam Physical Exam CONSTITUTIONAL: He is lying in bed. He appears comfortable. He is in no acute distress. HEENT: He has normal conjunctivae. Oral cavity, pharynx is dry. Edentulous. NECK: Without any JVD. No fullness. LUNGS: Decreased in the bases.on Venti mask HEART: S1, S2. ABDOMEN: Soft. No guarding or rebound. Positive bowel sounds. EXTREMITIES: No clubbing or cyanosis. Less edema - He has decreased pulses. wounds are dressed today. Post op wounds SKIN: Warm to touch without generalized signs of rash. NEUROLOGIC: alert cooperative. Moves all extremities. PSYCHIATRIC: Affect is appropriate. General: Alert, Oriented X3, Cooperative, No acute distress Heart: Regular rate (SR per EKG), Normal S1, Normal S2, Other (S/6 systolic murmur to LLS border) Lungs: Clear Abdomen: Soft, No tenderness Extremities: No cyanosis, No edema Skin: Other (necrotic toes with heel ulcers, scaly LE skin) Labs LABS Laboratory Tests Test 03/12/19 11:35 03/12/19 16:45 03/12/19 17:10 03/12/19 17:57 Glucose (Fingerstick) 71 mg/dL (70-99) 47 mg/dL (70-99) 87 mg/dL (70-99) Vancomycin Level Trough 15.5 mcg/mL (10.0-20.0) Vancomycin Last Dose Date 03/11/19 Vancomycin Last Dose Time 1730 Test 03/12/19 19:49 03/13/19 00:29 03/13/19 05:23 03/13/19 07:41 Glucose (Fingerstick) 114 mg/dL (70-99) 119 mg/dL (70-99) 106 mg/dL (70-99) White Blood Count 11.1 x10^3/uL (4.0-11.0) Red Blood Count 3.27 x10^6/uL (4.30-5.70) Hemoglobin 9.4 g/dL (13.0-17.5) Hematocrit 29.3 % (39.0-53.0) Mean Corpuscular Volume 90 fL (79-100) Mean Corpuscular Hemoglobin 29 pg (25-35) Mean Corpuscular Hemoglobin Concent 32 g/dL (31-37) Red Cell Distribution Width 16.4 % (11.5-14.5) Platelet Count 316 x10^3/uL (140-400) Neutrophils (%) (Auto) 85 % (31-73) Lymphocytes (%) (Auto) 6 % (24-48) Monocytes (%) (Auto) 9 % (0-9) Eosinophils (%) (Auto) 0 % (0-3) Basophils (%) (Auto) 0 % (0-3) Neutrophils # (Auto) 9.4 x10^3/uL (1.8-7.7) Lymphocytes # (Auto) 0.7 x10^3/uL (1.0-4.8) Monocytes # (Auto) 0.9 x10^3/uL (0.0-1.1) Eosinophils # (Auto) 0.0 x10^3/uL (0.0-0.7) Basophils # (Auto) 0.0 x10^3/uL (0.0-0.2) Segmented Neutrophils % 68 % (35-66) Band Neutrophils % 18 % (0-9) Lymphocytes % 5 % (24-48) Atypical Lymphocytes % (Manual) 1 % (0-0) Monocytes % 8 % (0-10) Platelet Estimate Adequate (ADEQUATE) Anisocytosis Slight Ovalocytes Few [place] Cells Occ Sodium Level 140 mmol/L (136-145) Potassium Level 3.7 mmol/L (3.5-5.1) Chloride Level 105 mmol/L (98-107) Carbon Dioxide Level 31 mmol/L (21-32) Anion Gap 4 (6-14) Blood Urea Nitrogen 5 mg/dL (8-26) Creatinine 1.3 mg/dL (0.7-1.3) Estimated GFR (Cockcroft-Gault) 65.5 BUN/Creatinine Ratio 4 (6-20) Glucose Level 144 mg/dL (70-99) Calcium Level 7.7 mg/dL (8.5-10.1) Total Bilirubin 0.3 mg/dL (0.2-1.0) Aspartate Amino Transf (AST/SGOT) 27 U/L (15-37) Alanine Aminotransferase (ALT/SGPT) 10 U/L (16-63) Alkaline Phosphatase 53 U/L (46-116) Total Protein 5.9 g/dL (6.4-8.2) Albumin 1.7 g/dL (3.4-5.0) Albumin/Globulin Ratio 0.4 (1.0-1.7) Review of Systems Review of Systems neg 14 pt reviewed with him Assessment and Plan Assessmemt and Plan Problems Medical Problems: (1) Necrotic toes Status: Acute (2) Ulcer of left heel Status: Acute Comment Review of Relevant I have reviewed the following items segun (where applicable) has been applied. Labs Laboratory Tests Test 03/11/19 11:01 03/11/19 16:13 03/11/19 17:11 03/11/19 21:20 Glucose (Fingerstick) 103 mg/dL (70-99) 96 mg/dL (70-99) 71 mg/dL (70-99) O2 Saturation 89 % (92-99) Arterial Blood pH 7.39 (7.35-7.45) Arterial Blood pCO2 at Patient Temp 46 mmHg (35-46) Arterial Blood pO2 at Patient Temp 57 mmHg (65-108) Arterial Blood HCO3 27 mmol/L (21-28) Arterial Blood Base Excess 2 mmol/L (-3-3) Oxyhemoglobin 88.5 % Methemoglobin 0.1 % (0.0-1.9) Carbon Monoxide, Quantitative 0.5 % (0.0-1.9) FiO2 21 Test 03/12/19 05:25 03/12/19 07:14 03/12/19 07:56 03/12/19 11:35 White Blood Count 4.6 x10^3/uL (4.0-11.0) Red Blood Count 3.62 x10^6/uL (4.30-5.70) Hemoglobin 10.4 g/dL (13.0-17.5) Hematocrit 32.3 % (39.0-53.0) Mean Corpuscular Volume 89 fL (79-100) Mean Corpuscular Hemoglobin 29 pg (25-35) Mean Corpuscular Hemoglobin Concent 32 g/dL (31-37) Red Cell Distribution Width 16.6 % (11.5-14.5) Platelet Count 321 x10^3/uL (140-400) Neutrophils (%) (Auto) 62 % (31-73) Lymphocytes (%) (Auto) 18 % (24-48) Monocytes (%) (Auto) 9 % (0-9) Eosinophils (%) (Auto) 9 % (0-3) Basophils (%) (Auto) 2 % (0-3) Neutrophils # (Auto) 2.8 x10^3/uL (1.8-7.7) Lymphocytes # (Auto) 0.8 x10^3/uL (1.0-4.8) Monocytes # (Auto) 0.4 x10^3/uL (0.0-1.1) Eosinophils # (Auto) 0.4 x10^3/uL (0.0-0.7) Basophils # (Auto) 0.1 x10^3/uL (0.0-0.2) Sodium Level 142 mmol/L (136-145) Potassium Level 3.5 mmol/L (3.5-5.1) Chloride Level 107 mmol/L (98-107) Carbon Dioxide Level 29 mmol/L (21-32) Anion Gap 6 (6-14) Blood Urea Nitrogen 6 mg/dL (8-26) Creatinine 1.2 mg/dL (0.7-1.3) Estimated GFR (Cockcroft-Gault) 71.8 BUN/Creatinine Ratio 5 (6-20) Glucose Level 50 mg/dL (70-99) Calcium Level 8.2 mg/dL (8.5-10.1) Total Bilirubin 0.3 mg/dL (0.2-1.0) Aspartate Amino Transf (AST/SGOT) 24 U/L (15-37) Alanine Aminotransferase (ALT/SGPT) 7 U/L (16-63) Alkaline Phosphatase 59 U/L (46-116) Total Protein 6.0 g/dL (6.4-8.2) Albumin 1.8 g/dL (3.4-5.0) Albumin/Globulin Ratio 0.4 (1.0-1.7) Glucose (Fingerstick) 42 mg/dL (70-99) 91 mg/dL (70-99) 71 mg/dL (70-99) Test 03/12/19 16:45 03/12/19 17:10 03/12/19 17:57 03/12/19 19:49 Vancomycin Level Trough 15.5 mcg/mL (10.0-20.0) Vancomycin Last Dose Date 03/11/19 Vancomycin Last Dose Time 1730 Glucose (Fingerstick) 47 mg/dL (70-99) 87 mg/dL (70-99) 114 mg/dL (70-99) Test 03/13/19 00:29 03/13/19 05:23 03/13/19 07:41 Glucose (Fingerstick) 119 mg/dL (70-99) 106 mg/dL (70-99) White Blood Count 11.1 x10^3/uL (4.0-11.0) Red Blood Count 3.27 x10^6/uL (4.30-5.70) Hemoglobin 9.4 g/dL (13.0-17.5) Hematocrit 29.3 % (39.0-53.0) Mean Corpuscular Volume 90 fL (79-100) Mean Corpuscular Hemoglobin 29 pg (25-35) Mean Corpuscular Hemoglobin Concent 32 g/dL (31-37) Red Cell Distribution Width 16.4 % (11.5-14.5) Platelet Count 316 x10^3/uL (140-400) Neutrophils (%) (Auto) 85 % (31-73) Lymphocytes (%) (Auto) 6 % (24-48) Monocytes (%) (Auto) 9 % (0-9) Eosinophils (%) (Auto) 0 % (0-3) Basophils (%) (Auto) 0 % (0-3) Neutrophils # (Auto) 9.4 x10^3/uL (1.8-7.7) Lymphocytes # (Auto) 0.7 x10^3/uL (1.0-4.8) Monocytes # (Auto) 0.9 x10^3/uL (0.0-1.1) Eosinophils # (Auto) 0.0 x10^3/uL (0.0-0.7) Basophils # (Auto) 0.0 x10^3/uL (0.0-0.2) Segmented Neutrophils % 68 % (35-66) Band Neutrophils % 18 % (0-9) Lymphocytes % 5 % (24-48) Atypical Lymphocytes % (Manual) 1 % (0-0) Monocytes % 8 % (0-10) Platelet Estimate Adequate (ADEQUATE) Anisocytosis Slight Ovalocytes Few [place] Cells Occ Sodium Level 140 mmol/L (136-145) Potassium Level 3.7 mmol/L (3.5-5.1) Chloride Level 105 mmol/L (98-107) Carbon Dioxide Level 31 mmol/L (21-32) Anion Gap 4 (6-14) Blood Urea Nitrogen 5 mg/dL (8-26) Creatinine 1.3 mg/dL (0.7-1.3) Estimated GFR (Cockcroft-Gault) 65.5 BUN/Creatinine Ratio 4 (6-20) Glucose Level 144 mg/dL (70-99) Calcium Level 7.7 mg/dL (8.5-10.1) Total Bilirubin 0.3 mg/dL (0.2-1.0) Aspartate Amino Transf (AST/SGOT) 27 U/L (15-37) Alanine Aminotransferase (ALT/SGPT) 10 U/L (16-63) Alkaline Phosphatase 53 U/L (46-116) Total Protein 5.9 g/dL (6.4-8.2) Albumin 1.7 g/dL (3.4-5.0) Albumin/Globulin Ratio 0.4 (1.0-1.7) Laboratory Tests Test 03/12/19 11:35 03/12/19 16:45 03/12/19 17:10 03/12/19 17:57 Glucose (Fingerstick) 71 mg/dL (70-99) 47 mg/dL (70-99) 87 mg/dL (70-99) Vancomycin Level Trough 15.5 mcg/mL (10.0-20.0) Vancomycin Last Dose Date 03/11/19 Vancomycin Last Dose Time 1730 Test 03/12/19 19:49 03/13/19 00:29 03/13/19 05:23 03/13/19 07:41 Glucose (Fingerstick) 114 mg/dL (70-99) 119 mg/dL (70-99) 106 mg/dL (70-99) White Blood Count 11.1 x10^3/uL (4.0-11.0) Red Blood Count 3.27 x10^6/uL (4.30-5.70) Hemoglobin 9.4 g/dL (13.0-17.5) Hematocrit 29.3 % (39.0-53.0) Mean Corpuscular Volume 90 fL (79-100) Mean Corpuscular Hemoglobin 29 pg (25-35) Mean Corpuscular Hemoglobin Concent 32 g/dL (31-37) Red Cell Distribution Width 16.4 % (11.5-14.5) Platelet Count 316 x10^3/uL (140-400) Neutrophils (%) (Auto) 85 % (31-73) Lymphocytes (%) (Auto) 6 % (24-48) Monocytes (%) (Auto) 9 % (0-9) Eosinophils (%) (Auto) 0 % (0-3) Basophils (%) (Auto) 0 % (0-3) Neutrophils # (Auto) 9.4 x10^3/uL (1.8-7.7) Lymphocytes # (Auto) 0.7 x10^3/uL (1.0-4.8) Monocytes # (Auto) 0.9 x10^3/uL (0.0-1.1) Eosinophils # (Auto) 0.0 x10^3/uL (0.0-0.7) Basophils # (Auto) 0.0 x10^3/uL (0.0-0.2) Segmented Neutrophils % 68 % (35-66) Band Neutrophils % 18 % (0-9) Lymphocytes % 5 % (24-48) Atypical Lymphocytes % (Manual) 1 % (0-0) Monocytes % 8 % (0-10) Platelet Estimate Adequate (ADEQUATE) Anisocytosis Slight Ovalocytes Few [place] Cells Occ Sodium Level 140 mmol/L (136-145) Potassium Level 3.7 mmol/L (3.5-5.1) Chloride Level 105 mmol/L (98-107) Carbon Dioxide Level 31 mmol/L (21-32) Anion Gap 4 (6-14) Blood Urea Nitrogen 5 mg/dL (8-26) Creatinine 1.3 mg/dL (0.7-1.3) Estimated GFR (Cockcroft-Gault) 65.5 BUN/Creatinine Ratio 4 (6-20) Glucose Level 144 mg/dL (70-99) Calcium Level 7.7 mg/dL (8.5-10.1) Total Bilirubin 0.3 mg/dL (0.2-1.0) Aspartate Amino Transf (AST/SGOT) 27 U/L (15-37) Alanine Aminotransferase (ALT/SGPT) 10 U/L (16-63) Alkaline Phosphatase 53 U/L (46-116) Total Protein 5.9 g/dL (6.4-8.2) Albumin 1.7 g/dL (3.4-5.0) Albumin/Globulin Ratio 0.4 (1.0-1.7) Microbiology 03/08/19 Blood Culture - Preliminary, Resulted NO GROWTH AFTER 4 DAYS Medications Current Medications Sodium Chloride 1,000 ml @ 1,860 mls/hr Q33M IV Last administered on 03/08/19at 17:40; Start 03/08/19 at 16:04; Stop 03/08/19 at 17:04; Status DC Piperacillin Sod/ Tazobactam Sod 4.5 gm/Sodium Chloride 100 ml @ 200 mls/hr 1X ONCE IV Last administered on 03/08/19at 16:41; Start 03/08/19 at 16:15; Stop 03/08/19 at 16:44; Status DC Vancomycin HCl (Vanco Per Pharmacy) 1 each 1X ONCE MC ; Start 03/08/19 at 16:15; Stop 03/08/19 at 16:24; Status DC Morphine Sulfate (Morphine Sulfate) 4 mg PRN Q15MIN PRN IV/SQ PAIN GREATER THAN 3/10; Start 03/08/19 at 16:15; Stop 03/09/19 at 08:35; Status DC Vancomycin HCl 1.25 gm/Sodium Chloride 250 ml @ 167 mls/hr ONCE ONCE IV Last administered on 03/08/19at 17:40; Start 03/08/19 at 16:30; Stop 03/08/19 at 17:59; Status DC Ondansetron HCl (Zofran) 4 mg PRN Q8HRS PRN IV NAUSEA/VOMITING; Start 03/08/19 at 18:15; Stop 03/08/19 at 21:18; Status DC Morphine Sulfate (Morphine Sulfate) 4 mg PRN Q2HR PRN IV SEVERE PAIN 7-10; Start 03/08/19 at 18:15; Stop 03/09/19 at 08:35; Status DC Sodium Chloride 1,000 ml @ 75 mls/hr 1X ONCE IV Last administered on 03/08/19at 21:25; Start 03/08/19 at 18:15; Stop 03/09/19 at 07:34; Status DC Ondansetron HCl (Zofran) 4 mg PRN Q6HRS PRN IV NAUSEA/VOMITING 1ST CHOICE; Start 03/08/19 at 21:15 Lactic Acid (Lac-Hydrin) 1 nando BID TP Last administered on 03/11/19at 21:00; Start 03/09/19 at 09:00 Non-Formulary Medication (Alendronate Sodium (Fosamax)) 70 mg WEEKLY PO ; Start 03/15/19 at 09:00; Status UNV Vitamin D (Vitamin D3) 5,000 unit WEEKLY PO ; Start 03/15/19 at 09:00 Piperacillin Sod/ Tazobactam Sod 3.375 gm/Sodium Chloride 50 ml @ 100 mls/hr Q6HRS IV ; Start 03/09/19 at 00:00; Status UNV Tramadol HCl (Ultram) 50 mg PRN Q6HRS PRN PO MODERATE PAIN; Start 03/08/19 at 21:15 Insulin Human Lispro (HumaLOG) 0-5 UNITS TIDACHC SQ ; Start 03/09/19 at 07:30; Stop 03/09/19 at 08:31; Status DC Dextrose (Dextrose 50%-Water Syringe) 12.5 gm PRN Q15MIN PRN IV SEE COMMENTS Last administered on 03/12/19at 17:13; Start 03/08/19 at 21:15 Enoxaparin Sodium (Lovenox 40mg Syringe) 40 mg Q24H SQ Last administered on 03/11/19at 21:15; Start 03/08/19 at 22:00 Piperacillin Sod/ Tazobactam Sod 2.25 gm/Sodium Chloride 50 ml @ 100 mls/hr Q6HRS IV Last administered on 03/09/19at 05:54; Start 03/09/19 at 00:00; Stop 03/09/19 at 10:17; Status DC Potassium Chloride (Klor-Con) 40 meq 1X ONCE PO Last administered on 03/08/19at 22:20; Start 03/08/19 at 22:00; Stop 03/08/19 at 22:01; Status DC Acetaminophen (Tylenol) 500 mg PRN Q6HRS PRN PO TEMP/HEADACHE; Start 03/09/19 at 08:30 Acetaminophen/ Codeine Phosphate (Tylenol #3) 1 tab PRN Q6HRS PRN PO MILD PAIN 1-3; Start 03/09/19 at 08:30 Morphine Sulfate (Morphine Sulfate) 2 mg PRN Q2HR PRN IV PAIN Last administered on 03/12/19at 22:15; Start 03/09/19 at 08:30 Oxycodone/ Acetaminophen (Percocet 5/325) 1 tab PRN Q4HRS PRN PO SEVERE PAIN 7- 10; Start 03/09/19 at 08:30 Piperacillin Sod/ Tazobactam Sod 3.375 gm/Sodium Chloride 50 ml @ 100 mls/hr Q6HRS IV Last administered on 03/13/19at 06:00; Start 03/09/19 at 12:00 Micafungin Sodium 100 mg/Dextrose 100 ml @ 100 mls/hr Q24H IV Last administered on 03/12/19at 11:03; Start 03/09/19 at 11:00 Vancomycin HCl (Vanco Per Pharmacy) 1 each PRN DAILY PRN MC SEE COMMENTS Last administered on 03/12/19at 17:23; Start 03/09/19 at 11:15 Vancomycin HCl 750 mg/Sodium Chloride 250 ml @ 250 mls/hr Q24H IV Last administered on 03/09/19at 17:11; Start 03/09/19 at 17:00; Stop 03/10/19 at 17:02; Status DC Vancomycin HCl (Vancomycin Trough Level) 1 each 1X ONCE MC Last administered on 03/10/19at 16:30; Start 03/10/19 at 16:30; Stop 03/10/19 at 16:31; Status DC Multivitamins (Thera M Plus) 1 tab DAILY PO Last administered on 03/11/19at 08:40; Start 03/10/19 at 09:00 Dextrose/Sodium Chloride 1,000 ml @ 75 mls/hr [id number] IV Last administered on 03/09/19at 17:30; Start 03/09/19 at 17:30; Stop 03/10/19 at 06:49; Status DC Lactobacillus Rhamnosus (Culturelle) 1 cap BID PO Last administered on 03/11/19at 21:15; Start 03/10/19 at 21:00 Vancomycin HCl 1 gm/Sodium Chloride 250 ml @ 250 mls/hr Q24H IV Last administered on 03/11/19at 17:24; Start 03/10/19 at 17:30 Vancomycin HCl (Vancomycin Trough Level) 1 each 1X ONCE MC Last administered on 03/12/19at 17:00; Start 03/12/19 at 17:00; Stop 03/12/19 at 17:01; Status DC Bupivacaine HCl/ Epinephrine Bitart (Sensorcaine-Epi 0.25%-1:[id number] Mpf) 30 ml 1X ONCE INJ Last administered on 03/12/19at 18:04; Start 03/12/19 at 08:00; Stop 03/12/19 at 08:01; Status DC Aspirin (Ecotrin) 81 mg [id number] PO ; Start 03/12/19 at 08:00 Atorvastatin Calcium (Lipitor) 10 mg QHS PO Last administered on 03/11/19at 21:15; Start 03/11/19 at 21:00 Metoprolol Tartrate (Lopressor Vial) 5 mg PRN Q6HRS PRN IVP HYPERTENSION; Start 03/11/19 at 16:00 Ondansetron HCl (Zofran) 4 mg PRN Q6HRS PRN IV NAUSEA/VOMITING; Start 03/12/19 at 07:00; Stop 03/13/19 at 06:59; Status DC Fentanyl Citrate (Fentanyl 2ml Vial) 25 mcg PRN Q5MIN PRN IV MILD PAIN 1-3 Last administered on 03/12/19at 21:28; Start 03/12/19 at 07:00; Stop 03/13/19 at 06:59; Status DC Fentanyl Citrate (Fentanyl 2ml Vial) 50 mcg PRN Q5MIN PRN IV MODERATE TO SEVERE PAIN; Start 03/12/19 at 07:00; Stop 03/13/19 at 06:59; Status DC Morphine Sulfate (Morphine Sulfate) 1 mg PRN Q10MIN PRN IV SEVERE PAIN 7-10; Start 03/12/19 at 07:00; Stop 03/13/19 at 06:59; Status DC Ringer's Solution 1,000 ml @ 30 mls/hr Q24H IV Last administered on 03/12/19at 17:12; Start 03/12/19 at 07:00; Stop 03/12/19 at 18:59; Status DC Lidocaine HCl (Xylocaine-Mpf 1% 2ml Vial) 2 ml PRN 1X PRN ID PRIOR TO IV START; Start 03/12/19 at 07:00; Stop 03/13/19 at 06:59; Status DC Hydromorphone HCl (Dilaudid) 0.5 mg PRN Q10MIN PRN IV SEV PAIN, Second choice; Start 03/12/19 at 07:00; Stop 03/13/19 at 06:59; Status DC Prochlorperazine Edisylate (Compazine) 5 mg PACU PRN PRN IV NAUSEA, MRX1; Start 03/12/19 at 07:00; Stop 03/13/19 at 06:59; Status DC Potassium Chloride/Dextrose/ Sod Cl 1,000 ml @ 80 mls/hr [id number] IV Last administered on 03/12/19at 09:08; Start 03/12/19 at 07:45 Amino Acids/ Glycerin/ Electrolytes 1,000 ml @ 80 mls/hr [id number] IV ; Start 03/12/19 at 09:30; Stop 03/12/19 at 09:47; Status DC Sevoflurane (Ultane) 90 ml STK-MED ONCE IH ; Start 03/12/19 at 15:32; Stop 03/12/19 at 15:33; Status DC Rocuronium [place] (Zemuron) 50 mg STK-MED ONCE .ROUTE ; Start 03/12/19 at 15:32; Stop 03/12/19 at 15:33; Status DC Fentanyl Citrate (Fentanyl 2ml Vial) 100 mcg STK-MED ONCE .ROUTE ; Start 03/12/19 at 15:32; Stop 03/12/19 at 15:33; Status DC Neostigmine Methylsulfate (Neostigmine Methylsulfate) 5 mg STK-MED ONCE .ROUTE ; Start 03/12/19 at 15:33; Stop 03/12/19 at 15:33; Status DC Glycopyrrolate (Robinul) 1 mg STK-MED ONCE .ROUTE ; Start 03/12/19 at 15:33; Stop 03/12/19 at 15:33; Status DC Dexamethasone Sodium Phosphate (Decadron) 4 mg STK-MED ONCE .ROUTE ; Start 03/12/19 at 15:33; Stop 03/12/19 at 15:33; Status DC Propofol 20 ml @ As Directed STK-MED ONCE IV ; Start 03/12/19 at 15:33; Stop 03/12/19 at 15:33; Status DC Lidocaine HCl (Lidocaine Pf 2% Vial) 5 ml STK-MED ONCE .ROUTE ; Start 03/12/19 at 15:33; Stop 03/12/19 at 15:33; Status DC Ondansetron HCl (Zofran) 4 mg STK-MED ONCE .ROUTE ; Start 03/12/19 at 15:33; Stop 03/12/19 at 15:33; Status DC Phenylephrine HCl (PHENYLEPHRINE in 0.9% NACL PF) 1 mg STK-MED ONCE IV ; Start 03/12/19 at 17:27; Stop 03/12/19 at 17:27; Status DC Ephedrine Sulfate (ePHEDrine PF IN SALINE SYRINGE) 50 mg STK-MED ONCE IV ; Start 03/12/19 at 17:43; Stop 03/12/19 at 17:43; Status DC Albuterol Sulfate (Ventolin Neb Soln) 2.5 mg STK-MED ONCE .ROUTE ; Start 03/12/19 at 20:06; Stop 03/12/19 at 20:07; Status DC Albuterol Sulfate (Ventolin Neb Soln) 2.5 mg 1X ONCE NEB Last administered on 03/12/19at 20:21; Start 03/12/19 at 20:15; Stop 03/12/19 at 20:32; Status DC Active Scripts Active Ammonium Lactate 226 Gm Lotion 1 Nando TP BID 10 Days Percocet 5-325 Mg Tablet (Oxycodone/Acetaminophen) 1 Each Tablet 1 Tab PO PRN Q4HRS PRN 10 Days Eliquis (Apixaban) 2.5 Mg Tablet 2.5 Mg PO BID 14 Days Reported Tizanidine Hcl 4 Mg Tablet 1 Tab PO QHS Fosamax (Alendronate Sodium) 70 Mg Tablet 70 Mg PO WEEKLY pt takes medication on friday Vitamin D3 (Cholecalciferol (Vitamin D3)) 5,000 Unit Tablet 5,000 Unit PO WEEKLY Vitals/I & O Vital Sign - Last 24 Hours 03/12/19 03/12/19 03/12/19 03/12/19 11:00 16:07 19:30 19:30 Temp 97.9 97.9 98.1 97.9 97.9 98.1 Pulse 66 77 96 Resp 14 20 22 B/P (MAP) 145/79 (101) 120/76 131/87 Pulse Ox 93 93 100 O2 Delivery Room Air Room Air Mask Simple Mask O2 Flow Rate 10 10 03/12/19 03/12/19 03/12/19 03/12/19 19:45 20:00 20:15 20:23 Pulse 98 89 68 Resp 20 22 20 22 B/P (MAP) 125/80 115/77 117/67 Pulse Ox 97 89 98 89 O2 Delivery Simple Mask Simple Mask Simple Mask O2 Flow Rate 10 10 10 03/12/19 03/12/19 03/12/19 03/12/19 20:30 20:45 21:00 21:04 Temp 98.0 98.0 Pulse 67 66 68 Resp 22 22 22 B/P (MAP) 117/68 113/67 105/55 Pulse Ox 98 95 92 O2 Delivery Simple Mask Simple Mask Venturi Mask Venturi Mask O2 Flow Rate 10 10 10 10 03/12/19 03/12/19 03/12/19 03/12/19 21:15 21:28 22:00 22:15 Pulse 66 70 72 Resp 22 20 20 18 B/P (MAP) 90/56 90/51 (64) 93/53 (66) Pulse Ox 96 92 82 O2 Delivery Room Air Room Air Room Air Room Air 03/12/19 03/12/19 03/12/19 03/12/19 22:30 22:45 22:45 23:00 Temp 97.4 97.4 Pulse 58 60 63 Resp 20 20 18 18 B/P (MAP) 76/44 (55) 77/44 (55) 84/47 (59) Pulse Ox 97 82 O2 Delivery Room Air Venturi Mask Room Air Room Air 03/12/19 03/13/19 03/13/19 03/13/19 23:30 00:00 01:00 02:00 Pulse 71 69 82 79 Resp 18 20 20 18 B/P (MAP) 87/49 (62) 104/61 (75) 135/91 (106) 109/61 (77) O2 Delivery Room Air Room Air Room Air Room Air 03/13/19 03/13/19 03:10 07:00 Temp 97.5 98.0 97.5 98.0 Pulse 89 86 Resp 19 18 B/P (MAP) 126/74 (91) 114/73 (87) Pulse Ox 97 100 O2 Delivery Venturi Mask Venturi Mask O2 Flow Rate 15.0 15.0 Intake and Output 03/12/19 03/12/19 03/13/19 15:00 23:00 07:00 Intake Total 50 ml 1150 ml 50 ml Output Total 200 ml 100 ml 100 ml Balance -150 ml 1050 ml -50 ml Nutrition Consultation Dietary Evaluation: Recommendations by RD: Increase Calorie Intake, Protein supplementation Comments: REC ADA, Cardiac diet with glucerna bid and rosa bid REC continue mvi q day per wound protocal Expected Outcomes/Goals: to meet >75% est nutr needs improved wound status BS control Interpretation of weight loss: >1-2% in 1 week Malnutrition Findings: Body Fat Depletion (Non Severe: Mod to Severe Weight Status: Underweight HANSA SIMMS MD Mar 13, 2019 09:47
--- NOTE | 2019-03-13 11:27 | PDOC ---
PROGRESS NOTES Subjective Subjective No complaints. On face mask oxygen. Objective Vital Signs Vital Signs Date Time Temp Pulse Resp B/P (MAP) Pulse Ox O2 Delivery O2 Flow Rate FiO2 03/13/19 07:00 98.0 86 18 114/73 (87) 100 Venturi Mask 15.0 98.0 Physical Exam Bilateral thigh residual limb dressings are intact. Slight bloody drainage from the right dressing. He appears comfortable and responds to questions. Labs Laboratory Tests Test 03/11/19 16:13 03/11/19 17:11 03/11/19 21:20 03/12/19 05:25 O2 Saturation 89 % (92-99) Arterial Blood pH 7.39 (7.35-7.45) Arterial Blood pCO2 at Patient Temp 46 mmHg (35-46) Arterial Blood pO2 at Patient Temp 57 mmHg (65-108) Arterial Blood HCO3 27 mmol/L (21-28) Arterial Blood Base Excess 2 mmol/L (-3-3) Oxyhemoglobin 88.5 % Methemoglobin 0.1 % (0.0-1.9) Carbon Monoxide, Quantitative 0.5 % (0.0-1.9) FiO2 21 Glucose (Fingerstick) 96 mg/dL (70-99) 71 mg/dL (70-99) White Blood Count 4.6 x10^3/uL (4.0-11.0) Red Blood Count 3.62 x10^6/uL (4.30-5.70) Hemoglobin 10.4 g/dL (13.0-17.5) Hematocrit 32.3 % (39.0-53.0) Mean Corpuscular Volume 89 fL (79-100) Mean Corpuscular Hemoglobin 29 pg (25-35) Mean Corpuscular Hemoglobin Concent 32 g/dL (31-37) Red Cell Distribution Width 16.6 % (11.5-14.5) Platelet Count 321 x10^3/uL (140-400) Neutrophils (%) (Auto) 62 % (31-73) Lymphocytes (%) (Auto) 18 % (24-48) Monocytes (%) (Auto) 9 % (0-9) Eosinophils (%) (Auto) 9 % (0-3) Basophils (%) (Auto) 2 % (0-3) Neutrophils # (Auto) 2.8 x10^3/uL (1.8-7.7) Lymphocytes # (Auto) 0.8 x10^3/uL (1.0-4.8) Monocytes # (Auto) 0.4 x10^3/uL (0.0-1.1) Eosinophils # (Auto) 0.4 x10^3/uL (0.0-0.7) Basophils # (Auto) 0.1 x10^3/uL (0.0-0.2) Sodium Level 142 mmol/L (136-145) Potassium Level 3.5 mmol/L (3.5-5.1) Chloride Level 107 mmol/L (98-107) Carbon Dioxide Level 29 mmol/L (21-32) Anion Gap 6 (6-14) Blood Urea Nitrogen 6 mg/dL (8-26) Creatinine 1.2 mg/dL (0.7-1.3) Estimated GFR (Cockcroft-Gault) 71.8 BUN/Creatinine Ratio 5 (6-20) Glucose Level 50 mg/dL (70-99) Calcium Level 8.2 mg/dL (8.5-10.1) Total Bilirubin 0.3 mg/dL (0.2-1.0) Aspartate Amino Transf (AST/SGOT) 24 U/L (15-37) Alanine Aminotransferase (ALT/SGPT) 7 U/L (16-63) Alkaline Phosphatase 59 U/L (46-116) Total Protein 6.0 g/dL (6.4-8.2) Albumin 1.8 g/dL (3.4-5.0) Albumin/Globulin Ratio 0.4 (1.0-1.7) Test 03/12/19 07:14 03/12/19 07:56 03/12/19 11:35 03/12/19 16:45 Glucose (Fingerstick) 42 mg/dL (70-99) 91 mg/dL (70-99) 71 mg/dL (70-99) Vancomycin Level Trough 15.5 mcg/mL (10.0-20.0) Vancomycin Last Dose Date 03/11/19 Vancomycin Last Dose Time 1730 Test 03/12/19 17:10 03/12/19 17:57 03/12/19 19:49 03/13/19 00:29 Glucose (Fingerstick) 47 mg/dL (70-99) 87 mg/dL (70-99) 114 mg/dL (70-99) 119 mg/dL (70-99) Test 03/13/19 05:23 03/13/19 07:41 White Blood Count 11.1 x10^3/uL (4.0-11.0) Red Blood Count 3.27 x10^6/uL (4.30-5.70) Hemoglobin 9.4 g/dL (13.0-17.5) Hematocrit 29.3 % (39.0-53.0) Mean Corpuscular Volume 90 fL (79-100) Mean Corpuscular Hemoglobin 29 pg (25-35) Mean Corpuscular Hemoglobin Concent 32 g/dL (31-37) Red Cell Distribution Width 16.4 % (11.5-14.5) Platelet Count 316 x10^3/uL (140-400) Neutrophils (%) (Auto) 85 % (31-73) Lymphocytes (%) (Auto) 6 % (24-48) Monocytes (%) (Auto) 9 % (0-9) Eosinophils (%) (Auto) 0 % (0-3) Basophils (%) (Auto) 0 % (0-3) Neutrophils # (Auto) 9.4 x10^3/uL (1.8-7.7) Lymphocytes # (Auto) 0.7 x10^3/uL (1.0-4.8) Monocytes # (Auto) 0.9 x10^3/uL (0.0-1.1) Eosinophils # (Auto) 0.0 x10^3/uL (0.0-0.7) Basophils # (Auto) 0.0 x10^3/uL (0.0-0.2) Segmented Neutrophils % 68 % (35-66) Band Neutrophils % 18 % (0-9) Lymphocytes % 5 % (24-48) Atypical Lymphocytes % (Manual) 1 % (0-0) Monocytes % 8 % (0-10) Platelet Estimate Adequate (ADEQUATE) Anisocytosis Slight Ovalocytes Few [place] Cells Occ Sodium Level 140 mmol/L (136-145) Potassium Level 3.7 mmol/L (3.5-5.1) Chloride Level 105 mmol/L (98-107) Carbon Dioxide Level 31 mmol/L (21-32) Anion Gap 4 (6-14) Blood Urea Nitrogen 5 mg/dL (8-26) Creatinine 1.3 mg/dL (0.7-1.3) Estimated GFR (Cockcroft-Gault) 65.5 BUN/Creatinine Ratio 4 (6-20) Glucose Level 144 mg/dL (70-99) Calcium Level 7.7 mg/dL (8.5-10.1) Total Bilirubin 0.3 mg/dL (0.2-1.0) Aspartate Amino Transf (AST/SGOT) 27 U/L (15-37) Alanine Aminotransferase (ALT/SGPT) 10 U/L (16-63) Alkaline Phosphatase 53 U/L (46-116) Total Protein 5.9 g/dL (6.4-8.2) Albumin 1.7 g/dL (3.4-5.0) Albumin/Globulin Ratio 0.4 (1.0-1.7) Glucose (Fingerstick) 106 mg/dL (70-99) Laboratory Tests Test 03/12/19 11:35 03/12/19 16:45 03/12/19 17:10 03/12/19 17:57 Glucose (Fingerstick) 71 mg/dL (70-99) 47 mg/dL (70-99) 87 mg/dL (70-99) Vancomycin Level Trough 15.5 mcg/mL (10.0-20.0) Vancomycin Last Dose Date 03/11/19 Vancomycin Last Dose Time 1730 Test 03/12/19 19:49 03/13/19 00:29 03/13/19 05:23 03/13/19 07:41 Glucose (Fingerstick) 114 mg/dL (70-99) 119 mg/dL (70-99) 106 mg/dL (70-99) White Blood Count 11.1 x10^3/uL (4.0-11.0) Red Blood Count 3.27 x10^6/uL (4.30-5.70) Hemoglobin 9.4 g/dL (13.0-17.5) Hematocrit 29.3 % (39.0-53.0) Mean Corpuscular Volume 90 fL (79-100) Mean Corpuscular Hemoglobin 29 pg (25-35) Mean Corpuscular Hemoglobin Concent 32 g/dL (31-37) Red Cell Distribution Width 16.4 % (11.5-14.5) Platelet Count 316 x10^3/uL (140-400) Neutrophils (%) (Auto) 85 % (31-73) Lymphocytes (%) (Auto) 6 % (24-48) Monocytes (%) (Auto) 9 % (0-9) Eosinophils (%) (Auto) 0 % (0-3) Basophils (%) (Auto) 0 % (0-3) Neutrophils # (Auto) 9.4 x10^3/uL (1.8-7.7) Lymphocytes # (Auto) 0.7 x10^3/uL (1.0-4.8) Monocytes # (Auto) 0.9 x10^3/uL (0.0-1.1) Eosinophils # (Auto) 0.0 x10^3/uL (0.0-0.7) Basophils # (Auto) 0.0 x10^3/uL (0.0-0.2) Segmented Neutrophils % 68 % (35-66) Band Neutrophils % 18 % (0-9) Lymphocytes % 5 % (24-48) Atypical Lymphocytes % (Manual) 1 % (0-0) Monocytes % 8 % (0-10) Platelet Estimate Adequate (ADEQUATE) Anisocytosis Slight Ovalocytes Few [place] Cells Occ Sodium Level 140 mmol/L (136-145) Potassium Level 3.7 mmol/L (3.5-5.1) Chloride Level 105 mmol/L (98-107) Carbon Dioxide Level 31 mmol/L (21-32) Anion Gap 4 (6-14) Blood Urea Nitrogen 5 mg/dL (8-26) Creatinine 1.3 mg/dL (0.7-1.3) Estimated GFR (Cockcroft-Gault) 65.5 BUN/Creatinine Ratio 4 (6-20) Glucose Level 144 mg/dL (70-99) Calcium Level 7.7 mg/dL (8.5-10.1) Total Bilirubin 0.3 mg/dL (0.2-1.0) Aspartate Amino Transf (AST/SGOT) 27 U/L (15-37) Alanine Aminotransferase (ALT/SGPT) 10 U/L (16-63) Alkaline Phosphatase 53 U/L (46-116) Total Protein 5.9 g/dL (6.4-8.2) Albumin 1.7 g/dL (3.4-5.0) Albumin/Globulin Ratio 0.4 (1.0-1.7) Assessment Assessment POD#1 bilateral transfemoral (aka AKA) amputation Acute blood loss anemia at 9.4 Plan Plan of Care Stable postop. Blood loss anemia, and on 02. Will defer to hospitalist about possible transfusion. MARITZA CONDON MD Mar 13, 2019 11:27
[2019-03-13] MEDS: MICAFUNGIN 100 MG in IV DEXTROSE 5% 100ML 100 ML IV SCH (11:57)
[2019-03-13] MEDS: MULTIVITAMIN with MINERAL TABLET. PO SCH (11:59)
[2019-03-13] MEDS: ASPIRIN ENTERIC COATED 81 MG TABLET.DR. PO SCH (11:59)
[2019-03-13] MEDS: LACTOBACILLUS RHAMNOSUS GG 1 CAPSULE. PO SCH ×2 (11:59→21:00)
[2019-03-13] MEDS: MORPHINE SULFATE 2 MG/ML VIAL. IV PRN (14:15)
[2019-03-13] MEDS: VANCOMYCIN PER PHARMACY MC PRN (16:16)
[2019-03-13] MEDS: VANCOMYCIN 1 GM in IV NORMAL SALINE 250ML 250 ML IV SCH ×2 (17:38→17:41)
--- NOTE | 2019-03-13 17:58 | PDOC ---
PULMONARY PROGRESS NOTES Subjective Patient admitted with gangrenous lower extremities. He underwent bilateral amputations 03/12. Resting comfortably in bed on low flow oxygen by NC. Vitals Vital Signs Date Time Temp Pulse Resp B/P (MAP) Pulse Ox O2 Delivery O2 Flow Rate FiO2 03/13/19 15:00 99.6 93 18 104/62 (76) 91 Nasal Cannula 1.0 99.6 ROS: No Nausea, No Chest Pain, No Abdominal Pain, No Increase Cough General: Alert, No acute distress Lungs: Clear Cardiovascular: S1, S2 Abdomen: Soft Neuro Exam: Alert, No Focal Findings Extremities: No Edema Skin: Warm Labs Laboratory Tests Test 03/11/19 21:20 03/12/19 05:25 03/12/19 07:14 03/12/19 07:56 Glucose (Fingerstick) 71 mg/dL (70-99) 42 mg/dL (70-99) 91 mg/dL (70-99) White Blood Count 4.6 x10^3/uL (4.0-11.0) Red Blood Count 3.62 x10^6/uL (4.30-5.70) Hemoglobin 10.4 g/dL (13.0-17.5) Hematocrit 32.3 % (39.0-53.0) Mean Corpuscular Volume 89 fL (79-100) Mean Corpuscular Hemoglobin 29 pg (25-35) Mean Corpuscular Hemoglobin Concent 32 g/dL (31-37) Red Cell Distribution Width 16.6 % (11.5-14.5) Platelet Count 321 x10^3/uL (140-400) Neutrophils (%) (Auto) 62 % (31-73) Lymphocytes (%) (Auto) 18 % (24-48) Monocytes (%) (Auto) 9 % (0-9) Eosinophils (%) (Auto) 9 % (0-3) Basophils (%) (Auto) 2 % (0-3) Neutrophils # (Auto) 2.8 x10^3/uL (1.8-7.7) Lymphocytes # (Auto) 0.8 x10^3/uL (1.0-4.8) Monocytes # (Auto) 0.4 x10^3/uL (0.0-1.1) Eosinophils # (Auto) 0.4 x10^3/uL (0.0-0.7) Basophils # (Auto) 0.1 x10^3/uL (0.0-0.2) Sodium Level 142 mmol/L (136-145) Potassium Level 3.5 mmol/L (3.5-5.1) Chloride Level 107 mmol/L (98-107) Carbon Dioxide Level 29 mmol/L (21-32) Anion Gap 6 (6-14) Blood Urea Nitrogen 6 mg/dL (8-26) Creatinine 1.2 mg/dL (0.7-1.3) Estimated GFR (Cockcroft-Gault) 71.8 BUN/Creatinine Ratio 5 (6-20) Glucose Level 50 mg/dL (70-99) Calcium Level 8.2 mg/dL (8.5-10.1) Total Bilirubin 0.3 mg/dL (0.2-1.0) Aspartate Amino Transf (AST/SGOT) 24 U/L (15-37) Alanine Aminotransferase (ALT/SGPT) 7 U/L (16-63) Alkaline Phosphatase 59 U/L (46-116) Total Protein 6.0 g/dL (6.4-8.2) Albumin 1.8 g/dL (3.4-5.0) Albumin/Globulin Ratio 0.4 (1.0-1.7) Test 03/12/19 11:35 03/12/19 16:45 03/12/19 17:10 03/12/19 17:57 Glucose (Fingerstick) 71 mg/dL (70-99) 47 mg/dL (70-99) 87 mg/dL (70-99) Vancomycin Level Trough 15.5 mcg/mL (10.0-20.0) Vancomycin Last Dose Date 03/11/19 Vancomycin Last Dose Time 1730 Test 03/12/19 19:49 03/13/19 00:29 03/13/19 05:23 03/13/19 07:41 Glucose (Fingerstick) 114 mg/dL (70-99) 119 mg/dL (70-99) 106 mg/dL (70-99) White Blood Count 11.1 x10^3/uL (4.0-11.0) Red Blood Count 3.27 x10^6/uL (4.30-5.70) Hemoglobin 9.4 g/dL (13.0-17.5) Hematocrit 29.3 % (39.0-53.0) Mean Corpuscular Volume 90 fL (79-100) Mean Corpuscular Hemoglobin 29 pg (25-35) Mean Corpuscular Hemoglobin Concent 32 g/dL (31-37) Red Cell Distribution Width 16.4 % (11.5-14.5) Platelet Count 316 x10^3/uL (140-400) Neutrophils (%) (Auto) 85 % (31-73) Lymphocytes (%) (Auto) 6 % (24-48) Monocytes (%) (Auto) 9 % (0-9) Eosinophils (%) (Auto) 0 % (0-3) Basophils (%) (Auto) 0 % (0-3) Neutrophils # (Auto) 9.4 x10^3/uL (1.8-7.7) Lymphocytes # (Auto) 0.7 x10^3/uL (1.0-4.8) Monocytes # (Auto) 0.9 x10^3/uL (0.0-1.1) Eosinophils # (Auto) 0.0 x10^3/uL (0.0-0.7) Basophils # (Auto) 0.0 x10^3/uL (0.0-0.2) Segmented Neutrophils % 68 % (35-66) Band Neutrophils % 18 % (0-9) Lymphocytes % 5 % (24-48) Atypical Lymphocytes % (Manual) 1 % (0-0) Monocytes % 8 % (0-10) Platelet Estimate Adequate (ADEQUATE) Anisocytosis Slight Ovalocytes Few [place] Cells Occ Sodium Level 140 mmol/L (136-145) Potassium Level 3.7 mmol/L (3.5-5.1) Chloride Level 105 mmol/L (98-107) Carbon Dioxide Level 31 mmol/L (21-32) Anion Gap 4 (6-14) Blood Urea Nitrogen 5 mg/dL (8-26) Creatinine 1.3 mg/dL (0.7-1.3) Estimated GFR (Cockcroft-Gault) 65.5 BUN/Creatinine Ratio 4 (6-20) Glucose Level 144 mg/dL (70-99) Calcium Level 7.7 mg/dL (8.5-10.1) Total Bilirubin 0.3 mg/dL (0.2-1.0) Aspartate Amino Transf (AST/SGOT) 27 U/L (15-37) Alanine Aminotransferase (ALT/SGPT) 10 U/L (16-63) Alkaline Phosphatase 53 U/L (46-116) Total Protein 5.9 g/dL (6.4-8.2) Albumin 1.7 g/dL (3.4-5.0) Albumin/Globulin Ratio 0.4 (1.0-1.7) Test 03/13/19 11:45 03/13/19 15:28 Glucose (Fingerstick) 80 mg/dL (70-99) 115 mg/dL (70-99) Laboratory Tests Test 03/12/19 17:57 03/12/19 19:49 03/13/19 00:29 03/13/19 05:23 Glucose (Fingerstick) 87 mg/dL (70-99) 114 mg/dL (70-99) 119 mg/dL (70-99) White Blood Count 11.1 x10^3/uL (4.0-11.0) Red Blood Count 3.27 x10^6/uL (4.30-5.70) Hemoglobin 9.4 g/dL (13.0-17.5) Hematocrit 29.3 % (39.0-53.0) Mean Corpuscular Volume 90 fL (79-100) Mean Corpuscular Hemoglobin 29 pg (25-35) Mean Corpuscular Hemoglobin Concent 32 g/dL (31-37) Red Cell Distribution Width 16.4 % (11.5-14.5) Platelet Count 316 x10^3/uL (140-400) Neutrophils (%) (Auto) 85 % (31-73) Lymphocytes (%) (Auto) 6 % (24-48) Monocytes (%) (Auto) 9 % (0-9) Eosinophils (%) (Auto) 0 % (0-3) Basophils (%) (Auto) 0 % (0-3) Neutrophils # (Auto) 9.4 x10^3/uL (1.8-7.7) Lymphocytes # (Auto) 0.7 x10^3/uL (1.0-4.8) Monocytes # (Auto) 0.9 x10^3/uL (0.0-1.1) Eosinophils # (Auto) 0.0 x10^3/uL (0.0-0.7) Basophils # (Auto) 0.0 x10^3/uL (0.0-0.2) Segmented Neutrophils % 68 % (35-66) Band Neutrophils % 18 % (0-9) Lymphocytes % 5 % (24-48) Atypical Lymphocytes % (Manual) 1 % (0-0) Monocytes % 8 % (0-10) Platelet Estimate Adequate (ADEQUATE) Anisocytosis Slight Ovalocytes Few [place] Cells Occ Sodium Level 140 mmol/L (136-145) Potassium Level 3.7 mmol/L (3.5-5.1) Chloride Level 105 mmol/L (98-107) Carbon Dioxide Level 31 mmol/L (21-32) Anion Gap 4 (6-14) Blood Urea Nitrogen 5 mg/dL (8-26) Creatinine 1.3 mg/dL (0.7-1.3) Estimated GFR (Cockcroft-Gault) 65.5 BUN/Creatinine Ratio 4 (6-20) Glucose Level 144 mg/dL (70-99) Calcium Level 7.7 mg/dL (8.5-10.1) Total Bilirubin 0.3 mg/dL (0.2-1.0) Aspartate Amino Transf (AST/SGOT) 27 U/L (15-37) Alanine Aminotransferase (ALT/SGPT) 10 U/L (16-63) Alkaline Phosphatase 53 U/L (46-116) Total Protein 5.9 g/dL (6.4-8.2) Albumin 1.7 g/dL (3.4-5.0) Albumin/Globulin Ratio 0.4 (1.0-1.7) Test 03/13/19 07:41 03/13/19 11:45 03/13/19 15:28 Glucose (Fingerstick) 106 mg/dL (70-99) 80 mg/dL (70-99) 115 mg/dL (70-99) Medications Active Scripts Medications Dose Route/Sig Max Daily Dose Days Date Category Dose Instructions Tizanidine Hcl 4 Mg Tablet 1 Tab PO QHS 03/09/19 Reported Ammonium Lactate 226 Gm Lotion 1 Nando TP BID 10 12/31/18 Rx Percocet 5-325 Mg Tablet (Oxycodone/Acetaminophen) 1 Each Tablet 1 Tab PO PRN Q4HRS PRN 10 12/31/18 Rx Eliquis (Apixaban) 2.5 Mg Tablet 2.5 Mg PO BID 14 12/31/18 Rx Fosamax (Alendronate Sodium) 70 Mg Tablet 70 Mg PO WEEKLY 12/25/18 Reported pt takes medication on friday Vitamin D3 (Cholecalciferol (Vitamin D3)) 5,000 Unit Tablet 5,000 Unit PO WEEKLY 11/17/14 Reported Impression . IMPRESSION: 1. Hypoxemia. 2. Chronic obstructive pulmonary disease. 3. Osteomyelitis. 4. s/p bilateral lower extremity amputations 5. Severe protein malnutrition. 6. Osteomyelitis. 7. Severe weight loss. Plan . continue low flow oxygen and nebulized bronchodilators. Will follow. ML DONOVAN MD Mar 13, 2019 17:58
[2019-03-13] MEDS: ENOXAPARIN 40 MG/0.4 ML SYRINGE. SQ SCH (21:13)
[2019-03-13] MEDS: ATORVASTATIN CALCIUM 10 MG TABLET. PO SCH (21:14)
[2019-03-13] MEDS: traMADol 50 MG TABLET PO PRN (21:14)
[2019-03-14 03:00] VITALS: BP 106/55
[2019-03-14] MEDS: PIPERACILLIN/TAZOBACTAM 3.375 GM in IV NORMAL SALINE 50ML 50 ML IV SCH ×4 (05:16→23:58)
[2019-03-14 07:00] VITALS: BP 130/66
--- NOTE | 2019-03-14 08:10 | PDOC ---
Infectious Disease Note Subjective Subjective Denies pain No F/C/S/N/V/D/SOA/rash Vital Sign Vital Signs Vital Signs Date Time Temp Pulse Resp B/P (MAP) Pulse Ox O2 Delivery O2 Flow Rate FiO2 03/14/19 03:00 98.5 81 18 106/55 (72) 96 Nasal Cannula 1.0 98.5 Physical Exam PHYSICAL EXAM CONSTITUTIONAL: He is lying in bed. He appears comfortable. He is in no acute distress. HEENT: He has normal conjunctivae. Oral cavity, pharynx is dry. Edentulous. NECK: Without any JVD. No fullness. LUNGS: Decreased in the bases.on Venti mask HEART: S1, S2. ABDOMEN: Soft. No guarding or rebound. Positive bowel sounds. EXTREMITIES: No clubbing or cyanosis. Less edema - He has decreased pulses. wounds are dressed today. Post op wounds SKIN: Warm to touch without generalized signs of rash. NEUROLOGIC: alert cooperative. Moves all extremities. PSYCHIATRIC: Affect is appropriate. 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
[2019-03-14] MEDS: AMMONIUM LACTATE 12% TOPICAL LOTION 226GM BOTTLE. TP SCH ×2 (09:00→20:41)
--- NOTE | 2019-03-14 10:24 | PDOC ---
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 PLAn: CPM LAbs, cultures PT OT SW - will need on dc dispo/plans - just wants HH Vitals Vitals Vital Signs Date Time Temp Pulse Resp B/P (MAP) Pulse Ox O2 Delivery O2 Flow Rate FiO2 03/14/19 07:00 97.9 71 16 130/66 (87) 100 Room Air 97.9 03/14/19 03:00 1.0 Physical Exam Physical Exam CONSTITUTIONAL: He is lying in bed. He appears comfortable. He is in no acute distress. HEENT: He has normal conjunctivae. Oral cavity, pharynx is dry. Edentulous. NECK: Without any JVD. No fullness. LUNGS: Decreased in the bases.on Venti mask HEART: S1, S2. ABDOMEN: Soft. No guarding or rebound. Positive bowel sounds. EXTREMITIES: No clubbing or cyanosis. Less edema - He has decreased pulses. wounds are dressed today. Post op wounds SKIN: Warm to touch without generalized signs of rash. NEUROLOGIC: alert cooperative. Moves all extremities. PSYCHIATRIC: Affect is appropriate. General: Alert, Oriented X3, Cooperative, No acute distress Heart: Regular rate (SR per EKG), Normal S1, Normal S2, Other (S/6 systolic murmur to LLS border) Lungs: Clear Abdomen: Soft, No tenderness Extremities: No cyanosis, No edema Skin: Other (necrotic toes with heel ulcers, scaly LE skin) Labs LABS Laboratory Tests Test 03/13/19 11:45 03/13/19 15:28 03/13/19 20:12 Glucose (Fingerstick) 80 mg/dL (70-99) 115 mg/dL (70-99) 83 mg/dL (70-99) Review of Systems Review of Systems neg 14 pt reviewed with him Assessment and Plan Assessmemt and Plan Problems Medical Problems: (1) Necrotic toes Status: Acute (2) Ulcer of left heel Status: Acute Comment Review of Relevant I have reviewed the following items segun (where applicable) has been applied. Labs Laboratory Tests Test 03/12/19 11:35 03/12/19 16:45 03/12/19 17:10 03/12/19 17:57 Glucose (Fingerstick) 71 mg/dL (70-99) 47 mg/dL (70-99) 87 mg/dL (70-99) Vancomycin Level Trough 15.5 mcg/mL (10.0-20.0) Vancomycin Last Dose Date 03/11/19 Vancomycin Last Dose Time 1730 Test 03/12/19 19:49 03/13/19 00:29 03/13/19 05:23 03/13/19 07:41 Glucose (Fingerstick) 114 mg/dL (70-99) 119 mg/dL (70-99) 106 mg/dL (70-99) White Blood Count 11.1 x10^3/uL (4.0-11.0) Red Blood Count 3.27 x10^6/uL (4.30-5.70) Hemoglobin 9.4 g/dL (13.0-17.5) Hematocrit 29.3 % (39.0-53.0) Mean Corpuscular Volume 90 fL (79-100) Mean Corpuscular Hemoglobin 29 pg (25-35) Mean Corpuscular Hemoglobin Concent 32 g/dL (31-37) Red Cell Distribution Width 16.4 % (11.5-14.5) Platelet Count 316 x10^3/uL (140-400) Neutrophils (%) (Auto) 85 % (31-73) Lymphocytes (%) (Auto) 6 % (24-48) Monocytes (%) (Auto) 9 % (0-9) Eosinophils (%) (Auto) 0 % (0-3) Basophils (%) (Auto) 0 % (0-3) Neutrophils # (Auto) 9.4 x10^3/uL (1.8-7.7) Lymphocytes # (Auto) 0.7 x10^3/uL (1.0-4.8) Monocytes # (Auto) 0.9 x10^3/uL (0.0-1.1) Eosinophils # (Auto) 0.0 x10^3/uL (0.0-0.7) Basophils # (Auto) 0.0 x10^3/uL (0.0-0.2) Segmented Neutrophils % 68 % (35-66) Band Neutrophils % 18 % (0-9) Lymphocytes % 5 % (24-48) Atypical Lymphocytes % (Manual) 1 % (0-0) Monocytes % 8 % (0-10) Platelet Estimate Adequate (ADEQUATE) Anisocytosis Slight Ovalocytes Few [place] Cells Occ Sodium Level 140 mmol/L (136-145) Potassium Level 3.7 mmol/L (3.5-5.1) Chloride Level 105 mmol/L (98-107) Carbon Dioxide Level 31 mmol/L (21-32) Anion Gap 4 (6-14) Blood Urea Nitrogen 5 mg/dL (8-26) Creatinine 1.3 mg/dL (0.7-1.3) Estimated GFR (Cockcroft-Gault) 65.5 BUN/Creatinine Ratio 4 (6-20) Glucose Level 144 mg/dL (70-99) Calcium Level 7.7 mg/dL (8.5-10.1) Total Bilirubin 0.3 mg/dL (0.2-1.0) Aspartate Amino Transf (AST/SGOT) 27 U/L (15-37) Alanine Aminotransferase (ALT/SGPT) 10 U/L (16-63) Alkaline Phosphatase 53 U/L (46-116) Total Protein 5.9 g/dL (6.4-8.2) Albumin 1.7 g/dL (3.4-5.0) Albumin/Globulin Ratio 0.4 (1.0-1.7) Test 03/13/19 11:45 03/13/19 15:28 03/13/19 20:12 Glucose (Fingerstick) 80 mg/dL (70-99) 115 mg/dL (70-99) 83 mg/dL (70-99) Laboratory Tests Test 03/13/19 11:45 03/13/19 15:28 03/13/19 20:12 Glucose (Fingerstick) 80 mg/dL (70-99) 115 mg/dL (70-99) 83 mg/dL (70-99) Microbiology 03/08/19 Blood Culture - Final, Complete NO GROWTH AFTER 5 DAYS Medications Current Medications Sodium Chloride 1,000 ml @ 1,860 mls/hr Q33M IV Last administered on 03/08/19at 17:40; Start 03/08/19 at 16:04; Stop 03/08/19 at 17:04; Status DC Piperacillin Sod/ Tazobactam Sod 4.5 gm/Sodium Chloride 100 ml @ 200 mls/hr 1X ONCE IV Last administered on 03/08/19at 16:41; Start 03/08/19 at 16:15; Stop 03/08/19 at 16:44; Status DC Vancomycin HCl (Vanco Per Pharmacy) 1 each 1X ONCE MC ; Start 03/08/19 at 16:15; Stop 03/08/19 at 16:24; Status DC Morphine Sulfate (Morphine Sulfate) 4 mg PRN Q15MIN PRN IV/SQ PAIN GREATER THAN 3/10; Start 03/08/19 at 16:15; Stop 03/09/19 at 08:35; Status DC Vancomycin HCl 1.25 gm/Sodium Chloride 250 ml @ 167 mls/hr ONCE ONCE IV Last administered on 03/08/19at 17:40; Start 03/08/19 at 16:30; Stop 03/08/19 at 17:59; Status DC Ondansetron HCl (Zofran) 4 mg PRN Q8HRS PRN IV NAUSEA/VOMITING; Start 03/08/19 at 18:15; Stop 03/08/19 at 21:18; Status DC Morphine Sulfate (Morphine Sulfate) 4 mg PRN Q2HR PRN IV SEVERE PAIN 7-10; Start 03/08/19 at 18:15; Stop 03/09/19 at 08:35; Status DC Sodium Chloride 1,000 ml @ 75 mls/hr 1X ONCE IV Last administered on 03/08/19at 21:25; Start 03/08/19 at 18:15; Stop 03/09/19 at 07:34; Status DC Ondansetron HCl (Zofran) 4 mg PRN Q6HRS PRN IV NAUSEA/VOMITING 1ST CHOICE; Start 03/08/19 at 21:15 Lactic Acid (Lac-Hydrin) 1 nando BID TP Last administered on 03/11/19at 21:00; Start 03/09/19 at 09:00 Non-Formulary Medication (Alendronate Sodium (Fosamax)) 70 mg WEEKLY PO ; Start 03/15/19 at 09:00; Status UNV Vitamin D (Vitamin D3) 5,000 unit WEEKLY PO ; Start 03/15/19 at 09:00 Piperacillin Sod/ Tazobactam Sod 3.375 gm/Sodium Chloride 50 ml @ 100 mls/hr Q6HRS IV ; Start 03/09/19 at 00:00; Status UNV Tramadol HCl (Ultram) 50 mg PRN Q6HRS PRN PO MODERATE PAIN Last administered on 03/13/19at 21:14; Start 03/08/19 at 21:15 Insulin Human Lispro (HumaLOG) 0-5 UNITS TIDACHC SQ ; Start 03/09/19 at 07:30; Stop 03/09/19 at 08:31; Status DC Dextrose (Dextrose 50%-Water Syringe) 12.5 gm PRN Q15MIN PRN IV SEE COMMENTS Last administered on 03/12/19at 17:13; Start 03/08/19 at 21:15 Enoxaparin Sodium (Lovenox 40mg Syringe) 40 mg Q24H SQ Last administered on 03/13/19at 21:13; Start 03/08/19 at 22:00 Piperacillin Sod/ Tazobactam Sod 2.25 gm/Sodium Chloride 50 ml @ 100 mls/hr Q6HRS IV Last administered on 03/09/19at 05:54; Start 03/09/19 at 00:00; Stop 03/09/19 at 10:17; Status DC Potassium Chloride (Klor-Con) 40 meq 1X ONCE PO Last administered on 03/08/19at 22:20; Start 03/08/19 at 22:00; Stop 03/08/19 at 22:01; Status DC Acetaminophen (Tylenol) 500 mg PRN Q6HRS PRN PO TEMP/HEADACHE; Start 03/09/19 at 08:30 Acetaminophen/ Codeine Phosphate (Tylenol #3) 1 tab PRN Q6HRS PRN PO MILD PAIN 1-3; Start 03/09/19 at 08:30 Morphine Sulfate (Morphine Sulfate) 2 mg PRN Q2HR PRN IV PAIN Last administered on 03/13/19at 14:15; Start 03/09/19 at 08:30 Oxycodone/ Acetaminophen (Percocet 5/325) 1 tab PRN Q4HRS PRN PO SEVERE PAIN 7- 10; Start 03/09/19 at 08:30 Piperacillin Sod/ Tazobactam Sod 3.375 gm/Sodium Chloride 50 ml @ 100 mls/hr Q6HRS IV Last administered on 03/14/19at 05:16; Start 03/09/19 at 12:00 Micafungin Sodium 100 mg/Dextrose 100 ml @ 100 mls/hr Q24H IV Last administered on 03/13/19at 11:57; Start 03/09/19 at 11:00; Stop 03/14/19 at 08:23; Status DC Vancomycin HCl (Vanco Per Pharmacy) 1 each PRN DAILY PRN MC SEE COMMENTS Last administered on 03/13/19at 16:16; Start 03/09/19 at 11:15; Stop 03/14/19 at 08:23; Status DC Vancomycin HCl 750 mg/Sodium Chloride 250 ml @ 250 mls/hr Q24H IV Last administered on 03/09/19at 17:11; Start 03/09/19 at 17:00; Stop 03/10/19 at 17:02; Status DC Vancomycin HCl (Vancomycin Trough Level) 1 each 1X ONCE MC Last administered on 03/10/19at 16:30; Start 03/10/19 at 16:30; Stop 03/10/19 at 16:31; Status DC Multivitamins (Thera M Plus) 1 tab DAILY PO Last administered on 03/13/19at 11:59; Start 03/10/19 at 09:00 Dextrose/Sodium Chloride 1,000 ml @ 75 mls/hr [id number] IV Last administered on 03/09/19at 17:30; Start 03/09/19 at 17:30; Stop 03/10/19 at 06:49; Status DC Lactobacillus Rhamnosus (Culturelle) 1 cap BID PO Last administered on 03/13/19at 21:00; Start 03/10/19 at 21:00 Vancomycin HCl 1 gm/Sodium Chloride 250 ml @ 250 mls/hr Q24H IV Last administered on 03/13/19at 17:41; Start 03/10/19 at 17:30; Stop 03/14/19 at 08:23; Status DC Vancomycin HCl (Vancomycin Trough Level) 1 each 1X ONCE MC Last administered on 03/12/19at 17:00; Start 03/12/19 at 17:00; Stop 03/12/19 at 17:01; Status DC Bupivacaine HCl/ Epinephrine Bitart (Sensorcaine-Epi 0.25%-1:[id number] Mpf) 30 ml 1X ONCE INJ Last administered on 03/12/19at 18:04; Start 03/12/19 at 08:00; Stop 03/12/19 at 08:01; Status DC Aspirin (Ecotrin) 81 mg [id number] PO Last administered on 03/13/19at 11:59; Start 03/12/19 at 08:00 Atorvastatin Calcium (Lipitor) 10 mg QHS PO Last administered on 03/13/19at 21:14; Start 03/11/19 at 21:00 Metoprolol Tartrate (Lopressor Vial) 5 mg PRN Q6HRS PRN IVP HYPERTENSION; Start 03/11/19 at 16:00 Ondansetron HCl (Zofran) 4 mg PRN Q6HRS PRN IV NAUSEA/VOMITING; Start 03/12/19 at 07:00; Stop 03/13/19 at 06:59; Status DC Fentanyl Citrate (Fentanyl 2ml Vial) 25 mcg PRN Q5MIN PRN IV MILD PAIN 1-3 Last administered on 03/12/19at 21:28; Start 03/12/19 at 07:00; Stop 03/13/19 at 06:59; Status DC Fentanyl Citrate (Fentanyl 2ml Vial) 50 mcg PRN Q5MIN PRN IV MODERATE TO SEVERE PAIN; Start 03/12/19 at 07:00; Stop 03/13/19 at 06:59; Status DC Morphine Sulfate (Morphine Sulfate) 1 mg PRN Q10MIN PRN IV SEVERE PAIN 7-10; Start 03/12/19 at 07:00; Stop 03/13/19 at 06:59; Status DC Ringer's Solution 1,000 ml @ 30 mls/hr Q24H IV Last administered on 03/12/19at 17:12; Start 03/12/19 at 07:00; Stop 03/12/19 at 18:59; Status DC Lidocaine HCl (Xylocaine-Mpf 1% 2ml Vial) 2 ml PRN 1X PRN ID PRIOR TO IV START; Start 03/12/19 at 07:00; Stop 03/13/19 at 06:59; Status DC Hydromorphone HCl (Dilaudid) 0.5 mg PRN Q10MIN PRN IV SEV PAIN, Second choice; Start 03/12/19 at 07:00; Stop 03/13/19 at 06:59; Status DC Prochlorperazine Edisylate (Compazine) 5 mg PACU PRN PRN IV NAUSEA, MRX1; Start 03/12/19 at 07:00; Stop 03/13/19 at 06:59; Status DC Potassium Chloride/Dextrose/ Sod Cl 1,000 ml @ 80 mls/hr [id number] IV Last administered on 03/13/19at 23:50; Start 03/12/19 at 07:45 Amino Acids/ Glycerin/ Electrolytes 1,000 ml @ 80 mls/hr [id number] IV ; Start 03/12/19 at 09:30; Stop 03/12/19 at 09:47; Status DC Sevoflurane (Ultane) 90 ml STK-MED ONCE IH ; Start 03/12/19 at 15:32; Stop 03/12/19 at 15:33; Status DC Rocuronium [place] (Zemuron) 50 mg STK-MED ONCE .ROUTE ; Start 03/12/19 at 15:32; Stop 03/12/19 at 15:33; Status DC Fentanyl Citrate (Fentanyl 2ml Vial) 100 mcg STK-MED ONCE .ROUTE ; Start at 15:32; Stop 03/12/19 at 15:33; Status DC Neostigmine Methylsulfate (Neostigmine Methylsulfate) 5 mg STK-MED ONCE .ROUTE ; Start 03/12/19 at 15:33; Stop 03/12/19 at 15:33; Status DC Glycopyrrolate (Robinul) 1 mg STK-MED ONCE .ROUTE ; Start 03/12/19 at 15:33; Stop 03/12/19 at 15:33; Status DC Dexamethasone Sodium Phosphate (Decadron) 4 mg STK-MED ONCE .ROUTE ; Start 03/12/19 at 15:33; Stop 03/12/19 at 15:33; Status DC Propofol 20 ml @ As Directed STK-MED ONCE IV ; Start 03/12/19 at 15:33; Stop 03/12/19 at 15:33; Status DC Lidocaine HCl (Lidocaine Pf 2% Vial) 5 ml STK-MED ONCE .ROUTE ; Start 03/12/19 at 15:33; Stop 03/12/19 at 15:33; Status DC Ondansetron HCl (Zofran) 4 mg STK-MED ONCE .ROUTE ; Start 03/12/19 at 15:33; Stop 03/12/19 at 15:33; Status DC Phenylephrine HCl (PHENYLEPHRINE in 0.9% NACL PF) 1 mg STK-MED ONCE IV ; Start 03/12/19 at 17:27; Stop 03/12/19 at 17:27; Status DC Ephedrine Sulfate (ePHEDrine PF IN SALINE SYRINGE) 50 mg STK-MED ONCE IV ; Start 03/12/19 at 17:43; Stop 03/12/19 at 17:43; Status DC Albuterol Sulfate (Ventolin Neb Soln) 2.5 mg STK-MED ONCE .ROUTE ; Start 03/12/19 at 20:06; Stop 03/12/19 at 20:07; Status DC Albuterol Sulfate (Ventolin Neb Soln) 2.5 mg 1X ONCE NEB Last administered on 03/12/19at 20:21; Start 03/12/19 at 20:15; Stop 03/12/19 at 20:32; Status DC Active Scripts Active Ammonium Lactate 226 Gm Lotion 1 Nando TP BID 10 Days Percocet 5-325 Mg Tablet (Oxycodone/Acetaminophen) 1 Each Tablet 1 Tab PO PRN Q4HRS PRN 10 Days Eliquis (Apixaban) 2.5 Mg Tablet 2.5 Mg PO BID 14 Days Reported Tizanidine Hcl 4 Mg Tablet 1 Tab PO QHS Fosamax (Alendronate Sodium) 70 Mg Tablet 70 Mg PO WEEKLY pt takes medication on friday Vitamin D3 (Cholecalciferol (Vitamin D3)) 5,000 Unit Tablet 5,000 Unit PO WEEKLY Vitals/I & O Vital Sign - Last 24 Hours 03/13/19 03/13/19 03/13/19 03/13/19 11:00 14:15 14:45 15:00 Temp 98.0 99.6 98.0 99.6 Pulse 86 93 Resp 18 20 20 18 B/P (MAP) 128/81 (97) 104/62 (76) Pulse Ox 100 91 O2 Delivery Venturi Mask Room Air Room Air Nasal Cannula O2 Flow Rate 15.0 1.0 03/13/19 03/13/19 03/13/19 03/13/19 19:00 20:30 21:37 23:00 Temp 98.5 97.4 98.5 97.4 Pulse 87 92 Resp 18 18 B/P (MAP) 120/64 (82) 105/63 (77) Pulse Ox 98 98 O2 Delivery Nasal Cannula Room Air Room Air Nasal Cannula O2 Flow Rate 1.0 1.0 1.0 1.0 03/14/19 03/14/19 03:00 07:00 Temp 98.5 97.9 98.5 97.9 Pulse 81 71 Resp 18 16 B/P (MAP) 106/55 (72) 130/66 (87) Pulse Ox 96 100 O2 Delivery Nasal Cannula Room Air O2 Flow Rate 1.0 Intake and Output 03/13/19 03/13/19 03/14/19 15:00 23:00 07:00 Intake Total 600 ml 1100 ml Output Total 125 ml 325 ml 250 ml Balance -125 ml 275 ml 850 ml Nutrition Consultation Dietary Evaluation: Recommendations by RD: Increase Calorie Intake, Protein supplementation Comments: REC ADA, Cardiac diet with glucerna bid and rosa bid REC continue mvi q day per wound protocal Expected Outcomes/Goals: to meet >75% est nutr needs improved wound status BS control Interpretation of weight loss: >1-2% in 1 week Malnutrition Findings: Body Fat Depletion (Non Severe: Mod to Severe Weight Status: Underweight HANSA SIMMS MD Mar 14, 2019 10:24
--- NOTE | 2019-03-14 10:32 | PDOC ---
PULMONARY PROGRESS NOTES Subjective Patient admitted with gangrenous lower extremities. He underwent bilateral amputations 03/12. Resting comfortably in bed on low flow oxygen. His O2 has been titrated down and at times on RA or 1L O2. No shortness of air. Vitals Vital Signs Date Time Temp Pulse Resp B/P (MAP) Pulse Ox O2 Delivery O2 Flow Rate FiO2 03/14/19 08:00 Room Air 03/14/19 07:00 97.9 71 16 130/66 (87) 100 97.9 03/14/19 03:00 1.0 ROS: No Nausea, No Chest Pain, No Abdominal Pain, No Increase Cough General: Alert, No acute distress Lungs: Clear Cardiovascular: S1, S2 Abdomen: Soft Neuro Exam: Alert, No Focal Findings Extremities: No Edema Skin: Warm Labs Laboratory Tests Test 03/12/19 11:35 03/12/19 16:45 03/12/19 17:10 03/12/19 17:57 Glucose (Fingerstick) 71 mg/dL (70-99) 47 mg/dL (70-99) 87 mg/dL (70-99) Vancomycin Level Trough 15.5 mcg/mL (10.0-20.0) Vancomycin Last Dose Date 03/11/19 Vancomycin Last Dose Time 1730 Test 03/12/19 19:49 03/13/19 00:29 03/13/19 05:23 03/13/19 07:41 Glucose (Fingerstick) 114 mg/dL (70-99) 119 mg/dL (70-99) 106 mg/dL (70-99) White Blood Count 11.1 x10^3/uL (4.0-11.0) Red Blood Count 3.27 x10^6/uL (4.30-5.70) Hemoglobin 9.4 g/dL (13.0-17.5) Hematocrit 29.3 % (39.0-53.0) Mean Corpuscular Volume 90 fL (79-100) Mean Corpuscular Hemoglobin 29 pg (25-35) Mean Corpuscular Hemoglobin Concent 32 g/dL (31-37) Red Cell Distribution Width 16.4 % (11.5-14.5) Platelet Count 316 x10^3/uL (140-400) Neutrophils (%) (Auto) 85 % (31-73) Lymphocytes (%) (Auto) 6 % (24-48) Monocytes (%) (Auto) 9 % (0-9) Eosinophils (%) (Auto) 0 % (0-3) Basophils (%) (Auto) 0 % (0-3) Neutrophils # (Auto) 9.4 x10^3/uL (1.8-7.7) Lymphocytes # (Auto) 0.7 x10^3/uL (1.0-4.8) Monocytes # (Auto) 0.9 x10^3/uL (0.0-1.1) Eosinophils # (Auto) 0.0 x10^3/uL (0.0-0.7) Basophils # (Auto) 0.0 x10^3/uL (0.0-0.2) Segmented Neutrophils % 68 % (35-66) Band Neutrophils % 18 % (0-9) Lymphocytes % 5 % (24-48) Atypical Lymphocytes % (Manual) 1 % (0-0) Monocytes % 8 % (0-10) Platelet Estimate Adequate (ADEQUATE) Anisocytosis Slight Ovalocytes Few [place] Cells Occ Sodium Level 140 mmol/L (136-145) Potassium Level 3.7 mmol/L (3.5-5.1) Chloride Level 105 mmol/L (98-107) Carbon Dioxide Level 31 mmol/L (21-32) Anion Gap 4 (6-14) Blood Urea Nitrogen 5 mg/dL (8-26) Creatinine 1.3 mg/dL (0.7-1.3) Estimated GFR (Cockcroft-Gault) 65.5 BUN/Creatinine Ratio 4 (6-20) Glucose Level 144 mg/dL (70-99) Calcium Level 7.7 mg/dL (8.5-10.1) Total Bilirubin 0.3 mg/dL (0.2-1.0) Aspartate Amino Transf (AST/SGOT) 27 U/L (15-37) Alanine Aminotransferase (ALT/SGPT) 10 U/L (16-63) Alkaline Phosphatase 53 U/L (46-116) Total Protein 5.9 g/dL (6.4-8.2) Albumin 1.7 g/dL (3.4-5.0) Albumin/Globulin Ratio 0.4 (1.0-1.7) Test 03/13/19 11:45 03/13/19 15:28 03/13/19 20:12 Glucose (Fingerstick) 80 mg/dL (70-99) 115 mg/dL (70-99) 83 mg/dL (70-99) Laboratory Tests Test 03/13/19 11:45 03/13/19 15:28 03/13/19 20:12 Glucose (Fingerstick) 80 mg/dL (70-99) 115 mg/dL (70-99) 83 mg/dL (70-99) Medications Active Scripts Medications Dose Route/Sig Max Daily Dose Days Date Category Dose Instructions Tizanidine Hcl 4 Mg Tablet 1 Tab PO QHS 03/09/19 Reported Ammonium Lactate 226 Gm Lotion 1 [place] TP BID 10 12/31/18 Rx Percocet 5-325 Mg Tablet (Oxycodone/Acetaminophen) 1 Each Tablet 1 Tab PO PRN Q4HRS PRN 10 12/31/18 Rx Eliquis (Apixaban) 2.5 Mg Tablet 2.5 Mg PO BID 14 12/31/18 Rx Fosamax (Alendronate Sodium) 70 Mg Tablet 70 Mg PO WEEKLY 12/25/18 Reported pt takes medication on friday Vitamin D3 (Cholecalciferol (Vitamin D3)) 5,000 Unit Tablet 5,000 Unit PO WEEKLY 11/17/14 Reported Impression . IMPRESSION: 1. Resolving hypoxemia. 2. Chronic obstructive pulmonary disease. 3. Osteomyelitis. 4. s/p bilateral lower extremity amputations 5. Severe protein malnutrition. 6. Osteomyelitis. 7. Severe weight loss. Plan . continue nebulized bronchodilators and low flow O2 as needed. Will follow. ML DONOVAN MD Mar 14, 2019 10:32
[2019-03-14 11:00] VITALS: BP 129/73
--- NOTE | 2019-03-14 11:31 | PDOC ---
PROGRESS NOTES Subjective Subjective Resting in bed. Objective Vital Signs Vital Signs Date Time Temp Pulse Resp B/P (MAP) Pulse Ox O2 Delivery O2 Flow Rate FiO2 03/14/19 11:00 97.7 81 18 129/73 (91) 98 Room Air 97.7 03/14/19 03:00 1.0 Physical Exam Dressings were changed yesterday, and apparently the stapled incisions appear intact with slight bloody drainage. Labs Laboratory Tests Test 03/12/19 11:35 03/12/19 16:45 03/12/19 17:10 03/12/19 17:57 Glucose (Fingerstick) 71 mg/dL (70-99) 47 mg/dL (70-99) 87 mg/dL (70-99) Vancomycin Level Trough 15.5 mcg/mL (10.0-20.0) Vancomycin Last Dose Date 03/11/19 Vancomycin Last Dose Time 1730 Test 03/12/19 19:49 03/13/19 00:29 03/13/19 05:23 03/13/19 07:41 Glucose (Fingerstick) 114 mg/dL (70-99) 119 mg/dL (70-99) 106 mg/dL (70-99) White Blood Count 11.1 x10^3/uL (4.0-11.0) Red Blood Count 3.27 x10^6/uL (4.30-5.70) Hemoglobin 9.4 g/dL (13.0-17.5) Hematocrit 29.3 % (39.0-53.0) Mean Corpuscular Volume 90 fL (79-100) Mean Corpuscular Hemoglobin 29 pg (25-35) Mean Corpuscular Hemoglobin Concent 32 g/dL (31-37) Red Cell Distribution Width 16.4 % (11.5-14.5) Platelet Count 316 x10^3/uL (140-400) Neutrophils (%) (Auto) 85 % (31-73) Lymphocytes (%) (Auto) 6 % (24-48) Monocytes (%) (Auto) 9 % (0-9) Eosinophils (%) (Auto) 0 % (0-3) Basophils (%) (Auto) 0 % (0-3) Neutrophils # (Auto) 9.4 x10^3/uL (1.8-7.7) Lymphocytes # (Auto) 0.7 x10^3/uL (1.0-4.8) Monocytes # (Auto) 0.9 x10^3/uL (0.0-1.1) Eosinophils # (Auto) 0.0 x10^3/uL (0.0-0.7) Basophils # (Auto) 0.0 x10^3/uL (0.0-0.2) Segmented Neutrophils % 68 % (35-66) Band Neutrophils % 18 % (0-9) Lymphocytes % 5 % (24-48) Atypical Lymphocytes % (Manual) 1 % (0-0) Monocytes % 8 % (0-10) Platelet Estimate Adequate (ADEQUATE) Anisocytosis Slight Ovalocytes Few [place] Cells Occ Sodium Level 140 mmol/L (136-145) Potassium Level 3.7 mmol/L (3.5-5.1) Chloride Level 105 mmol/L (98-107) Carbon Dioxide Level 31 mmol/L (21-32) Anion Gap 4 (6-14) Blood Urea Nitrogen 5 mg/dL (8-26) Creatinine 1.3 mg/dL (0.7-1.3) Estimated GFR (Cockcroft-Gault) 65.5 BUN/Creatinine Ratio 4 (6-20) Glucose Level 144 mg/dL (70-99) Calcium Level 7.7 mg/dL (8.5-10.1) Total Bilirubin 0.3 mg/dL (0.2-1.0) Aspartate Amino Transf (AST/SGOT) 27 U/L (15-37) Alanine Aminotransferase (ALT/SGPT) 10 U/L (16-63) Alkaline Phosphatase 53 U/L (46-116) Total Protein 5.9 g/dL (6.4-8.2) Albumin 1.7 g/dL (3.4-5.0) Albumin/Globulin Ratio 0.4 (1.0-1.7) Test 03/13/19 11:45 03/13/19 15:28 03/13/19 20:12 03/14/19 08:28 Glucose (Fingerstick) 80 mg/dL (70-99) 115 mg/dL (70-99) 83 mg/dL (70-99) 81 mg/dL (70-99) Test 03/14/19 10:52 Glucose (Fingerstick) 80 mg/dL (70-99) Laboratory Tests Test 03/13/19 11:45 03/13/19 15:28 03/13/19 20:12 03/14/19 08:28 Glucose (Fingerstick) 80 mg/dL (70-99) 115 mg/dL (70-99) 83 mg/dL (70-99) 81 mg/dL (70-99) Test 03/14/19 10:52 Glucose (Fingerstick) 80 mg/dL (70-99) Assessment Assessment 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 PT/OT. Discharge planning. MARITZA CONDON MD Mar 14, 2019 11:31
[2019-03-14] MEDS: traMADol 50 MG TABLET PO PRN (13:13)
[2019-03-14] MEDS: LACTOBACILLUS RHAMNOSUS GG 1 CAPSULE. PO SCH ×2 (13:13→20:41)
[2019-03-14] MEDS: ASPIRIN ENTERIC COATED 81 MG TABLET.DR. PO SCH (13:13)
[2019-03-14] MEDS: MULTIVITAMIN with MINERAL TABLET. PO SCH (13:13)
[2019-03-14] MEDS: oxyCODONE/APAP 5/325 1 TAB TABLET PO PRN ×2 (14:47→20:40)
[2019-03-14 15:00] VITALS: BP 114/67
[2019-03-14] MEDS: MORPHINE SULFATE 2 MG/ML VIAL. IV PRN (16:10)
[2019-03-14] MEDS: POTASSIUM CL 20MEQ D5-0.45NACL 1,000 ML IV SCH ×2 (16:16→23:58)
[2019-03-14 19:00] VITALS: BP 116/63
[2019-03-14] MEDS: ATORVASTATIN CALCIUM 10 MG TABLET. PO SCH (20:41)
[2019-03-14] MEDS: ENOXAPARIN 40 MG/0.4 ML SYRINGE. SQ SCH (20:41)
[2019-03-14 23:00] VITALS: BP 114/62
[2019-03-15] VITALS (7 sets, daily range): BP systolic 98–155; BP diastolic 53–95
[2019-03-15 04:44] LABS: BASO # 0.1 x10^3/uL (0.0-0.2); BASO % 1 % (0-3); EOS # 0.4 x10^3/uL (0.0-0.7); EOS % 7 % (0-3); HEMOGLOBIN 8.1 g/dL (13.0-17.5); LYMPH % 19 % (24-48); MEAN CORPUSCULAR HEMOGLOBIN 29 pg (25-35); MEAN CORPUSCULAR HGB CONC 33 g/dL (31-37); MEAN CORPUSCULAR VOLUME 89 fL (79-100); MONO # 0.6 x10^3/uL (0.0-1.1); MONO % 11 % (0-9); NEUT # 3.3 x10^3/uL (1.8-7.7); NEUT % 62 % (31-73); PLATELET COUNT 288 x10^3/uL (140-400); RED BLOOD COUNT 2.82 x10^6/uL (4.30-5.70); RED CELL DISTRIBUTION WIDTH 16.6 % (11.5-14.5); WHITE BLOOD COUNT 5.3 x10^3/uL (4.0-11.0)
[2019-03-15 05:02] LABS: GFR 88.6
[2019-03-15] MEDS: PIPERACILLIN/TAZOBACTAM 3.375 GM in IV NORMAL SALINE 50ML 50 ML IV SCH (05:39)
[2019-03-15] MEDS ORDERED: ASPI-612 PO (08:10)
[2019-03-15] MEDS ORDERED: ATOR10TA60 PO (08:10)
[2019-03-15] MEDS ORDERED: MULT1TAB90 PO (08:10)
[2019-03-15] MEDS ORDERED: OXYC1TAB15 PO (08:10)
--- NOTE | 2019-03-15 08:11 | SNU/HH DC ---
DISCHARGE WITH HOME HEALTH DISCHARGE INFORMATION: Discharge Date: Mar 15, 2019 Final Diagnosis: Problems Medical Problems: (1) Necrotic toes Status: Acute (2) Ulcer of left heel Status: Acute Condition on Discharge: Stable CODE STATUS: Code Status: Full HOME HEALTH: Face to Face: I certify this patient is under my care and that I, or a nurse practitioner or physician's academic support assistant working with me, had a face to face encounter that meets the physician face to face encounter requirements with this patient on []. RN For Eval/Treatment: Yes Physical Therapy For: Evalulation/Treatment Occupational Therapy For: Evaluation/Treatment Speech Language Pathology For: Evaluation/Treatment Home Health Aide For: Self-care CAR DISPATCHER For: Community Resources Pt Meets Homebound Status: Extreme weakness w/ amb. POST DISCHARGE ORDERS: Activity Instructions for Disc: Activity as tolerated DIET AFTER DISCHARGE: Cardiac Wound/Incision Care: Keep wound/cast CDI, Change dressing CHECKS AFTER DISCHARGE: Checks after discharge: Check blood press - daily FOLLOW-UP: PCP to follow Home Health: ff up dr davila 4 weeks (ortho) Follow up with: stump dressing change/care daily TREATMENT/EQUIPMENT ORDERS: Adaptive Equipment Issued: Front wheeled walker CERTIFICATION STATEMENT: Certification Statement: Certification Statement: Based on the above finding, I certify that this patient is confined to the home and needs intermittent usp care, physical therapy and/or speech therapy, or continues to need occupational therapy.~ This patient is under my care, and I have initiated the establishment of the plan of care.~ This patient will be followed by myself or a community physician who will periodically review the plan of care. Home Meds Active Scripts Multivits,Ca,Minerals/Iron/Fa (THERA-M TABLET) 1 Each Tablet, 1 TAB PO DAILY for mvi, #60 TAB Prov:HANSA SIMMS MD 03/15/19 Aspirin (ASPIRIN EC) 81 Mg Tablet., 81 MG PO DAILYWBKFT for PAD, #60 TAB.SR Prov:HANSA SIMMS MD 03/15/19 Atorvastatin Calcium (ATORVASTATIN CALCIUM) 10 Mg Tablet, 10 MG PO QHS for lipids, #60 TAB Prov:HANSA SIMMS MD 03/15/19 Oxycodone/Apap 5-325 (PERCOCET 5-325 MG TABLET ) 1 Each Tablet, 1 TAB PO PRN Q4HRS PRN for SEVERE PAIN 7-10 for 10 Days, #20 TAB Prov:HANSA SIMMS MD 03/15/19 Ammonium Lactate (Ammonium Lactate) 226 Gm Lotion, 1 SACHIN TP BID for DRY SKIN for 10 Days, #90 MISC Prov:NIHARIKA BONNER MD 12/31/18 Apixaban (ELIQUIS) 2.5 Mg Tablet, 2.5 MG PO BID for DVT PREVENTION for 14 Days, #28 TAB Prov:NIHARIKA BONNER MD 12/31/18 Reported Medications Tizanidine Hcl (TIZANIDINE HCL) 4 Mg Tablet, 1 TAB PO QHS for muscle relaxer, #30 TAB 03/09/19 Alendronate Sodium (FOSAMAX) 70 Mg Tablet, 70 MG PO WEEKLY for bones, TAB pt takes medication on friday12/25/18 Cholecalciferol (Vitamin D3) (VITAMIN D3) 5,000 Unit Tablet, 5000 UNIT PO WEEKLY for bones 11/17/14 HANSA SIMMS MD Mar 15, 2019 08:11
[2019-03-15] MEDS: MULTIVITAMIN with MINERAL TABLET. PO SCH (08:15)
[2019-03-15] MEDS: ASPIRIN ENTERIC COATED 81 MG TABLET.DR. PO SCH (08:15)
[2019-03-15] MEDS: CHOLECALCIFEROL (VITAMIN D3) 5,000 UNIT CAPSULE PO SCH (08:15)
[2019-03-15] MEDS: LACTOBACILLUS RHAMNOSUS GG 1 CAPSULE. PO SCH ×2 (08:15→20:53)
[2019-03-15] MEDS: AMMONIUM LACTATE 12% TOPICAL LOTION 226GM BOTTLE. TP SCH (08:16)
--- NOTE | 2019-03-15 08:39 | PDOC ---
PULMONARY PROGRESS NOTES Subjective no new complaints Vitals Vital Signs Date Time Temp Pulse Resp B/P (MAP) Pulse Ox O2 Delivery O2 Flow Rate FiO2 03/15/19 03:00 97.8 73 18 110/67 (81) 95 Room Air 97.8 03/14/19 16:10 1.0 ROS: No Nausea, No Chest Pain, No Abdominal Pain, No Increase Cough General: Alert, No acute distress Lungs: Clear Cardiovascular: S1, S2 Abdomen: Soft Neuro Exam: Alert, No Focal Findings Extremities: No Edema Skin: Warm Labs Laboratory Tests Test 03/13/19 11:45 03/13/19 15:28 03/13/19 20:12 03/14/19 08:28 Glucose (Fingerstick) 80 mg/dL (70-99) 115 mg/dL (70-99) 83 mg/dL (70-99) 81 mg/dL (70-99) Test 03/14/19 10:52 03/15/19 03:30 03/15/19 07:33 Glucose (Fingerstick) 80 mg/dL (70-99) 114 mg/dL (70-99) White Blood Count 5.3 x10^3/uL (4.0-11.0) Red Blood Count 2.82 x10^6/uL (4.30-5.70) Hemoglobin 8.1 g/dL (13.0-17.5) Hematocrit 25.0 % (39.0-53.0) Mean Corpuscular Volume 89 fL (79-100) Mean Corpuscular Hemoglobin 29 pg (25-35) Mean Corpuscular Hemoglobin Concent 33 g/dL (31-37) Red Cell Distribution Width 16.6 % (11.5-14.5) Platelet Count 288 x10^3/uL (140-400) Neutrophils (%) (Auto) 62 % (31-73) Lymphocytes (%) (Auto) 19 % (24-48) Monocytes (%) (Auto) 11 % (0-9) Eosinophils (%) (Auto) 7 % (0-3) Basophils (%) (Auto) 1 % (0-3) Neutrophils # (Auto) 3.3 x10^3/uL (1.8-7.7) Lymphocytes # (Auto) 1.0 x10^3/uL (1.0-4.8) Monocytes # (Auto) 0.6 x10^3/uL (0.0-1.1) Eosinophils # (Auto) 0.4 x10^3/uL (0.0-0.7) Basophils # (Auto) 0.1 x10^3/uL (0.0-0.2) Creatinine 1.0 mg/dL (0.7-1.3) Estimated GFR (Cockcroft-Gault) 88.6 Laboratory Tests Test 03/14/19 10:52 03/15/19 03:30 03/15/19 07:33 Glucose (Fingerstick) 80 mg/dL (70-99) 114 mg/dL (70-99) White Blood Count 5.3 x10^3/uL (4.0-11.0) Red Blood Count 2.82 x10^6/uL (4.30-5.70) Hemoglobin 8.1 g/dL (13.0-17.5) Hematocrit 25.0 % (39.0-53.0) Mean Corpuscular Volume 89 fL (79-100) Mean Corpuscular Hemoglobin 29 pg (25-35) Mean Corpuscular Hemoglobin Concent 33 g/dL (31-37) Red Cell Distribution Width 16.6 % (11.5-14.5) Platelet Count 288 x10^3/uL (140-400) Neutrophils (%) (Auto) 62 % (31-73) Lymphocytes (%) (Auto) 19 % (24-48) Monocytes (%) (Auto) 11 % (0-9) Eosinophils (%) (Auto) 7 % (0-3) Basophils (%) (Auto) 1 % (0-3) Neutrophils # (Auto) 3.3 x10^3/uL (1.8-7.7) Lymphocytes # (Auto) 1.0 x10^3/uL (1.0-4.8) Monocytes # (Auto) 0.6 x10^3/uL (0.0-1.1) Eosinophils # (Auto) 0.4 x10^3/uL (0.0-0.7) Basophils # (Auto) 0.1 x10^3/uL (0.0-0.2) Creatinine 1.0 mg/dL (0.7-1.3) Estimated GFR (Cockcroft-Gault) 88.6 Medications Active Scripts Medications Dose Route/Sig Max Daily Dose Days Date Category Dose Instructions Tizanidine Hcl 4 Mg Tablet 1 Tab PO QHS 03/09/19 Reported Ammonium Lactate 226 Gm Lotion 1 Nando TP BID 10 12/31/18 Rx Percocet 5-325 Mg Tablet (Oxycodone/Acetaminophen) 1 Each Tablet 1 Tab PO PRN Q4HRS PRN 10 12/31/18 Rx Eliquis (Apixaban) 2.5 Mg Tablet 2.5 Mg PO BID 14 12/31/18 Rx Fosamax (Alendronate Sodium) 70 Mg Tablet 70 Mg PO WEEKLY 12/25/18 Reported pt takes medication on friday Vitamin D3 (Cholecalciferol (Vitamin D3)) 5,000 Unit Tablet 5,000 Unit PO WEEKLY 11/17/14 Reported Impression . IMPRESSION: 1. acute resp failue 2. Chronic obstructive pulmonary disease. 3. Osteomyelitis. 4. s/p bilateral lower extremity amputations 5. Severe protein malnutrition. 6. Osteomyelitis. 7. Severe weight loss. Plan . continue nebulized bronchodilators and low flow O2 as needed. better ok to transfer MEHREEN BANSAL MD Mar 15, 2019 08:39
--- NOTE | 2019-03-15 08:44 | PDOC ---
Infectious Disease Note Subjective Subjective Denies pain No F/C/S/N/V/D/SOA/rash Vital Sign Vital Signs Vital Signs Date Time Temp Pulse Resp B/P (MAP) Pulse Ox O2 Delivery O2 Flow Rate FiO2 03/15/19 03:00 97.8 73 18 110/67 (81) 95 Room Air 97.8 03/14/19 16:10 1.0 Physical Exam PHYSICAL EXAM CONSTITUTIONAL: He is lying in bed. He appears comfortable. He is in no acute distress. HEENT: He has normal conjunctivae. Oral cavity, pharynx is dry. Edentulous. NECK: Without any JVD. No fullness. LUNGS: Decreased in the bases.on Venti mask HEART: S1, S2. ABDOMEN: Soft. No guarding or rebound. Positive bowel sounds. EXTREMITIES: No clubbing or cyanosis. Less edema - He has decreased pulses. wounds are dressed today. Post op wounds SKIN: Warm to touch without generalized signs of rash. NEUROLOGIC: alert cooperative. Moves all extremities. PSYCHIATRIC: Affect is appropriate. Labs Lab Laboratory Tests Test 03/14/19 10:52 03/15/19 03:30 03/15/19 07:33 Glucose (Fingerstick) 80 mg/dL (70-99) 114 mg/dL (70-99) White Blood Count 5.3 x10^3/uL (4.0-11.0) Red Blood Count 2.82 x10^6/uL (4.30-5.70) Hemoglobin 8.1 g/dL (13.0-17.5) Hematocrit 25.0 % (39.0-53.0) Mean Corpuscular Volume 89 fL (79-100) Mean Corpuscular Hemoglobin 29 pg (25-35) Mean Corpuscular Hemoglobin Concent 33 g/dL (31-37) Red Cell Distribution Width 16.6 % (11.5-14.5) Platelet Count 288 x10^3/uL (140-400) Neutrophils (%) (Auto) 62 % (31-73) Lymphocytes (%) (Auto) 19 % (24-48) Monocytes (%) (Auto) 11 % (0-9) Eosinophils (%) (Auto) 7 % (0-3) Basophils (%) (Auto) 1 % (0-3) Neutrophils # (Auto) 3.3 x10^3/uL (1.8-7.7) Lymphocytes # (Auto) 1.0 x10^3/uL (1.0-4.8) Monocytes # (Auto) 0.6 x10^3/uL (0.0-1.1) Eosinophils # (Auto) 0.4 x10^3/uL (0.0-0.7) Basophils # (Auto) 0.1 x10^3/uL (0.0-0.2) Creatinine 1.0 mg/dL (0.7-1.3) Estimated GFR (Cockcroft-Gault) 88.6 Micro Microbiology 03/08/19 Blood Culture - Final, Complete NO GROWTH AFTER 5 DAYS Objective Assessment S/p Amputation, thigh, through femur (above-knee amputation), bilateral 03/12 - closed Leukocytosis - post op and s/p Steroid 03/12 Bilateral LE cellulitis L > right with dry gangrene R mid toe tip had fallen off - no notes of abnormalities with last admit December Left heel osteo with exposed bone Tinea PAD Plan Plan of Care change zosyn to po augmentin for 5 days ok to d/c to SNF D/w nursing MANDY FELIX MD Mar 15, 2019 08:44
[2019-03-15] MEDS ORDERED: NON FORMULARY ITEM (Alendronate Sodium (Fosamax) 70 MG) PO SCH (09:00)
[2019-03-15] MEDS: AMOXICILLIN/K CLAV 500/125MG TABLET. PO SCH ×2 (10:15→20:54)
[2019-03-15] MEDS ORDERED: AMOX1TAB61 PO (10:58)
--- NOTE | 2019-03-15 11:00 | PDOC3 ---
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 NORBERTO VMN Final Diagnosis Problems Medical Problems: (1) Necrotic toes Status: Acute (2) Ulcer of left heel Status: Acute Brief Hospital Course Allergies Allergies Coded Allergies Type Severity Reaction Last Updated Verified No Known Drug Allergies 11/17/14 No Vital Signs Vital Signs Date Time Temp Pulse Resp B/P (MAP) Pulse Ox O2 Delivery O2 Flow Rate FiO2 03/15/19 08:00 Room Air 2.0 03/15/19 07:00 98.5 74 18 98/57 (71) 96 98.5 Lab Results Laboratory Tests Test 03/13/19 11:45 03/13/19 15:28 03/13/19 20:12 03/14/19 08:28 Glucose (Fingerstick) 80 mg/dL (70-99) 115 mg/dL (70-99) 83 mg/dL (70-99) 81 mg/dL (70-99) Test 03/14/19 10:52 03/15/19 03:30 03/15/19 07:33 Glucose (Fingerstick) 80 mg/dL (70-99) 114 mg/dL (70-99) White Blood Count 5.3 x10^3/uL (4.0-11.0) Red Blood Count 2.82 x10^6/uL (4.30-5.70) Hemoglobin 8.1 g/dL (13.0-17.5) Hematocrit 25.0 % (39.0-53.0) Mean Corpuscular Volume 89 fL (79-100) Mean Corpuscular Hemoglobin 29 pg (25-35) Mean Corpuscular Hemoglobin Concent 33 g/dL (31-37) Red Cell Distribution Width 16.6 % (11.5-14.5) Platelet Count 288 x10^3/uL (140-400) Neutrophils (%) (Auto) 62 % (31-73) Lymphocytes (%) (Auto) 19 % (24-48) Monocytes (%) (Auto) 11 % (0-9) Eosinophils (%) (Auto) 7 % (0-3) Basophils (%) (Auto) 1 % (0-3) Neutrophils # (Auto) 3.3 x10^3/uL (1.8-7.7) Lymphocytes # (Auto) 1.0 x10^3/uL (1.0-4.8) Monocytes # (Auto) 0.6 x10^3/uL (0.0-1.1) Eosinophils # (Auto) 0.4 x10^3/uL (0.0-0.7) Basophils # (Auto) 0.1 x10^3/uL (0.0-0.2) Creatinine 1.0 mg/dL (0.7-1.3) Estimated GFR (Cockcroft-Gault) 88.6 Laboratory Tests Test 03/15/19 03:30 03/15/19 07:33 White Blood Count 5.3 x10^3/uL (4.0-11.0) Red Blood Count 2.82 x10^6/uL (4.30-5.70) Hemoglobin 8.1 g/dL (13.0-17.5) Hematocrit 25.0 % (39.0-53.0) Mean Corpuscular Volume 89 fL (79-100) Mean Corpuscular Hemoglobin 29 pg (25-35) Mean Corpuscular Hemoglobin Concent 33 g/dL (31-37) Red Cell Distribution Width 16.6 % (11.5-14.5) Platelet Count 288 x10^3/uL (140-400) Neutrophils (%) (Auto) 62 % (31-73) Lymphocytes (%) (Auto) 19 % (24-48) Monocytes (%) (Auto) 11 % (0-9) Eosinophils (%) (Auto) 7 % (0-3) Basophils (%) (Auto) 1 % (0-3) Neutrophils # (Auto) 3.3 x10^3/uL (1.8-7.7) Lymphocytes # (Auto) 1.0 x10^3/uL (1.0-4.8) Monocytes # (Auto) 0.6 x10^3/uL (0.0-1.1) Eosinophils # (Auto) 0.4 x10^3/uL (0.0-0.7) Basophils # (Auto) 0.1 x10^3/uL (0.0-0.2) Creatinine 1.0 mg/dL (0.7-1.3) Estimated GFR (Cockcroft-Gault) 88.6 Glucose (Fingerstick) 114 mg/dL (70-99) Brief Hospital Course Mr. Jaimes is a 73 old AA male who had severe bilateral leg wounds likely from PAD,. He is NON DM, NEEDED bilateral AKA< co managed with ID< HOme today PO augmentin and ASA 81 etc PLs see mar i did HE refuses SNU, so HH with COnsuts: ortho, ID PRoc: Bilateral AKA Discharge Information Condition at Discharge: Improved, Stable Disposition/Orders: D/C to Home w/ HH Scheduled Alendronate Sodium (Fosamax) 70 Mg Tablet, 70 MG PO WEEKLY for bones, (Reported) pt takes medication on friday Entered as Reported by: BUNNY CAPONE on 12/25/18 0713 Last Action: Converted on 03/08/192117 by CARMEN CONKLIN MD Ammonium Lactate (Ammonium Lactate) 226 Gm Lotion, 1 SACHIN TP BID for DRY SKIN for 10 Days, #90 Prescribed by: NIHARIKA BONNER MD on 12/31/181799 Last Action: Continued on 03/08/192117 by CARMEN CONKLIN MD Amoxicillin/Potassium Clav (Augmentin 875-125 Tablet) 1 Each Tablet, 1 TAB PO BID for leg cellultisi for 10 Days, #20 Ref 0 Prescribed by: HANSA SIMMS on 03/15/19 1058 Apixaban (Eliquis) 2.5 Mg Tablet, 2.5 MG PO BID for DVT PREVENTION for 14 Days, #28 Prescribed by: NIHARIKA BONNER MD on 12/31/18 1800 Aspirin (Aspirin Ec) 81 Mg Tablet., 81 MG PO DAILYWBKFT for PAD, #60 Prescribed by: HANSA SIMMS on 03/15/19 0810 Atorvastatin Calcium (Atorvastatin Calcium) 10 Mg Tablet, 10 MG PO QHS for lipids, #60 Prescribed by: HANSA SIMMS on 03/15/19 0810 Cholecalciferol (Vitamin D3) (Vitamin D3) 5,000 Unit Tablet, 5,000 UNIT PO WEEKLY for bones, (Reported) Entered as Reported by: ERI ABEL on 11/17/141104 Last Action: Converted on 03/08/192117 by CARMEN CONKLIN MD Multivits,Ca,Minerals/Iron/Fa (Thera-M Tablet) 1 Each Tablet, 1 TAB PO DAILY for mvi, #60 Prescribed by: HANSA SIMMS on 03/15/19 0810 Tizanidine Hcl (Tizanidine Hcl) 4 Mg Tablet, 1 TAB PO QHS for muscle relaxer, #30 (Reported) Entered as Reported by: SARAH RENO RN on 03/09/191417 Last Action: New Order on 03/09/191417 by SARAH RENO RN Scheduled PRN Oxycodone/Apap 5-325 (Percocet 5-325 Mg Tablet ) 1 Each Tablet, 1 TAB PO PRN Q4HRS PRN for SEVERE PAIN 7-10 for 10 Days, #20 Prescribed by: HANSA SIMMS on 03/15/19 08 HANSA SIMMS MD Mar 15, 2019 11:00
--- NOTE | 2019-03-15 11:07 | SNU/HH DC ---
DISCHARGE ORDERS DISCHARGE INFORMATION: DISCHARGE DATE: Mar 15, 2019 FINAL DIAGNOSIS Problems Medical Problems: (1) Necrotic toes Status: Acute (2) Ulcer of left heel Status: Acute CONDITION ON DISCHARGE: Stable CODE STATUS: Code Status: Full CUSTODIAL: SNF STAY <30 DAYS: Yes HOSPICE: HOSPICE: No HOSPICE EVAL & TREAT: No LTAC: ADMIT TO LTAC: No POST DISCHARGE ORDERS: ACTIVITY ORDERS: Activity as tolerated DIET AFTER DISCHARGE: Cardiac WOUND/INCISION CARE: Keep wound/cast CDI, Change dressing CHECKS AFTER DISCHARGE: CHECKS AFTER DISCHARGE: Check blood press - daily FOLLOW-UP: PHYSICIAN FOLLOW-UP: stump dressing change/care daily TREATMENT/EQUIPMENT ORDERS: ADAPTIVE EQUIPMENT NEEDED: Front wheeled walker Physical Therapy For: Evalulation/Treatment Occupational Therapy For: Evaluation/Treatment Speech Language Pathology For: Evaluation/Treatment DISCHARGE MEDICATIONS: Home Meds Active Scripts Amoxicillin/Potassium Clav (AUGMENTIN 875-125 TABLET) 1 Each Tablet, 1 TAB PO BID for leg cellultisi for 10 Days, #20 TAB 0 Refills Prov:HANSA SIMMS MD 03/15/19 Multivits,Ca,Minerals/Iron/Fa (THERA-M TABLET) 1 Each Tablet, 1 TAB PO DAILY for mvi, #60 TAB Prov:HANSA SIMMS MD 03/15/19 Aspirin (ASPIRIN EC) 81 Mg Tablet.dr, 81 MG PO DAILYWBKFT for PAD, #60 TAB.SR Prov:HANSA SIMMS MD 03/15/19 Atorvastatin Calcium (ATORVASTATIN CALCIUM) 10 Mg Tablet, 10 MG PO QHS for lipids, #60 TAB Prov:HANSA SIMMS MD 03/15/19 Oxycodone/Apap 5-325 (PERCOCET 5-325 MG TABLET ) 1 Each Tablet, 1 TAB PO PRN Q4HRS PRN for SEVERE PAIN 7-10 for 10 Days, #20 TAB Prov:HANSA SIMMS MD 03/15/19 Ammonium Lactate (Ammonium Lactate) 226 Gm Lotion, 1 SACHIN TP BID for DRY SKIN for 10 Days, #90 MISC Prov:NIHARIKA BONNER MD 12/31/18 Apixaban (ELIQUIS) 2.5 Mg Tablet, 2.5 MG PO BID for DVT PREVENTION for 14 Days, #28 TAB Prov:NIHARIKA BONNER MD 12/31/18 Reported Medications Tizanidine Hcl (TIZANIDINE HCL) 4 Mg Tablet, 1 TAB PO QHS for muscle relaxer, #30 TAB 03/09/19 Alendronate Sodium (FOSAMAX) 70 Mg Tablet, 70 MG PO WEEKLY for bones, TAB pt takes medication on friday12/25/18 Cholecalciferol (Vitamin D3) (VITAMIN D3) 5,000 Unit Tablet, 5000 UNIT PO WEEKLY for bones 11/17/14 HANSA SIMMS MD Mar 15, 2019 11:07
[2019-03-15] MEDS: POTASSIUM CL 20MEQ D5-0.45NACL 1,000 ML IV SCH ×2 (12:07→22:22)
--- NOTE | 2019-03-15 14:57 | NUR ---
SW following for discharge planning. Chart reviewed, discussed with RN. Pt was refusing to go to SNU/rehab and was only wanting to go home with home health. SW spoke with pt's around 11am, Malcolm () reported she would not be taking pt home as she does not know how to care for him with his bilateral AKA. ADALBERTO met with pt to discuss discharge planning. SW informed pt his will not take him home and he will need to go to acute rehab or to SNU. Pt agreeable. ADALBERTO met with pt and pt's at bedside, pt's would like a facility around here if possible, agreeable to acute rehab or SNU. SW awaiting PT/OT to determine if pt would be appropriate and able to manage acute rehab. Pt/OT worked with pt around 1430, they advised pt would not be able to manage 3 hours of therapy at acute rehab. ADALBERTO faxed facesheet to [facility] to determine if they take pt's insurance - awaiting confirmation. [facility] and [facility] do not take pt's insurance. ADALBERTO contacted [facility] to determine if they take pt's insurance, [facility] is confirming whether they take pt's insurance. ADALBERTO will continue to follow.
[2019-03-15] MEDS: ENOXAPARIN 40 MG/0.4 ML SYRINGE. SQ SCH (20:54)
[2019-03-15] MEDS: ATORVASTATIN CALCIUM 10 MG TABLET. PO SCH (20:54)
[2019-03-16 03:00] VITALS: BP 126/81
[2019-03-16 07:00] VITALS: BP 149/84
--- NOTE | 2019-03-16 07:46 | PDOC ---
Infectious Disease Note Subjective Subjective Denies pain No F/C/S/N/V/D/SOA/rash Vital Sign Vital Signs Vital Signs Date Time Temp Pulse Resp B/P (MAP) Pulse Ox O2 Delivery O2 Flow Rate FiO2 03/16/19 03:00 98.0 97 16 126/81 (96) 87 pt refusing cannula 98.0 03/15/19 23:00 2.0 Physical Exam PHYSICAL EXAM CONSTITUTIONAL: He is lying in bed. He appears comfortable. He is in no acute distress. HEENT: He has normal conjunctivae. Oral cavity, pharynx is dry. Edentulous. NECK: Without any JVD. No fullness. LUNGS: Decreased in the bases.on Venti mask HEART: S1, S2. ABDOMEN: Soft. No guarding or rebound. Positive bowel sounds. EXTREMITIES: brayan AKA, incision good Post op wounds SKIN: Warm to touch without generalized signs of rash. NEUROLOGIC: alert cooperative. Moves all extremities. PSYCHIATRIC: Affect is appropriate. Labs Lab Laboratory Tests Test 03/15/19 10:58 03/15/19 17:18 03/15/19 20:44 Glucose (Fingerstick) 121 mg/dL (70-99) 109 mg/dL (70-99) 87 mg/dL (70-99) Micro Microbiology 03/08/19 Blood Culture - Final, Complete NO GROWTH AFTER 5 DAYS Objective Assessment S/p Amputation, thigh, through femur (above-knee amputation), bilateral 03/12 - closed Leukocytosis - post op and s/p Steroid 03/12 Bilateral LE cellulitis L > right with dry gangrene R mid toe tip had fallen off - no notes of abnormalities with last admit December Left heel osteo with exposed bone Tinea PAD Plan Plan of Care po augmentin for 5 days ok to d/c to SNF D/w nursing MANDY FELIX MD Mar 16, 2019 07:46
--- NOTE | 2019-03-16 08:40 | NUR ---
SW following. Referral was sent to [facility] (ph: [phone], fax: [phone]). SW awaiting acceptance decision from [facility], and insurance approval. RN notified. ADALBERTO will continue to follow. Addendum: 03/16/19 at 1443 by LORA GLOVER SW following. ADALBERTO spoke with [employer] and sales representative womens health over [employer] [facility] [employer]. They are needing pt to work more with PT and need better therapy notes in order to accept and send to insurance. ADALBERTO met with pt and advised pt he needs to work with therapy, and try his best to do all he can, otherwise we will not be able to find somewhere for him to go, and reminded him his cannot take him home at this time. Pt agreeable. ADALBERTO contacted therapy to notify of this also. SW awaiting therapy notes in order to send to [facility]. RN notified.
[2019-03-16] MEDS: ASPIRIN ENTERIC COATED 81 MG TABLET.DR. PO SCH (09:31)
[2019-03-16] MEDS: LACTOBACILLUS RHAMNOSUS GG 1 CAPSULE. PO SCH ×2 (09:31→20:22)
[2019-03-16] MEDS: AMOXICILLIN/K CLAV 500/125MG TABLET. PO SCH ×2 (09:31→20:22)
[2019-03-16] MEDS: MULTIVITAMIN with MINERAL TABLET. PO SCH (09:31)
--- NOTE | 2019-03-16 09:39 | PDOC ---
[facility] [facility] PROGRESS NOTE Chief Complaint Chief Complaint Bilateral heel ulcer/wounds with cellulitis s/p Bilateral AKA 03/12/2019 Severe Protein Calorie Malnutrition PAD, mild to mod, medical mx/ now s.p AKA DM 2 fair control Dementia HTN Underweight Gen weakness Dry skin Cad with remote stenting hx on eliquis NORBERTO VMN History of Present Illness History of Present Illness 03/16/2019 Pt was seen and examined. Pt reports that he lives at home with his and three children and would like to go home to live with them. Reports no acute changes or complaints since last evaluation. 03/14/2019 s/p sx 03/12 - bilateral AKA WOund care, ID iv abx on board WAnt to go home with , no SNU or rehab HE has no complaints EARLIER ENTRY Some hypoglycemia few days, seems better now - On IV abx and IV micafungin per ID I did not undress dressing post AKA . PLAn: CPM LAbs, cultures PT OT SW - will need on dc dispo/plans - just wants HH Vitals/I&O Vitals/I&O: Vital Signs Date Time Temp Pulse Resp B/P (MAP) Pulse Ox O2 Delivery O2 Flow Rate FiO2 03/16/19 07:00 98.2 79 16 149/84 (105) 97 Room Air 98.2 03/15/19 23:00 2.0 l I & O 03/15/19 03/15/19 03/16/19 15:00 23:00 07:00 Intake Total 100 ml Output Total 250 ml 475 ml Balance -150 ml -475 ml Physical Exam Physical Exam: CONSTITUTIONAL: He is lying in bed. He appears comfortable. He is in no acute distress. HEENT: He has normal conjunctivae. Oral cavity, pharynx is dry. Edentulous. NECK: Without any JVD. No fullness. LUNGS: Decreased in the bases.on Venti mask HEART: S1, S2. ABDOMEN: Soft. No guarding or rebound. Positive bowel sounds. EXTREMITIES: brayan AKA, incision good Post op wounds SKIN: Warm to touch without generalized signs of rash. NEUROLOGIC: alert cooperative. Moves all extremities. PSYCHIATRIC: Affect is appropriate. General: Alert, Oriented X3, Cooperative, No acute distress Heart: Regular rate (SR per EKG), Normal S1, Normal S2, Other (S/6 systolic murmur to LLS border) Lungs: Clear Abdomen: Soft, No tenderness Extremities: No cyanosis, No edema, Other (Bilateral AKA, dressing is clean dry and intact. No erythema, or rashes surrounding the incisions.) Skin: No rashes, No breakdown Labs Labs: Laboratory Tests Test 03/15/19 10:58 03/15/19 17:18 03/15/19 20:44 03/16/19 07:30 Glucose (Fingerstick) 121 mg/dL (70-99) 109 mg/dL (70-99) 87 mg/dL (70-99) 83 mg/dL (70-99) Review of Systems Review of Systems: Denies chest pain Denies SOB. 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 MAHESH HARE III DO Mar 16, 2019 09:39
[2019-03-16 11:00] VITALS: BP 141/80
[2019-03-16] MEDS: POTASSIUM CL 20MEQ D5-0.45NACL 1,000 ML IV SCH (11:53)
[2019-03-16 15:00] VITALS: BP 133/73
--- NOTE | 2019-03-16 15:34 | PDOC ---
PULMONARY PROGRESS NOTES Subjective no new complaints Vitals Vital Signs Date Time Temp Pulse Resp B/P (MAP) Pulse Ox O2 Delivery O2 Flow Rate FiO2 03/16/19 15:00 98.9 75 18 133/73 (93) 98 Nasal Cannula 2.0 98.9 ROS: No Nausea, No Chest Pain, No Abdominal Pain, No Increase Cough General: Alert, No acute distress Lungs: Clear Cardiovascular: S1, S2 Abdomen: Soft Neuro Exam: Alert, No Focal Findings Extremities: No Edema Skin: Warm Labs Laboratory Tests Test 03/15/19 03:30 03/15/19 07:33 03/15/19 10:58 03/15/19 17:18 White Blood Count 5.3 x10^3/uL (4.0-11.0) Red Blood Count 2.82 x10^6/uL (4.30-5.70) Hemoglobin 8.1 g/dL (13.0-17.5) Hematocrit 25.0 % (39.0-53.0) Mean Corpuscular Volume 89 fL (79-100) Mean Corpuscular Hemoglobin 29 pg (25-35) Mean Corpuscular Hemoglobin Concent 33 g/dL (31-37) Red Cell Distribution Width 16.6 % (11.5-14.5) Platelet Count 288 x10^3/uL (140-400) Neutrophils (%) (Auto) 62 % (31-73) Lymphocytes (%) (Auto) 19 % (24-48) Monocytes (%) (Auto) 11 % (0-9) Eosinophils (%) (Auto) 7 % (0-3) Basophils (%) (Auto) 1 % (0-3) Neutrophils # (Auto) 3.3 x10^3/uL (1.8-7.7) Lymphocytes # (Auto) 1.0 x10^3/uL (1.0-4.8) Monocytes # (Auto) 0.6 x10^3/uL (0.0-1.1) Eosinophils # (Auto) 0.4 x10^3/uL (0.0-0.7) Basophils # (Auto) 0.1 x10^3/uL (0.0-0.2) Creatinine 1.0 mg/dL (0.7-1.3) Estimated GFR (Cockcroft-Gault) 88.6 Glucose (Fingerstick) 114 mg/dL (70-99) 121 mg/dL (70-99) 109 mg/dL (70-99) Test 03/15/19 20:44 03/16/19 07:30 03/16/19 11:48 Glucose (Fingerstick) 87 mg/dL (70-99) 83 mg/dL (70-99) 99 mg/dL (70-99) Laboratory Tests Test 03/15/19 17:18 03/15/19 20:44 03/16/19 07:30 03/16/19 11:48 Glucose (Fingerstick) 109 mg/dL (70-99) 87 mg/dL (70-99) 83 mg/dL (70-99) 99 mg/dL (70-99) Medications Active Scripts Medications Dose Route/Sig Max Daily Dose Days Date Category Dose Instructions Tizanidine Hcl 4 Mg Tablet 1 Tab PO QHS 03/09/19 Reported Ammonium Lactate 226 Gm Lotion 1 Nando TP BID 10 12/31/18 Rx Percocet 5-325 Mg Tablet (Oxycodone/Acetaminophen) 1 Each Tablet 1 Tab PO PRN Q4HRS PRN 10 12/31/18 Rx Eliquis (Apixaban) 2.5 Mg Tablet 2.5 Mg PO BID 14 12/31/18 Rx Fosamax (Alendronate Sodium) 70 Mg Tablet 70 Mg PO WEEKLY 12/25/18 Reported pt takes medication on friday Vitamin D3 (Cholecalciferol (Vitamin D3)) 5,000 Unit Tablet 5,000 Unit PO WEEKLY 11/17/14 Reported Impression . IMPRESSION: 1. acute resp failue 2. Chronic obstructive pulmonary disease. 3. Osteomyelitis. 4. s/p bilateral lower extremity amputations 5. Severe protein malnutrition. 6. Osteomyelitis. 7. Severe weight loss. Plan . OK TO TRANSFER continue nebulized bronchodilators and low flow O2 as needed. MEHREEN BANSAL MD Mar 16, 2019 15:34
[2019-03-16 19:56] VITALS: BP 120/74
[2019-03-16] MEDS: ENOXAPARIN 40 MG/0.4 ML SYRINGE. SQ SCH (20:22)
[2019-03-16] MEDS: ATORVASTATIN CALCIUM 10 MG TABLET. PO SCH (20:22)
[2019-03-16 23:10] VITALS: BP 107/70
[2019-03-17] MEDS: POTASSIUM CL 20MEQ D5-0.45NACL 1,000 ML IV SCH ×2 (00:12→13:30)
[2019-03-17 03:02] VITALS: BP 144/76
[2019-03-17 05:06] LABS: BASO # 0.1 x10^3/uL (0.0-0.2); BASO % 2 % (0-3); EOS # 0.5 x10^3/uL (0.0-0.7); EOS % 9 % (0-3); HEMATOCRIT 26.5 % (39.0-53.0); HEMOGLOBIN 8.8 g/dL (13.0-17.5); LYMPH # 1.2 x10^3/uL (1.0-4.8); LYMPH % 22 % (24-48); MEAN CORPUSCULAR HEMOGLOBIN 29 pg (25-35); MEAN CORPUSCULAR HGB CONC 33 g/dL (31-37); MEAN CORPUSCULAR VOLUME 87 fL (79-100); MONO # 0.6 x10^3/uL (0.0-1.1); MONO % 10 % (0-9); NEUT # 3.1 x10^3/uL (1.8-7.7); NEUT % 57 % (31-73); PLATELET COUNT 456 x10^3/uL (140-400); RED BLOOD COUNT 3.05 x10^6/uL (4.30-5.70); RED CELL DISTRIBUTION WIDTH 16.7 % (11.5-14.5); WHITE BLOOD COUNT 5.5 x10^3/uL (4.0-11.0)
[2019-03-17 05:42] LABS: ALBUMIN 1.4 g/dL (3.4-5.0); ALBUMIN/GLOBULIN RATIO 0.3 (1.0-1.7); CALCIUM 8.1 mg/dL (8.5-10.1); CREATININE 0.9 mg/dL (0.7-1.3); GFR 100.1; POTASSIUM 4.9 mmol/L (3.5-5.1); TOTAL BILIRUBIN 0.2 mg/dL (0.2-1.0); TOTAL PROTEIN 5.7 g/dL (6.4-8.2)
[2019-03-17 07:00] VITALS: BP 134/72
[2019-03-17] MEDS: AMOXICILLIN/K CLAV 500/125MG TABLET. PO SCH ×2 (08:11→21:53)
[2019-03-17] MEDS: LACTOBACILLUS RHAMNOSUS GG 1 CAPSULE. PO SCH ×2 (08:11→21:54)
[2019-03-17] MEDS: ASPIRIN ENTERIC COATED 81 MG TABLET.DR. PO SCH (08:11)
[2019-03-17] MEDS: MULTIVITAMIN with MINERAL TABLET. PO SCH (08:11)
--- NOTE | 2019-03-17 08:58 | PDOC ---
PULMONARY PROGRESS NOTES Subjective no new complaints REFUSES THERAPY Vitals Vital Signs Date Time Temp Pulse Resp B/P (MAP) Pulse Ox O2 Delivery O2 Flow Rate FiO2 03/17/19 07:00 97.9 74 17 134/72 (92) 98 Nasal Cannula 2.0 97.9 ROS: No Nausea, No Chest Pain, No Abdominal Pain, No Increase Cough General: Alert, No acute distress Lungs: Clear Cardiovascular: S1, S2 Abdomen: Soft Neuro Exam: Alert, No Focal Findings Extremities: No Edema Skin: Warm Labs Laboratory Tests Test 03/15/19 10:58 03/15/19 17:18 03/15/19 20:44 03/16/19 07:30 Glucose (Fingerstick) 121 mg/dL (70-99) 109 mg/dL (70-99) 87 mg/dL (70-99) 83 mg/dL (70-99) Test 03/16/19 11:48 03/16/19 16:50 03/16/19 20:49 03/17/19 04:05 Glucose (Fingerstick) 99 mg/dL (70-99) 94 mg/dL (70-99) 123 mg/dL (70-99) White Blood Count 5.5 x10^3/uL (4.0-11.0) Red Blood Count 3.05 x10^6/uL (4.30-5.70) Hemoglobin 8.8 g/dL (13.0-17.5) Hematocrit 26.5 % (39.0-53.0) Mean Corpuscular Volume 87 fL (79-100) Mean Corpuscular Hemoglobin 29 pg (25-35) Mean Corpuscular Hemoglobin Concent 33 g/dL (31-37) Red Cell Distribution Width 16.7 % (11.5-14.5) Platelet Count 456 x10^3/uL (140-400) Neutrophils (%) (Auto) 57 % (31-73) Lymphocytes (%) (Auto) 22 % (24-48) Monocytes (%) (Auto) 10 % (0-9) Eosinophils (%) (Auto) 9 % (0-3) Basophils (%) (Auto) 2 % (0-3) Neutrophils # (Auto) 3.1 x10^3/uL (1.8-7.7) Lymphocytes # (Auto) 1.2 x10^3/uL (1.0-4.8) Monocytes # (Auto) 0.6 x10^3/uL (0.0-1.1) Eosinophils # (Auto) 0.5 x10^3/uL (0.0-0.7) Basophils # (Auto) 0.1 x10^3/uL (0.0-0.2) Sodium Level 138 mmol/L (136-145) Potassium Level 4.9 mmol/L (3.5-5.1) Chloride Level 105 mmol/L (98-107) Carbon Dioxide Level 31 mmol/L (21-32) Anion Gap 2 (6-14) Blood Urea Nitrogen 4 mg/dL (8-26) Creatinine 0.9 mg/dL (0.7-1.3) Estimated GFR (Cockcroft-Gault) 100.1 BUN/Creatinine Ratio 4 (6-20) Glucose Level 104 mg/dL (70-99) Calcium Level 8.1 mg/dL (8.5-10.1) Total Bilirubin 0.2 mg/dL (0.2-1.0) Aspartate Amino Transf (AST/SGOT) 28 U/L (15-37) Alanine Aminotransferase (ALT/SGPT) 11 U/L (16-63) Alkaline Phosphatase 55 U/L (46-116) Total Protein 5.7 g/dL (6.4-8.2) Albumin 1.4 g/dL (3.4-5.0) Albumin/Globulin Ratio 0.3 (1.0-1.7) Test 03/17/19 07:16 Glucose (Fingerstick) 98 mg/dL (70-99) Laboratory Tests Test 03/16/19 11:48 03/16/19 16:50 03/16/19 20:49 03/17/19 04:05 Glucose (Fingerstick) 99 mg/dL (70-99) 94 mg/dL (70-99) 123 mg/dL (70-99) White Blood Count 5.5 x10^3/uL (4.0-11.0) Red Blood Count 3.05 x10^6/uL (4.30-5.70) Hemoglobin 8.8 g/dL (13.0-17.5) Hematocrit 26.5 % (39.0-53.0) Mean Corpuscular Volume 87 fL (79-100) Mean Corpuscular Hemoglobin 29 pg (25-35) Mean Corpuscular Hemoglobin Concent 33 g/dL (31-37) Red Cell Distribution Width 16.7 % (11.5-14.5) Platelet Count 456 x10^3/uL (140-400) Neutrophils (%) (Auto) 57 % (31-73) Lymphocytes (%) (Auto) 22 % (24-48) Monocytes (%) (Auto) 10 % (0-9) Eosinophils (%) (Auto) 9 % (0-3) Basophils (%) (Auto) 2 % (0-3) Neutrophils # (Auto) 3.1 x10^3/uL (1.8-7.7) Lymphocytes # (Auto) 1.2 x10^3/uL (1.0-4.8) Monocytes # (Auto) 0.6 x10^3/uL (0.0-1.1) Eosinophils # (Auto) 0.5 x10^3/uL (0.0-0.7) Basophils # (Auto) 0.1 x10^3/uL (0.0-0.2) Sodium Level 138 mmol/L (136-145) Potassium Level 4.9 mmol/L (3.5-5.1) Chloride Level 105 mmol/L (98-107) Carbon Dioxide Level 31 mmol/L (21-32) Anion Gap 2 (6-14) Blood Urea Nitrogen 4 mg/dL (8-26) Creatinine 0.9 mg/dL (0.7-1.3) Estimated GFR (Cockcroft-Gault) 100.1 BUN/Creatinine Ratio 4 (6-20) Glucose Level 104 mg/dL (70-99) Calcium Level 8.1 mg/dL (8.5-10.1) Total Bilirubin 0.2 mg/dL (0.2-1.0) Aspartate Amino Transf (AST/SGOT) 28 U/L (15-37) Alanine Aminotransferase (ALT/SGPT) 11 U/L (16-63) Alkaline Phosphatase 55 U/L (46-116) Total Protein 5.7 g/dL (6.4-8.2) Albumin 1.4 g/dL (3.4-5.0) Albumin/Globulin Ratio 0.3 (1.0-1.7) Test 03/17/19 07:16 Glucose (Fingerstick) 98 mg/dL (70-99) Medications Active Scripts Medications Dose Route/Sig Max Daily Dose Days Date Category Dose Instructions Tizanidine Hcl 4 Mg Tablet 1 Tab PO QHS 03/09/19 Reported Ammonium Lactate 226 Gm Lotion 1 Nando TP BID 10 12/31/18 Rx Percocet 5-325 Mg Tablet (Oxycodone/Acetaminophen) 1 Each Tablet 1 Tab PO PRN Q4HRS PRN 10 12/31/18 Rx Eliquis (Apixaban) 2.5 Mg Tablet 2.5 Mg PO BID 14 12/31/18 Rx Fosamax (Alendronate Sodium) 70 Mg Tablet 70 Mg PO WEEKLY 12/25/18 Reported pt takes medication on friday Vitamin D3 (Cholecalciferol (Vitamin D3)) 5,000 Unit Tablet 5,000 Unit PO WEEKLY 11/17/14 Reported Impression . IMPRESSION: 1. acute resp failue 2. Chronic obstructive pulmonary disease. 3. Osteomyelitis. 4. s/p bilateral lower extremity amputations 5. Severe protein malnutrition. 6. Osteomyelitis. 7. Severe weight loss. Plan . OK TO TRANSFER, INFORMED PT THAT HE MUST PARTICIPATE WITH THERAPY IN ORDER TO HELP US MANAGE HIS DC PLANNING MEHREEN BANSAL MD Mar 17, 2019 08:58
--- NOTE | 2019-03-17 09:20 | PDOC ---
Infectious Disease Note Subjective Subjective Denies pain No F/C/S/N/V/D/SOA/rash Vital Sign Vital Signs Vital Signs Date Time Temp Pulse Resp B/P (MAP) Pulse Ox O2 Delivery O2 Flow Rate FiO2 03/17/19 07:00 97.9 74 17 134/72 (92) 98 Nasal Cannula 2.0 97.9 Physical Exam PHYSICAL EXAM CONSTITUTIONAL: He is lying in bed. He appears comfortable. He is in no acute distress. HEENT: He has normal conjunctivae. Oral cavity, pharynx is dry. Edentulous. NECK: Without any JVD. No fullness. LUNGS: Decreased in the bases.on Venti mask HEART: S1, S2. ABDOMEN: Soft. No guarding or rebound. Positive bowel sounds. EXTREMITIES: brayan AKA, incision good Post op wounds SKIN: Warm to touch without generalized signs of rash. NEUROLOGIC: alert cooperative. Moves all extremities. PSYCHIATRIC: Affect is appropriate. Labs Lab Laboratory Tests Test 03/16/19 11:48 03/16/19 16:50 03/16/19 20:49 03/17/19 04:05 Glucose (Fingerstick) 99 mg/dL (70-99) 94 mg/dL (70-99) 123 mg/dL (70-99) White Blood Count 5.5 x10^3/uL (4.0-11.0) Red Blood Count 3.05 x10^6/uL (4.30-5.70) Hemoglobin 8.8 g/dL (13.0-17.5) Hematocrit 26.5 % (39.0-53.0) Mean Corpuscular Volume 87 fL (79-100) Mean Corpuscular Hemoglobin 29 pg (25-35) Mean Corpuscular Hemoglobin Concent 33 g/dL (31-37) Red Cell Distribution Width 16.7 % (11.5-14.5) Platelet Count 456 x10^3/uL (140-400) Neutrophils (%) (Auto) 57 % (31-73) Lymphocytes (%) (Auto) 22 % (24-48) Monocytes (%) (Auto) 10 % (0-9) Eosinophils (%) (Auto) 9 % (0-3) Basophils (%) (Auto) 2 % (0-3) Neutrophils # (Auto) 3.1 x10^3/uL (1.8-7.7) Lymphocytes # (Auto) 1.2 x10^3/uL (1.0-4.8) Monocytes # (Auto) 0.6 x10^3/uL (0.0-1.1) Eosinophils # (Auto) 0.5 x10^3/uL (0.0-0.7) Basophils # (Auto) 0.1 x10^3/uL (0.0-0.2) Sodium Level 138 mmol/L (136-145) Potassium Level 4.9 mmol/L (3.5-5.1) Chloride Level 105 mmol/L (98-107) Carbon Dioxide Level 31 mmol/L (21-32) Anion Gap 2 (6-14) Blood Urea Nitrogen 4 mg/dL (8-26) Creatinine 0.9 mg/dL (0.7-1.3) Estimated GFR (Cockcroft-Gault) 100.1 BUN/Creatinine Ratio 4 (6-20) Glucose Level 104 mg/dL (70-99) Calcium Level 8.1 mg/dL (8.5-10.1) Total Bilirubin 0.2 mg/dL (0.2-1.0) Aspartate Amino Transf (AST/SGOT) 28 U/L (15-37) Alanine Aminotransferase (ALT/SGPT) 11 U/L (16-63) Alkaline Phosphatase 55 U/L (46-116) Total Protein 5.7 g/dL (6.4-8.2) Albumin 1.4 g/dL (3.4-5.0) Albumin/Globulin Ratio 0.3 (1.0-1.7) Test 03/17/19 07:16 Glucose (Fingerstick) 98 mg/dL (70-99) Micro Microbiology 03/08/19 Blood Culture - Final, Complete NO GROWTH AFTER 5 DAYS Objective Assessment S/p Amputation, thigh, through femur (above-knee amputation), bilateral 03/12 - closed Leukocytosis - post op and s/p Steroid 03/12 Bilateral LE cellulitis L > right with dry gangrene R mid toe tip had fallen off - no notes of abnormalities with last admit December Left heel osteo with exposed bone Tinea PAD Plan Plan of Care po augmentin for 5 days ok to d/c to SNF D/w nursing MANDY FELIX MD Mar 17, 2019 09:20
--- NOTE | 2019-03-17 10:06 | NUR ---
ADALBERTO following. Discussed with RN, pt was not willing to work with therapy yesterday. ADALBERTO contacted pt's , she will NOT take him home and is willing to speak with him this morning to tell him he needs to work with therapy etc. Rehab to [facility] is the plan per . SW to fax therapy notes to [facility]/ [facility] when completed. RN notified. ADALBERTO will continue to follow. Addendum: 03/17/19 at 1520 by LORA GLOVER ADALBERTO following. PT note entered in chart around 1500. ADALBERTO faxed PT/OT notes to [facility]. Awaiting acceptance decision. Insurance will have to give auth. ADALBERTO will continue to follow.
[2019-03-17 10:39] VITALS: BP 129/70
--- NOTE | 2019-03-17 13:57 | PDOC ---
[employer] PROGRESS NOTE Chief Complaint Chief Complaint Bilateral heel ulcer/wounds with cellulitis - Bilateral AKA 03/12/2019 Depression Severe Protein Calorie Malnutrition PAD, mild to mod, medical mx/ now s.p AKA DM 2 fair control Dementia HTN Underweight Gen weakness Dry skin Cad with remote stenting hx on eliquis NORBERTO [facility] History of Present Illness History of Present Illness 03/17/19 Pt seen and examined. Pt refused PT/OT yesterday, but says he will try to work with PT/OT today. Mood is low. OK with prozac qd. 03/16/2019 Pt was seen and examined. Pt reports that he lives at home with his and three children and would like to go home to live with them. Reports no acute changes or complaints since last evaluation. 03/14/2019 s/p sx 03/12 - bilateral AKA WOund care, ID iv abx on board WAnt to go home with , no SNU or rehab HE has no complaints EARLIER ENTRY Some hypoglycemia few days, seems better now - On IV abx and IV micafungin per ID I did not undress dressing post AKA 11. PLAn: CPM LAbs, cultures PT OT SW - will need on dc dispo/plans - just wants HH Vitals/I&O Vitals/I&O: Vital Signs Date Time Temp Pulse Resp B/P (MAP) Pulse Ox O2 Delivery O2 Flow Rate FiO2 03/17/19 10:39 97.9 78 17 129/70 (89) 98 Room Air 97.9 03/17/19 07:00 2.0 I & O 03/16/19 03/16/19 03/17/19 15:00 23:00 07:00 Intake Total 1000 ml 120 ml Output Total 100 ml 400 ml Balance 900 ml -280 ml Physical Exam Physical Exam: CONSTITUTIONAL: He is lying in bed. He appears comfortable. He is in no acute distress. HEENT: He has normal conjunctivae. Oral cavity, pharynx is dry. Edentulous. NECK: Without any JVD. No fullness. LUNGS: Decreased in the bases. HEART: S1, S2. ABDOMEN: Soft. No guarding or rebound. Positive bowel sounds. EXTREMITIES: brayan AKA, incision good Post op wounds SKIN: Warm to touch without generalized signs of rash. NEUROLOGIC: alert cooperative. Moves all extremities. General: Alert, Oriented X3, Cooperative, No acute distress Heart: Regular rate (SR per EKG), Normal S1, Normal S2, Other (S/6 systolic murmur to LLS border) Lungs: Clear Abdomen: Soft, No tenderness Extremities: No cyanosis, No edema, Other (Bilateral AKA, dressing is clean dry and intact. No erythema, or rashes surrounding the incisions.) Skin: No rashes, No breakdown Labs Labs: Laboratory Tests Test 03/16/19 16:50 03/16/19 20:49 03/17/19 04:05 03/17/19 07:16 Glucose (Fingerstick) 94 mg/dL (70-99) 123 mg/dL (70-99) 98 mg/dL (70-99) White Blood Count 5.5 x10^3/uL (4.0-11.0) Red Blood Count 3.05 x10^6/uL (4.30-5.70) Hemoglobin 8.8 g/dL (13.0-17.5) Hematocrit 26.5 % (39.0-53.0) Mean Corpuscular Volume 87 fL (79-100) Mean Corpuscular Hemoglobin 29 pg (25-35) Mean Corpuscular Hemoglobin Concent 33 g/dL (31-37) Red Cell Distribution Width 16.7 % (11.5-14.5) Platelet Count 456 x10^3/uL (140-400) Neutrophils (%) (Auto) 57 % (31-73) Lymphocytes (%) (Auto) 22 % (24-48) Monocytes (%) (Auto) 10 % (0-9) Eosinophils (%) (Auto) 9 % (0-3) Basophils (%) (Auto) 2 % (0-3) Neutrophils # (Auto) 3.1 x10^3/uL (1.8-7.7) Lymphocytes # (Auto) 1.2 x10^3/uL (1.0-4.8) Monocytes # (Auto) 0.6 x10^3/uL (0.0-1.1) Eosinophils # (Auto) 0.5 x10^3/uL (0.0-0.7) Basophils # (Auto) 0.1 x10^3/uL (0.0-0.2) Sodium Level 138 mmol/L (136-145) Potassium Level 4.9 mmol/L (3.5-5.1) Chloride Level 105 mmol/L (98-107) Carbon Dioxide Level 31 mmol/L (21-32) Anion Gap 2 (6-14) Blood Urea Nitrogen 4 mg/dL (8-26) Creatinine 0.9 mg/dL (0.7-1.3) Estimated GFR (Cockcroft-Gault) 100.1 BUN/Creatinine Ratio 4 (6-20) Glucose Level 104 mg/dL (70-99) Calcium Level 8.1 mg/dL (8.5-10.1) Total Bilirubin 0.2 mg/dL (0.2-1.0) Aspartate Amino Transf (AST/SGOT) 28 U/L (15-37) Alanine Aminotransferase (ALT/SGPT) 11 U/L (16-63) Alkaline Phosphatase 55 U/L (46-116) Total Protein 5.7 g/dL (6.4-8.2) Albumin 1.4 g/dL (3.4-5.0) Albumin/Globulin Ratio 0.3 (1.0-1.7) Test 03/17/19 11:17 Glucose (Fingerstick) 107 mg/dL (70-99) Review of Systems Review of Systems: No chest pain No Nausea Assessment and Plan Assessmemt and Plan Problems Medical Problems: (1) Necrotic toes Status: Acute (2) Ulcer of left heel Status: Acute Bilateral heel ulcer/wounds with cellulitis s/p 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 MAHESH HARE III DO Mar 17, 2019 13:56
[2019-03-17 14:25] VITALS: BP 112/68
[2019-03-17 19:00] VITALS: BP 121/73
[2019-03-17] MEDS: ATORVASTATIN CALCIUM 10 MG TABLET. PO SCH (21:54)
[2019-03-17] MEDS: ENOXAPARIN 40 MG/0.4 ML SYRINGE. SQ SCH (21:56)
--- NOTE | 2019-03-17 22:06 | PATHOLOGY ---
[facility] Accession Number: [id number] . 01 Material submitted: . PART A: leg - RIGHT LEG. Modifiers: right PART B: leg - LEFT LEG. Modifiers: left . 01 Clinical history: . Necrosis right toes . 02 Diagnosis: A. "Right leg", above knee amputation: - Skin and subcutaneous tissue with acute and chronic inflammation, necrosis, granulation tissue, fat necrosis, fibrosis and pseudoepitheliomatous hyperplasia; surgical margins without significant inflammation. - Skin with areas of hyperkeratosis. - Decalcified bone with reactive changes and bony remodeling; no evidence of active acute osteomyelitis. - Blood vessels with calcific atherosclerosis. . B. "Left leg", above knee amputation: - Skin and subcutaneous tissue with acute and chronic inflammation, necrosis, granulation tissue, fat necrosis, fibrosis and pseudoepitheliomatous hyperplasia; surgical margins without significant inflammation. - Decalcified bone with focal acute osteomyelitis. - Blood vessels with calcific atherosclerosis. (CLW/db; 03/17/2019) LBQ 03/17/2019 1044 Local . 02 Electronically signed: . Ellen Ferguson MD, Pathologist NPI- [id number] . 01 Gross description: . A. The specimen is received fresh in a red biohazard bag, labeled "Shawn Jaimes, R leg". Received is a right [id number] amputation measuring 24.1 cm from heel to toe, 48.3 cm from heel to skin margin, and 58.2 cm from heel to femoral bone margin. All 5 toes are present. The nails are present displaying a light bueno and severely thickened appearance. The skin and soft tissue margins appear viable. On the dorsal aspect of toe 3 at the second joint, there is a well-circumscribed, ulcerated pink-bueno lesion measuring 0.5 x 0.5 cm. On the posterior aspect of the calcaneus, there is a well-circumscribed, focally ulcerated wound measuring 2.8 x 2.3 cm. The epidermal surface is dusky salvador-brown in appearance and is scaly along the anterior aspect of the lower calf extending onto the foot, and overlying the lateral malleolus. Sectioning through the popliteal artery reveals a moderate amount of calcification. Sectioning through the anterior and posterior tibial vasculatures reveals patent lumens with no gross evidence of calcification. The distal aspect of the femur is identified extending out of the skin margin and is [place]. The specimen is submitted representatively as follows: . A1 skin and soft tissue margin A2 lesion overlying second joint of third toe A3 lesion overlying calcaneus and underlying bone, following decalcification A4 telemarketing representative sections of scaly skin along anterior aspect of lower calf and lateral malleolus A5 popliteal vasculature margin, following light decalcification A6 anterior and posterior tibial vasculature. . B. The specimen is received fresh in a red biohazard bag, labeled "Ernesto Arzate leg". Received is a left nrvun-kqh-[id number] amputation measuring 23.4 cm from heel to toe, 49.8 cm from heel to skin margin, and 54.3 cm from heel to femoral bone margin. All 5 toes are present. The nails are present displaying a light bueno and severely thickened appearance. The skin and soft tissue margins appear viable. On the posterior/lateral aspect of the calcaneus, there is a poorly circumscribed, necrotic-appearing wound, with exposed underlying bone, measuring 5.7 x 5.3 cm. The epidermal surface is dusky salvador brown and flaky in appearance and is scaly along the anterior aspect of the lower calf extending onto the foot, and overlying the medial malleolus. Sectioning through the popliteal artery reveals near complete occlusion with no gross evidence of calcification. Sectioning through the anterior tibial vasculature reveals patent lumens with no gross evidence of calcification. Sectioning through the posterior tibial vasculature reveals pinpoint to slightly patent lumens with no gross evidence of calcification. The specimen is submitted representatively as follows: . B1 skin and soft tissue margin B2 telemarketing representative sections from periphery of lesion overlying calcaneus B3 telemarketing representative section of exposed bone on calcaneus, following decalcification B4 telemarketing representative sections of scaly skin along anterior aspect of lower calf and medial malleolus B5 popliteal vasculature margin B6 anterior and posterior tibial vasculature. (CAA; 03/16/2019) QAC/QAC 03/16/2019 0914 Local . 02 Pathologist provided ICD-10: L98.9, I96, L90.5, L85.9, M86.10, I70.201, I70.202 . 02 CPT . 126470, 863141, [id number], [id number] Specimen Comment: A courtesy copy of this report has been sent to [phone], [phone] Specimen Comment: [id number], Specimen Comment: Report sent to ,DR CONKLIN / DR ROBERT Performed at: 01 [facility] [address], [place] [id number] MD Fadi Pearce MD Phone: [phone] [facility]formed at: [facility] [address] [place], [place] [id number] MD Farhat Maldonado MD Phone: [phone]
[2019-03-17 23:00] VITALS: BP 127/75
[2019-03-18] MEDS: POTASSIUM CL 20MEQ D5-0.45NACL 1,000 ML IV SCH (02:00)
[2019-03-18 03:00] VITALS: BP 113/75
[2019-03-18 05:42] LABS: BASO # 0.1 x10^3/uL (0.0-0.2); BASO % 3 % (0-3); EOS # 0.4 x10^3/uL (0.0-0.7); EOS % 7 % (0-3); HEMATOCRIT 27.7 % (39.0-53.0); LYMPH # 1.2 x10^3/uL (1.0-4.8); LYMPH % 23 % (24-48); MEAN CORPUSCULAR HEMOGLOBIN 28 pg (25-35); MEAN CORPUSCULAR HGB CONC 33 g/dL (31-37); MEAN CORPUSCULAR VOLUME 87 fL (79-100); MONO # 0.6 x10^3/uL (0.0-1.1); MONO % 11 % (0-9); NEUT # 2.8 x10^3/uL (1.8-7.7); NEUT % 55 % (31-73); PLATELET COUNT 520 x10^3/uL (140-400); RED BLOOD COUNT 3.17 x10^6/uL (4.30-5.70); WHITE BLOOD COUNT 5.1 x10^3/uL (4.0-11.0)
[2019-03-18 06:01] LABS: ALBUMIN 1.6 g/dL (3.4-5.0); ALBUMIN/GLOBULIN RATIO 0.4 (1.0-1.7); CALCIUM 8.5 mg/dL (8.5-10.1); CREATININE 0.9 mg/dL (0.7-1.3); GFR 100.1; POTASSIUM 5.2 mmol/L (3.5-5.1); TOTAL BILIRUBIN 0.2 mg/dL (0.2-1.0); TOTAL PROTEIN 6.1 g/dL (6.4-8.2)
[2019-03-18 07:00] VITALS: BP 107/67
[2019-03-18] MEDS: DEXTROSE 50% 25 GM / 50ML DISP.SYRIN. IV PRN (07:36)
[2019-03-18] MEDS: ASPIRIN ENTERIC COATED 81 MG TABLET.DR. PO SCH (08:22)
[2019-03-18] MEDS: AMOXICILLIN/K CLAV 500/125MG TABLET. PO SCH ×2 (08:22→21:04)
[2019-03-18] MEDS: LACTOBACILLUS RHAMNOSUS GG 1 CAPSULE. PO SCH ×2 (08:22→21:04)
[2019-03-18] MEDS: MULTIVITAMIN with MINERAL TABLET. PO SCH (08:23)
[2019-03-18] MEDS: FLUoxetine HCL 20 MG CAPSULE PO SCH (08:23)
--- NOTE | 2019-03-18 09:11 | SNU/HH DC ---
DISCHARGE ORDERS DISCHARGE INFORMATION: DISCHARGE DATE: Mar 18, 2019 FINAL DIAGNOSIS Problems Medical Problems: (1) Necrotic toes Status: Acute (2) Ulcer of left heel Status: Acute CONDITION ON DISCHARGE: Stable CODE STATUS: Code Status: Full PRISON: SNF STAY <30 DAYS: Yes HOSPICE: HOSPICE: No HOSPICE EVAL & TREAT: No LTAC: ADMIT TO LTAC: No POST DISCHARGE ORDERS: ACTIVITY ORDERS: Activity as tolerated DIET AFTER DISCHARGE: Cardiac WOUND/INCISION CARE: Keep wound/cast CDI, Change dressing CHECKS AFTER DISCHARGE: CHECKS AFTER DISCHARGE: Check blood press - daily FOLLOW-UP: PHYSICIAN FOLLOW-UP: stump dressing change/care daily TREATMENT/EQUIPMENT ORDERS: ADAPTIVE EQUIPMENT NEEDED: Front wheeled walker Physical Therapy For: Evalulation/Treatment Occupational Therapy For: Evaluation/Treatment Speech Language Pathology For: Evaluation/Treatment DISCHARGE MEDICATIONS: Home Meds Active Scripts Amoxicillin/Potassium Clav (AUGMENTIN 875-125 TABLET) 1 Each Tablet, 1 TAB PO BID for leg cellultisi for 10 Days, #20 TAB 0 Refills Prov:HANSA SIMMS MD 03/15/19 Multivits,Ca,Minerals/Iron/Fa (THERA-M TABLET) 1 Each Tablet, 1 TAB PO DAILY for mvi, #60 TAB Prov:HANSA SIMMS MD 03/15/19 Aspirin (ASPIRIN EC) 81 Mg Tablet.dr, 81 MG PO DAILYWBKFT for PAD, #60 TAB.SR Prov:HANSA SIMMS MD 03/15/19 Atorvastatin Calcium (ATORVASTATIN CALCIUM) 10 Mg Tablet, 10 MG PO QHS for lipids, #60 TAB Prov:HANSA SIMMS MD 03/15/19 Oxycodone/Apap 5-325 (PERCOCET 5-325 MG TABLET ) 1 Each Tablet, 1 TAB PO PRN Q4HRS PRN for SEVERE PAIN 7-10 for 10 Days, #20 TAB Prov:HANSA SIMMS MD 03/15/19 Ammonium Lactate (Ammonium Lactate) 226 Gm Lotion, 1 SACHIN TP BID for DRY SKIN for 10 Days, #90 MISC Prov:NIHARIKA BONNER MD 12/31/18 Apixaban (ELIQUIS) 2.5 Mg Tablet, 2.5 MG PO BID for DVT PREVENTION for 14 Days, #28 TAB Prov:NIHARIKA BONNER MD 12/31/18 Reported Medications Tizanidine Hcl (TIZANIDINE HCL) 4 Mg Tablet, 1 TAB PO QHS for muscle relaxer, #30 TAB 03/09/19 Alendronate Sodium (FOSAMAX) 70 Mg Tablet, 70 MG PO WEEKLY for bones, TAB pt takes medication on friday12/25/18 Cholecalciferol (Vitamin D3) (VITAMIN D3) 5,000 Unit Tablet, 5000 UNIT PO WEEKLY for bones 11/17/14 HANSA SIMMS MD Mar 18, 2019 09:11
--- NOTE | 2019-03-18 09:53 | PDOC ---
PULMONARY PROGRESS NOTES Subjective NO RESP COMPLAINTS Vitals Vital Signs Date Time Temp Pulse Resp B/P (MAP) Pulse Ox O2 Delivery O2 Flow Rate FiO2 03/18/19 07:00 98.6 78 18 107/67 (80) 95 Room Air 98.6 03/17/19 14:25 2.0 ROS: No Nausea, No Chest Pain, No Abdominal Pain, No Increase Cough General: Alert, No acute distress Lungs: Clear Cardiovascular: S1, S2 Abdomen: Soft Neuro Exam: Alert, No Focal Findings Extremities: No Edema Skin: Warm Labs Laboratory Tests Test 03/16/19 11:48 03/16/19 16:50 03/16/19 20:49 03/17/19 04:05 Glucose (Fingerstick) 99 mg/dL (70-99) 94 mg/dL (70-99) 123 mg/dL (70-99) White Blood Count 5.5 x10^3/uL (4.0-11.0) Red Blood Count 3.05 x10^6/uL (4.30-5.70) Hemoglobin 8.8 g/dL (13.0-17.5) Hematocrit 26.5 % (39.0-53.0) Mean Corpuscular Volume 87 fL (79-100) Mean Corpuscular Hemoglobin 29 pg (25-35) Mean Corpuscular Hemoglobin Concent 33 g/dL (31-37) Red Cell Distribution Width 16.7 % (11.5-14.5) Platelet Count 456 x10^3/uL (140-400) Neutrophils (%) (Auto) 57 % (31-73) Lymphocytes (%) (Auto) 22 % (24-48) Monocytes (%) (Auto) 10 % (0-9) Eosinophils (%) (Auto) 9 % (0-3) Basophils (%) (Auto) 2 % (0-3) Neutrophils # (Auto) 3.1 x10^3/uL (1.8-7.7) Lymphocytes # (Auto) 1.2 x10^3/uL (1.0-4.8) Monocytes # (Auto) 0.6 x10^3/uL (0.0-1.1) Eosinophils # (Auto) 0.5 x10^3/uL (0.0-0.7) Basophils # (Auto) 0.1 x10^3/uL (0.0-0.2) Sodium Level 138 mmol/L (136-145) Potassium Level 4.9 mmol/L (3.5-5.1) Chloride Level 105 mmol/L (98-107) Carbon Dioxide Level 31 mmol/L (21-32) Anion Gap 2 (6-14) Blood Urea Nitrogen 4 mg/dL (8-26) Creatinine 0.9 mg/dL (0.7-1.3) Estimated GFR (Cockcroft-Gault) 100.1 BUN/Creatinine Ratio 4 (6-20) Glucose Level 104 mg/dL (70-99) Calcium Level 8.1 mg/dL (8.5-10.1) Total Bilirubin 0.2 mg/dL (0.2-1.0) Aspartate Amino Transf (AST/SGOT) 28 U/L (15-37) Alanine Aminotransferase (ALT/SGPT) 11 U/L (16-63) Alkaline Phosphatase 55 U/L (46-116) Total Protein 5.7 g/dL (6.4-8.2) Albumin 1.4 g/dL (3.4-5.0) Albumin/Globulin Ratio 0.3 (1.0-1.7) Test 03/17/19 07:16 03/17/19 11:17 03/17/19 16:36 03/17/19 20:23 Glucose (Fingerstick) 98 mg/dL (70-99) 107 mg/dL (70-99) 86 mg/dL (70-99) 75 mg/dL (70-99) Test 03/18/19 00:02 03/18/19 04:15 03/18/19 07:21 Glucose (Fingerstick) 81 mg/dL (70-99) 66 mg/dL (70-99) White Blood Count 5.1 x10^3/uL (4.0-11.0) Red Blood Count 3.17 x10^6/uL (4.30-5.70) Hemoglobin 9.0 g/dL (13.0-17.5) Hematocrit 27.7 % (39.0-53.0) Mean Corpuscular Volume 87 fL (79-100) Mean Corpuscular Hemoglobin 28 pg (25-35) Mean Corpuscular Hemoglobin Concent 33 g/dL (31-37) Red Cell Distribution Width 17.0 % (11.5-14.5) Platelet Count 520 x10^3/uL (140-400) Neutrophils (%) (Auto) 55 % (31-73) Lymphocytes (%) (Auto) 23 % (24-48) Monocytes (%) (Auto) 11 % (0-9) Eosinophils (%) (Auto) 7 % (0-3) Basophils (%) (Auto) 3 % (0-3) Neutrophils # (Auto) 2.8 x10^3/uL (1.8-7.7) Lymphocytes # (Auto) 1.2 x10^3/uL (1.0-4.8) Monocytes # (Auto) 0.6 x10^3/uL (0.0-1.1) Eosinophils # (Auto) 0.4 x10^3/uL (0.0-0.7) Basophils # (Auto) 0.1 x10^3/uL (0.0-0.2) Sodium Level 136 mmol/L (136-145) Potassium Level 5.2 mmol/L (3.5-5.1) Chloride Level 101 mmol/L (98-107) Carbon Dioxide Level 30 mmol/L (21-32) Anion Gap 5 (6-14) Blood Urea Nitrogen 4 mg/dL (8-26) Creatinine 0.9 mg/dL (0.7-1.3) Estimated GFR (Cockcroft-Gault) 100.1 BUN/Creatinine Ratio 4 (6-20) Glucose Level 75 mg/dL (70-99) Calcium Level 8.5 mg/dL (8.5-10.1) Total Bilirubin 0.2 mg/dL (0.2-1.0) Aspartate Amino Transf (AST/SGOT) 42 U/L (15-37) Alanine Aminotransferase (ALT/SGPT) 18 U/L (16-63) Alkaline Phosphatase 60 U/L (46-116) Total Protein 6.1 g/dL (6.4-8.2) Albumin 1.6 g/dL (3.4-5.0) Albumin/Globulin Ratio 0.4 (1.0-1.7) Laboratory Tests Test 03/17/19 11:17 03/17/19 16:36 03/17/19 20:23 03/18/19 00:02 Glucose (Fingerstick) 107 mg/dL (70-99) 86 mg/dL (70-99) 75 mg/dL (70-99) 81 mg/dL (70-99) Test 03/18/19 04:15 03/18/19 07:21 White Blood Count 5.1 x10^3/uL (4.0-11.0) Red Blood Count 3.17 x10^6/uL (4.30-5.70) Hemoglobin 9.0 g/dL (13.0-17.5) Hematocrit 27.7 % (39.0-53.0) Mean Corpuscular Volume 87 fL (79-100) Mean Corpuscular Hemoglobin 28 pg (25-35) Mean Corpuscular Hemoglobin Concent 33 g/dL (31-37) Red Cell Distribution Width 17.0 % (11.5-14.5) Platelet Count 520 x10^3/uL (140-400) Neutrophils (%) (Auto) 55 % (31-73) Lymphocytes (%) (Auto) 23 % (24-48) Monocytes (%) (Auto) 11 % (0-9) Eosinophils (%) (Auto) 7 % (0-3) Basophils (%) (Auto) 3 % (0-3) Neutrophils # (Auto) 2.8 x10^3/uL (1.8-7.7) Lymphocytes # (Auto) 1.2 x10^3/uL (1.0-4.8) Monocytes # (Auto) 0.6 x10^3/uL (0.0-1.1) Eosinophils # (Auto) 0.4 x10^3/uL (0.0-0.7) Basophils # (Auto) 0.1 x10^3/uL (0.0-0.2) Sodium Level 136 mmol/L (136-145) Potassium Level 5.2 mmol/L (3.5-5.1) Chloride Level 101 mmol/L (98-107) Carbon Dioxide Level 30 mmol/L (21-32) Anion Gap 5 (6-14) Blood Urea Nitrogen 4 mg/dL (8-26) Creatinine 0.9 mg/dL (0.7-1.3) Estimated GFR (Cockcroft-Gault) 100.1 BUN/Creatinine Ratio 4 (6-20) Glucose Level 75 mg/dL (70-99) Calcium Level 8.5 mg/dL (8.5-10.1) Total Bilirubin 0.2 mg/dL (0.2-1.0) Aspartate Amino Transf (AST/SGOT) 42 U/L (15-37) Alanine Aminotransferase (ALT/SGPT) 18 U/L (16-63) Alkaline Phosphatase 60 U/L (46-116) Total Protein 6.1 g/dL (6.4-8.2) Albumin 1.6 g/dL (3.4-5.0) Albumin/Globulin Ratio 0.4 (1.0-1.7) Glucose (Fingerstick) 66 mg/dL (70-99) Medications Active Scripts Medications Dose Route/Sig Max Daily Dose Days Date Category Dose Instructions Tizanidine Hcl 4 Mg Tablet 1 Tab PO QHS 03/09/19 Reported Ammonium Lactate 226 Gm Lotion 1 Nando TP BID 10 12/31/18 Rx Percocet 5-325 Mg Tablet (Oxycodone/Acetaminophen) 1 Each Tablet 1 Tab PO PRN Q4HRS PRN 10 12/31/18 Rx Eliquis (Apixaban) 2.5 Mg Tablet 2.5 Mg PO BID 14 12/31/18 Rx Fosamax (Alendronate Sodium) 70 Mg Tablet 70 Mg PO WEEKLY 12/25/18 Reported pt takes medication on friday Vitamin D3 (Cholecalciferol (Vitamin D3)) 5,000 Unit Tablet 5,000 Unit PO WEEKLY 11/17/14 Reported Impression . IMPRESSION: 1. acute resp failue 2. Chronic obstructive pulmonary disease. 3. Osteomyelitis. 4. s/p bilateral lower extremity amputations 5. Severe protein malnutrition. 6. Osteomyelitis. 7. Severe weight loss. Plan . DC PLANNING A CHALLENGE PT AT TIMES REFUSES TO WORK WITH PT MEHREEN BANSAL MD Mar 18, 2019 09:53
[2019-03-18 11:00] VITALS: BP 99/59
--- NOTE | 2019-03-18 11:52 | PDOC3 ---
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 NORBERTO VMN Final Diagnosis Problems Medical Problems: (1) Necrotic toes Status: Acute (2) Ulcer of left heel Status: Acute Brief Hospital Course Allergies Allergies Coded Allergies Type Severity Reaction Last Updated Verified No Known Drug Allergies 11/17/14 No Vital Signs Vital Signs Date Time Temp Pulse Resp B/P (MAP) Pulse Ox O2 Delivery O2 Flow Rate FiO2 03/18/19 11:00 98.5 90 18 99/59 (72) 97 Room Air 98.5 03/17/19 14:25 2.0 Lab Results Laboratory Tests Test 03/16/19 16:50 03/16/19 20:49 03/17/19 04:05 03/17/19 07:16 Glucose (Fingerstick) 94 mg/dL (70-99) 123 mg/dL (70-99) 98 mg/dL (70-99) White Blood Count 5.5 x10^3/uL (4.0-11.0) Red Blood Count 3.05 x10^6/uL (4.30-5.70) Hemoglobin 8.8 g/dL (13.0-17.5) Hematocrit 26.5 % (39.0-53.0) Mean Corpuscular Volume 87 fL (79-100) Mean Corpuscular Hemoglobin 29 pg (25-35) Mean Corpuscular Hemoglobin Concent 33 g/dL (31-37) Red Cell Distribution Width 16.7 % (11.5-14.5) Platelet Count 456 x10^3/uL (140-400) Neutrophils (%) (Auto) 57 % (31-73) Lymphocytes (%) (Auto) 22 % (24-48) Monocytes (%) (Auto) 10 % (0-9) Eosinophils (%) (Auto) 9 % (0-3) Basophils (%) (Auto) 2 % (0-3) Neutrophils # (Auto) 3.1 x10^3/uL (1.8-7.7) Lymphocytes # (Auto) 1.2 x10^3/uL (1.0-4.8) Monocytes # (Auto) 0.6 x10^3/uL (0.0-1.1) Eosinophils # (Auto) 0.5 x10^3/uL (0.0-0.7) Basophils # (Auto) 0.1 x10^3/uL (0.0-0.2) Sodium Level 138 mmol/L (136-145) Potassium Level 4.9 mmol/L (3.5-5.1) Chloride Level 105 mmol/L (98-107) Carbon Dioxide Level 31 mmol/L (21-32) Anion Gap 2 (6-14) Blood Urea Nitrogen 4 mg/dL (8-26) Creatinine 0.9 mg/dL (0.7-1.3) Estimated GFR (Cockcroft-Gault) 100.1 BUN/Creatinine Ratio 4 (6-20) Glucose Level 104 mg/dL (70-99) Calcium Level 8.1 mg/dL (8.5-10.1) Total Bilirubin 0.2 mg/dL (0.2-1.0) Aspartate Amino Transf (AST/SGOT) 28 U/L (15-37) Alanine Aminotransferase (ALT/SGPT) 11 U/L (16-63) Alkaline Phosphatase 55 U/L (46-116) Total Protein 5.7 g/dL (6.4-8.2) Albumin 1.4 g/dL (3.4-5.0) Albumin/Globulin Ratio 0.3 (1.0-1.7) Test 03/17/19 11:17 03/17/19 16:36 03/17/19 20:23 03/18/19 00:02 Glucose (Fingerstick) 107 mg/dL (70-99) 86 mg/dL (70-99) 75 mg/dL (70-99) 81 mg/dL (70-99) Test 03/18/19 04:15 03/18/19 07:21 03/18/19 10:38 White Blood Count 5.1 x10^3/uL (4.0-11.0) Red Blood Count 3.17 x10^6/uL (4.30-5.70) Hemoglobin 9.0 g/dL (13.0-17.5) Hematocrit 27.7 % (39.0-53.0) Mean Corpuscular Volume 87 fL (79-100) Mean Corpuscular Hemoglobin 28 pg (25-35) Mean Corpuscular Hemoglobin Concent 33 g/dL (31-37) Red Cell Distribution Width 17.0 % (11.5-14.5) Platelet Count 520 x10^3/uL (140-400) Neutrophils (%) (Auto) 55 % (31-73) Lymphocytes (%) (Auto) 23 % (24-48) Monocytes (%) (Auto) 11 % (0-9) Eosinophils (%) (Auto) 7 % (0-3) Basophils (%) (Auto) 3 % (0-3) Neutrophils # (Auto) 2.8 x10^3/uL (1.8-7.7) Lymphocytes # (Auto) 1.2 x10^3/uL (1.0-4.8) Monocytes # (Auto) 0.6 x10^3/uL (0.0-1.1) Eosinophils # (Auto) 0.4 x10^3/uL (0.0-0.7) Basophils # (Auto) 0.1 x10^3/uL (0.0-0.2) Sodium Level 136 mmol/L (136-145) Potassium Level 5.2 mmol/L (3.5-5.1) Chloride Level 101 mmol/L (98-107) Carbon Dioxide Level 30 mmol/L (21-32) Anion Gap 5 (6-14) Blood Urea Nitrogen 4 mg/dL (8-26) Creatinine 0.9 mg/dL (0.7-1.3) Estimated GFR (Cockcroft-Gault) 100.1 BUN/Creatinine Ratio 4 (6-20) Glucose Level 75 mg/dL (70-99) Calcium Level 8.5 mg/dL (8.5-10.1) Total Bilirubin 0.2 mg/dL (0.2-1.0) Aspartate Amino Transf (AST/SGOT) 42 U/L (15-37) Alanine Aminotransferase (ALT/SGPT) 18 U/L (16-63) Alkaline Phosphatase 60 U/L (46-116) Total Protein 6.1 g/dL (6.4-8.2) Albumin 1.6 g/dL (3.4-5.0) Albumin/Globulin Ratio 0.4 (1.0-1.7) Glucose (Fingerstick) 66 mg/dL (70-99) 119 mg/dL (70-99) Laboratory Tests Test 03/17/19 16:36 03/17/19 20:23 03/18/19 00:02 03/18/19 04:15 Glucose (Fingerstick) 86 mg/dL (70-99) 75 mg/dL (70-99) 81 mg/dL (70-99) White Blood Count 5.1 x10^3/uL (4.0-11.0) Red Blood Count 3.17 x10^6/uL (4.30-5.70) Hemoglobin 9.0 g/dL (13.0-17.5) Hematocrit 27.7 % (39.0-53.0) Mean Corpuscular Volume 87 fL (79-100) Mean Corpuscular Hemoglobin 28 pg (25-35) Mean Corpuscular Hemoglobin Concent 33 g/dL (31-37) Red Cell Distribution Width 17.0 % (11.5-14.5) Platelet Count 520 x10^3/uL (140-400) Neutrophils (%) (Auto) 55 % (31-73) Lymphocytes (%) (Auto) 23 % (24-48) Monocytes (%) (Auto) 11 % (0-9) Eosinophils (%) (Auto) 7 % (0-3) Basophils (%) (Auto) 3 % (0-3) Neutrophils # (Auto) 2.8 x10^3/uL (1.8-7.7) Lymphocytes # (Auto) 1.2 x10^3/uL (1.0-4.8) Monocytes # (Auto) 0.6 x10^3/uL (0.0-1.1) Eosinophils # (Auto) 0.4 x10^3/uL (0.0-0.7) Basophils # (Auto) 0.1 x10^3/uL (0.0-0.2) Sodium Level 136 mmol/L (136-145) Potassium Level 5.2 mmol/L (3.5-5.1) Chloride Level 101 mmol/L (98-107) Carbon Dioxide Level 30 mmol/L (21-32) Anion Gap 5 (6-14) Blood Urea Nitrogen 4 mg/dL (8-26) Creatinine 0.9 mg/dL (0.7-1.3) Estimated GFR (Cockcroft-Gault) 100.1 BUN/Creatinine Ratio 4 (6-20) Glucose Level 75 mg/dL (70-99) Calcium Level 8.5 mg/dL (8.5-10.1) Total Bilirubin 0.2 mg/dL (0.2-1.0) Aspartate Amino Transf (AST/SGOT) 42 U/L (15-37) Alanine Aminotransferase (ALT/SGPT) 18 U/L (16-63) Alkaline Phosphatase 60 U/L (46-116) Total Protein 6.1 g/dL (6.4-8.2) Albumin 1.6 g/dL (3.4-5.0) Albumin/Globulin Ratio 0.4 (1.0-1.7) Test 03/18/19 07:21 03/18/19 10:38 Glucose (Fingerstick) 66 mg/dL (70-99) 119 mg/dL (70-99) Brief Hospital Course Mr. Jaimes is a 73 old [sex] who presented with [ ] addendum to dc summ done 03/15 HAd some indecisions re Dc dispo,. PT wanted home with but cant take care of him Pt was refusing to work with PT some days that prolonged the process of getting him to SNU I have seen and examined pt, after ethel discussion he agreed to participate today HE did participate with PT also yesterday SNU once insurance auth and accepted/bed avail MAR on chart Discharge Information Disposition/Orders: Other (snu) Scheduled Alendronate Sodium (Fosamax) 70 Mg Tablet, 70 MG PO WEEKLY for bones, (Reported) pt takes medication on friday Entered as Reported by: BUNNY CAPONE on 12/25/1813 Last Action: Converted on 03/08/192117 by CARMEN CONKLIN MD Ammonium Lactate (Ammonium Lactate) 226 Gm Lotion, 1 SACHIN TP BID for DRY SKIN for 10 Days, #90 Prescribed by: NIHARIKA BONNER MD on 12/31/18 1800 Last Action: Continued on 03/08/192117 by CARMEN CONKLIN MD Amoxicillin/Potassium Clav (Augmentin 875-125 Tablet) 1 Each Tablet, 1 TAB PO BID for leg cellultisi for 10 Days, #20 Ref 0 Prescribed by: HANSA SIMMS on 03/15/19 1058 Apixaban (Eliquis) 2.5 Mg Tablet, 2.5 MG PO BID for DVT PREVENTION for 14 Days, #28 Prescribed by: NIHARIKA BONNER MD on 12/31/18 1800 Aspirin (Aspirin Ec) 81 Mg Tablet.dr, 81 MG PO DAILYWBKFT for PAD, #60 Prescribed by: HANSA SIMMS on 03/15/19 0810 Atorvastatin Calcium (Atorvastatin Calcium) 10 Mg Tablet, 10 MG PO QHS for lipids, #60 Prescribed by: HANSA SIMMS on 03/15/19 0810 Cholecalciferol (Vitamin D3) (Vitamin D3) 5,000 Unit Tablet, 5,000 UNIT PO WEEKLY for bones, (Reported) Entered as Reported by: ERI ABEL on 11/17/14 1105 Last Action: Converted on 03/08/192117 by CAREMN CONKLIN MD Multivits,Ca,Minerals/Iron/Fa (Thera-M Tablet) 1 Each Tablet, 1 TAB PO DAILY for mvi, #60 Prescribed by: HANSA SIMMS on 03/15/19 0810 Tizanidine Hcl (Tizanidine Hcl) 4 Mg Tablet, 1 TAB PO QHS for muscle relaxer, #30 (Reported) Entered as Reported by: SARAH RENO RN on 03/09/191417 Last Action: New Order on 03/09/191417 by SARAH RENO RN Scheduled PRN Oxycodone/Apap 5-325 (Percocet 5-325 Mg Tablet ) 1 Each Tablet, 1 TAB PO PRN Q4HRS PRN for SEVERE PAIN 7-10 for 10 Days, #20 Prescribed by: HANSA SIMMS on 03/15/19 0810 HANSA SIMMS MD Mar 18, 2019 11:52
--- NOTE | 2019-03-18 12:11 | NUR ---
SW following. Discussed with RN. STEVIE awaiting acceptance decision from [facility]. STEVIE will continue to follow. Addendum: 03/18/19 at 1622 by LORA GLOVER SW following. STAR FESTIVAL/ [facility] wanting to see if pt's mood improves with anti depressant. Stevie faxed updated PT/OT notes. Pt was less agitated and increased participation. RN notified. STEVIE will continue to follow.
[2019-03-18 15:00] VITALS: BP 121/65
[2019-03-18 19:15] VITALS: BP 101/61
[2019-03-18] MEDS: ATORVASTATIN CALCIUM 10 MG TABLET. PO SCH (21:04)
[2019-03-18] MEDS: ENOXAPARIN 40 MG/0.4 ML SYRINGE. SQ SCH ×2 (21:05→21:12)
--- NOTE | 2019-03-18 21:56 | NUR ---
Patient refused the 2100 dose of Lovenox. RN discussed with patient the importance of the Lovenox and patient stated "I'll take my chances, I don't want a shot in my stomach". RN will continue to monitor patient closely.
[2019-03-18 22:54] VITALS: BP 107/69
[2019-03-19 02:45] VITALS: BP 116/74
[2019-03-19 06:55] LABS: BASO # 0.1 x10^3/uL (0.0-0.2); BASO % 2 % (0-3); EOS # 0.2 x10^3/uL (0.0-0.7); EOS % 3 % (0-3); HEMATOCRIT 25.3 % (39.0-53.0); HEMOGLOBIN 8.6 g/dL (13.0-17.5); LYMPH # 1.3 x10^3/uL (1.0-4.8); LYMPH % 18 % (24-48); MEAN CORPUSCULAR HEMOGLOBIN 30 pg (25-35); MEAN CORPUSCULAR HGB CONC 34 g/dL (31-37); MEAN CORPUSCULAR VOLUME 87 fL (79-100); MONO # 0.8 x10^3/uL (0.0-1.1); MONO % 11 % (0-9); NEUT # 4.7 x10^3/uL (1.8-7.7); NEUT % 66 % (31-73); PLATELET COUNT 554 x10^3/uL (140-400); RED BLOOD COUNT 2.92 x10^6/uL (4.30-5.70); RED CELL DISTRIBUTION WIDTH 16.6 % (11.5-14.5); WHITE BLOOD COUNT 7.2 x10^3/uL (4.0-11.0)
[2019-03-19 07:00] VITALS: BP 104/68
[2019-03-19 07:24] LABS: ALBUMIN 1.7 g/dL (3.4-5.0); ALBUMIN/GLOBULIN RATIO 0.4 (1.0-1.7); CALCIUM 7.9 mg/dL (8.5-10.1); CREATININE 0.9 mg/dL (0.7-1.3); GFR 100.1; POTASSIUM 4.8 mmol/L (3.5-5.1); TOTAL BILIRUBIN 0.3 mg/dL (0.2-1.0); TOTAL PROTEIN 6.1 g/dL (6.4-8.2)
[2019-03-19] MEDS: AMOXICILLIN/K CLAV 500/125MG TABLET. PO SCH ×2 (08:03→20:30)
[2019-03-19] MEDS: MULTIVITAMIN with MINERAL TABLET. PO SCH (08:03)
[2019-03-19] MEDS: LACTOBACILLUS RHAMNOSUS GG 1 CAPSULE. PO SCH ×2 (08:03→20:30)
[2019-03-19] MEDS: ASPIRIN ENTERIC COATED 81 MG TABLET.DR. PO SCH (08:03)
[2019-03-19] MEDS: FLUoxetine HCL 20 MG CAPSULE PO SCH (08:03)
--- NOTE | 2019-03-19 09:29 | PDOC ---
PULMONARY PROGRESS NOTES Subjective NO RESP COMPLAINTS Vitals Vital Signs Date Time Temp Pulse Resp B/P (MAP) Pulse Ox O2 Delivery O2 Flow Rate FiO2 03/19/19 07:22 Room Air 03/19/19 07:00 98.8 76 18 104/68 (80) 97 98.8 03/18/19 12:18 2.0 ROS: No Nausea, No Chest Pain, No Abdominal Pain, No Increase Cough General: Alert, No acute distress Lungs: Clear Cardiovascular: S1, S2 Abdomen: Soft Neuro Exam: Alert, No Focal Findings Extremities: No Edema Skin: Warm Labs Laboratory Tests Test 03/17/19 11:17 03/17/19 16:36 03/17/19 20:23 03/18/19 00:02 Glucose (Fingerstick) 107 mg/dL (70-99) 86 mg/dL (70-99) 75 mg/dL (70-99) 81 mg/dL (70-99) Test 03/18/19 04:15 03/18/19 07:21 03/18/19 10:38 03/18/19 17:06 White Blood Count 5.1 x10^3/uL (4.0-11.0) Red Blood Count 3.17 x10^6/uL (4.30-5.70) Hemoglobin 9.0 g/dL (13.0-17.5) Hematocrit 27.7 % (39.0-53.0) Mean Corpuscular Volume 87 fL (79-100) Mean Corpuscular Hemoglobin 28 pg (25-35) Mean Corpuscular Hemoglobin Concent 33 g/dL (31-37) Red Cell Distribution Width 17.0 % (11.5-14.5) Platelet Count 520 x10^3/uL (140-400) Neutrophils (%) (Auto) 55 % (31-73) Lymphocytes (%) (Auto) 23 % (24-48) Monocytes (%) (Auto) 11 % (0-9) Eosinophils (%) (Auto) 7 % (0-3) Basophils (%) (Auto) 3 % (0-3) Neutrophils # (Auto) 2.8 x10^3/uL (1.8-7.7) Lymphocytes # (Auto) 1.2 x10^3/uL (1.0-4.8) Monocytes # (Auto) 0.6 x10^3/uL (0.0-1.1) Eosinophils # (Auto) 0.4 x10^3/uL (0.0-0.7) Basophils # (Auto) 0.1 x10^3/uL (0.0-0.2) Sodium Level 136 mmol/L (136-145) Potassium Level 5.2 mmol/L (3.5-5.1) Chloride Level 101 mmol/L (98-107) Carbon Dioxide Level 30 mmol/L (21-32) Anion Gap 5 (6-14) Blood Urea Nitrogen 4 mg/dL (8-26) Creatinine 0.9 mg/dL (0.7-1.3) Estimated GFR (Cockcroft-Gault) 100.1 BUN/Creatinine Ratio 4 (6-20) Glucose Level 75 mg/dL (70-99) Calcium Level 8.5 mg/dL (8.5-10.1) Total Bilirubin 0.2 mg/dL (0.2-1.0) Aspartate Amino Transf (AST/SGOT) 42 U/L (15-37) Alanine Aminotransferase (ALT/SGPT) 18 U/L (16-63) Alkaline Phosphatase 60 U/L (46-116) Total Protein 6.1 g/dL (6.4-8.2) Albumin 1.6 g/dL (3.4-5.0) Albumin/Globulin Ratio 0.4 (1.0-1.7) Glucose (Fingerstick) 66 mg/dL (70-99) 119 mg/dL (70-99) 72 mg/dL (70-99) Test 03/18/19 20:57 03/19/19 04:57 03/19/19 07:51 Glucose (Fingerstick) 139 mg/dL (70-99) 75 mg/dL (70-99) White Blood Count 7.2 x10^3/uL (4.0-11.0) Red Blood Count 2.92 x10^6/uL (4.30-5.70) Hemoglobin 8.6 g/dL (13.0-17.5) Hematocrit 25.3 % (39.0-53.0) Mean Corpuscular Volume 87 fL (79-100) Mean Corpuscular Hemoglobin 30 pg (25-35) Mean Corpuscular Hemoglobin Concent 34 g/dL (31-37) Red Cell Distribution Width 16.6 % (11.5-14.5) Platelet Count 554 x10^3/uL (140-400) Neutrophils (%) (Auto) 66 % (31-73) Lymphocytes (%) (Auto) 18 % (24-48) Monocytes (%) (Auto) 11 % (0-9) Eosinophils (%) (Auto) 3 % (0-3) Basophils (%) (Auto) 2 % (0-3) Neutrophils # (Auto) 4.7 x10^3/uL (1.8-7.7) Lymphocytes # (Auto) 1.3 x10^3/uL (1.0-4.8) Monocytes # (Auto) 0.8 x10^3/uL (0.0-1.1) Eosinophils # (Auto) 0.2 x10^3/uL (0.0-0.7) Basophils # (Auto) 0.1 x10^3/uL (0.0-0.2) Sodium Level 135 mmol/L (136-145) Potassium Level 4.8 mmol/L (3.5-5.1) Chloride Level 101 mmol/L (98-107) Carbon Dioxide Level 28 mmol/L (21-32) Anion Gap 6 (6-14) Blood Urea Nitrogen 9 mg/dL (8-26) Creatinine 0.9 mg/dL (0.7-1.3) Estimated GFR (Cockcroft-Gault) 100.1 BUN/Creatinine Ratio 10 (6-20) Glucose Level 79 mg/dL (70-99) Calcium Level 7.9 mg/dL (8.5-10.1) Total Bilirubin 0.3 mg/dL (0.2-1.0) Aspartate Amino Transf (AST/SGOT) 34 U/L (15-37) Alanine Aminotransferase (ALT/SGPT) 21 U/L (16-63) Alkaline Phosphatase 59 U/L (46-116) Total Protein 6.1 g/dL (6.4-8.2) Albumin 1.7 g/dL (3.4-5.0) Albumin/Globulin Ratio 0.4 (1.0-1.7) Laboratory Tests Test 03/18/19 10:38 03/18/19 17:06 03/18/19 20:57 11/8/19 04:57 Glucose (Fingerstick) 119 mg/dL (70-99) 72 mg/dL (70-99) 139 mg/dL (70-99) White Blood Count 7.2 x10^3/uL (4.0-11.0) Red Blood Count 2.92 x10^6/uL (4.30-5.70) Hemoglobin 8.6 g/dL (13.0-17.5) Hematocrit 25.3 % (39.0-53.0) Mean Corpuscular Volume 87 fL (79-100) Mean Corpuscular Hemoglobin 30 pg (25-35) Mean Corpuscular Hemoglobin Concent 34 g/dL (31-37) Red Cell Distribution Width 16.6 % (11.5-14.5) Platelet Count 554 x10^3/uL (140-400) Neutrophils (%) (Auto) 66 % (31-73) Lymphocytes (%) (Auto) 18 % (24-48) Monocytes (%) (Auto) 11 % (0-9) Eosinophils (%) (Auto) 3 % (0-3) Basophils (%) (Auto) 2 % (0-3) Neutrophils # (Auto) 4.7 x10^3/uL (1.8-7.7) Lymphocytes # (Auto) 1.3 x10^3/uL (1.0-4.8) Monocytes # (Auto) 0.8 x10^3/uL (0.0-1.1) Eosinophils # (Auto) 0.2 x10^3/uL (0.0-0.7) Basophils # (Auto) 0.1 x10^3/uL (0.0-0.2) Sodium Level 135 mmol/L (136-145) Potassium Level 4.8 mmol/L (3.5-5.1) Chloride Level 101 mmol/L (98-107) Carbon Dioxide Level 28 mmol/L (21-32) Anion Gap 6 (6-14) Blood Urea Nitrogen 9 mg/dL (8-26) Creatinine 0.9 mg/dL (0.7-1.3) Estimated GFR (Cockcroft-Gault) 100.1 BUN/Creatinine Ratio 10 (6-20) Glucose Level 79 mg/dL (70-99) Calcium Level 7.9 mg/dL (8.5-10.1) Total Bilirubin 0.3 mg/dL (0.2-1.0) Aspartate Amino Transf (AST/SGOT) 34 U/L (15-37) Alanine Aminotransferase (ALT/SGPT) 21 U/L (16-63) Alkaline Phosphatase 59 U/L (46-116) Total Protein 6.1 g/dL (6.4-8.2) Albumin 1.7 g/dL (3.4-5.0) Albumin/Globulin Ratio 0.4 (1.0-1.7) Test 03/19/19 07:51 Glucose (Fingerstick) 75 mg/dL (70-99) Medications Active Scripts Medications Dose Route/Sig Max Daily Dose Days Date Category Dose Instructions Tizanidine Hcl 4 Mg Tablet 1 Tab PO QHS 03/09/19 Reported Ammonium Lactate 226 Gm Lotion 1 Nando TP BID 10 12/31/18 Rx Percocet 5-325 Mg Tablet (Oxycodone/Acetaminophen) 1 Each Tablet 1 Tab PO PRN Q4HRS PRN 10 12/31/18 Rx Eliquis (Apixaban) 2.5 Mg Tablet 2.5 Mg PO BID 14 12/31/18 Rx Fosamax (Alendronate Sodium) 70 Mg Tablet 70 Mg PO WEEKLY 12/25/18 Reported pt takes medication on friday Vitamin D3 (Cholecalciferol (Vitamin D3)) 5,000 Unit Tablet 5,000 Unit PO WEEKLY 11/17/14 Reported Impression . IMPRESSION: 1. acute resp failue 2. Chronic obstructive pulmonary disease. 3. Osteomyelitis. 4. s/p bilateral lower extremity amputations 5. Severe protein malnutrition. 6. Osteomyelitis. 7. Severe weight loss. Plan . DC PLANNING A CHALLENGE PT AT TIMES REFUSES TO WORK WITH PT PT AGREES TO PARTICIPATE IN THERAPY MEHREEN BANSAL MD Mar 19, 2019 09:29
--- NOTE | 2019-03-19 09:33 | PDOC ---
PROGRESS NOTES Chief Complaint Chief Complaint Bilateral heel ulcer/wounds with cellulitis - Bilateral AKA 03/12/2019 Depression Severe Protein Calorie Malnutrition PAD, mild to mod, medical mx/ now s.p AKA DM 2 fair control Dementia HTN Underweight Gen weakness Dry skin Cad with remote stenting hx on eliquis NORBERTO [facility]N History of Present Illness History of Present Illness no new medical issues waiting for [facility] to approve SNU PLAN: MEdically ready to dc to SNU JULIENNE redd Vitals Vitals Vital Signs Date Time Temp Pulse Resp B/P (MAP) Pulse Ox O2 Delivery O2 Flow Rate FiO2 03/19/19 07:22 Room Air 03/19/19 07:00 98.8 76 18 104/68 (80) 97 98.8 03/18/19 12:18 2.0 Physical Exam Physical Exam CONSTITUTIONAL: He is lying in bed. He appears comfortable. He is in no acute distress. HEENT: He has normal conjunctivae. Oral cavity, pharynx is dry. Edentulous. NECK: Without any JVD. No fullness. LUNGS: Decreased in the bases. HEART: S1, S2. ABDOMEN: Soft. No guarding or rebound. Positive bowel sounds. EXTREMITIES: brayan AKA, incision good Post op wounds SKIN: Warm to touch without generalized signs of rash. NEUROLOGIC: alert cooperative. Moves all extremities. General: Alert, Oriented X3, Cooperative, No acute distress Heart: Regular rate (SR per EKG), Normal S1, Normal S2, Other (S/6 systolic murmur to LLS border) Lungs: Clear Abdomen: Soft, No tenderness Extremities: No cyanosis, No edema, Other (Bilateral AKA, dressing is clean dry and intact. No erythema, or rashes surrounding the incisions.) Skin: No rashes, No breakdown Labs LABS Laboratory Tests Test 03/18/19 10:38 03/18/19 17:06 03/18/19 20:57 03/19/19 04:57 Glucose (Fingerstick) 119 mg/dL (70-99) 72 mg/dL (70-99) 139 mg/dL (70-99) White Blood Count 7.2 x10^3/uL (4.0-11.0) Red Blood Count 2.92 x10^6/uL (4.30-5.70) Hemoglobin 8.6 g/dL (13.0-17.5) Hematocrit 25.3 % (39.0-53.0) Mean Corpuscular Volume 87 fL (79-100) Mean Corpuscular Hemoglobin 30 pg (25-35) Mean Corpuscular Hemoglobin Concent 34 g/dL (31-37) Red Cell Distribution Width 16.6 % (11.5-14.5) Platelet Count 554 x10^3/uL (140-400) Neutrophils (%) (Auto) 66 % (31-73) Lymphocytes (%) (Auto) 18 % (24-48) Monocytes (%) (Auto) 11 % (0-9) Eosinophils (%) (Auto) 3 % (0-3) Basophils (%) (Auto) 2 % (0-3) Neutrophils # (Auto) 4.7 x10^3/uL (1.8-7.7) Lymphocytes # (Auto) 1.3 x10^3/uL (1.0-4.8) Monocytes # (Auto) 0.8 x10^3/uL (0.0-1.1) Eosinophils # (Auto) 0.2 x10^3/uL (0.0-0.7) Basophils # (Auto) 0.1 x10^3/uL (0.0-0.2) Sodium Level 135 mmol/L (136-145) Potassium Level 4.8 mmol/L (3.5-5.1) Chloride Level 101 mmol/L (98-107) Carbon Dioxide Level 28 mmol/L (21-32) Anion Gap 6 (6-14) Blood Urea Nitrogen 9 mg/dL (8-26) Creatinine 0.9 mg/dL (0.7-1.3) Estimated GFR (Cockcroft-Gault) 100.1 BUN/Creatinine Ratio 10 (6-20) Glucose Level 79 mg/dL (70-99) Calcium Level 7.9 mg/dL (8.5-10.1) Total Bilirubin 0.3 mg/dL (0.2-1.0) Aspartate Amino Transf (AST/SGOT) 34 U/L (15-37) Alanine Aminotransferase (ALT/SGPT) 21 U/L (16-63) Alkaline Phosphatase 59 U/L (46-116) Total Protein 6.1 g/dL (6.4-8.2) Albumin 1.7 g/dL (3.4-5.0) Albumin/Globulin Ratio 0.4 (1.0-1.7) Test 03/19/19 07:51 Glucose (Fingerstick) 75 mg/dL (70-99) Review of Systems Review of Systems weak, all else 14 pt neg Assessment and Plan Assessmemt and Plan Problems Medical Problems: (1) Necrotic toes Status: Acute (2) Ulcer of left heel Status: Acute Comment Review of Relevant I have reviewed the following items segun (where applicable) has been applied. Labs Laboratory Tests Test 03/17/19 11:17 03/17/19 16:36 03/17/19 20:23 03/18/19 00:02 Glucose (Fingerstick) 107 mg/dL (70-99) 86 mg/dL (70-99) 75 mg/dL (70-99) 81 mg/dL (70-99) Test 03/18/19 04:15 03/18/19 07:21 03/18/19 10:38 03/18/19 17:06 White Blood Count 5.1 x10^3/uL (4.0-11.0) Red Blood Count 3.17 x10^6/uL (4.30-5.70) Hemoglobin 9.0 g/dL (13.0-17.5) Hematocrit 27.7 % (39.0-53.0) Mean Corpuscular Volume 87 fL (79-100) Mean Corpuscular Hemoglobin 28 pg (25-35) Mean Corpuscular Hemoglobin Concent 33 g/dL (31-37) Red Cell Distribution Width 17.0 % (11.5-14.5) Platelet Count 520 x10^3/uL (140-400) Neutrophils (%) (Auto) 55 % (31-73) Lymphocytes (%) (Auto) 23 % (24-48) Monocytes (%) (Auto) 11 % (0-9) Eosinophils (%) (Auto) 7 % (0-3) Basophils (%) (Auto) 3 % (0-3) Neutrophils # (Auto) 2.8 x10^3/uL (1.8-7.7) Lymphocytes # (Auto) 1.2 x10^3/uL (1.0-4.8) Monocytes # (Auto) 0.6 x10^3/uL (0.0-1.1) Eosinophils # (Auto) 0.4 x10^3/uL (0.0-0.7) Basophils # (Auto) 0.1 x10^3/uL (0.0-0.2) Sodium Level 136 mmol/L (136-145) Potassium Level 5.2 mmol/L (3.5-5.1) Chloride Level 101 mmol/L (98-107) Carbon Dioxide Level 30 mmol/L (21-32) Anion Gap 5 (6-14) Blood Urea Nitrogen 4 mg/dL (8-26) Creatinine 0.9 mg/dL (0.7-1.3) Estimated GFR (Cockcroft-Gault) 100.1 BUN/Creatinine Ratio 4 (6-20) Glucose Level 75 mg/dL (70-99) Calcium Level 8.5 mg/dL (8.5-10.1) Total Bilirubin 0.2 mg/dL (0.2-1.0) Aspartate Amino Transf (AST/SGOT) 42 U/L (15-37) Alanine Aminotransferase (ALT/SGPT) 18 U/L (16-63) Alkaline Phosphatase 60 U/L (46-116) Total Protein 6.1 g/dL (6.4-8.2) Albumin 1.6 g/dL (3.4-5.0) Albumin/Globulin Ratio 0.4 (1.0-1.7) Glucose (Fingerstick) 66 mg/dL (70-99) 119 mg/dL (70-99) 72 mg/dL (70-99) Test 03/18/19 20:57 03/19/19 04:57 03/19/19 07:51 Glucose (Fingerstick) 139 mg/dL (70-99) 75 mg/dL (70-99) White Blood Count 7.2 x10^3/uL (4.0-11.0) Red Blood Count 2.92 x10^6/uL (4.30-5.70) Hemoglobin 8.6 g/dL (13.0-17.5) Hematocrit 25.3 % (39.0-53.0) Mean Corpuscular Volume 87 fL (79-100) Mean Corpuscular Hemoglobin 30 pg (25-35) Mean Corpuscular Hemoglobin Concent 34 g/dL (31-37) Red Cell Distribution Width 16.6 % (11.5-14.5) Platelet Count 554 x10^3/uL (140-400) Neutrophils (%) (Auto) 66 % (31-73) Lymphocytes (%) (Auto) 18 % (24-48) Monocytes (%) (Auto) 11 % (0-9) Eosinophils (%) (Auto) 3 % (0-3) Basophils (%) (Auto) 2 % (0-3) Neutrophils # (Auto) 4.7 x10^3/uL (1.8-7.7) Lymphocytes # (Auto) 1.3 x10^3/uL (1.0-4.8) Monocytes # (Auto) 0.8 x10^3/uL (0.0-1.1) Eosinophils # (Auto) 0.2 x10^3/uL (0.0-0.7) Basophils # (Auto) 0.1 x10^3/uL (0.0-0.2) Sodium Level 135 mmol/L (136-145) Potassium Level 4.8 mmol/L (3.5-5.1) Chloride Level 101 mmol/L (98-107) Carbon Dioxide Level 28 mmol/L (21-32) Anion Gap 6 (6-14) Blood Urea Nitrogen 9 mg/dL (8-26) Creatinine 0.9 mg/dL (0.7-1.3) Estimated GFR (Cockcroft-Gault) 100.1 BUN/Creatinine Ratio 10 (6-20) Glucose Level 79 mg/dL (70-99) Calcium Level 7.9 mg/dL (8.5-10.1) Total Bilirubin 0.3 mg/dL (0.2-1.0) Aspartate Amino Transf (AST/SGOT) 34 U/L (15-37) Alanine Aminotransferase (ALT/SGPT) 21 U/L (16-63) Alkaline Phosphatase 59 U/L (46-116) Total Protein 6.1 g/dL (6.4-8.2) Albumin 1.7 g/dL (3.4-5.0) Albumin/Globulin Ratio 0.4 (1.0-1.7) Laboratory Tests Test 03/18/19 10:38 03/18/19 17:06 03/18/19 20:57 03/19/19 04:57 Glucose (Fingerstick) 119 mg/dL (70-99) 72 mg/dL (70-99) 139 mg/dL (70-99) White Blood Count 7.2 x10^3/uL (4.0-11.0) Red Blood Count 2.92 x10^6/uL (4.30-5.70) Hemoglobin 8.6 g/dL (13.0-17.5) Hematocrit 25.3 % (39.0-53.0) Mean Corpuscular Volume 87 fL (79-100) Mean Corpuscular Hemoglobin 30 pg (25-35) Mean Corpuscular Hemoglobin Concent 34 g/dL (31-37) Red Cell Distribution Width 16.6 % (11.5-14.5) Platelet Count 554 x10^3/uL (140-400) Neutrophils (%) (Auto) 66 % (31-73) Lymphocytes (%) (Auto) 18 % (24-48) Monocytes (%) (Auto) 11 % (0-9) Eosinophils (%) (Auto) 3 % (0-3) Basophils (%) (Auto) 2 % (0-3) Neutrophils # (Auto) 4.7 x10^3/uL (1.8-7.7) Lymphocytes # (Auto) 1.3 x10^3/uL (1.0-4.8) Monocytes # (Auto) 0.8 x10^3/uL (0.0-1.1) Eosinophils # (Auto) 0.2 x10^3/uL (0.0-0.7) Basophils # (Auto) 0.1 x10^3/uL (0.0-0.2) Sodium Level 135 mmol/L (136-145) Potassium Level 4.8 mmol/L (3.5-5.1) Chloride Level 101 mmol/L (98-107) Carbon Dioxide Level 28 mmol/L (21-32) Anion Gap 6 (6-14) Blood Urea Nitrogen 9 mg/dL (8-26) Creatinine 0.9 mg/dL (0.7-1.3) Estimated GFR (Cockcroft-Gault) 100.1 BUN/Creatinine Ratio 10 (6-20) Glucose Level 79 mg/dL (70-99) Calcium Level 7.9 mg/dL (8.5-10.1) Total Bilirubin 0.3 mg/dL (0.2-1.0) Aspartate Amino Transf (AST/SGOT) 34 U/L (15-37) Alanine Aminotransferase (ALT/SGPT) 21 U/L (16-63) Alkaline Phosphatase 59 U/L (46-116) Total Protein 6.1 g/dL (6.4-8.2) Albumin 1.7 g/dL (3.4-5.0) Albumin/Globulin Ratio 0.4 (1.0-1.7) Test 03/19/19 07:51 Glucose (Fingerstick) 75 mg/dL (70-99) Microbiology 03/08/19 Blood Culture - Final, Complete NO GROWTH AFTER 5 DAYS Medications Current Medications Sodium Chloride 1,000 ml @ 1,860 mls/hr Q33M IV Last administered on 03/08/19at 17:40; Start 03/08/19 at 16:04; Stop 03/08/19 at 17:04; Status DC Piperacillin Sod/ Tazobactam Sod 4.5 gm/Sodium Chloride 100 ml @ 200 mls/hr 1X ONCE IV Last administered on 03/08/19at 16:41; Start 03/08/19 at 16:15; Stop 03/08/19 at 16:44; Status DC Vancomycin HCl (Vanco Per Pharmacy) 1 each 1X ONCE MC ; Start 03/08/19 at 16:15; Stop 03/08/19 at 16:24; Status DC Morphine Sulfate (Morphine Sulfate) 4 mg PRN Q15MIN PRN IV/SQ PAIN GREATER THAN 3/10; Start 03/08/19 at 16:15; Stop 03/09/19 at 08:35; Status DC Vancomycin HCl 1.25 gm/Sodium Chloride 250 ml @ 167 mls/hr ONCE ONCE IV Last administered on 03/08/19at 17:40; Start 03/08/19 at 16:30; Stop 03/08/19 at 17:59; Status DC Ondansetron HCl (Zofran) 4 mg PRN Q8HRS PRN IV NAUSEA/VOMITING; Start 03/08/19 at 18:15; Stop 03/08/19 at 21:18; Status DC Morphine Sulfate (Morphine Sulfate) 4 mg PRN Q2HR PRN IV SEVERE PAIN 7-10; Start 03/08/19 at 18:15; Stop 03/09/19 at 08:35; Status DC Sodium Chloride 1,000 ml @ 75 mls/hr 1X ONCE IV Last administered on 03/08/19at 21:25; Start 03/08/19 at 18:15; Stop 03/09/19 at 07:34; Status DC Ondansetron HCl (Zofran) 4 mg PRN Q6HRS PRN IV NAUSEA/VOMITING 1ST CHOICE; Start 03/08/19 at 21:15 Lactic Acid (Lac-Hydrin) 1 nando BID TP Last administered on 03/15/19at 08:16; Start 03/09/19 at 09:00; Stop 03/15/19 at 19:58; Status DC Non-Formulary Medication (Alendronate Sodium (Fosamax)) 70 mg WEEKLY PO ; Start 03/15/19 at 09:00; Status UNV Vitamin D (Vitamin D3) 5,000 unit WEEKLY PO Last administered on 03/15/19at 08:15; Start 03/15/19 at 09:00 Piperacillin Sod/ Tazobactam Sod 3.375 gm/Sodium Chloride 50 ml @ 100 mls/hr Q6HRS IV ; Start 03/09/19 at 00:00; Status UNV Tramadol HCl (Ultram) 50 mg PRN Q6HRS PRN PO MODERATE PAIN Last administered on 03/14/19at 13:13; Start 03/08/19 at 21:15 Insulin Human Lispro (HumaLOG) 0-5 UNITS TIDACHC SQ ; Start 03/09/19 at 07:30; Stop 03/09/19 at 08:31; Status DC Dextrose (Dextrose 50%-Water Syringe) 12.5 gm PRN Q15MIN PRN IV SEE COMMENTS Last administered on 03/18/19at 07:36; Start 03/08/19 at 21:15 Enoxaparin Sodium (Lovenox 40mg Syringe) 40 mg Q24H SQ Last administered on 03/17/19at 21:56; Start 03/08/19 at 22:00 Piperacillin Sod/ Tazobactam Sod 2.25 gm/Sodium Chloride 50 ml @ 100 mls/hr Q6HRS IV Last administered on 03/09/19at 05:54; Start 03/09/19 at 00:00; Stop 03/09/19 at 10:17; Status DC Potassium Chloride (Klor-Con) 40 meq 1X ONCE PO Last administered on 03/08/19at 22:20; Start 03/08/19 at 22:00; Stop 03/08/19 at 22:01; Status DC Acetaminophen (Tylenol) 500 mg PRN Q6HRS PRN PO TEMP/HEADACHE; Start 03/09/19 at 08:30 Acetaminophen/ Codeine Phosphate (Tylenol #3) 1 tab PRN Q6HRS PRN PO MILD PAIN 1-3; Start 03/09/19 at 08:30 Morphine Sulfate (Morphine Sulfate) 2 mg PRN Q2HR PRN IV PAIN Last administered on 03/14/19at 16:10; Start 03/09/19 at 08:30 Oxycodone/ Acetaminophen (Percocet 5/325) 1 tab PRN Q4HRS PRN PO SEVERE PAIN 7- 10 Last administered on 03/14/19at 20:40; Start 03/09/19 at 08:30 Piperacillin Sod/ Tazobactam Sod 3.375 gm/Sodium Chloride 50 ml @ 100 mls/hr Q6HRS IV Last administered on 03/15/19at 05:39; Start 03/09/19 at 12:00; Stop 03/15/19 at 08:43; Status DC Micafungin Sodium 100 mg/Dextrose 100 ml @ 100 mls/hr Q24H IV Last administered on 03/13/19at 11:57; Start 03/09/19 at 11:00; Stop 03/14/19 at 08:23; Status DC Vancomycin HCl (Vanco Per Pharmacy) 1 each PRN DAILY PRN MC SEE COMMENTS Last administered on 03/13/19at 16:16; Start 03/09/19 at 11:15; Stop 03/14/19 at 08:23; Status DC Vancomycin HCl 750 mg/Sodium Chloride 250 ml @ 250 mls/hr Q24H IV Last administered on 03/09/19at 17:11; Start 03/09/19 at 17:00; Stop 03/10/19 at 17:02; Status DC Vancomycin HCl (Vancomycin Trough Level) 1 each 1X ONCE MC Last administered on 03/10/19at 16:30; Start 03/10/19 at 16:30; Stop 03/10/19 at 16:31; Status DC Multivitamins (Thera M Plus) 1 tab DAILY PO Last administered on 03/19/19 08:03; Start 03/10/19 at 09:00 Dextrose/Sodium Chloride 1,000 ml @ 75 mls/hr [id number] IV Last administered on 03/09/19 17:30; Start 03/09/19 at 17:30; Stop 03/10/19 at 06:49; Status DC Lactobacillus Rhamnosus (Culturelle) 1 cap BID PO Last administered on 03/19/19 08:03; Start 03/10/19 at 21:00 Vancomycin HCl 1 gm/Sodium Chloride 250 ml @ 250 mls/hr Q24H IV Last administered on 03/13/19 17:41; Start 03/10/19 at 17:30; Stop 03/14/19 at 08:23; Status DC Vancomycin HCl (Vancomycin Trough Level) 1 each 1X ONCE MC Last administered on 03/12/19 17:00; Start 03/12/19 at 17:00; Stop 03/12/19 at 17:01; Status DC Bupivacaine HCl/ Epinephrine Bitart (Sensorcaine-Epi 0.25%-1:[id number] Mpf) 30 ml 1X ONCE INJ Last administered on 03/12/19 18:04; Start 03/12/19 at 08:00; Stop 03/12/19 at 08:01; Status DC Aspirin (Ecotrin) 81 mg [id number] PO Last administered on 03/19/19 08:03; Start 03/12/19 at 08:00 Atorvastatin Calcium (Lipitor) 10 mg QHS PO Last administered on 03/18/19at 21:04; Start 03/11/19 at 21:00 Metoprolol Tartrate (Lopressor Vial) 5 mg PRN Q6HRS PRN IVP HYPERTENSION; Start 03/11/19 at 16:00 Ondansetron HCl (Zofran) 4 mg PRN Q6HRS PRN IV NAUSEA/VOMITING; Start 03/12/19 at 07:00; Stop 03/13/19 at 06:59; Status DC Fentanyl Citrate (Fentanyl 2ml Vial) 25 mcg PRN Q5MIN PRN IV MILD PAIN 1-3 Last administered on 03/12/19at 21:28; Start 03/12/19 at 07:00; Stop 03/13/19 at 06:59; Status DC Fentanyl Citrate (Fentanyl 2ml Vial) 50 mcg PRN Q5MIN PRN IV MODERATE TO SEVERE PAIN; Start 03/12/19 at 07:00; Stop 03/13/19 at 06:59; Status DC Morphine Sulfate (Morphine Sulfate) 1 mg PRN Q10MIN PRN IV SEVERE PAIN 7-10; Start 03/12/19 at 07:00; Stop 03/13/19 at 06:59; Status DC Ringer's Solution 1,000 ml @ 30 mls/hr Q24H IV Last administered on 03/12/19at 17:12; Start 03/12/19 at 07:00; Stop 03/12/19 at 18:59; Status DC Lidocaine HCl (Xylocaine-Mpf 1% 2ml Vial) 2 ml PRN 1X PRN ID PRIOR TO IV START; Start 03/12/19 at 07:00; Stop 03/13/19 at 06:59; Status DC Hydromorphone HCl (Dilaudid) 0.5 mg PRN Q10MIN PRN IV SEV PAIN, Second choice; Start 03/12/19 at 07:00; Stop 03/13/19 at 06:59; Status DC Prochlorperazine Edisylate (Compazine) 5 mg PACU PRN PRN IV NAUSEA, MRX1; Start 03/12/19 at 07:00; Stop 03/13/19 at 06:59; Status DC Potassium Chloride/Dextrose/ Sod Cl 1,000 ml @ 80 mls/hr [id number] IV Last administered on 03/17/19at 00:12; Start 03/12/19 at 07:45; Stop 03/18/19 at 07:03; Status DC Amino Acids/ Glycerin/ Electrolytes 1,000 ml @ 80 mls/hr [id number] IV ; Start 03/12/19 at 09:30; Stop 03/12/19 at 09:47; Status DC Sevoflurane (Ultane) 90 ml STK-MED ONCE IH ; Start 03/12/19 at 15:32; Stop 03/12/19 at 15:33; Status DC Rocuronium [place] (Zemuron) 50 mg STK-MED ONCE .ROUTE ; Start 03/12/19 at 15:32; Stop 03/12/19 at 15:33; Status DC Fentanyl Citrate (Fentanyl 2ml Vial) 100 mcg STK-MED ONCE .ROUTE ; Start 03/12/19 at 15:32; Stop 03/12/19 at 15:33; Status DC Neostigmine Methylsulfate (Neostigmine Methylsulfate) 5 mg STK-MED ONCE .ROUTE ; Start 03/12/19 at 15:33; Stop 03/12/19 at 15:33; Status DC Glycopyrrolate (Robinul) 1 mg STK-MED ONCE .ROUTE ; Start 03/12/19 at 15:33; Stop 03/12/19 at 15:33; Status DC Dexamethasone Sodium Phosphate (Decadron) 4 mg STK-MED ONCE .ROUTE ; Start 03/12/19 at 15:33; Stop 03/12/19 at 15:33; Status DC Propofol 20 ml @ As Directed STK-MED ONCE IV ; Start 03/12/19 at 15:33; Stop 03/12/19 at 15:33; Status DC Lidocaine HCl (Lidocaine Pf 2% Vial) 5 ml STK-MED ONCE .ROUTE ; Start 03/12/19 at 15:33; Stop 03/12/19 at 15:33; Status DC Ondansetron HCl (Zofran) 4 mg STK-MED ONCE .ROUTE ; Start 03/12/19 at 15:33; Stop 03/12/19 at 15:33; Status DC Phenylephrine HCl (PHENYLEPHRINE in 0.9% NACL PF) 1 mg STK-MED ONCE IV ; Start 03/12/19 at 17:27; Stop 03/12/19 at 17:27; Status DC Ephedrine Sulfate (ePHEDrine PF IN SALINE SYRINGE) 50 mg STK-MED ONCE IV ; Start 03/12/19 at 17:43; Stop 03/12/19 at 17:43; Status DC Albuterol Sulfate (Ventolin Neb Soln) 2.5 mg STK-MED ONCE .ROUTE ; Start 03/12/19 at 20:06; Stop 03/12/19 at 20:07; Status DC Albuterol Sulfate (Ventolin Neb Soln) 2.5 mg 1X ONCE NEB Last administered on 03/12/19at 20:21; Start 03/12/19 at 20:15; Stop 03/12/19 at 20:32; Status DC Amoxicillin/ Clavulanate Potassium (Augmentin 500/ 125mg) 1 tab BID PO Last administered on 03/19/19at 08:03; Start 03/15/19 at 09:00 Fluoxetine HCl (PROzac) 20 mg DAILY PO Last administered on 03/19/19at 08:03; Start 03/18/19 at 09:00 Active Scripts Active Augmentin 875-125 Tablet (Amoxicillin/Potassium Clav) 1 Each Tablet 1 Tab PO BID 10 Days Thera-M Tablet (Multivits,Ca,Minerals/Iron/Fa) 1 Each Tablet 1 Tab PO DAILY Aspirin Ec (Aspirin) 81 Mg Tablet.dr 81 Mg PO [id number] Atorvastatin Calcium 10 Mg Tablet 10 Mg PO QHS Percocet 5-325 Mg Tablet (Oxycodone/Acetaminophen) 1 Each Tablet 1 Tab PO PRN Q4HRS PRN 10 Days Ammonium Lactate 226 Gm Lotion 1 Nando TP BID 10 Days Eliquis (Apixaban) 2.5 Mg Tablet 2.5 Mg PO BID 14 Days Reported Tizanidine Hcl 4 Mg Tablet 1 Tab PO QHS Fosamax (Alendronate Sodium) 70 Mg Tablet 70 Mg PO WEEKLY pt takes medication on friday Vitamin D3 (Cholecalciferol (Vitamin D3)) 5,000 Unit Tablet 5,000 Unit PO WEEKLY Vitals/I & O Vital Sign - Last 24 Hours 03/18/19 03/18/19 03/18/19 03/18/19 11:00 12:18 15:00 19:15 Temp 98.5 98.2 99.4 98.5 98.2 99.4 Pulse 90 83 91 Resp 18 18 18 B/P (MAP) 99/59 (72) 121/65 (83) 101/61 (74) Pulse Ox 97 98 97 O2 Delivery Room Air Room Air Room Air Room Air O2 Flow Rate 2.0 03/18/19 03/18/19 03/19/19 03/19/19 19:35 22:54 02:45 07:00 Temp 99.1 98.1 98.8 99.1 98.1 98.8 Pulse 86 81 76 Resp 18 18 18 B/P (MAP) 107/69 (82) 116/74 (88) 104/68 (80) Pulse Ox 96 100 97 O2 Delivery Room Air Room Air Room Air Room Air 03/19/19 07:22 O2 Delivery Room Air Intake and Output 03/18/19 03/18/19 03/19/19 15:00 23:00 07:00 Intake Total 320 ml 0 ml Output Total 400 ml 850 ml Balance -400 ml -530 ml 0 ml Nutrition Consultation Dietary Evaluation: Recommendations by RD: Dietary education by RD, Protein supplementation Comments: REC continue liberlized diet : regular rosa bid REC continue mvi q day per wound protocal Expected Outcomes/Goals: to meet >75% est nutr needs improved wound status BS control Interpretation of weight loss: >1-2% in 1 week Malnutrition Findings: Body Fat Depletion (Non Severe: Mod to Severe Weight Status: Underweight HANSA SIMMS MD Mar 19, 2019 09:33
[2019-03-19 11:00] VITALS: BP 112/67
--- NOTE | 2019-03-19 12:11 | NUR ---
ADALBERTO following. Discussed with RN. Pt wanting outpatient therapy. ADALBERTO met with pt, pt would like to do outpatient therapy here. ADALBERTO faxed referral to [facility] outpatient therapy ([id number]) to run benefits. Outpt therapy will contact pt to schedule a time. RN notified. No further ADALBERTO needs. Addendum: 03/19/19 at 1410 by LORA GLOVER CHARTED ON INCORRECT PATIENT DISREGARD PREVIOUS NOTE Pt's SNU referral has been [facility]. ADALBERTO will continue to follow. Addendum: 03/19/19 at 1555 by LORA GLOVER ADALBERTO following. [facility] declined to take pt due to pt being a smoker, and the fact they do not have any LTC beds to transition pt into. ADALBERTO contacted Raul at [facility] to explain situation. Raul requested referral, is going to try for a one time contract with insurance, and transitioning into LTC. ADALBERTO awaiting further information.
[2019-03-19 15:00] VITALS: BP 102/61
[2019-03-19] MEDS ORDERED: NICOTINE POLACRILEX 2MG GUM PACKAGE of 12. BC PRN (17:00)
[2019-03-19 19:00] VITALS: BP 119/72
[2019-03-19] MEDS: DEXTROSE 50% 25 GM / 50ML DISP.SYRIN. IV PRN (20:29)
[2019-03-19] MEDS: ATORVASTATIN CALCIUM 10 MG TABLET. PO SCH (20:30)
[2019-03-19] MEDS: ENOXAPARIN 40 MG/0.4 ML SYRINGE. SQ SCH (20:37)
[2019-03-19 23:05] VITALS: BP 110/66
[2019-03-20 02:45] VITALS: BP 105/66
[2019-03-20 06:44] LABS: BASO # 0.2 x10^3/uL (0.0-0.2); BASO % 3 % (0-3); EOS # 0.2 x10^3/uL (0.0-0.7); EOS % 4 % (0-3); HEMATOCRIT 25.7 % (39.0-53.0); HEMOGLOBIN 8.6 g/dL (13.0-17.5); LYMPH # 1.1 x10^3/uL (1.0-4.8); LYMPH % 17 % (24-48); MEAN CORPUSCULAR HEMOGLOBIN 29 pg (25-35); MEAN CORPUSCULAR HGB CONC 33 g/dL (31-37); MEAN CORPUSCULAR VOLUME 87 fL (79-100); MONO # 0.7 x10^3/uL (0.0-1.1); MONO % 11 % (0-9); NEUT # 4.1 x10^3/uL (1.8-7.7); NEUT % 66 % (31-73); PLATELET COUNT 602 x10^3/uL (140-400); RED BLOOD COUNT 2.97 x10^6/uL (4.30-5.70); RED CELL DISTRIBUTION WIDTH 16.5 % (11.5-14.5); WHITE BLOOD COUNT 6.3 x10^3/uL (4.0-11.0)
[2019-03-20 07:00] VITALS: BP 111/63
[2019-03-20] MEDS: DEXTROSE 50% 25 GM / 50ML DISP.SYRIN. IV PRN (07:05)
[2019-03-20 07:06] LABS: ALBUMIN 1.9 g/dL (3.4-5.0); ALBUMIN/GLOBULIN RATIO 0.4 (1.0-1.7); CALCIUM 8.3 mg/dL (8.5-10.1); GFR 88.6; POTASSIUM 4.4 mmol/L (3.5-5.1); TOTAL BILIRUBIN 0.3 mg/dL (0.2-1.0); TOTAL PROTEIN 6.5 g/dL (6.4-8.2)
[2019-03-20] MEDS: AMOXICILLIN/K CLAV 500/125MG TABLET. PO SCH ×2 (07:51→20:13)
[2019-03-20] MEDS: ASPIRIN ENTERIC COATED 81 MG TABLET.DR. PO SCH (07:51)
[2019-03-20] MEDS: MULTIVITAMIN with MINERAL TABLET. PO SCH (07:51)
[2019-03-20] MEDS: FLUoxetine HCL 20 MG CAPSULE PO SCH (07:51)
[2019-03-20] MEDS: LACTOBACILLUS RHAMNOSUS GG 1 CAPSULE. PO SCH ×2 (07:51→20:14)
--- NOTE | 2019-03-20 09:31 | NUR ---
Patient refuses to be turned every 2 hours. Educated patient on importance of turning to avoid pressure ulcers, patient continues to refuse. Addendum: 03/20/19 at 1536 by DAPHNE CHIN RN Patient also refused dressing change to bilateral AKA this shift.
--- NOTE | 2019-03-20 10:21 | PDOC ---
PROGRESS NOTES Chief Complaint Chief Complaint Bilateral heel ulcer/wounds with cellulitis - Bilateral AKA 03/12/2019 Depression Severe Protein Calorie Malnutrition PAD, mild to mod, medical mx/ now s.p AKA DM 2 fair control Dementia HTN Underweight Gen weakness Dry skin Cad with remote stenting hx on eliquis NORBERTO [facility] History of Present Illness History of Present Illness Some placement issues over the weekend Asked for nicotine gum friday no new medical issues waiting for [facility] to approve SNU PLAN: MEdically ready to dc to SNU MAR onc redd Daren gum ok Vitals Vitals Vital Signs Date Time Temp Pulse Resp B/P (MAP) Pulse Ox O2 Delivery O2 Flow Rate FiO2 03/20/19 07:14 Room Air 03/20/19 07:00 98.5 80 16 111/63 (79) 98 98.5 Physical Exam Physical Exam CONSTITUTIONAL: He is lying in bed. He appears comfortable. He is in no acute distress. HEENT: He has normal conjunctivae. Oral cavity, pharynx is dry. Edentulous. NECK: Without any JVD. No fullness. LUNGS: Decreased in the bases. HEART: S1, S2. ABDOMEN: Soft. No guarding or rebound. Positive bowel sounds. EXTREMITIES: brayan AKA, incision good Post op wounds SKIN: Warm to touch without generalized signs of rash. NEUROLOGIC: alert cooperative. Moves all extremities. General: Alert, Oriented X3, Cooperative, No acute distress Heart: Regular rate (SR per EKG), Normal S1, Normal S2, Other (S/6 systolic murmur to LLS border) Lungs: Clear Abdomen: Soft, No tenderness Extremities: No cyanosis, No edema, Other (Bilateral AKA, dressing is clean dry and intact. No erythema, or rashes surrounding the incisions.) Skin: No rashes, No breakdown Labs LABS Laboratory Tests Test 03/19/19 11:59 03/19/19 16:32 03/19/19 20:16 03/19/19 20:58 Glucose (Fingerstick) 76 mg/dL (70-99) 82 mg/dL (70-99) 63 mg/dL (70-99) 140 mg/dL (70-99) Test 03/20/19 04:50 03/20/19 06:59 03/20/19 07:35 White Blood Count 6.3 x10^3/uL (4.0-11.0) Red Blood Count 2.97 x10^6/uL (4.30-5.70) Hemoglobin 8.6 g/dL (13.0-17.5) Hematocrit 25.7 % (39.0-53.0) Mean Corpuscular Volume 87 fL (79-100) Mean Corpuscular Hemoglobin 29 pg (25-35) Mean Corpuscular Hemoglobin Concent 33 g/dL (31-37) Red Cell Distribution Width 16.5 % (11.5-14.5) Platelet Count 602 x10^3/uL (140-400) Neutrophils (%) (Auto) 66 % (31-73) Lymphocytes (%) (Auto) 17 % (24-48) Monocytes (%) (Auto) 11 % (0-9) Eosinophils (%) (Auto) 4 % (0-3) Basophils (%) (Auto) 3 % (0-3) Neutrophils # (Auto) 4.1 x10^3/uL (1.8-7.7) Lymphocytes # (Auto) 1.1 x10^3/uL (1.0-4.8) Monocytes # (Auto) 0.7 x10^3/uL (0.0-1.1) Eosinophils # (Auto) 0.2 x10^3/uL (0.0-0.7) Basophils # (Auto) 0.2 x10^3/uL (0.0-0.2) Sodium Level 136 mmol/L (136-145) Potassium Level 4.4 mmol/L (3.5-5.1) Chloride Level 101 mmol/L (98-107) Carbon Dioxide Level 27 mmol/L (21-32) Anion Gap 8 (6-14) Blood Urea Nitrogen 11 mg/dL (8-26) Creatinine 1.0 mg/dL (0.7-1.3) Estimated GFR (Cockcroft-Gault) 88.6 BUN/Creatinine Ratio 11 (6-20) Glucose Level 59 mg/dL (70-99) Calcium Level 8.3 mg/dL (8.5-10.1) Total Bilirubin 0.3 mg/dL (0.2-1.0) Aspartate Amino Transf (AST/SGOT) 40 U/L (15-37) Alanine Aminotransferase (ALT/SGPT) 25 U/L (16-63) Alkaline Phosphatase 64 U/L (46-116) Total Protein 6.5 g/dL (6.4-8.2) Albumin 1.9 g/dL (3.4-5.0) Albumin/Globulin Ratio 0.4 (1.0-1.7) Glucose (Fingerstick) 63 mg/dL (70-99) 134 mg/dL (70-99) Review of Systems Review of Systems asleep i did not awaken Assessment and Plan Assessmemt and Plan Problems Medical Problems: (1) Necrotic toes Status: Acute (2) Ulcer of left heel Status: Acute Comment Review of Relevant I have reviewed the following items segun (where applicable) has been applied. Labs Laboratory Tests Test 03/18/19 10:38 03/18/19 17:06 03/18/19 20:57 03/19/19 04:57 Glucose (Fingerstick) 119 mg/dL (70-99) 72 mg/dL (70-99) 139 mg/dL (70-99) White Blood Count 7.2 x10^3/uL (4.0-11.0) Red Blood Count 2.92 x10^6/uL (4.30-5.70) Hemoglobin 8.6 g/dL (13.0-17.5) Hematocrit 25.3 % (39.0-53.0) Mean Corpuscular Volume 87 fL (79-100) Mean Corpuscular Hemoglobin 30 pg (25-35) Mean Corpuscular Hemoglobin Concent 34 g/dL (31-37) Red Cell Distribution Width 16.6 % (11.5-14.5) Platelet Count 554 x10^3/uL (140-400) Neutrophils (%) (Auto) 66 % (31-73) Lymphocytes (%) (Auto) 18 % (24-48) Monocytes (%) (Auto) 11 % (0-9) Eosinophils (%) (Auto) 3 % (0-3) Basophils (%) (Auto) 2 % (0-3) Neutrophils # (Auto) 4.7 x10^3/uL (1.8-7.7) Lymphocytes # (Auto) 1.3 x10^3/uL (1.0-4.8) Monocytes # (Auto) 0.8 x10^3/uL (0.0-1.1) Eosinophils # (Auto) 0.2 x10^3/uL (0.0-0.7) Basophils # (Auto) 0.1 x10^3/uL (0.0-0.2) Sodium Level 135 mmol/L (136-145) Potassium Level 4.8 mmol/L (3.5-5.1) Chloride Level 101 mmol/L (98-107) Carbon Dioxide Level 28 mmol/L (21-32) Anion Gap 6 (6-14) Blood Urea Nitrogen 9 mg/dL (8-26) Creatinine 0.9 mg/dL (0.7-1.3) Estimated GFR (Cockcroft-Gault) 100.1 BUN/Creatinine Ratio 10 (6-20) Glucose Level 79 mg/dL (70-99) Calcium Level 7.9 mg/dL (8.5-10.1) Total Bilirubin 0.3 mg/dL (0.2-1.0) Aspartate Amino Transf (AST/SGOT) 34 U/L (15-37) Alanine Aminotransferase (ALT/SGPT) 21 U/L (16-63) Alkaline Phosphatase 59 U/L (46-116) Total Protein 6.1 g/dL (6.4-8.2) Albumin 1.7 g/dL (3.4-5.0) Albumin/Globulin Ratio 0.4 (1.0-1.7) Test 03/19/19 07:51 03/19/19 11:59 03/19/19 16:32 03/19/19 20:16 Glucose (Fingerstick) 75 mg/dL (70-99) 76 mg/dL (70-99) 82 mg/dL (70-99) 63 mg/dL (70-99) Test 03/19/19 20:58 03/20/19 04:50 03/20/19 06:59 03/20/19 07:35 Glucose (Fingerstick) 140 mg/dL (70-99) 63 mg/dL (70-99) 134 mg/dL (70-99) White Blood Count 6.3 x10^3/uL (4.0-11.0) Red Blood Count 2.97 x10^6/uL (4.30-5.70) Hemoglobin 8.6 g/dL (13.0-17.5) Hematocrit 25.7 % (39.0-53.0) Mean Corpuscular Volume 87 fL (79-100) Mean Corpuscular Hemoglobin 29 pg (25-35) Mean Corpuscular Hemoglobin Concent 33 g/dL (31-37) Red Cell Distribution Width 16.5 % (11.5-14.5) Platelet Count 602 x10^3/uL (140-400) Neutrophils (%) (Auto) 66 % (31-73) Lymphocytes (%) (Auto) 17 % (24-48) Monocytes (%) (Auto) 11 % (0-9) Eosinophils (%) (Auto) 4 % (0-3) Basophils (%) (Auto) 3 % (0-3) Neutrophils # (Auto) 4.1 x10^3/uL (1.8-7.7) Lymphocytes # (Auto) 1.1 x10^3/uL (1.0-4.8) Monocytes # (Auto) 0.7 x10^3/uL (0.0-1.1) Eosinophils # (Auto) 0.2 x10^3/uL (0.0-0.7) Basophils # (Auto) 0.2 x10^3/uL (0.0-0.2) Sodium Level 136 mmol/L (136-145) Potassium Level 4.4 mmol/L (3.5-5.1) Chloride Level 101 mmol/L (98-107) Carbon Dioxide Level 27 mmol/L (21-32) Anion Gap 8 (6-14) Blood Urea Nitrogen 11 mg/dL (8-26) Creatinine 1.0 mg/dL (0.7-1.3) Estimated GFR (Cockcroft-Gault) 88.6 BUN/Creatinine Ratio 11 (6-20) Glucose Level 59 mg/dL (70-99) Calcium Level 8.3 mg/dL (8.5-10.1) Total Bilirubin 0.3 mg/dL (0.2-1.0) Aspartate Amino Transf (AST/SGOT) 40 U/L (15-37) Alanine Aminotransferase (ALT/SGPT) 25 U/L (16-63) Alkaline Phosphatase 64 U/L (46-116) Total Protein 6.5 g/dL (6.4-8.2) Albumin 1.9 g/dL (3.4-5.0) Albumin/Globulin Ratio 0.4 (1.0-1.7) Laboratory Tests Test 03/19/19 11:59 03/19/19 16:32 03/19/19 20:16 03/19/19 20:58 Glucose (Fingerstick) 76 mg/dL (70-99) 82 mg/dL (70-99) 63 mg/dL (70-99) 140 mg/dL (70-99) Test 03/20/19 04:50 03/20/19 06:59 03/20/19 07:35 White Blood Count 6.3 x10^3/uL (4.0-11.0) Red Blood Count 2.97 x10^6/uL (4.30-5.70) Hemoglobin 8.6 g/dL (13.0-17.5) Hematocrit 25.7 % (39.0-53.0) Mean Corpuscular Volume 87 fL (79-100) Mean Corpuscular Hemoglobin 29 pg (25-35) Mean Corpuscular Hemoglobin Concent 33 g/dL (31-37) Red Cell Distribution Width 16.5 % (11.5-14.5) Platelet Count 602 x10^3/uL (140-400) Neutrophils (%) (Auto) 66 % (31-73) Lymphocytes (%) (Auto) 17 % (24-48) Monocytes (%) (Auto) 11 % (0-9) Eosinophils (%) (Auto) 4 % (0-3) Basophils (%) (Auto) 3 % (0-3) Neutrophils # (Auto) 4.1 x10^3/uL (1.8-7.7) Lymphocytes # (Auto) 1.1 x10^3/uL (1.0-4.8) Monocytes # (Auto) 0.7 x10^3/uL (0.0-1.1) Eosinophils # (Auto) 0.2 x10^3/uL (0.0-0.7) Basophils # (Auto) 0.2 x10^3/uL (0.0-0.2) Sodium Level 136 mmol/L (136-145) Potassium Level 4.4 mmol/L (3.5-5.1) Chloride Level 101 mmol/L (98-107) Carbon Dioxide Level 27 mmol/L (21-32) Anion Gap 8 (6-14) Blood Urea Nitrogen 11 mg/dL (8-26) Creatinine 1.0 mg/dL (0.7-1.3) Estimated GFR (Cockcroft-Gault) 88.6 BUN/Creatinine Ratio 11 (6-20) Glucose Level 59 mg/dL (70-99) Calcium Level 8.3 mg/dL (8.5-10.1) Total Bilirubin 0.3 mg/dL (0.2-1.0) Aspartate Amino Transf (AST/SGOT) 40 U/L (15-37) Alanine Aminotransferase (ALT/SGPT) 25 U/L (16-63) Alkaline Phosphatase 64 U/L (46-116) Total Protein 6.5 g/dL (6.4-8.2) Albumin 1.9 g/dL (3.4-5.0) Albumin/Globulin Ratio 0.4 (1.0-1.7) Glucose (Fingerstick) 63 mg/dL (70-99) 134 mg/dL (70-99) Microbiology 03/08/19 Blood Culture - Final, Complete NO GROWTH AFTER 5 DAYS Medications Current Medications Sodium Chloride 1,000 ml @ 1,860 mls/hr Q33M IV Last administered on 03/08/19at 17:40; Start 03/08/19 at 16:04; Stop 03/08/19 at 17:04; Status DC Piperacillin Sod/ Tazobactam Sod 4.5 gm/Sodium Chloride 100 ml @ 200 mls/hr 1X ONCE IV Last administered on 03/08/19at 16:41; Start 03/08/19 at 16:15; Stop 03/08/19 at 16:44; Status DC Vancomycin HCl (Vanco Per Pharmacy) 1 each 1X ONCE MC ; Start 03/08/19 at 16:15; Stop 03/08/19 at 16:24; Status DC Morphine Sulfate (Morphine Sulfate) 4 mg PRN Q15MIN PRN IV/SQ PAIN GREATER THAN 3/10; Start 03/08/19 at 16:15; Stop 03/09/19 at 08:35; Status DC Vancomycin HCl 1.25 gm/Sodium Chloride 250 ml @ 167 mls/hr ONCE ONCE IV Last administered on 03/08/19at 17:40; Start 03/08/19 at 16:30; Stop 03/08/19 at 17:59; Status DC Ondansetron HCl (Zofran) 4 mg PRN Q8HRS PRN IV NAUSEA/VOMITING; Start 03/08/19 at 18:15; Stop 03/08/19 at 21:18; Status DC Morphine Sulfate (Morphine Sulfate) 4 mg PRN Q2HR PRN IV SEVERE PAIN 7-10; Start 03/08/19 at 18:15; Stop 03/09/19 at 08:35; Status DC Sodium Chloride 1,000 ml @ 75 mls/hr 1X ONCE IV Last administered on 03/08/19at 21:25; Start 03/08/19 at 18:15; Stop 03/09/19 at 07:34; Status DC Ondansetron HCl (Zofran) 4 mg PRN Q6HRS PRN IV NAUSEA/VOMITING 1ST CHOICE; Start 03/08/19 at 21:15 Lactic Acid (Lac-Hydrin) 1 nando BID TP Last administered on 03/15/19at 08:16; Start 03/09/19 at 09:00; Stop 03/15/19 at 19:58; Status DC Non-Formulary Medication (Alendronate Sodium (Fosamax)) 70 mg WEEKLY PO ; Start 03/15/19 at 09:00; Status UNV Vitamin D (Vitamin D3) 5,000 unit WEEKLY PO Last administered on 03/15/19at 08:15; Start 03/15/19 at 09:00 Piperacillin Sod/ Tazobactam Sod 3.375 gm/Sodium Chloride 50 ml @ 100 mls/hr Q6HRS IV ; Start 03/09/19 at 00:00; Status UNV Tramadol HCl (Ultram) 50 mg PRN Q6HRS PRN PO MODERATE PAIN Last administered on 03/14/19at 13:13; Start 03/08/19 at 21:15 Insulin Human Lispro (HumaLOG) 0-5 UNITS TIDACHC SQ ; Start 03/09/19 at 07:30; Stop 03/09/19 at 08:31; Status DC Dextrose (Dextrose 50%-Water Syringe) 12.5 gm PRN Q15MIN PRN IV SEE COMMENTS Last administered on 03/20/19at 07:05; Start 03/08/19 at 21:15 Enoxaparin Sodium (Lovenox 40mg Syringe) 40 mg Q24H SQ Last administered on 03/17/19at 21:56; Start 03/08/19 at 22:00 Piperacillin Sod/ Tazobactam Sod 2.25 gm/Sodium Chloride 50 ml @ 100 mls/hr Q6HRS IV Last administered on 03/09/19at 05:54; Start 03/09/19 at 00:00; Stop 03/09/19 at 10:17; Status DC Potassium Chloride (Klor-Con) 40 meq 1X ONCE PO Last administered on 03/08/19at 22:20; Start 03/08/19 at 22:00; Stop 03/08/19 at 22:01; Status DC Acetaminophen (Tylenol) 500 mg PRN Q6HRS PRN PO TEMP/HEADACHE; Start 03/09/19 at 08:30 Acetaminophen/ Codeine Phosphate (Tylenol #3) 1 tab PRN Q6HRS PRN PO MILD PAIN 1-3; Start 03/09/19 at 08:30 Morphine Sulfate (Morphine Sulfate) 2 mg PRN Q2HR PRN IV PAIN Last administered on 03/14/19at 16:10; Start 03/09/19 at 08:30 Oxycodone/ Acetaminophen (Percocet 5/325) 1 tab PRN Q4HRS PRN PO SEVERE PAIN 7- 10 Last administered on 03/14/19at 20:40; Start 03/09/19 at 08:30 Piperacillin Sod/ Tazobactam Sod 3.375 gm/Sodium Chloride 50 ml @ 100 mls/hr Q6HRS IV Last administered on 03/15/19at 05:39; Start 03/09/19 at 12:00; Stop 03/15/19 at 08:43; Status DC Micafungin Sodium 100 mg/Dextrose 100 ml @ 100 mls/hr Q24H IV Last admi nistered on 03/13/19at 11:57; Start 03/09/19 at 11:00; Stop 03/14/19 at 08:23; Status DC Vancomycin HCl (Vanco Per Pharmacy) 1 each PRN DAILY PRN MC SEE COMMENTS Last administered on 03/13/19at 16:16; Start 03/09/19 at 11:15; Stop 03/14/19 at 08:23; Status DC Vancomycin HCl 750 mg/Sodium Chloride 250 ml @ 250 mls/hr Q24H IV Last administered on 03/09/19 17:11; Start 03/09/19 at 17:00; Stop 03/10/19 at 17:02; Status DC Vancomycin HCl (Vancomycin Trough Level) 1 each 1X ONCE MC Last administered o n 03/10/19 16:30; Start 03/10/19 at 16:30; Stop 03/10/19 at 16:31; Status DC Multivitamins (Thera M Plus) 1 tab DAILY PO Last administered on 03/20/19 07:51; Start 03/10/19 at 09:00 Dextrose/Sodium Chloride 1,000 ml @ 75 mls/hr [id number] IV Last administered on 03/09/19 17:30; Start 03/09/19 at 17:30; Stop 03/10/19 at 06:49; Status DC Lactobacillus Rhamnosus (Culturelle) 1 cap BID PO Last administered on 03/20/19 07:51; Start 03/10/19 at 21:00 Vancomycin HCl 1 gm/Sodium Chloride 250 ml @ 250 mls/hr Q24H IV Last administered on 03/13/19 17:41; Start 03/10/19 at 17:30; Stop 03/14/19 at 08:23; Status DC Vancomycin HCl (Vancomycin Trough Level) 1 each 1X ONCE MC Last administered on 03/12/19 17:00; Start 03/12/19 at 17:00; Stop 03/12/19 at 17:01; Status DC Bupivacaine HCl/ Epinephrine Bitart (Sensorcaine-Epi 0.25%-1:[id number] Mpf) 30 ml 1X ONCE INJ Last administered on 03/12/19 18:04; Start 03/12/19 at 08:00; Stop 03/12/19 at 08:01; Status DC Aspirin (Ecotrin) 81 mg [id number] PO Last administered on 03/20/19 07:51; Start 03/12/19 at 08:00 Atorvastatin Calcium (Lipitor) 10 mg QHS PO Last administered on 03/19/19 20:30; Start 03/11/19 at 21:00 Metoprolol Tartrate (Lopressor Vial) 5 mg PRN Q6HRS PRN IVP HYPERTENSION; Start 03/11/19 at 16:00 Ondansetron HCl (Zofran) 4 mg PRN Q6HRS PRN IV NAUSEA/VOMITING; Start 03/12/19 at 07:00; Stop 03/13/19 at 06:59; Status DC Fentanyl Citrate (Fentanyl 2ml Vial) 25 mcg PRN Q5MIN PRN IV MILD PAIN 1-3 Last administered on 03/12/19at 21:28; Start 03/12/19 at 07:00; Stop 03/13/19 at 06:59; Status DC Fentanyl Citrate (Fentanyl 2ml Vial) 50 mcg PRN Q5MIN PRN IV MODERATE TO SEVERE PAIN; Start 03/12/19 at 07:00; Stop 03/13/19 at 06:59; Status DC Morphine Sulfate (Morphine Sulfate) 1 mg PRN Q10MIN PRN IV SEVERE PAIN 7-10; Start 03/12/19 at 07:00; Stop 03/13/19 at 06:59; Status DC Ringer's Solution 1,000 ml @ 30 mls/hr Q24H IV Last administered on 03/12/19at 17:12; Start 03/12/19 at 07:00; Stop 03/12/19 at 18:59; Status DC Lidocaine HCl (Xylocaine-Mpf 1% 2ml Vial) 2 ml PRN 1X PRN ID PRIOR TO IV START; Start 03/12/19 at 07:00; Stop 03/13/19 at 06:59; Status DC Hydromorphone HCl (Dilaudid) 0.5 mg PRN Q10MIN PRN IV SEV PAIN, Second choice; Start 03/12/19 at 07:00; Stop 03/13/19 at 06:59; Status DC Prochlorperazine Edisylate (Compazine) 5 mg PACU PRN PRN IV NAUSEA, MRX1; Start 03/12/19 at 07:00; Stop 03/13/19 at 06:59; Status DC Potassium Chloride/Dextrose/ Sod Cl 1,000 ml @ 80 mls/hr [id number] IV Last administered on 03/17/19at 00:12; Start 03/12/19 at 07:45; Stop 03/18/19 at 07:03; Status DC Amino Acids/ Glycerin/ Electrolytes 1,000 ml @ 80 mls/hr [id number] IV ; Start 03/12/19 at 09:30; Stop 03/12/19 at 09:47; Status DC Sevoflurane (Ultane) 90 ml STK-MED ONCE IH ; Start 03/12/19 at 15:32; Stop 03/12/19 at 15:33; Status DC Rocuronium [place] (Zemuron) 50 mg STK-MED ONCE .ROUTE ; Start 03/12/19 at 15:32; Stop 03/12/19 at 15:33; Status DC Fentanyl Citrate (Fentanyl 2ml Vial) 100 mcg STK-MED ONCE .ROUTE ; Start 03/12/19 at 15:32; Stop 03/12/19 at 15:33; Status DC Neostigmine Methylsulfate (Neostigmine Methylsulfate) 5 mg STK-MED ONCE .ROUTE ; Start 03/12/19 at 15:33; Stop 03/12/19 at 15:33; Status DC Glycopyrrolate (Robinul) 1 mg STK-MED ONCE .ROUTE ; Start 03/12/19 at 15:33; Stop 03/12/19 at 15:33; Status DC Dexamethasone Sodium Phosphate (Decadron) 4 mg STK-MED ONCE .ROUTE ; Start 03/12/19 at 15:33; Stop 03/12/19 at 15:33; Status DC Propofol 20 ml @ As Directed STK-MED ONCE IV ; Start 03/12/19 at 15:33; Stop 03/12/19 at 15:33; Status DC Lidocaine HCl (Lidocaine Pf 2% Vial) 5 ml STK-MED ONCE .ROUTE ; Start 03/12/19 at 15:33; Stop 03/12/19 at 15:33; Status DC Ondansetron HCl (Zofran) 4 mg STK-MED ONCE .ROUTE ; Start 03/12/19 at 15:33; Stop 03/12/19 at 15:33; Status DC Phenylephrine HCl (PHENYLEPHRINE in 0.9% NACL PF) 1 mg STK-MED ONCE IV ; Start 03/12/19 at 17:27; Stop 03/12/19 at 17:27; Status DC Ephedrine Sulfate (ePHEDrine PF IN SALINE SYRINGE) 50 mg STK-MED ONCE IV ; Start 03/12/19 at 17:43; Stop 03/12/19 at 17:43; Status DC Albuterol Sulfate (Ventolin Neb Soln) 2.5 mg STK-MED ONCE .ROUTE ; Start 03/12/19 at 20:06; Stop 03/12/19 at 20:07; Status DC Albuterol Sulfate (Ventolin Neb Soln) 2.5 mg 1X ONCE NEB Last administered on 03/12/19at 20:21; Start 03/12/19 at 20:15; Stop 03/12/19 at 20:32; Status DC Amoxicillin/ Clavulanate Potassium (Augmentin 500/ 125mg) 1 tab BID PO Last administered on 03/20/19at 07:51; Start 03/15/19 at 09:00 Fluoxetine HCl (PROzac) 20 mg DAILY PO Last administered on 03/20/19at 07:51; Start 03/18/19 at 09:00 Nicotine Polacrilex (Nicorette Gum) 1 each PRN Q1HR PRN BC SMOKING CESSATION Last administered on 03/19/19at 16:59; Start 03/19/19 at 17:00 Active Scripts Active Augmentin 875-125 Tablet (Amoxicillin/Potassium Clav) 1 Each Tablet 1 Tab PO BID 10 Days Thera-M Tablet (Multivits,Ca,Minerals/Iron/Fa) 1 Each Tablet 1 Tab PO DAILY Aspirin Ec (Aspirin) 81 Mg Tablet. 81 Mg PO [id number] Atorvastatin Calcium 10 Mg Tablet 10 Mg PO QHS Percocet 5-325 Mg Tablet (Oxycodone/Acetaminophen) 1 Each Tablet 1 Tab PO PRN Q4HRS PRN 10 Days Ammonium Lactate 226 Gm Lotion 1 Nando TP BID 10 Days Eliquis (Apixaban) 2.5 Mg Tablet 2.5 Mg PO BID 14 Days Reported Tizanidine Hcl 4 Mg Tablet 1 Tab PO QHS Fosamax (Alendronate Sodium) 70 Mg Tablet 70 Mg PO WEEKLY pt takes medication on friday Vitamin D3 (Cholecalciferol (Vitamin D3)) 5,000 Unit Tablet 5,000 Unit PO WEEKLY Vitals/I & O Vital Sign - Last 24 Hours 03/19/19 03/19/19 03/19/19 03/19/19 11:00 15:00 19:00 19:32 Temp 99.0 98.8 98.0 99.0 98.8 98.0 Pulse 77 77 78 Resp 18 17 18 B/P (MAP) 112/67 (82) 102/61 (75) 119/72 (88) Pulse Ox 97 99 98 O2 Delivery Room Air Room Air Room Air Room Air 03/19/19 03/20/19 03/20/19 03/20/19 23:05 02:45 07:00 07:14 Temp 97.9 97.7 98.5 97.9 97.7 98.5 Pulse 77 77 80 Resp 18 18 16 B/P (MAP) 110/66 (81) 105/66 (79) 111/63 (79) Pulse Ox 97 96 98 O2 Delivery Room Air Room Air Room Air Room Air Intake and Output 03/19/19 03/19/19 03/20/19 15:00 23:00 07:00 Intake Total 220 ml Output Total 300 ml 100 ml Balance -300 ml 120 ml Nutrition Consultation Dietary Evaluation: Recommendations by RD: Dietary education by RD, Protein supplementation Comments: REC continue liberlized diet : regular rosa bid REC continue mvi q day per wound protocal Expected Outcomes/Goals: to meet >75% est nutr needs improved wound status BS control Interpretation of weight loss: >1-2% in 1 week Malnutrition Findings: Body Fat Depletion (Non Severe: Mod to Severe Weight Status: Underweight HANSA SIMMS MD Mar 20, 2019 10:21
--- NOTE | 2019-03-20 10:33 | PDOC ---
PULMONARY PROGRESS NOTES Subjective PT. is resting in bed on room, denies SOB, or cough. reports he is fine Vitals Vital Signs Date Time Temp Pulse Resp B/P (MAP) Pulse Ox O2 Delivery O2 Flow Rate FiO2 03/20/19 07:14 Room Air 03/20/19 07:00 98.5 80 16 111/63 (79) 98 98.5 ROS: No Nausea, No Chest Pain, No Abdominal Pain, No Increase Cough General: Alert, No acute distress Lungs: Clear Cardiovascular: S1, S2 Abdomen: Soft Neuro Exam: Alert, No Focal Findings Extremities: No Edema Skin: Warm Labs Laboratory Tests Test 03/18/19 10:38 03/18/19 17:06 03/18/19 20:57 03/19/19 04:57 Glucose (Fingerstick) 119 mg/dL (70-99) 72 mg/dL (70-99) 139 mg/dL (70-99) White Blood Count 7.2 x10^3/uL (4.0-11.0) Red Blood Count 2.92 x10^6/uL (4.30-5.70) Hemoglobin 8.6 g/dL (13.0-17.5) Hematocrit 25.3 % (39.0-53.0) Mean Corpuscular Volume 87 fL (79-100) Mean Corpuscular Hemoglobin 30 pg (25-35) Mean Corpuscular Hemoglobin Concent 34 g/dL (31-37) Red Cell Distribution Width 16.6 % (11.5-14.5) Platelet Count 554 x10^3/uL (140-400) Neutrophils (%) (Auto) 66 % (31-73) Lymphocytes (%) (Auto) 18 % (24-48) Monocytes (%) (Auto) 11 % (0-9) Eosinophils (%) (Auto) 3 % (0-3) Basophils (%) (Auto) 2 % (0-3) Neutrophils # (Auto) 4.7 x10^3/uL (1.8-7.7) Lymphocytes # (Auto) 1.3 x10^3/uL (1.0-4.8) Monocytes # (Auto) 0.8 x10^3/uL (0.0-1.1) Eosinophils # (Auto) 0.2 x10^3/uL (0.0-0.7) Basophils # (Auto) 0.1 x10^3/uL (0.0-0.2) Sodium Level 135 mmol/L (136-145) Potassium Level 4.8 mmol/L (3.5-5.1) Chloride Level 101 mmol/L (98-107) Carbon Dioxide Level 28 mmol/L (21-32) Anion Gap 6 (6-14) Blood Urea Nitrogen 9 mg/dL (8-26) Creatinine 0.9 mg/dL (0.7-1.3) Estimated GFR (Cockcroft-Gault) 100.1 BUN/Creatinine Ratio 10 (6-20) Glucose Level 79 mg/dL (70-99) Calcium Level 7.9 mg/dL (8.5-10.1) Total Bilirubin 0.3 mg/dL (0.2-1.0) Aspartate Amino Transf (AST/SGOT) 34 U/L (15-37) Alanine Aminotransferase (ALT/SGPT) 21 U/L (16-63) Alkaline Phosphatase 59 U/L (46-116) Total Protein 6.1 g/dL (6.4-8.2) Albumin 1.7 g/dL (3.4-5.0) Albumin/Globulin Ratio 0.4 (1.0-1.7) Test 03/19/19 07:51 03/19/19 11:59 03/19/19 16:32 03/19/19 20:16 Glucose (Fingerstick) 75 mg/dL (70-99) 76 mg/dL (70-99) 82 mg/dL (70-99) 63 mg/dL (70-99) Test 03/19/19 20:58 03/20/19 04:50 03/20/19 06:59 03/20/19 07:35 Glucose (Fingerstick) 140 mg/dL (70-99) 63 mg/dL (70-99) 134 mg/dL (70-99) White Blood Count 6.3 x10^3/uL (4.0-11.0) Red Blood Count 2.97 x10^6/uL (4.30-5.70) Hemoglobin 8.6 g/dL (13.0-17.5) Hematocrit 25.7 % (39.0-53.0) Mean Corpuscular Volume 87 fL (79-100) Mean Corpuscular Hemoglobin 29 pg (25-35) Mean Corpuscular Hemoglobin Concent 33 g/dL (31-37) Red Cell Distribution Width 16.5 % (11.5-14.5) Platelet Count 602 x10^3/uL (140-400) Neutrophils (%) (Auto) 66 % (31-73) Lymphocytes (%) (Auto) 17 % (24-48) Monocytes (%) (Auto) 11 % (0-9) Eosinophils (%) (Auto) 4 % (0-3) Basophils (%) (Auto) 3 % (0-3) Neutrophils # (Auto) 4.1 x10^3/uL (1.8-7.7) Lymphocytes # (Auto) 1.1 x10^3/uL (1.0-4.8) Monocytes # (Auto) 0.7 x10^3/uL (0.0-1.1) Eosinophils # (Auto) 0.2 x10^3/uL (0.0-0.7) Basophils # (Auto) 0.2 x10^3/uL (0.0-0.2) Sodium Level 136 mmol/L (136-145) Potassium Level 4.4 mmol/L (3.5-5.1) Chloride Level 101 mmol/L (98-107) Carbon Dioxide Level 27 mmol/L (21-32) Anion Gap 8 (6-14) Blood Urea Nitrogen 11 mg/dL (8-26) Creatinine 1.0 mg/dL (0.7-1.3) Estimated GFR (Cockcroft-Gault) 88.6 BUN/Creatinine Ratio 11 (6-20) Glucose Level 59 mg/dL (70-99) Calcium Level 8.3 mg/dL (8.5-10.1) Total Bilirubin 0.3 mg/dL (0.2-1.0) Aspartate Amino Transf (AST/SGOT) 40 U/L (15-37) Alanine Aminotransferase (ALT/SGPT) 25 U/L (16-63) Alkaline Phosphatase 64 U/L (46-116) Total Protein 6.5 g/dL (6.4-8.2) Albumin 1.9 g/dL (3.4-5.0) Albumin/Globulin Ratio 0.4 (1.0-1.7) Laboratory Tests Test 11/8/19 11:59 03/19/19 16:32 03/19/19 20:16 03/19/19 20:58 Glucose (Fingerstick) 76 mg/dL (70-99) 82 mg/dL (70-99) 63 mg/dL (70-99) 140 mg/dL (70-99) Test 03/20/19 04:50 03/20/19 06:59 03/20/19 07:35 White Blood Count 6.3 x10^3/uL (4.0-11.0) Red Blood Count 2.97 x10^6/uL (4.30-5.70) Hemoglobin 8.6 g/dL (13.0-17.5) Hematocrit 25.7 % (39.0-53.0) Mean Corpuscular Volume 87 fL (79-100) Mean Corpuscular Hemoglobin 29 pg (25-35) Mean Corpuscular Hemoglobin Concent 33 g/dL (31-37) Red Cell Distribution Width 16.5 % (11.5-14.5) Platelet Count 602 x10^3/uL (140-400) Neutrophils (%) (Auto) 66 % (31-73) Lymphocytes (%) (Auto) 17 % (24-48) Monocytes (%) (Auto) 11 % (0-9) Eosinophils (%) (Auto) 4 % (0-3) Basophils (%) (Auto) 3 % (0-3) Neutrophils # (Auto) 4.1 x10^3/uL (1.8-7.7) Lymphocytes # (Auto) 1.1 x10^3/uL (1.0-4.8) Monocytes # (Auto) 0.7 x10^3/uL (0.0-1.1) Eosinophils # (Auto) 0.2 x10^3/uL (0.0-0.7) Basophils # (Auto) 0.2 x10^3/uL (0.0-0.2) Sodium Level 136 mmol/L (136-145) Potassium Level 4.4 mmol/L (3.5-5.1) Chloride Level 101 mmol/L (98-107) Carbon Dioxide Level 27 mmol/L (21-32) Anion Gap 8 (6-14) Blood Urea Nitrogen 11 mg/dL (8-26) Creatinine 1.0 mg/dL (0.7-1.3) Estimated GFR (Cockcroft-Gault) 88.6 BUN/Creatinine Ratio 11 (6-20) Glucose Level 59 mg/dL (70-99) Calcium Level 8.3 mg/dL (8.5-10.1) Total Bilirubin 0.3 mg/dL (0.2-1.0) Aspartate Amino Transf (AST/SGOT) 40 U/L (15-37) Alanine Aminotransferase (ALT/SGPT) 25 U/L (16-63) Alkaline Phosphatase 64 U/L (46-116) Total Protein 6.5 g/dL (6.4-8.2) Albumin 1.9 g/dL (3.4-5.0) Albumin/Globulin Ratio 0.4 (1.0-1.7) Glucose (Fingerstick) 63 mg/dL (70-99) 134 mg/dL (70-99) Medications Active Scripts Medications Dose Route/Sig Max Daily Dose Days Date Category Dose Instructions Tizanidine Hcl 4 Mg Tablet 1 Tab PO QHS 03/09/19 Reported Ammonium Lactate 226 Gm Lotion 1 Nando TP BID 10 12/31/18 Rx Percocet 5-325 Mg Tablet (Oxycodone/Acetaminophen) 1 Each Tablet 1 Tab PO PRN Q4HRS PRN 10 12/31/18 Rx Eliquis (Apixaban) 2.5 Mg Tablet 2.5 Mg PO BID 14 12/31/18 Rx Fosamax (Alendronate Sodium) 70 Mg Tablet 70 Mg PO WEEKLY 12/25/18 Reported pt takes medication on friday Vitamin D3 (Cholecalciferol (Vitamin D3)) 5,000 Unit Tablet 5,000 Unit PO WEEKLY 11/17/14 Reported Impression . 1. acute hypoxic resp failure- resolved 2. Chronic obstructive pulmonary disease. 3. Osteomyelitis. 4. s/p bilateral lower extremity amputations 5. Severe protein malnutrition. 6. Severe weight loss. anorexia Plan . 1. pt. continues on Augmentin 2. encourage participation with Physical therapy 3. ok to D/C from our standpoint 4. respiratory status is clinically stable MEHREEN BANSAL MD Mar 20, 2019 10:33
[2019-03-20 11:00] VITALS: BP 103/60
[2019-03-20 15:00] VITALS: BP 95/56
[2019-03-20 19:00] VITALS: BP 101/56
[2019-03-20] MEDS: oxyCODONE/APAP 5/325 1 TAB TABLET PO PRN (20:13)
[2019-03-20] MEDS: ATORVASTATIN CALCIUM 10 MG TABLET. PO SCH (20:14)
[2019-03-20] MEDS: ENOXAPARIN 40 MG/0.4 ML SYRINGE. SQ SCH (20:17)
[2019-03-20 23:00] VITALS: BP 112/72
[2019-03-21 03:00] VITALS: BP 115/67
[2019-03-21 07:00] VITALS: BP 114/68
[2019-03-21] MEDS: DEXTROSE 50% 25 GM / 50ML DISP.SYRIN. IV PRN (07:04)
[2019-03-21 07:34] LABS: ALBUMIN/GLOBULIN RATIO 0.4 (1.0-1.7); BASO # 0.2 x10^3/uL (0.0-0.2); BASO % 3 % (0-3); CALCIUM 8.3 mg/dL (8.5-10.1); CREATININE 0.9 mg/dL (0.7-1.3); EOS # 0.2 x10^3/uL (0.0-0.7); EOS % 4 % (0-3); GFR 100.1; HEMATOCRIT 25.7 % (39.0-53.0); HEMOGLOBIN 8.4 g/dL (13.0-17.5); LYMPH # 1.1 x10^3/uL (1.0-4.8); LYMPH % 19 % (24-48); MEAN CORPUSCULAR HEMOGLOBIN 29 pg (25-35); MEAN CORPUSCULAR HGB CONC 33 g/dL (31-37); MEAN CORPUSCULAR VOLUME 87 fL (79-100); MONO # 0.6 x10^3/uL (0.0-1.1); MONO % 10 % (0-9); NEUT # 3.9 x10^3/uL (1.8-7.7); NEUT % 65 % (31-73); PLATELET COUNT 637 x10^3/uL (140-400); POTASSIUM 4.2 mmol/L (3.5-5.1); RED BLOOD COUNT 2.95 x10^6/uL (4.30-5.70); RED CELL DISTRIBUTION WIDTH 17.5 % (11.5-14.5); TOTAL BILIRUBIN 0.3 mg/dL (0.2-1.0); TOTAL PROTEIN 6.5 g/dL (6.4-8.2)
[2019-03-21] MEDS: LACTOBACILLUS RHAMNOSUS GG 1 CAPSULE. PO SCH ×2 (07:59→20:27)
[2019-03-21] MEDS: AMOXICILLIN/K CLAV 500/125MG TABLET. PO SCH ×2 (07:59→20:27)
[2019-03-21] MEDS: FLUoxetine HCL 20 MG CAPSULE PO SCH (07:59)
[2019-03-21] MEDS: ASPIRIN ENTERIC COATED 81 MG TABLET.DR. PO SCH (07:59)
[2019-03-21] MEDS: MULTIVITAMIN with MINERAL TABLET. PO SCH (07:59)
--- NOTE | 2019-03-21 08:52 | NUR ---
Patient is refusing to be turned again this shift, also patient is refusing dressing changes to bilateral AKA, educated patient of importance of these interventions, patient continues to refuse.
--- NOTE | 2019-03-21 09:44 | PDOC ---
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 per juan Chambers HE has some personality.depression issues that unfolded in his stay, likely from the AKA he got THIS admission bec of bad feet/leg wounds Asked for nicotine gum friday STarted on SSRi waiting for zeenat gutierrez to approve SNU PLAN: dextrose IVF today Still able to dc to SNU friday on c redd - pls update as deem fit WOund care - i inspected stumps, looks ok Vitals Vitals Vital Signs Date Time Temp Pulse Resp B/P (MAP) Pulse Ox O2 Delivery O2 Flow Rate FiO2 03/21/19 07:13 Room Air 03/21/19 07:00 98.3 74 16 114/68 (83) 96 98.3 Physical Exam Physical Exam CONSTITUTIONAL: He is lying in bed. He appears comfortable. He is in no acute distress. HEENT: He has normal conjunctivae. Oral cavity, pharynx is dry. Edentulous. NECK: Without any JVD. No fullness. LUNGS: Decreased in the bases. HEART: S1, S2. ABDOMEN: Soft. No guarding or rebound. Positive bowel sounds. EXTREMITIES: brayan AKA, incision good Post op wounds SKIN: Warm to touch without generalized signs of rash. NEUROLOGIC: alert cooperative. Moves all extremities. General: Alert, Oriented X3, Cooperative, No acute distress Heart: Regular rate (SR per EKG), Normal S1, Normal S2, Other (S/6 systolic murmur to LLS border) Lungs: Clear Abdomen: Soft, No tenderness Extremities: No cyanosis, No edema, Other (Bilateral AKA, dressing is clean dry and intact. No erythema, or rashes surrounding the incisions.) Skin: No rashes, No breakdown Labs LABS Laboratory Tests Test 03/20/19 10:49 03/20/19 16:41 03/20/19 20:33 03/21/19 05:55 Glucose (Fingerstick) 83 mg/dL (70-99) 120 mg/dL (70-99) 90 mg/dL (70-99) White Blood Count 6.0 x10^3/uL (4.0-11.0) Red Blood Count 2.95 x10^6/uL (4.30-5.70) Hemoglobin 8.4 g/dL (13.0-17.5) Hematocrit 25.7 % (39.0-53.0) Mean Corpuscular Volume 87 fL (79-100) Mean Corpuscular Hemoglobin 29 pg (25-35) Mean Corpuscular Hemoglobin Concent 33 g/dL (31-37) Red Cell Distribution Width 17.5 % (11.5-14.5) Platelet Count 637 x10^3/uL (140-400) Neutrophils (%) (Auto) 65 % (31-73) Lymphocytes (%) (Auto) 19 % (24-48) Monocytes (%) (Auto) 10 % (0-9) Eosinophils (%) (Auto) 4 % (0-3) Basophils (%) (Auto) 3 % (0-3) Neutrophils # (Auto) 3.9 x10^3/uL (1.8-7.7) Lymphocytes # (Auto) 1.1 x10^3/uL (1.0-4.8) Monocytes # (Auto) 0.6 x10^3/uL (0.0-1.1) Eosinophils # (Auto) 0.2 x10^3/uL (0.0-0.7) Basophils # (Auto) 0.2 x10^3/uL (0.0-0.2) Sodium Level 135 mmol/L (136-145) Potassium Level 4.2 mmol/L (3.5-5.1) Chloride Level 100 mmol/L (98-107) Carbon Dioxide Level 28 mmol/L (21-32) Anion Gap 7 (6-14) Blood Urea Nitrogen 17 mg/dL (8-26) Creatinine 0.9 mg/dL (0.7-1.3) Estimated GFR (Cockcroft-Gault) 100.1 BUN/Creatinine Ratio 19 (6-20) Glucose Level 63 mg/dL (70-99) Calcium Level 8.3 mg/dL (8.5-10.1) Total Bilirubin 0.3 mg/dL (0.2-1.0) Aspartate Amino Transf (AST/SGOT) 40 U/L (15-37) Alanine Aminotransferase (ALT/SGPT) 26 U/L (16-63) Alkaline Phosphatase 65 U/L (46-116) Total Protein 6.5 g/dL (6.4-8.2) Albumin 2.0 g/dL (3.4-5.0) Albumin/Globulin Ratio 0.4 (1.0-1.7) Test 03/21/19 07:01 03/21/19 07:41 Glucose (Fingerstick) 65 mg/dL (70-99) 140 mg/dL (70-99) Review of Systems Review of Systems weak, all else neg, stump pains stable Assessment and Plan Assessmemt and Plan Problems Medical Problems: (1) Necrotic toes Status: Acute (2) Ulcer of left heel Status: Acute Comment Review of Relevant I have reviewed the following items segun (where applicable) has been applied. Labs Laboratory Tests Test 03/19/19 11:59 03/19/19 16:32 03/19/19 20:16 03/19/19 20:58 Glucose (Fingerstick) 76 mg/dL (70-99) 82 mg/dL (70-99) 63 mg/dL (70-99) 140 mg/dL (70-99) Test 03/20/19 04:50 03/20/19 06:59 03/20/19 07:35 03/20/19 10:49 White Blood Count 6.3 x10^3/uL (4.0-11.0) Red Blood Count 2.97 x10^6/uL (4.30-5.70) Hemoglobin 8.6 g/dL (13.0-17.5) Hematocrit 25.7 % (39.0-53.0) Mean Corpuscular Volume 87 fL (79-100) Mean Corpuscular Hemoglobin 29 pg (25-35) Mean Corpuscular Hemoglobin Concent 33 g/dL (31-37) Red Cell Distribution Width 16.5 % (11.5-14.5) Platelet Count 602 x10^3/uL (140-400) Neutrophils (%) (Auto) 66 % (31-73) Lymphocytes (%) (Auto) 17 % (24-48) Monocytes (%) (Auto) 11 % (0-9) Eosinophils (%) (Auto) 4 % (0-3) Basophils (%) (Auto) 3 % (0-3) Neutrophils # (Auto) 4.1 x10^3/uL (1.8-7.7) Lymphocytes # (Auto) 1.1 x10^3/uL (1.0-4.8) Monocytes # (Auto) 0.7 x10^3/uL (0.0-1.1) Eosinophils # (Auto) 0.2 x10^3/uL (0.0-0.7) Basophils # (Auto) 0.2 x10^3/uL (0.0-0.2) Sodium Level 136 mmol/L (136-145) Potassium Level 4.4 mmol/L (3.5-5.1) Chloride Level 101 mmol/L (98-107) Carbon Dioxide Level 27 mmol/L (21-32) Anion Gap 8 (6-14) Blood Urea Nitrogen 11 mg/dL (8-26) Creatinine 1.0 mg/dL (0.7-1.3) Estimated GFR (Cockcroft-Gault) 88.6 BUN/Creatinine Ratio 11 (6-20) Glucose Level 59 mg/dL (70-99) Calcium Level 8.3 mg/dL (8.5-10.1) Total Bilirubin 0.3 mg/dL (0.2-1.0) Aspartate Amino Transf (AST/SGOT) 40 U/L (15-37) Alanine Aminotransferase (ALT/SGPT) 25 U/L (16-63) Alkaline Phosphatase 64 U/L (46-116) Total Protein 6.5 g/dL (6.4-8.2) Albumin 1.9 g/dL (3.4-5.0) Albumin/Globulin Ratio 0.4 (1.0-1.7) Glucose (Fingerstick) 63 mg/dL (70-99) 134 mg/dL (70-99) 83 mg/dL (70-99) Test 03/20/19 16:41 03/20/19 20:33 03/21/19 05:55 03/21/19 07:01 Glucose (Fingerstick) 120 mg/dL (70-99) 90 mg/dL (70-99) 65 mg/dL (70-99) White Blood Count 6.0 x10^3/uL (4.0-11.0) Red Blood Count 2.95 x10^6/uL (4.30-5.70) Hemoglobin 8.4 g/dL (13.0-17.5) Hematocrit 25.7 % (39.0-53.0) Mean Corpuscular Volume 87 fL (79-100) Mean Corpuscular Hemoglobin 29 pg (25-35) Mean Corpuscular Hemoglobin Concent 33 g/dL (31-37) Red Cell Distribution Width 17.5 % (11.5-14.5) Platelet Count 637 x10^3/uL (140-400) Neutrophils (%) (Auto) 65 % (31-73) Lymphocytes (%) (Auto) 19 % (24-48) Monocytes (%) (Auto) 10 % (0-9) Eosinophils (%) (Auto) 4 % (0-3) Basophils (%) (Auto) 3 % (0-3) Neutrophils # (Auto) 3.9 x10^3/uL (1.8-7.7) Lymphocytes # (Auto) 1.1 x10^3/uL (1.0-4.8) Monocytes # (Auto) 0.6 x10^3/uL (0.0-1.1) Eosinophils # (Auto) 0.2 x10^3/uL (0.0-0.7) Basophils # (Auto) 0.2 x10^3/uL (0.0-0.2) Sodium Level 135 mmol/L (136-145) Potassium Level 4.2 mmol/L (3.5-5.1) Chloride Level 100 mmol/L (98-107) Carbon Dioxide Level 28 mmol/L (21-32) Anion Gap 7 (6-14) Blood Urea Nitrogen 17 mg/dL (8-26) Creatinine 0.9 mg/dL (0.7-1.3) Estimated GFR (Cockcroft-Gault) 100.1 BUN/Creatinine Ratio 19 (6-20) Glucose Level 63 mg/dL (70-99) Calcium Level 8.3 mg/dL (8.5-10.1) Total Bilirubin 0.3 mg/dL (0.2-1.0) Aspartate Amino Transf (AST/SGOT) 40 U/L (15-37) Alanine Aminotransferase (ALT/SGPT) 26 U/L (16-63) Alkaline Phosphatase 65 U/L (46-116) Total Protein 6.5 g/dL (6.4-8.2) Albumin 2.0 g/dL (3.4-5.0) Albumin/Globulin Ratio 0.4 (1.0-1.7) Test 03/21/19 07:41 Glucose (Fingerstick) 140 mg/dL (70-99) Laboratory Tests Test 03/20/19 10:49 03/20/19 16:41 03/20/19 20:33 03/21/19 05:55 Glucose (Fingerstick) 83 mg/dL (70-99) 120 mg/dL (70-99) 90 mg/dL (70-99) White Blood Count 6.0 x10^3/uL (4.0-11.0) Red Blood Count 2.95 x10^6/uL (4.30-5.70) Hemoglobin 8.4 g/dL (13.0-17.5) Hematocrit 25.7 % (39.0-53.0) Mean Corpuscular Volume 87 fL (79-100) Mean Corpuscular Hemoglobin 29 pg (25-35) Mean Corpuscular Hemoglobin Concent 33 g/dL (31-37) Red Cell Distribution Width 17.5 % (11.5-14.5) Platelet Count 637 x10^3/uL (140-400) Neutrophils (%) (Auto) 65 % (31-73) Lymphocytes (%) (Auto) 19 % (24-48) Monocytes (%) (Auto) 10 % (0-9) Eosinophils (%) (Auto) 4 % (0-3) Basophils (%) (Auto) 3 % (0-3) Neutrophils # (Auto) 3.9 x10^3/uL (1.8-7.7) Lymphocytes # (Auto) 1.1 x10^3/uL (1.0-4.8) Monocytes # (Auto) 0.6 x10^3/uL (0.0-1.1) Eosinophils # (Auto) 0.2 x10^3/uL (0.0-0.7) Basophils # (Auto) 0.2 x10^3/uL (0.0-0.2) Sodium Level 135 mmol/L (136-145) Potassium Level 4.2 mmol/L (3.5-5.1) Chloride Level 100 mmol/L (98-107) Carbon Dioxide Level 28 mmol/L (21-32) Anion Gap 7 (6-14) Blood Urea Nitrogen 17 mg/dL (8-26) Creatinine 0.9 mg/dL (0.7-1.3) Estimated GFR (Cockcroft-Gault) 100.1 BUN/Creatinine Ratio 19 (6-20) Glucose Level 63 mg/dL (70-99) Calcium Level 8.3 mg/dL (8.5-10.1) Total Bilirubin 0.3 mg/dL (0.2-1.0) Aspartate Amino Transf (AST/SGOT) 40 U/L (15-37) Alanine Aminotransferase (ALT/SGPT) 26 U/L (16-63) Alkaline Phosphatase 65 U/L (46-116) Total Protein 6.5 g/dL (6.4-8.2) Albumin 2.0 g/dL (3.4-5.0) Albumin/Globulin Ratio 0.4 (1.0-1.7) Test 03/21/19 07:01 03/21/19 07:41 Glucose (Fingerstick) 65 mg/dL (70-99) 140 mg/dL (70-99) Microbiology 03/08/19 Blood Culture - Final, Complete NO GROWTH AFTER 5 DAYS Medications Current Medications Sodium Chloride 1,000 ml @ 1,860 mls/hr Q33M IV Last administered on 03/08/19at 17:40; Start 03/08/19 at 16:04; Stop 03/08/19 at 17:04; Status DC Piperacillin Sod/ Tazobactam Sod 4.5 gm/Sodium Chloride 100 ml @ 200 mls/hr 1X ONCE IV Last administered on 03/08/19at 16:41; Start 03/08/19 at 16:15; Stop 03/08/19 at 16:44; Status DC Vancomycin HCl (Vanco Per Pharmacy) 1 each 1X ONCE MC ; Start 03/08/19 at 16:15; Stop 03/08/19 at 16:24; Status DC Morphine Sulfate (Morphine Sulfate) 4 mg PRN Q15MIN PRN IV/SQ PAIN GREATER THAN 3/10; Start 03/08/19 at 16:15; Stop 03/09/19 at 08:35; Status DC Vancomycin HCl 1.25 gm/Sodium Chloride 250 ml @ 167 mls/hr ONCE ONCE IV Last administered on 03/08/19at 17:40; Start 03/08/19 at 16:30; Stop 03/08/19 at 17:59; Status DC Ondansetron HCl (Zofran) 4 mg PRN Q8HRS PRN IV NAUSEA/VOMITING; Start 03/08/19 at 18:15; Stop 03/08/19 at 21:18; Status DC Morphine Sulfate (Morphine Sulfate) 4 mg PRN Q2HR PRN IV SEVERE PAIN 7-10; Start 03/08/19 at 18:15; Stop 03/09/19 at 08:35; Status DC Sodium Chloride 1,000 ml @ 75 mls/hr 1X ONCE IV Last administered on 03/08/19at 21:25; Start 03/08/19 at 18:15; Stop 03/09/19 at 07:34; Status DC Ondansetron HCl (Zofran) 4 mg PRN Q6HRS PRN IV NAUSEA/VOMITING 1ST CHOICE; Start 03/08/19 at 21:15 Lactic Acid (Lac-Hydrin) 1 nando BID TP Last administered on 03/15/19at 08:16; Start 03/09/19 at 09:00; Stop 03/15/19 at 19:58; Status DC Non-Formulary Medication (Alendronate Sodium (Fosamax)) 70 mg WEEKLY PO ; Start 03/15/19 at 09:00; Status UNV Vitamin D (Vitamin D3) 5,000 unit WEEKLY PO Last administered on 03/15/19at 08:15; Start 03/15/19 at 09:00 Piperacillin Sod/ Tazobactam Sod 3.375 gm/Sodium Chloride 50 ml @ 100 mls/hr Q6HRS IV ; Start 03/09/19 at 00:00; Status UNV Tramadol HCl (Ultram) 50 mg PRN Q6HRS PRN PO MODERATE PAIN Last administered on 03/14/19at 13:13; Start 03/08/19 at 21:15 Insulin Human Lispro (HumaLOG) 0-5 UNITS TIDACHC SQ ; Start 03/09/19 at 07:30; Stop 03/09/19 at 08:31; Status DC Dextrose (Dextrose 50%-Water Syringe) 12.5 gm PRN Q15MIN PRN IV SEE COMMENTS Last administered on 03/21/19at 07:04; Start 03/08/19 at 21:15 Enoxaparin Sodium (Lovenox 40mg Syringe) 40 mg Q24H SQ Last administered on 03/20/19at 20:17; Start 03/08/19 at 22:00 Piperacillin Sod/ Tazobactam Sod 2.25 gm/Sodium Chloride 50 ml @ 100 mls/hr Q6HRS IV Last administered on 03/09/19at 05:54; Start 03/09/19 at 00:00; Stop 03/09/19 at 10:17; Status DC Potassium Chloride (Klor-Con) 40 meq 1X ONCE PO Last administered on at 22:20; Start 03/08/19 at 22:00; Stop 03/08/19 at 22:01; Status DC Acetaminophen (Tylenol) 500 mg PRN Q6HRS PRN PO TEMP/HEADACHE; Start 03/09/19 at 08:30 Acetaminophen/ Codeine Phosphate (Tylenol #3) 1 tab PRN Q6HRS PRN PO MILD PAIN 1-3; Start 03/09/19 at 08:30 Morphine Sulfate (Morphine Sulfate) 2 mg PRN Q2HR PRN IV PAIN Last administered on 03/14/19at 16:10; Start 03/09/19 at 08:30 Oxycodone/ Acetaminophen (Percocet 5/325) 1 tab PRN Q4HRS PRN PO SEVERE PAIN 7- 10 Last administered on 03/20/19at 20:13; Start 03/09/19 at 08:30 Piperacillin Sod/ Tazobactam Sod 3.375 gm/Sodium Chloride 50 ml @ 100 mls/hr Q6HRS IV Last administered on 03/15/19at 05:39; Start 03/09/19 at 12:00; Stop 03/15/19 at 08:43; Status DC Micafungin Sodium 100 mg/Dextrose 100 ml @ 100 mls/hr Q24H IV Last administered on 03/13/19at 11:57; Start 03/09/19 at 11:00; Stop 03/14/19 at 08:23; Status DC Vancomycin HCl (Vanco Per Pharmacy) 1 each PRN DAILY PRN MC SEE COMMENTS Last administered on 03/13/19 16:16; Start 03/09/19 at 11:15; Stop 03/14/19 at 08:23; Status DC Vancomycin HCl 750 mg/Sodium Chloride 250 ml @ 250 mls/hr Q24H IV Last administered on 03/09/19at 17:11; Start 03/09/19 at 17:00; Stop 03/10/19 at 17:02; Status DC Vancomycin HCl (Vancomycin Trough Level) 1 each 1X ONCE MC Last administered on 03/10/19 16:30; Start 03/10/19 at 16:30; Stop 03/10/19 at 16:31; Status DC Multivitamins (Thera M Plus) 1 tab DAILY PO Last administered on 03/21/19 07:59; Start 03/10/19 at 09:00 Dextrose/Sodium Chloride 1,000 ml @ 75 mls/hr [id number] IV Last administered on 03/09/19 17:30; Start 03/09/19 at 17:30; Stop 03/10/19 at 06:49; Status DC Lactobacillus Rhamnosus (Culturelle) 1 cap BID PO Last administered on 03/21/19 07:59; Start 03/10/19 at 21:00 Vancomycin HCl 1 gm/Sodium Chloride 250 ml @ 250 mls/hr Q24H IV Last administered on 03/13/19 17:41; Start 03/10/19 at 17:30; Stop 03/14/19 at 08:23; Status DC Vancomycin HCl (Vancomycin Trough Level) 1 each 1X ONCE MC Last administered on 03/12/19 17:00; Start 03/12/19 at 17:00; Stop 03/12/19 at 17:01; Status DC Bupivacaine HCl/ Epinephrine Bitart (Sensorcaine-Epi 0.25%-1:813380 Mpf) 30 ml 1X ONCE INJ Last administered on 03/12/19 18:04; Start 03/12/19 at 08:00; Stop 03/12/19 at 08:01; Status DC Aspirin (Ecotrin) 81 mg [id number] PO Last administered on 11/10/19at 07:59; Start 03/12/19 at 08:00 Atorvastatin Calcium (Lipitor) 10 mg QHS PO Last administered on 03/20/19at 20:14; Start 03/11/19 at 21:00 Metoprolol Tartrate (Lopressor Vial) 5 mg PRN Q6HRS PRN IVP HYPERTENSION; Start 03/11/19 at 16:00 Ondansetron HCl (Zofran) 4 mg PRN Q6HRS PRN IV NAUSEA/VOMITING; Start 03/12/19 at 07:00; Stop 03/13/19 at 06:59; Status DC Fentanyl Citrate (Fentanyl 2ml Vial) 25 mcg PRN Q5MIN PRN IV MILD PAIN 1-3 Last administered on 03/12/19at 21:28; Start 03/12/19 at 07:00; Stop 03/13/19 at 06:59; Status DC Fentanyl Citrate (Fentanyl 2ml Vial) 50 mcg PRN Q5MIN PRN IV MODERATE TO SEVERE PAIN; Start 03/12/19 at 07:00; Stop 03/13/19 at 06:59; Status DC Morphine Sulfate (Morphine Sulfate) 1 mg PRN Q10MIN PRN IV SEVERE PAIN 7-10; Start 03/12/19 at 07:00; Stop 03/13/19 at 06:59; Status DC Ringer's Solution 1,000 ml @ 30 mls/hr Q24H IV Last administered on 03/12/19at 17:12; Start 03/12/19 at 07:00; Stop 03/12/19 at 18:59; Status DC Lidocaine HCl (Xylocaine-Mpf 1% 2ml Vial) 2 ml PRN 1X PRN ID PRIOR TO IV START; Start 03/12/19 at 07:00; Stop 03/13/19 at 06:59; Status DC Hydromorphone HCl (Dilaudid) 0.5 mg PRN Q10MIN PRN IV SEV PAIN, Second choice; Start 03/12/19 at 07:00; Stop 03/13/19 at 06:59; Status DC Prochlorperazine Edisylate (Compazine) 5 mg PACU PRN PRN IV NAUSEA, MRX1; Start 03/12/19 at 07:00; Stop 03/13/19 at 06:59; Status DC Potassium Chloride/Dextrose/ Sod Cl 1,000 ml @ 80 mls/hr [id number] IV Last administered on 03/17/19at 00:12; Start 03/12/19 at 07:45; Stop 03/18/19 at 07:03; Status DC Amino Acids/ Glycerin/ Electrolytes 1,000 ml @ 80 mls/hr [id number] IV ; Start 03/12/19 at 09:30; Stop 03/12/19 at 09:47; Status DC Sevoflurane (Ultane) 90 ml STK-MED ONCE IH ; Start 03/12/19 at 15:32; Stop 03/12/19 at 15:33; Status DC Rocuronium Parmele (Zemuron) 50 mg STK-MED ONCE .ROUTE ; Start 03/12/19 at 15:32; Stop 03/12/19 at 15:33; Status DC Fentanyl Citrate (Fentanyl 2ml Vial) 100 mcg STK-MED ONCE .ROUTE ; Start 03/12/19 at 15:32; Stop 03/12/19 at 15:33; Status DC Neostigmine Methylsulfate (Neostigmine Methylsulfate) 5 mg STK-MED ONCE .ROUTE ; Start 03/12/19 at 15:33; Stop 03/12/19 at 15:33; Status DC Glycopyrrolate (Robinul) 1 mg STK-MED ONCE .ROUTE ; Start 03/12/19 at 15:33; Stop 03/12/19 at 15:33; Status DC Dexamethasone Sodium Phosphate (Decadron) 4 mg STK-MED ONCE .ROUTE ; Start 1 05/12/18 at 15:33; Stop 03/12/19 at 15:33; Status DC Propofol 20 ml @ As Directed STK-MED ONCE IV ; Start 03/12/19 at 15:33; Stop 03/12/19 at 15:33; Status DC Lidocaine HCl (Lidocaine Pf 2% Vial) 5 ml STK-MED ONCE .ROUTE ; Start 03/12/19 at 15:33; Stop 03/12/19 at 15:33; Status DC Ondansetron HCl (Zofran) 4 mg STK-MED ONCE .ROUTE ; Start 03/12/19 at 15:33; Stop 03/12/19 at 15:33; Status DC Phenylephrine HCl (PHENYLEPHRINE in 0.9% NACL PF) 1 mg STK-MED ONCE IV ; Start 03/12/19 at 17:27; Stop 03/12/19 at 17:27; Status DC Ephedrine Sulfate (ePHEDrine PF IN SALINE SYRINGE) 50 mg STK-MED ONCE IV ; Start 03/12/19 at 17:43; Stop 03/12/19 at 17:43; Status DC Albuterol Sulfate (Ventolin Neb Soln) 2.5 mg STK-MED ONCE .ROUTE ; Start 03/12/19 at 20:06; Stop 03/12/19 at 20:07; Status DC Albuterol Sulfate (Ventolin Neb Soln) 2.5 mg 1X ONCE NEB Last administered on 03/12/19at 20:21; Start 03/12/19 at 20:15; Stop 03/12/19 at 20:32; Status DC Amoxicillin/ Clavulanate Potassium (Augmentin 500/ 125mg) 1 tab BID PO Last administered on 03/21/19at 07:59; Start 03/15/19 at 09:00 Fluoxetine HCl (PROzac) 20 mg DAILY PO Last administered on 03/21/19at 07:59; Start 03/18/19 at 09:00 Nicotine Polacrilex (Nicorette Gum) 1 each PRN Q1HR PRN BC SMOKING CESSATION Last administered on 03/19/19at 16:59; Start 03/19/19 at 17:00 Active Scripts Active Augmentin 875-125 Tablet (Amoxicillin/Potassium Clav) 1 Each Tablet 1 Tab PO BID 10 Days Thera-M Tablet (Multivits,Ca,Minerals/Iron/Fa) 1 Each Tablet 1 Tab PO DAILY Aspirin Ec (Aspirin) 81 Mg Tablet. 81 Mg PO [id number] Atorvastatin Calcium 10 Mg Tablet 10 Mg PO QHS Percocet 5-325 Mg Tablet (Oxycodone/Acetaminophen) 1 Each Tablet 1 Tab PO PRN Q4HRS PRN 10 Days Ammonium Lactate 226 Gm Lotion 1 Nando TP BID 10 Days Eliquis (Apixaban) 2.5 Mg Tablet 2.5 Mg PO BID 14 Days Reported Tizanidine Hcl 4 Mg Tablet 1 Tab PO QHS Fosamax (Alendronate Sodium) 70 Mg Tablet 70 Mg PO WEEKLY pt takes medication on friday Vitamin D3 (Cholecalciferol (Vitamin D3)) 5,000 Unit Tablet 5,000 Unit PO WEEKLY Vitals/I & O Vital Sign - Last 24 Hours 03/20/19 03/20/19 03/20/19 03/20/19 11:00 15:00 19:00 20:00 Temp 97.9 98.0 98.1 97.9 98.0 98.1 Pulse 75 75 80 Resp 16 16 20 B/P (MAP) 103/60 (74) 95/56 (69) 101/56 (71) Pulse Ox 97 96 96 O2 Delivery Room Air Room Air Room Air Room Air 03/20/19 03/20/19 03/20/19 03/21/19 20:13 21:13 23:00 03:00 Temp 98.6 98.5 98.6 98.5 Pulse 76 72 Resp 20 18 B/P (MAP) 112/72 (85) 115/67 (83) Pulse Ox 96 97 O2 Delivery Room Air Room Air Room Air Room Air 03/21/19 03/21/19 07:00 07:13 Temp 98.3 98.3 Pulse 74 Resp 16 B/P (MAP) 114/68 (83) Pulse Ox 96 O2 Delivery Room Air Room Air Intake and Output 03/20/19 03/20/19 03/21/19 15:00 23:00 07:00 Intake Total 120 ml 120 ml Output Total 200 ml Balance 120 ml 120 ml -200 ml Nutrition Consultation Dietary Evaluation: Recommendations by RD: Dietary education by RD, Protein supplementation Comments: REC continue liberlized diet : regular rosa bid REC continue mvi q day per wound protocal Expected Outcomes/Goals: to meet >75% est nutr needs improved wound status BS control Interpretation of weight loss: >1-2% in 1 week Malnutrition Findings: Body Fat Depletion (Non Severe: Mod to Severe Weight Status: Underweight HANSA SIMMS MD Mar 21, 2019 09:43
[2019-03-21] MEDS ORDERED: IV DEXTROSE 5 %-0.45 % NACL 1,000 ML IV ONE (09:45)
[2019-03-21 11:00] VITALS: BP 109/65
--- NOTE | 2019-03-21 11:32 | PDOC ---
PULMONARY PROGRESS NOTES Subjective Remains on room air denies respiratory symptoms Nursing reports hypoglycemia Vitals Vital Signs Date Time Temp Pulse Resp B/P (MAP) Pulse Ox O2 Delivery O2 Flow Rate FiO2 03/21/19 07:13 Room Air 03/21/19 07:00 98.3 74 16 114/68 (83) 96 98.3 ROS: No Nausea, No Chest Pain, No Abdominal Pain, No Increase Cough General: Alert, No acute distress Lungs: Clear Cardiovascular: S1, S2 Abdomen: Soft Neuro Exam: Alert, No Focal Findings Extremities: No Edema Skin: Warm Labs Laboratory Tests Test 03/19/19 11:59 03/19/19 16:32 03/19/19 20:16 03/19/19 20:58 Glucose (Fingerstick) 76 mg/dL (70-99) 82 mg/dL (70-99) 63 mg/dL (70-99) 140 mg/dL (70-99) Test 03/20/19 04:50 03/20/19 06:59 03/20/19 07:35 03/20/19 10:49 White Blood Count 6.3 x10^3/uL (4.0-11.0) Red Blood Count 2.97 x10^6/uL (4.30-5.70) Hemoglobin 8.6 g/dL (13.0-17.5) Hematocrit 25.7 % (39.0-53.0) Mean Corpuscular Volume 87 fL (79-100) Mean Corpuscular Hemoglobin 29 pg (25-35) Mean Corpuscular Hemoglobin Concent 33 g/dL (31-37) Red Cell Distribution Width 16.5 % (11.5-14.5) Platelet Count 602 x10^3/uL (140-400) Neutrophils (%) (Auto) 66 % (31-73) Lymphocytes (%) (Auto) 17 % (24-48) Monocytes (%) (Auto) 11 % (0-9) Eosinophils (%) (Auto) 4 % (0-3) Basophils (%) (Auto) 3 % (0-3) Neutrophils # (Auto) 4.1 x10^3/uL (1.8-7.7) Lymphocytes # (Auto) 1.1 x10^3/uL (1.0-4.8) Monocytes # (Auto) 0.7 x10^3/uL (0.0-1.1) Eosinophils # (Auto) 0.2 x10^3/uL (0.0-0.7) Basophils # (Auto) 0.2 x10^3/uL (0.0-0.2) Sodium Level 136 mmol/L (136-145) Potassium Level 4.4 mmol/L (3.5-5.1) Chloride Level 101 mmol/L (98-107) Carbon Dioxide Level 27 mmol/L (21-32) Anion Gap 8 (6-14) Blood Urea Nitrogen 11 mg/dL (8-26) Creatinine 1.0 mg/dL (0.7-1.3) Estimated GFR (Cockcroft-Gault) 88.6 BUN/Creatinine Ratio 11 (6-20) Glucose Level 59 mg/dL (70-99) Calcium Level 8.3 mg/dL (8.5-10.1) Total Bilirubin 0.3 mg/dL (0.2-1.0) Aspartate Amino Transf (AST/SGOT) 40 U/L (15-37) Alanine Aminotransferase (ALT/SGPT) 25 U/L (16-63) Alkaline Phosphatase 64 U/L (46-116) Total Protein 6.5 g/dL (6.4-8.2) Albumin 1.9 g/dL (3.4-5.0) Albumin/Globulin Ratio 0.4 (1.0-1.7) Glucose (Fingerstick) 63 mg/dL (70-99) 134 mg/dL (70-99) 83 mg/dL (70-99) Test 03/20/19 16:41 03/20/19 20:33 03/21/19 05:55 03/21/19 07:01 Glucose (Fingerstick) 120 mg/dL (70-99) 90 mg/dL (70-99) 65 mg/dL (70-99) White Blood Count 6.0 x10^3/uL (4.0-11.0) Red Blood Count 2.95 x10^6/uL (4.30-5.70) Hemoglobin 8.4 g/dL (13.0-17.5) Hematocrit 25.7 % (39.0-53.0) Mean Corpuscular Volume 87 fL (79-100) Mean Corpuscular Hemoglobin 29 pg (25-35) Mean Corpuscular Hemoglobin Concent 33 g/dL (31-37) Red Cell Distribution Width 17.5 % (11.5-14.5) Platelet Count 637 x10^3/uL (140-400) Neutrophils (%) (Auto) 65 % (31-73) Lymphocytes (%) (Auto) 19 % (24-48) Monocytes (%) (Auto) 10 % (0-9) Eosinophils (%) (Auto) 4 % (0-3) Basophils (%) (Auto) 3 % (0-3) Neutrophils # (Auto) 3.9 x10^3/uL (1.8-7.7) Lymphocytes # (Auto) 1.1 x10^3/uL (1.0-4.8) Monocytes # (Auto) 0.6 x10^3/uL (0.0-1.1) Eosinophils # (Auto) 0.2 x10^3/uL (0.0-0.7) Basophils # (Auto) 0.2 x10^3/uL (0.0-0.2) Sodium Level 135 mmol/L (136-145) Potassium Level 4.2 mmol/L (3.5-5.1) Chloride Level 100 mmol/L (98-107) Carbon Dioxide Level 28 mmol/L (21-32) Anion Gap 7 (6-14) Blood Urea Nitrogen 17 mg/dL (8-26) Creatinine 0.9 mg/dL (0.7-1.3) Estimated GFR (Cockcroft-Gault) 100.1 BUN/Creatinine Ratio 19 (6-20) Glucose Level 63 mg/dL (70-99) Calcium Level 8.3 mg/dL (8.5-10.1) Total Bilirubin 0.3 mg/dL (0.2-1.0) Aspartate Amino Transf (AST/SGOT) 40 U/L (15-37) Alanine Aminotransferase (ALT/SGPT) 26 U/L (16-63) Alkaline Phosphatase 65 U/L (46-116) Total Protein 6.5 g/dL (6.4-8.2) Albumin 2.0 g/dL (3.4-5.0) Albumin/Globulin Ratio 0.4 (1.0-1.7) Test 03/21/19 07:41 Glucose (Fingerstick) 140 mg/dL (70-99) Laboratory Tests Test 03/20/19 16:41 03/20/19 20:33 03/21/19 05:55 03/21/19 07:01 Glucose (Fingerstick) 120 mg/dL (70-99) 90 mg/dL (70-99) 65 mg/dL (70-99) White Blood Count 6.0 x10^3/uL (4.0-11.0) Red Blood Count 2.95 x10^6/uL (4.30-5.70) Hemoglobin 8.4 g/dL (13.0-17.5) Hematocrit 25.7 % (39.0-53.0) Mean Corpuscular Volume 87 fL (79-100) Mean Corpuscular Hemoglobin 29 pg (25-35) Mean Corpuscular Hemoglobin Concent 33 g/dL (31-37) Red Cell Distribution Width 17.5 % (11.5-14.5) Platelet Count 637 x10^3/uL (140-400) Neutrophils (%) (Auto) 65 % (31-73) Lymphocytes (%) (Auto) 19 % (24-48) Monocytes (%) (Auto) 10 % (0-9) Eosinophils (%) (Auto) 4 % (0-3) Basophils (%) (Auto) 3 % (0-3) Neutrophils # (Auto) 3.9 x10^3/uL (1.8-7.7) Lymphocytes # (Auto) 1.1 x10^3/uL (1.0-4.8) Monocytes # (Auto) 0.6 x10^3/uL (0.0-1.1) Eosinophils # (Auto) 0.2 x10^3/uL (0.0-0.7) Basophils # (Auto) 0.2 x10^3/uL (0.0-0.2) Sodium Level 135 mmol/L (136-145) Potassium Level 4.2 mmol/L (3.5-5.1) Chloride Level 100 mmol/L (98-107) Carbon Dioxide Level 28 mmol/L (21-32) Anion Gap 7 (6-14) Blood Urea Nitrogen 17 mg/dL (8-26) Creatinine 0.9 mg/dL (0.7-1.3) Estimated GFR (Cockcroft-Gault) 100.1 BUN/Creatinine Ratio 19 (6-20) Glucose Level 63 mg/dL (70-99) Calcium Level 8.3 mg/dL (8.5-10.1) Total Bilirubin 0.3 mg/dL (0.2-1.0) Aspartate Amino Transf (AST/SGOT) 40 U/L (15-37) Alanine Aminotransferase (ALT/SGPT) 26 U/L (16-63) Alkaline Phosphatase 65 U/L (46-116) Total Protein 6.5 g/dL (6.4-8.2) Albumin 2.0 g/dL (3.4-5.0) Albumin/Globulin Ratio 0.4 (1.0-1.7) Test 03/21/19 07:41 Glucose (Fingerstick) 140 mg/dL (70-99) Medications Active Scripts Medications Dose Route/Sig Max Daily Dose Days Date Category Dose Instructions Tizanidine Hcl 4 Mg Tablet 1 Tab PO QHS 03/09/19 Reported Ammonium Lactate 226 Gm Lotion 1 Nando TP BID 10 12/31/18 Rx Percocet 5-325 Mg Tablet (Oxycodone/Acetaminophen) 1 Each Tablet 1 Tab PO PRN Q4HRS PRN 10 12/31/18 Rx Eliquis (Apixaban) 2.5 Mg Tablet 2.5 Mg PO BID 14 12/31/18 Rx Fosamax (Alendronate Sodium) 70 Mg Tablet 70 Mg PO WEEKLY 12/25/18 Reported pt takes medication on friday Vitamin D3 (Cholecalciferol (Vitamin D3)) 5,000 Unit Tablet 5,000 Unit PO WEEKLY 11/17/14 Reported Impression . 1. acute hypoxic resp failure- resolved 2. Chronic obstructive pulmonary disease--stable ongoing 3. Osteomyelitis. 4. s/p bilateral lower extremity amputations 5. Severe protein malnutrition. 6. Severe weight loss. anorexia 7. Hypoglycemia Plan . 1. pt. continues on Augmentin day 6 of tx. 2. encourage participation with Physical therapy 3. ok to D/C from our standpoint---waiting for [facility] to approve SNU 4. respiratory status is clinically stable 5. monitor blood glucose -------we will sign off at this time please call with any future questions or concerns Thank you.----- MEHREEN BANSAL MD Mar 21, 2019 11:31
[2019-03-21 15:00] VITALS: BP 116/64
[2019-03-21 19:00] VITALS: BP 115/64
[2019-03-21] MEDS: oxyCODONE/APAP 5/325 1 TAB TABLET PO PRN (20:27)
[2019-03-21] MEDS: ATORVASTATIN CALCIUM 10 MG TABLET. PO SCH (20:28)
[2019-03-21] MEDS: ENOXAPARIN 40 MG/0.4 ML SYRINGE. SQ SCH (20:29)
[2019-03-21 23:00] VITALS: BP 134/72
[2019-03-22 03:03] VITALS: BP 118/66
[2019-03-22 04:27] LABS: BASO # 0.2 x10^3/uL (0.0-0.2); BASO % 3 % (0-3); EOS # 0.2 x10^3/uL (0.0-0.7); EOS % 3 % (0-3); HEMOGLOBIN 8.3 g/dL (13.0-17.5); LYMPH # 1.3 x10^3/uL (1.0-4.8); LYMPH % 21 % (24-48); MEAN CORPUSCULAR HEMOGLOBIN 29 pg (25-35); MEAN CORPUSCULAR HGB CONC 33 g/dL (31-37); MEAN CORPUSCULAR VOLUME 86 fL (79-100); MONO # 0.6 x10^3/uL (0.0-1.1); MONO % 10 % (0-9); NEUT # 3.7 x10^3/uL (1.8-7.7); NEUT % 63 % (31-73); PLATELET COUNT 657 x10^3/uL (140-400); RED CELL DISTRIBUTION WIDTH 16.7 % (11.5-14.5); WHITE BLOOD COUNT 5.9 x10^3/uL (4.0-11.0)
[2019-03-22 05:03] LABS: ALBUMIN/GLOBULIN RATIO 0.5 (1.0-1.7); CALCIUM 8.2 mg/dL (8.5-10.1); CREATININE 0.8 mg/dL (0.7-1.3); GFR 114.7; POTASSIUM 4.1 mmol/L (3.5-5.1); TOTAL BILIRUBIN 0.3 mg/dL (0.2-1.0); TOTAL PROTEIN 6.4 g/dL (6.4-8.2)
[2019-03-22 07:00] VITALS: BP 100/62
[2019-03-22] MEDS: FLUoxetine HCL 20 MG CAPSULE PO SCH (08:27)
[2019-03-22] MEDS: AMOXICILLIN/K CLAV 500/125MG TABLET. PO SCH ×2 (08:27→20:49)
[2019-03-22] MEDS: MULTIVITAMIN with MINERAL TABLET. PO SCH (08:27)
[2019-03-22] MEDS: ASPIRIN ENTERIC COATED 81 MG TABLET.DR. PO SCH (08:27)
[2019-03-22] MEDS: CHOLECALCIFEROL (VITAMIN D3) 5,000 UNIT CAPSULE PO SCH (08:27)
[2019-03-22] MEDS: LACTOBACILLUS RHAMNOSUS GG 1 CAPSULE. PO SCH ×2 (08:27→20:49)
--- NOTE | 2019-03-22 08:42 | PDOC ---
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 He appears to have cognitive impai rment and not a reliable historian. 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 waiting for SNF approval PLAN: dextrose IVF today Still able to dc to SNU friday on c redd - pls update as deem fit WOund care - i inspected stumps, looks ok Vitals Vitals Vital Signs Date Time Temp Pulse Resp B/P (MAP) Pulse Ox O2 Delivery O2 Flow Rate FiO2 03/22/19 07:00 98.4 72 18 100/62 (75) 99 Room Air 98.4 Physical Exam Physical Exam CONSTITUTIONAL: He is lying in bed. He appears comfortable. He is in no acute distress. HEENT: He has normal conjunctivae. Oral cavity, pharynx is dry. Edentulous. NECK: Without any JVD. No fullness. LUNGS: Decreased in the bases. HEART: S1, S2. ABDOMEN: Soft. No guarding or rebound. Positive bowel sounds. EXTREMITIES: brayan AKA, incision good Post op wounds SKIN: Warm to touch without generalized signs of rash. NEUROLOGIC: alert cooperative. Moves all extremities. General: Alert, Oriented X3, Cooperative, No acute distress Heart: Regular rate (SR per EKG), Normal S1, Normal S2, Other (S/6 systolic murmur to LLS border) Lungs: Clear Abdomen: Soft, No tenderness Extremities: No cyanosis, No edema, Other (Bilateral AKA, dressing is clean dry and intact. No erythema, or rashes surrounding the incisions.) Skin: No rashes, No breakdown Labs LABS Laboratory Tests Test 03/21/19 11:20 03/21/19 16:36 03/21/19 20:38 03/22/19 03:20 Glucose (Fingerstick) 118 mg/dL (70-99) 118 mg/dL (70-99) 84 mg/dL (70-99) White Blood Count 5.9 x10^3/uL (4.0-11.0) Red Blood Count 2.90 x10^6/uL (4.30-5.70) Hemoglobin 8.3 g/dL (13.0-17.5) Hematocrit 25.0 % (39.0-53.0) Mean Corpuscular Volume 86 fL (79-100) Mean Corpuscular Hemoglobin 29 pg (25-35) Mean Corpuscular Hemoglobin Concent 33 g/dL (31-37) Red Cell Distribution Width 16.7 % (11.5-14.5) Platelet Count 657 x10^3/uL (140-400) Neutrophils (%) (Auto) 63 % (31-73) Lymphocytes (%) (Auto) 21 % (24-48) Monocytes (%) (Auto) 10 % (0-9) Eosinophils (%) (Auto) 3 % (0-3) Basophils (%) (Auto) 3 % (0-3) Neutrophils # (Auto) 3.7 x10^3/uL (1.8-7.7) Lymphocytes # (Auto) 1.3 x10^3/uL (1.0-4.8) Monocytes # (Auto) 0.6 x10^3/uL (0.0-1.1) Eosinophils # (Auto) 0.2 x10^3/uL (0.0-0.7) Basophils # (Auto) 0.2 x10^3/uL (0.0-0.2) Sodium Level 137 mmol/L (136-145) Potassium Level 4.1 mmol/L (3.5-5.1) Chloride Level 102 mmol/L (98-107) Carbon Dioxide Level 30 mmol/L (21-32) Anion Gap 5 (6-14) Blood Urea Nitrogen 14 mg/dL (8-26) Creatinine 0.8 mg/dL (0.7-1.3) Estimated GFR (Cockcroft-Gault) 114.7 BUN/Creatinine Ratio 18 (6-20) Glucose Level 76 mg/dL (70-99) Calcium Level 8.2 mg/dL (8.5-10.1) Total Bilirubin 0.3 mg/dL (0.2-1.0) Aspartate Amino Transf (AST/SGOT) 38 U/L (15-37) Alanine Aminotransferase (ALT/SGPT) 24 U/L (16-63) Alkaline Phosphatase 66 U/L (46-116) Total Protein 6.4 g/dL (6.4-8.2) Albumin 2.0 g/dL (3.4-5.0) Albumin/Globulin Ratio 0.5 (1.0-1.7) Test 03/22/19 07:20 Glucose (Fingerstick) 73 mg/dL (70-99) Assessment and Plan Assessmemt and Plan Problems Medical Problems: (1) Necrotic toes Status: Acute (2) Ulcer of left heel Status: Acute Comment Review of Relevant I have reviewed the following items segun (where applicable) has been applied. Labs Laboratory Tests Test 03/20/19 10:49 03/20/19 16:41 03/20/19 20:33 03/21/19 05:55 Glucose (Fingerstick) 83 mg/dL (70-99) 120 mg/dL (70-99) 90 mg/dL (70-99) White Blood Count 6.0 x10^3/uL (4.0-11.0) Red Blood Count 2.95 x10^6/uL (4.30-5.70) Hemoglobin 8.4 g/dL (13.0-17.5) Hematocrit 25.7 % (39.0-53.0) Mean Corpuscular Volume 87 fL (79-100) Mean Corpuscular Hemoglobin 29 pg (25-35) Mean Corpuscular Hemoglobin Concent 33 g/dL (31-37) Red Cell Distribution Width 17.5 % (11.5-14.5) Platelet Count 637 x10^3/uL (140-400) Neutrophils (%) (Auto) 65 % (31-73) Lymphocytes (%) (Auto) 19 % (24-48) Monocytes (%) (Auto) 10 % (0-9) Eosinophils (%) (Auto) 4 % (0-3) Basophils (%) (Auto) 3 % (0-3) Neutrophils # (Auto) 3.9 x10^3/uL (1.8-7.7) Lymphocytes # (Auto) 1.1 x10^3/uL (1.0-4.8) Monocytes # (Auto) 0.6 x10^3/uL (0.0-1.1) Eosinophils # (Auto) 0.2 x10^3/uL (0.0-0.7) Basophils # (Auto) 0.2 x10^3/uL (0.0-0.2) Sodium Level 135 mmol/L (136-145) Potassium Level 4.2 mmol/L (3.5-5.1) Chloride Level 100 mmol/L (98-107) Carbon Dioxide Level 28 mmol/L (21-32) Anion Gap 7 (6-14) Blood Urea Nitrogen 17 mg/dL (8-26) Creatinine 0.9 mg/dL (0.7-1.3) Estimated GFR (Cockcroft-Gault) 100.1 BUN/Creatinine Ratio 19 (6-20) Glucose Level 63 mg/dL (70-99) Calcium Level 8.3 mg/dL (8.5-10.1) Total Bilirubin 0.3 mg/dL (0.2-1.0) Aspartate Amino Transf (AST/SGOT) 40 U/L (15-37) Alanine Aminotransferase (ALT/SGPT) 26 U/L (16-63) Alkaline Phosphatase 65 U/L (46-116) Total Protein 6.5 g/dL (6.4-8.2) Albumin 2.0 g/dL (3.4-5.0) Albumin/Globulin Ratio 0.4 (1.0-1.7) Test 03/21/19 07:01 03/21/19 07:41 03/21/19 11:20 03/21/19 16:36 Glucose (Fingerstick) 65 mg/dL (70-99) 140 mg/dL (70-99) 118 mg/dL (70-99) 118 mg/dL (70-99) Test 03/21/19 20:38 03/22/19 03:20 03/22/19 07:20 Glucose (Fingerstick) 84 mg/dL (70-99) 73 mg/dL (70-99) White Blood Count 5.9 x10^3/uL (4.0-11.0) Red Blood Count 2.90 x10^6/uL (4.30-5.70) Hemoglobin 8.3 g/dL (13.0-17.5) Hematocrit 25.0 % (39.0-53.0) Mean Corpuscular Volume 86 fL (79-100) Mean Corpuscular Hemoglobin 29 pg (25-35) Mean Corpuscular Hemoglobin Concent 33 g/dL (31-37) Red Cell Distribution Width 16.7 % (11.5-14.5) Platelet Count 657 x10^3/uL (140-400) Neutrophils (%) (Auto) 63 % (31-73) Lymphocytes (%) (Auto) 21 % (24-48) Monocytes (%) (Auto) 10 % (0-9) Eosinophils (%) (Auto) 3 % (0-3) Basophils (%) (Auto) 3 % (0-3) Neutrophils # (Auto) 3.7 x10^3/uL (1.8-7.7) Lymphocytes # (Auto) 1.3 x10^3/uL (1.0-4.8) Monocytes # (Auto) 0.6 x10^3/uL (0.0-1.1) Eosinophils # (Auto) 0.2 x10^3/uL (0.0-0.7) Basophils # (Auto) 0.2 x10^3/uL (0.0-0.2) Sodium Level 137 mmol/L (136-145) Potassium Level 4.1 mmol/L (3.5-5.1) Chloride Level 102 mmol/L (98-107) Carbon Dioxide Level 30 mmol/L (21-32) Anion Gap 5 (6-14) Blood Urea Nitrogen 14 mg/dL (8-26) Creatinine 0.8 mg/dL (0.7-1.3) Estimated GFR (Cockcroft-Gault) 114.7 BUN/Creatinine Ratio 18 (6-20) Glucose Level 76 mg/dL (70-99) Calcium Level 8.2 mg/dL (8.5-10.1) Total Bilirubin 0.3 mg/dL (0.2-1.0) Aspartate Amino Transf (AST/SGOT) 38 U/L (15-37) Alanine Aminotransferase (ALT/SGPT) 24 U/L (16-63) Alkaline Phosphatase 66 U/L (46-116) Total Protein 6.4 g/dL (6.4-8.2) Albumin 2.0 g/dL (3.4-5.0) Albumin/Globulin Ratio 0.5 (1.0-1.7) Laboratory Tests Test 03/21/19 11:20 03/21/19 16:36 03/21/19 20:38 03/22/19 03:20 Glucose (Fingerstick) 118 mg/dL (70-99) 118 mg/dL (70-99) 84 mg/dL (70-99) White Blood Count 5.9 x10^3/uL (4.0-11.0) Red Blood Count 2.90 x10^6/uL (4.30-5.70) Hemoglobin 8.3 g/dL (13.0-17.5) Hematocrit 25.0 % (39.0-53.0) Mean Corpuscular Volume 86 fL (79-100) Mean Corpuscular Hemoglobin 29 pg (25-35) Mean Corpuscular Hemoglobin Concent 33 g/dL (31-37) Red Cell Distribution Width 16.7 % (11.5-14.5) Platelet Count 657 x10^3/uL (140-400) Neutrophils (%) (Auto) 63 % (31-73) Lymphocytes (%) (Auto) 21 % (24-48) Monocytes (%) (Auto) 10 % (0-9) Eosinophils (%) (Auto) 3 % (0-3) Basophils (%) (Auto) 3 % (0-3) Neutrophils # (Auto) 3.7 x10^3/uL (1.8-7.7) Lymphocytes # (Auto) 1.3 x10^3/uL (1.0-4.8) Monocytes # (Auto) 0.6 x10^3/uL (0.0-1.1) Eosinophils # (Auto) 0.2 x10^3/uL (0.0-0.7) Basophils # (Auto) 0.2 x10^3/uL (0.0-0.2) Sodium Level 137 mmol/L (136-145) Potassium Level 4.1 mmol/L (3.5-5.1) Chloride Level 102 mmol/L (98-107) Carbon Dioxide Level 30 mmol/L (21-32) Anion Gap 5 (6-14) Blood Urea Nitrogen 14 mg/dL (8-26) Creatinine 0.8 mg/dL (0.7-1.3) Estimated GFR (Cockcroft-Gault) 114.7 BUN/Creatinine Ratio 18 (6-20) Glucose Level 76 mg/dL (70-99) Calcium Level 8.2 mg/dL (8.5-10.1) Total Bilirubin 0.3 mg/dL (0.2-1.0) Aspartate Amino Transf (AST/SGOT) 38 U/L (15-37) Alanine Aminotransferase (ALT/SGPT) 24 U/L (16-63) Alkaline Phosphatase 66 U/L (46-116) Total Protein 6.4 g/dL (6.4-8.2) Albumin 2.0 g/dL (3.4-5.0) Albumin/Globulin Ratio 0.5 (1.0-1.7) Test 03/22/19 07:20 Glucose (Fingerstick) 73 mg/dL (70-99) Microbiology 03/08/19 Blood Culture - Final, Complete NO GROWTH AFTER 5 DAYS Medications Current Medications Sodium Chloride 1,000 ml @ 1,860 mls/hr Q33M IV Last administered on 03/08/19at 17:40; Start 03/08/19 at 16:04; Stop 03/08/19 at 17:04; Status DC Piperacillin Sod/ Tazobactam Sod 4.5 gm/Sodium Chloride 100 ml @ 200 mls/hr 1X ONCE IV Last administered on 03/08/19at 16:41; Start 03/08/19 at 16:15; Stop 03/08/19 at 16:44; Status DC Vancomycin HCl (Vanco Per Pharmacy) 1 each 1X ONCE MC ; Start 03/08/19 at 16:15; Stop 03/08/19 at 16:24; Status DC Morphine Sulfate (Morphine Sulfate) 4 mg PRN Q15MIN PRN IV/SQ PAIN GREATER THAN 3/10; Start 03/08/19 at 16:15; Stop 03/09/19 at 08:35; Status DC Vancomycin HCl 1.25 gm/Sodium Chloride 250 ml @ 167 mls/hr ONCE ONCE IV Last administered on 03/08/19at 17:40; Start 03/08/19 at 16:30; Stop 03/08/19 at 17:59; Status DC Ondansetron HCl (Zofran) 4 mg PRN Q8HRS PRN IV NAUSEA/VOMITING; Start 03/08/19 at 18:15; Stop 03/08/19 at 21:18; Status DC Morphine Sulfate (Morphine Sulfate) 4 mg PRN Q2HR PRN IV SEVERE PAIN 7-10; Start 03/08/19 at 18:15; Stop 03/09/19 at 08:35; Status DC Sodium Chloride 1,000 ml @ 75 mls/hr 1X ONCE IV Last administered on 03/08/19at 21:25; Start 03/08/19 at 18:15; Stop 03/09/19 at 07:34; Status DC Ondansetron HCl (Zofran) 4 mg PRN Q6HRS PRN IV NAUSEA/VOMITING 1ST CHOICE; Start 03/08/19 at 21:15 Lactic Acid (Lac-Hydrin) 1 nando BID TP Last administered on 03/15/19at 08:16; Start 03/09/19 at 09:00; Stop 03/15/19 at 19:58; Status DC Non-Formulary Medication (Alendronate Sodium (Fosamax)) 70 mg WEEKLY PO ; Start 03/15/19 at 09:00; Status UNV Vitamin D (Vitamin D3) 5,000 unit WEEKLY PO Last administered on 03/22/19at 08:27; Start 03/15/19 at 09:00 Piperacillin Sod/ Tazobactam Sod 3.375 gm/Sodium Chloride 50 ml @ 100 mls/hr Q6HRS IV ; Start 03/09/19 at 00:00; Status UNV Tramadol HCl (Ultram) 50 mg PRN Q6HRS PRN PO MODERATE PAIN Last administered on 03/14/19at 13:13; Start 03/08/19 at 21:15 Insulin Human Lispro (HumaLOG) 0-5 UNITS TIDACHC SQ ; Start 03/09/19 at 07:30; Stop 03/09/19 at 08:31; Status DC Dextrose (Dextrose 50%-Water Syringe) 12.5 gm PRN Q15MIN PRN IV SEE COMMENTS Last administered on 03/21/19at 07:04; Start 03/08/19 at 21:15 Enoxaparin Sodium (Lovenox 40mg Syringe) 40 mg Q24H SQ Last administered on 03/21/19at 20:29; Start 03/08/19 at 22:00 Piperacillin Sod/ Tazobactam Sod 2.25 gm/Sodium Chloride 50 ml @ 100 mls/hr Q6HRS IV Last administered on 03/09/19at 05:54; Start 03/09/19 at 00:00; Stop 03/09/19 at 10:17; Status DC Potassium Chloride (Klor-Con) 40 meq 1X ONCE PO Last administered on 03/08/19at 22:20; Start 03/08/19 at 22:00; Stop 03/08/19 at 22:01; Status DC Acetaminophen (Tylenol) 500 mg PRN Q6HRS PRN PO TEMP/HEADACHE; Start 03/09/19 at 08:30 Acetaminophen/ Codeine Phosphate (Tylenol #3) 1 tab PRN Q6HRS PRN PO MILD PAIN 1-3; Start 03/09/19 at 08:30 Morphine Sulfate (Morphine Sulfate) 2 mg PRN Q2HR PRN IV PAIN Last administered on 03/14/19at 16:10; Start 03/09/19 at 08:30 Oxycodone/ Acetaminophen (Percocet 5/325) 1 tab PRN Q4HRS PRN PO SEVERE PAIN 7- 10 Last administered on 03/21/19at 20:27; Start 03/09/19 at 08:30 Piperacillin Sod/ Tazobactam Sod 3.375 gm/Sodium Chloride 50 ml @ 100 mls/hr Q6HRS IV Last administered on 03/15/19at 05:39; Start 03/09/19 at 12:00; Stop 03/15/19 at 08:43; Status DC Micafungin Sodium 100 mg/Dextrose 100 ml @ 100 mls/hr Q24H IV Last administered on 03/13/19at 11:57; Start 03/09/19 at 11:00; Stop 03/14/19 at 08:23; Status DC Vancomycin HCl (Vanco Per Pharmacy) 1 each PRN DAILY PRN MC SEE COMMENTS Last administered on 03/13/19 16:16; Start 03/09/19 at 11:15; Stop 03/14/19 at 08:23; Status DC Vancomycin HCl 750 mg/Sodium Chloride 250 ml @ 250 mls/hr Q24H IV Last administered on 03/09/19 17:11; Start 03/09/19 at 17:00; Stop 03/10/19 at 17:02; Status DC Vancomycin HCl (Vancomycin Trough Level) 1 each 1X ONCE MC Last administered on 03/10/19 16:30; Start 03/10/19 at 16:30; Stop 03/10/19 at 16:31; Status DC Multivitamins (Thera M Plus) 1 tab DAILY PO Last administered on 03/22/19 08:27; Start 03/10/19 at 09:00 Dextrose/Sodium Chloride 1,000 ml @ 75 mls/hr [id number] IV Last administered on 03/09/19 17:30; Start 03/09/19 at 17:30; Stop 03/10/19 at 06:49; Status DC Lactobacillus Rhamnosus (Culturelle) 1 cap BID PO Last administered on 03/22/19 08:27; Start 03/10/19 at 21:00 Vancomycin HCl 1 gm/Sodium Chloride 250 ml @ 250 mls/hr Q24H IV Last administered on 03/13/19 17:41; Start 03/10/19 at 17:30; Stop 03/14/19 at 08:23; Status DC Vancomycin HCl (Vancomycin Trough Level) 1 each 1X ONCE MC Last administered on 03/12/19 17:00; Start 03/12/19 at 17:00; Stop 03/12/19 at 17:01; Status DC Bupivacaine HCl/ Epinephrine Bitart (Sensorcaine-Epi 0.25%-1:[id number] Mpf) 30 ml 1X ONCE INJ Last administered on 03/12/19 18:04; Start 03/12/19 at 08:00; Stop 03/12/19 at 08:01; Status DC Aspirin (Ecotrin) 81 mg [id number] PO Last administered on 03/22/19 08:27; Start 03/12/19 at 08:00 Atorvastatin Calcium (Lipitor) 10 mg QHS PO Last administered on 11/10/19at 20:28; Start 03/11/19 at 21:00 Metoprolol Tartrate (Lopressor Vial) 5 mg PRN Q6HRS PRN IVP HYPERTENSION; Start 03/11/19 at 16:00 Ondansetron HCl (Zofran) 4 mg PRN Q6HRS PRN IV NAUSEA/VOMITING; Start 03/12/19 at 07:00; Stop 03/13/19 at 06:59; Status DC Fentanyl Citrate (Fentanyl 2ml Vial) 25 mcg PRN Q5MIN PRN IV MILD PAIN 1-3 Last administered on 03/12/19at 21:28; Start 03/12/19 at 07:00; Stop 03/13/19 at 06:59; Status DC Fentanyl Citrate (Fentanyl 2ml Vial) 50 mcg PRN Q5MIN PRN IV MODERATE TO SEVERE PAIN; Start 03/12/19 at 07:00; Stop 03/13/19 at 06:59; Status DC Morphine Sulfate (Morphine Sulfate) 1 mg PRN Q10MIN PRN IV SEVERE PAIN 7-10; Start 03/12/19 at 07:00; Stop 03/13/19 at 06:59; Status DC Ringer's Solution 1,000 ml @ 30 mls/hr Q24H IV Last administered on 03/12/19at 17:12; Start 03/12/19 at 07:00; Stop 03/12/19 at 18:59; Status DC Lidocaine HCl (Xylocaine-Mpf 1% 2ml Vial) 2 ml PRN 1X PRN ID PRIOR TO IV START; Start 03/12/19 at 07:00; Stop 03/13/19 at 06:59; Status DC Hydromorphone HCl (Dilaudid) 0.5 mg PRN Q10MIN PRN IV SEV PAIN, Second choice; Start 03/12/19 at 07:00; Stop 03/13/19 at 06:59; Status DC Prochlorperazine Edisylate (Compazine) 5 mg PACU PRN PRN IV NAUSEA, MRX1; Start 03/12/19 at 07:00; Stop 03/13/19 at 06:59; Status DC Potassium Chloride/Dextrose/ Sod Cl 1,000 ml @ 80 mls/hr [id number] IV Last administered on 03/17/19at 00:12; Start 03/12/19 at 07:45; Stop 03/18/19 at 07:03; Status DC Amino Acids/ Glycerin/ Electrolytes 1,000 ml @ 80 mls/hr [id number] IV ; Start 03/12/19 at 09:30; Stop 03/12/19 at 09:47; Status DC Sevoflurane (Ultane) 90 ml STK-MED ONCE IH ; Start 03/12/19 at 15:32; Stop 03/12/19 at 15:33; Status DC Rocuronium [place] (Zemuron) 50 mg STK-MED ONCE .ROUTE ; Start 03/12/19 at 15:32; Stop 03/12/19 at 15:33; Status DC Fentanyl Citrate (Fentanyl 2ml Vial) 100 mcg STK-MED ONCE .ROUTE ; Start 03/12/19 at 15:32; Stop 03/12/19 at 15:33; Status DC Neostigmine Methylsulfate (Neostigmine Methylsulfate) 5 mg STK-MED ONCE .ROUTE ; Start 03/12/19 at 15:33; Stop 03/12/19 at 15:33; Status DC Glycopyrrolate (Robinul) 1 mg STK-MED ONCE .ROUTE ; Start 03/12/19 at 15:33; Stop 03/12/19 at 15:33; Status DC Dexamethasone Sodium Phosphate (Decadron) 4 mg STK-MED ONCE .ROUTE ; Start 03/12/19 at 15:33; Stop 03/12/19 at 15:33; Status DC Propofol 20 ml @ As Directed STK-MED ONCE IV ; Start 03/12/19 at 15:33; Stop 03/12/19 at 15:33; Status DC Lidocaine HCl (Lidocaine Pf 2% Vial) 5 ml STK-MED ONCE .ROUTE ; Start 03/12/19 at 15:33; Stop 03/12/19 at 15:33; Status DC Ondansetron HCl (Zofran) 4 mg STK-MED ONCE .ROUTE ; Start 03/12/19 at 15:33; S top 03/12/19 at 15:33; Status DC Phenylephrine HCl (PHENYLEPHRINE in 0.9% NACL PF) 1 mg STK-MED ONCE IV ; Start 03/12/19 at 17:27; Stop 03/12/19 at 17:27; Status DC Ephedrine Sulfate (ePHEDrine PF IN SALINE SYRINGE) 50 mg STK-MED ONCE IV ; Start 03/12/19 at 17:43; Stop 03/12/19 at 17:43; Status DC Albuterol Sulfate (Ventolin Neb Soln) 2.5 mg STK-MED ONCE .ROUTE ; Start 03/12/19 at 20:06; Stop 03/12/19 at 20:07; Status DC Albuterol Sulfate (Ventolin Neb Soln) 2.5 mg 1X ONCE NEB Last administered on 03/12/19at 20:21; Start 03/12/19 at 20:15; Stop 03/12/19 at 20:32; Status DC Amoxicillin/ Clavulanate Potassium (Augmentin 500/ 125mg) 1 tab BID PO Last administered on 03/22/19at 08:27; Start 03/15/19 at 09:00 Fluoxetine HCl (PROzac) 20 mg DAILY PO Last administered on 03/22/19at 08:27; Start 03/18/19 at 09:00 Nicotine Polacrilex (Nicorette Gum) 1 each PRN Q1HR PRN BC SMOKING CESSATION Last administered on 03/19/19at 16:59; Start 03/19/19 at 17:00 Dextrose/Sodium Chloride 1,000 ml @ 80 mls/hr 1X ONCE IV Last administered on 03/21/19at 10:25; Start 03/21/19 at 09:45; Stop 03/21/19 at 22:14; Status DC Active Scripts Active Augmentin 875-125 Tablet (Amoxicillin/Potassium Clav) 1 Each Tablet 1 Tab PO BID 10 Days Thera-M Tablet (Multivits,Ca,Minerals/Iron/Fa) 1 Each Tablet 1 Tab PO DAILY Aspirin Ec (Aspirin) 81 Mg Tablet. 81 Mg PO [id number] Atorvastatin Calcium 10 Mg Tablet 10 Mg PO QHS Percocet 5-325 Mg Tablet (Oxycodone/Acetaminophen) 1 Each Tablet 1 Tab PO PRN Q4HRS PRN 10 Days Ammonium Lactate 226 Gm Lotion 1 Nando TP BID 10 Days Eliquis (Apixaban) 2.5 Mg Tablet 2.5 Mg PO BID 14 Days Reported Tizanidine Hcl 4 Mg Tablet 1 Tab PO QHS Fosamax (Alendronate Sodium) 70 Mg Tablet 70 Mg PO WEEKLY pt takes medication on friday Vitamin D3 (Cholecalciferol (Vitamin D3)) 5,000 Unit Tablet 5,000 Unit PO WEEKLY Vitals/I & O Vital Sign - Last 24 Hours 03/21/19 03/21/19 03/21/19 03/21/19 11:00 15:00 19:00 19:28 Temp 98.3 97.9 98.7 98.3 97.9 98.7 Pulse 73 64 80 Resp 16 16 18 B/P (MAP) 109/65 (80) 116/64 (81) 115/64 (81) Pulse Ox 100 95 100 O2 Delivery Room Air Room Air Room Air Room Air 03/21/19 03/21/19 03/21/19 03/22/19 20:27 21:27 23:00 03:03 Temp 97.7 98.4 97.7 98.4 Pulse 75 74 Resp 18 18 B/P (MAP) 134/72 (92) 118/66 (83) Pulse Ox 100 100 O2 Delivery Room Air Room Air Room Air Room Air 03/22/19 07:00 Temp 98.4 98.4 Pulse 72 Resp 18 B/P (MAP) 100/62 (75) Pulse Ox 99 O2 Delivery Room Air Intake and Output 03/21/19 03/21/19 03/22/19 15:00 23:00 07:00 Intake Total 360 ml 120 ml Output Total 375 ml Balance 360 ml 120 ml -375 ml Nutrition Consultation Dietary Evaluation: Recommendations by RD: Dietary education by RD, Protein supplementation Comments: REC continue liberlized diet : regular rosa bid REC continue mvi q day per wound protocal Expected Outcomes/Goals: to meet >75% est nutr needs improved wound status BS control Interpretation of weight loss: >1-2% in 1 week Malnutrition Findings: Body Fat Depletion (Non Severe: Mod to Severe Weight Status: Underweight CARMEN CONKLIN MD Mar 22, 2019 08:42
--- NOTE | 2019-03-22 09:11 | PDOC ---
PULMONARY PROGRESS NOTES Subjective NO DISTRESS Vitals Vital Signs Date Time Temp Pulse Resp B/P (MAP) Pulse Ox O2 Delivery O2 Flow Rate FiO2 03/22/19 07:00 98.4 72 18 100/62 (75) 99 Room Air 98.4 ROS: No Nausea, No Chest Pain, No Abdominal Pain, No Increase Cough General: Alert, No acute distress Lungs: Clear Cardiovascular: S1, S2 Abdomen: Soft Neuro Exam: Alert, No Focal Findings Extremities: No Edema Skin: Warm Labs Laboratory Tests Test 03/20/19 10:49 03/20/19 16:41 03/20/19 20:33 03/21/19 05:55 Glucose (Fingerstick) 83 mg/dL (70-99) 120 mg/dL (70-99) 90 mg/dL (70-99) White Blood Count 6.0 x10^3/uL (4.0-11.0) Red Blood Count 2.95 x10^6/uL (4.30-5.70) Hemoglobin 8.4 g/dL (13.0-17.5) Hematocrit 25.7 % (39.0-53.0) Mean Corpuscular Volume 87 fL (79-100) Mean Corpuscular Hemoglobin 29 pg (25-35) Mean Corpuscular Hemoglobin Concent 33 g/dL (31-37) Red Cell Distribution Width 17.5 % (11.5-14.5) Platelet Count 637 x10^3/uL (140-400) Neutrophils (%) (Auto) 65 % (31-73) Lymphocytes (%) (Auto) 19 % (24-48) Monocytes (%) (Auto) 10 % (0-9) Eosinophils (%) (Auto) 4 % (0-3) Basophils (%) (Auto) 3 % (0-3) Neutrophils # (Auto) 3.9 x10^3/uL (1.8-7.7) Lymphocytes # (Auto) 1.1 x10^3/uL (1.0-4.8) Monocytes # (Auto) 0.6 x10^3/uL (0.0-1.1) Eosinophils # (Auto) 0.2 x10^3/uL (0.0-0.7) Basophils # (Auto) 0.2 x10^3/uL (0.0-0.2) Sodium Level 135 mmol/L (136-145) Potassium Level 4.2 mmol/L (3.5-5.1) Chloride Level 100 mmol/L (98-107) Carbon Dioxide Level 28 mmol/L (21-32) Anion Gap 7 (6-14) Blood Urea Nitrogen 17 mg/dL (8-26) Creatinine 0.9 mg/dL (0.7-1.3) Estimated GFR (Cockcroft-Gault) 100.1 BUN/Creatinine Ratio 19 (6-20) Glucose Level 63 mg/dL (70-99) Calcium Level 8.3 mg/dL (8.5-10.1) Total Bilirubin 0.3 mg/dL (0.2-1.0) Aspartate Amino Transf (AST/SGOT) 40 U/L (15-37) Alanine Aminotransferase (ALT/SGPT) 26 U/L (16-63) Alkaline Phosphatase 65 U/L (46-116) Total Protein 6.5 g/dL (6.4-8.2) Albumin 2.0 g/dL (3.4-5.0) Albumin/Globulin Ratio 0.4 (1.0-1.7) Test 03/21/19 07:01 03/21/19 07:41 03/21/19 11:20 03/21/19 16:36 Glucose (Fingerstick) 65 mg/dL (70-99) 140 mg/dL (70-99) 118 mg/dL (70-99) 118 mg/dL (70-99) Test 03/21/19 20:38 03/22/19 03:20 03/22/19 07:20 Glucose (Fingerstick) 84 mg/dL (70-99) 73 mg/dL (70-99) White Blood Count 5.9 x10^3/uL (4.0-11.0) Red Blood Count 2.90 x10^6/uL (4.30-5.70) Hemoglobin 8.3 g/dL (13.0-17.5) Hematocrit 25.0 % (39.0-53.0) Mean Corpuscular Volume 86 fL (79-100) Mean Corpuscular Hemoglobin 29 pg (25-35) Mean Corpuscular Hemoglobin Concent 33 g/dL (31-37) Red Cell Distribution Width 16.7 % (11.5-14.5) Platelet Count 657 x10^3/uL (140-400) Neutrophils (%) (Auto) 63 % (31-73) Lymphocytes (%) (Auto) 21 % (24-48) Monocytes (%) (Auto) 10 % (0-9) Eosinophils (%) (Auto) 3 % (0-3) Basophils (%) (Auto) 3 % (0-3) Neutrophils # (Auto) 3.7 x10^3/uL (1.8-7.7) Lymphocytes # (Auto) 1.3 x10^3/uL (1.0-4.8) Monocytes # (Auto) 0.6 x10^3/uL (0.0-1.1) Eosinophils # (Auto) 0.2 x10^3/uL (0.0-0.7) Basophils # (Auto) 0.2 x10^3/uL (0.0-0.2) Sodium Level 137 mmol/L (136-145) Potassium Level 4.1 mmol/L (3.5-5.1) Chloride Level 102 mmol/L (98-107) Carbon Dioxide Level 30 mmol/L (21-32) Anion Gap 5 (6-14) Blood Urea Nitrogen 14 mg/dL (8-26) Creatinine 0.8 mg/dL (0.7-1.3) Estimated GFR (Cockcroft-Gault) 114.7 BUN/Creatinine Ratio 18 (6-20) Glucose Level 76 mg/dL (70-99) Calcium Level 8.2 mg/dL (8.5-10.1) Total Bilirubin 0.3 mg/dL (0.2-1.0) Aspartate Amino Transf (AST/SGOT) 38 U/L (15-37) Alanine Aminotransferase (ALT/SGPT) 24 U/L (16-63) Alkaline Phosphatase 66 U/L (46-116) Total Protein 6.4 g/dL (6.4-8.2) Albumin 2.0 g/dL (3.4-5.0) Albumin/Globulin Ratio 0.5 (1.0-1.7) Laboratory Tests Test 03/21/19 11:20 03/21/19 16:36 03/21/19 20:38 03/22/19 03:20 Glucose (Fingerstick) 118 mg/dL (70-99) 118 mg/dL (70-99) 84 mg/dL (70-99) White Blood Count 5.9 x10^3/uL (4.0-11.0) Red Blood Count 2.90 x10^6/uL (4.30-5.70) Hemoglobin 8.3 g/dL (13.0-17.5) Hematocrit 25.0 % (39.0-53.0) Mean Corpuscular Volume 86 fL (79-100) Mean Corpuscular Hemoglobin 29 pg (25-35) Mean Corpuscular Hemoglobin Concent 33 g/dL (31-37) Red Cell Distribution Width 16.7 % (11.5-14.5) Platelet Count 657 x10^3/uL (140-400) Neutrophils (%) (Auto) 63 % (31-73) Lymphocytes (%) (Auto) 21 % (24-48) Monocytes (%) (Auto) 10 % (0-9) Eosinophils (%) (Auto) 3 % (0-3) Basophils (%) (Auto) 3 % (0-3) Neutrophils # (Auto) 3.7 x10^3/uL (1.8-7.7) Lymphocytes # (Auto) 1.3 x10^3/uL (1.0-4.8) Monocytes # (Auto) 0.6 x10^3/uL (0.0-1.1) Eosinophils # (Auto) 0.2 x10^3/uL (0.0-0.7) Basophils # (Auto) 0.2 x10^3/uL (0.0-0.2) Sodium Level 137 mmol/L (136-145) Potassium Level 4.1 mmol/L (3.5-5.1) Chloride Level 102 mmol/L (98-107) Carbon Dioxide Level 30 mmol/L (21-32) Anion Gap 5 (6-14) Blood Urea Nitrogen 14 mg/dL (8-26) Creatinine 0.8 mg/dL (0.7-1.3) Estimated GFR (Cockcroft-Gault) 114.7 BUN/Creatinine Ratio 18 (6-20) Glucose Level 76 mg/dL (70-99) Calcium Level 8.2 mg/dL (8.5-10.1) Total Bilirubin 0.3 mg/dL (0.2-1.0) Aspartate Amino Transf (AST/SGOT) 38 U/L (15-37) Alanine Aminotransferase (ALT/SGPT) 24 U/L (16-63) Alkaline Phosphatase 66 U/L (46-116) Total Protein 6.4 g/dL (6.4-8.2) Albumin 2.0 g/dL (3.4-5.0) Albumin/Globulin Ratio 0.5 (1.0-1.7) Test 03/22/19 07:20 Glucose (Fingerstick) 73 mg/dL (70-99) Medications Active Scripts Medications Dose Route/Sig Max Daily Dose Days Date Category Dose Instructions Tizanidine Hcl 4 Mg Tablet 1 Tab PO QHS 03/09/19 Reported Ammonium Lactate 226 Gm Lotion 1 Nando TP BID 10 12/31/18 Rx Percocet 5-325 Mg Tablet (Oxycodone/Acetaminophen) 1 Each Tablet 1 Tab PO PRN Q4HRS PRN 10 12/31/18 Rx Eliquis (Apixaban) 2.5 Mg Tablet 2.5 Mg PO BID 14 12/31/18 Rx Fosamax (Alendronate Sodium) 70 Mg Tablet 70 Mg PO WEEKLY 12/25/18 Reported pt takes medication on friday Vitamin D3 (Cholecalciferol (Vitamin D3)) 5,000 Unit Tablet 5,000 Unit PO WEEKLY 11/17/14 Reported Impression . 1. acute hypoxic resp failure- resolved 2. Chronic obstructive pulmonary disease--stable ongoing 3. Osteomyelitis. 4. s/p bilateral lower extremity amputations 5. Severe protein malnutrition. 6. Severe weight loss. anorexia 7. Hypoglycemia Plan . WILL S/O CALL IF NEEDED MEHREEN BANSAL MD Mar 22, 2019 09:11
[2019-03-22 11:00] VITALS: BP 107/63
--- NOTE | 2019-03-22 13:11 | NUR ---
SW following. Discussed with RN. ADALBERTO contacted Raul at [facility], [place], they were unable to get pt accepted for SNU due to insurance being out of network and unable to get one time contract. However, pt has clinically been accepted by [facility] for LTC but they are waiting on the director to also accept. [facility] will assist pt in completing medicaid application, and be able to stay at the facility, medicaid pending. ADALBERTO attempted to contact pt's to advise of this, however the voicemail box was full. ADALBERTO notified RN, requested SW be contacted if pt's stops by or contacts RN. SW will continue to follow, waiting total acceptance from [facility] SNU.
[2019-03-22 15:00] VITALS: BP 105/60
[2019-03-22 19:00] VITALS: BP 106/66
[2019-03-22] MEDS: ATORVASTATIN CALCIUM 10 MG TABLET. PO SCH (20:49)
[2019-03-22] MEDS: ENOXAPARIN 40 MG/0.4 ML SYRINGE. SQ SCH (20:51)
[2019-03-22 23:00] VITALS: BP 101/61
[2019-03-23 03:00] VITALS: BP 114/72
[2019-03-23 05:02] LABS: BASO # 0.2 x10^3/uL (0.0-0.2); BASO % 3 % (0-3); EOS # 0.2 x10^3/uL (0.0-0.7); EOS % 3 % (0-3); HEMATOCRIT 25.8 % (39.0-53.0); HEMOGLOBIN 8.5 g/dL (13.0-17.5); LYMPH # 1.2 x10^3/uL (1.0-4.8); LYMPH % 18 % (24-48); MEAN CORPUSCULAR HEMOGLOBIN 29 pg (25-35); MEAN CORPUSCULAR HGB CONC 33 g/dL (31-37); MEAN CORPUSCULAR VOLUME 88 fL (79-100); MONO # 0.6 x10^3/uL (0.0-1.1); MONO % 10 % (0-9); NEUT # 4.3 x10^3/uL (1.8-7.7); NEUT % 66 % (31-73); PLATELET COUNT 607 x10^3/uL (140-400); RED BLOOD COUNT 2.92 x10^6/uL (4.30-5.70); WHITE BLOOD COUNT 6.5 x10^3/uL (4.0-11.0)
[2019-03-23 05:40] LABS: ALBUMIN 2.1 g/dL (3.4-5.0); ALBUMIN/GLOBULIN RATIO 0.5 (1.0-1.7); CALCIUM 8.4 mg/dL (8.5-10.1); CREATININE 0.8 mg/dL (0.7-1.3); GFR 114.7; TOTAL BILIRUBIN 0.2 mg/dL (0.2-1.0)
[2019-03-23 07:00] VITALS: BP 105/74
--- NOTE | 2019-03-23 08:16 | PDOC ---
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 He appears to have cognitive impai rment and not a reliable historian. 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 PLAN: Still able to dc to SNF, Emergency admit to halfway care less than 30 days Wound care - i inspected stumps, looks ok Vitals Vitals Vital Signs Date Time Temp Pulse Resp B/P (MAP) Pulse Ox O2 Delivery O2 Flow Rate FiO2 03/23/19 07:00 97.9 72 16 105/74 (84) 99 Room Air 97.9 Physical Exam Physical Exam CONSTITUTIONAL: He is lying in bed. He appears comfortable. He is in no acute distress. HEENT: He has normal conjunctivae. Oral cavity, pharynx is dry. Edentulous. NECK: Without any JVD. No fullness. LUNGS: Decreased in the bases. HEART: S1, S2. ABDOMEN: Soft. No guarding or rebound. Positive bowel sounds. EXTREMITIES: brayan AKA, incision good Post op wounds SKIN: Warm to touch without generalized signs of rash. NEUROLOGIC: alert cooperative. Moves all extremities. General: Alert, Oriented X3, Cooperative, No acute distress Heart: Regular rate (SR per EKG), Normal S1, Normal S2, Other (S/6 systolic murmur to LLS border) Lungs: Clear Abdomen: Soft, No tenderness Extremities: No cyanosis, No edema, Other (Bilateral AKA, dressing is clean dry and intact. No erythema, or rashes surrounding the incisions.) Skin: No rashes, No breakdown Labs LABS Laboratory Tests Test 03/22/19 11:25 03/22/19 16:52 03/22/19 20:09 03/23/19 04:00 Glucose (Fingerstick) 90 mg/dL (70-99) 78 mg/dL (70-99) 76 mg/dL (70-99) White Blood Count 6.5 x10^3/uL (4.0-11.0) Red Blood Count 2.92 x10^6/uL (4.30-5.70) Hemoglobin 8.5 g/dL (13.0-17.5) Hematocrit 25.8 % (39.0-53.0) Mean Corpuscular Volume 88 fL (79-100) Mean Corpuscular Hemoglobin 29 pg (25-35) Mean Corpuscular Hemoglobin Concent 33 g/dL (31-37) Red Cell Distribution Width 17.0 % (11.5-14.5) Platelet Count 607 x10^3/uL (140-400) Neutrophils (%) (Auto) 66 % (31-73) Lymphocytes (%) (Auto) 18 % (24-48) Monocytes (%) (Auto) 10 % (0-9) Eosinophils (%) (Auto) 3 % (0-3) Basophils (%) (Auto) 3 % (0-3) Neutrophils # (Auto) 4.3 x10^3/uL (1.8-7.7) Lymphocytes # (Auto) 1.2 x10^3/uL (1.0-4.8) Monocytes # (Auto) 0.6 x10^3/uL (0.0-1.1) Eosinophils # (Auto) 0.2 x10^3/uL (0.0-0.7) Basophils # (Auto) 0.2 x10^3/uL (0.0-0.2) Sodium Level 138 mmol/L (136-145) Potassium Level 5.0 mmol/L (3.5-5.1) Chloride Level 104 mmol/L (98-107) Carbon Dioxide Level 27 mmol/L (21-32) Anion Gap 7 (6-14) Blood Urea Nitrogen 24 mg/dL (8-26) Creatinine 0.8 mg/dL (0.7-1.3) Estimated GFR (Cockcroft-Gault) 114.7 BUN/Creatinine Ratio 30 (6-20) Glucose Level 71 mg/dL (70-99) Calcium Level 8.4 mg/dL (8.5-10.1) Total Bilirubin 0.2 mg/dL (0.2-1.0) Aspartate Amino Transf (AST/SGOT) 43 U/L (15-37) Alanine Aminotransferase (ALT/SGPT) 28 U/L (16-63) Alkaline Phosphatase 74 U/L (46-116) Total Protein 6.0 g/dL (6.4-8.2) Albumin 2.1 g/dL (3.4-5.0) Albumin/Globulin Ratio 0.5 (1.0-1.7) Test 03/23/19 07:03 Glucose (Fingerstick) 71 mg/dL (70-99) Assessment and Plan Assessmemt and Plan Problems Medical Problems: (1) Necrotic toes Status: Acute (2) Ulcer of left heel Status: Acute Comment Review of Relevant I have reviewed the following items segun (where applicable) has been applied. Labs Laboratory Tests Test 03/21/19 11:20 03/21/19 16:36 03/21/19 20:38 03/22/19 03:20 Glucose (Fingerstick) 118 mg/dL (70-99) 118 mg/dL (70-99) 84 mg/dL (70-99) White Blood Count 5.9 x10^3/uL (4.0-11.0) Red Blood Count 2.90 x10^6/uL (4.30-5.70) Hemoglobin 8.3 g/dL (13.0-17.5) Hematocrit 25.0 % (39.0-53.0) Mean Corpuscular Volume 86 fL (79-100) Mean Corpuscular Hemoglobin 29 pg (25-35) Mean Corpuscular Hemoglobin Concent 33 g/dL (31-37) Red Cell Distribution Width 16.7 % (11.5-14.5) Platelet Count 657 x10^3/uL (140-400) Neutrophils (%) (Auto) 63 % (31-73) Lymphocytes (%) (Auto) 21 % (24-48) Monocytes (%) (Auto) 10 % (0-9) Eosinophils (%) (Auto) 3 % (0-3) Basophils (%) (Auto) 3 % (0-3) Neutrophils # (Auto) 3.7 x10^3/uL (1.8-7.7) Lymphocytes # (Auto) 1.3 x10^3/uL (1.0-4.8) Monocytes # (Auto) 0.6 x10^3/uL (0.0-1.1) Eosinophils # (Auto) 0.2 x10^3/uL (0.0-0.7) Basophils # (Auto) 0.2 x10^3/uL (0.0-0.2) Sodium Level 137 mmol/L (136-145) Potassium Level 4.1 mmol/L (3.5-5.1) Chloride Level 102 mmol/L (98-107) Carbon Dioxide Level 30 mmol/L (21-32) Anion Gap 5 (6-14) Blood Urea Nitrogen 14 mg/dL (8-26) Creatinine 0.8 mg/dL (0.7-1.3) Estimated GFR (Cockcroft-Gault) 114.7 BUN/Creatinine Ratio 18 (6-20) Glucose Level 76 mg/dL (70-99) Calcium Level 8.2 mg/dL (8.5-10.1) Total Bilirubin 0.3 mg/dL (0.2-1.0) Aspartate Amino Transf (AST/SGOT) 38 U/L (15-37) Alanine Aminotransferase (ALT/SGPT) 24 U/L (16-63) Alkaline Phosphatase 66 U/L (46-116) Total Protein 6.4 g/dL (6.4-8.2) Albumin 2.0 g/dL (3.4-5.0) Albumin/Globulin Ratio 0.5 (1.0-1.7) Test 03/22/19 07:20 03/22/19 11:25 03/22/19 16:52 03/22/19 20:09 Glucose (Fingerstick) 73 mg/dL (70-99) 90 mg/dL (70-99) 78 mg/dL (70-99) 76 mg/dL (70-99) Test 03/23/19 04:00 03/23/19 07:03 White Blood Count 6.5 x10^3/uL (4.0-11.0) Red Blood Count 2.92 x10^6/uL (4.30-5.70) Hemoglobin 8.5 g/dL (13.0-17.5) Hematocrit 25.8 % (39.0-53.0) Mean Corpuscular Volume 88 fL (79-100) Mean Corpuscular Hemoglobin 29 pg (25-35) Mean Corpuscular Hemoglobin Concent 33 g/dL (31-37) Red Cell Distribution Width 17.0 % (11.5-14.5) Platelet Count 607 x10^3/uL (140-400) Neutrophils (%) (Auto) 66 % (31-73) Lymphocytes (%) (Auto) 18 % (24-48) Monocytes (%) (Auto) 10 % (0-9) Eosinophils (%) (Auto) 3 % (0-3) Basophils (%) (Auto) 3 % (0-3) Neutrophils # (Auto) 4.3 x10^3/uL (1.8-7.7) Lymphocytes # (Auto) 1.2 x10^3/uL (1.0-4.8) Monocytes # (Auto) 0.6 x10^3/uL (0.0-1.1) Eosinophils # (Auto) 0.2 x10^3/uL (0.0-0.7) Basophils # (Auto) 0.2 x10^3/uL (0.0-0.2) Sodium Level 138 mmol/L (136-145) Potassium Level 5.0 mmol/L (3.5-5.1) Chloride Level 104 mmol/L (98-107) Carbon Dioxide Level 27 mmol/L (21-32) Anion Gap 7 (6-14) Blood Urea Nitrogen 24 mg/dL (8-26) Creatinine 0.8 mg/dL (0.7-1.3) Estimated GFR (Cockcroft-Gault) 114.7 BUN/Creatinine Ratio 30 (6-20) Glucose Level 71 mg/dL (70-99) Calcium Level 8.4 mg/dL (8.5-10.1) Total Bilirubin 0.2 mg/dL (0.2-1.0) Aspartate Amino Transf (AST/SGOT) 43 U/L (15-37) Alanine Aminotransferase (ALT/SGPT) 28 U/L (16-63) Alkaline Phosphatase 74 U/L (46-116) Total Protein 6.0 g/dL (6.4-8.2) Albumin 2.1 g/dL (3.4-5.0) Albumin/Globulin Ratio 0.5 (1.0-1.7) Glucose (Fingerstick) 71 mg/dL (70-99) Laboratory Tests Test 03/22/19 11:25 03/22/19 16:52 03/22/19 20:09 03/23/19 04:00 Glucose (Fingerstick) 90 mg/dL (70-99) 78 mg/dL (70-99) 76 mg/dL (70-99) White Blood Count 6.5 x10^3/uL (4.0-11.0) Red Blood Count 2.92 x10^6/uL (4.30-5.70) Hemoglobin 8.5 g/dL (13.0-17.5) Hematocrit 25.8 % (39.0-53.0) Mean Corpuscular Volume 88 fL (79-100) Mean Corpuscular Hemoglobin 29 pg (25-35) Mean Corpuscular Hemoglobin Concent 33 g/dL (31-37) Red Cell Distribution Width 17.0 % (11.5-14.5) Platelet Count 607 x10^3/uL (140-400) Neutrophils (%) (Auto) 66 % (31-73) Lymphocytes (%) (Auto) 18 % (24-48) Monocytes (%) (Auto) 10 % (0-9) Eosinophils (%) (Auto) 3 % (0-3) Basophils (%) (Auto) 3 % (0-3) Neutrophils # (Auto) 4.3 x10^3/uL (1.8-7.7) Lymphocytes # (Auto) 1.2 x10^3/uL (1.0-4.8) Monocytes # (Auto) 0.6 x10^3/uL (0.0-1.1) Eosinophils # (Auto) 0.2 x10^3/uL (0.0-0.7) Basophils # (Auto) 0.2 x10^3/uL (0.0-0.2) Sodium Level 138 mmol/L (136-145) Potassium Level 5.0 mmol/L (3.5-5.1) Chloride Level 104 mmol/L (98-107) Carbon Dioxide Level 27 mmol/L (21-32) Anion Gap 7 (6-14) Blood Urea Nitrogen 24 mg/dL (8-26) Creatinine 0.8 mg/dL (0.7-1.3) Estimated GFR (Cockcroft-Gault) 114.7 BUN/Creatinine Ratio 30 (6-20) Glucose Level 71 mg/dL (70-99) Calcium Level 8.4 mg/dL (8.5-10.1) Total Bilirubin 0.2 mg/dL (0.2-1.0) Aspartate Amino Transf (AST/SGOT) 43 U/L (15-37) Alanine Aminotransferase (ALT/SGPT) 28 U/L (16-63) Alkaline Phosphatase 74 U/L (46-116) Total Protein 6.0 g/dL (6.4-8.2) Albumin 2.1 g/dL (3.4-5.0) Albumin/Globulin Ratio 0.5 (1.0-1.7) Test 03/23/19 07:03 Glucose (Fingerstick) 71 mg/dL (70-99) Microbiology 03/08/19 Blood Culture - Final, Complete NO GROWTH AFTER 5 DAYS Medications Current Medications Sodium Chloride 1,000 ml @ 1,860 mls/hr Q33M IV Last administered on 03/08/19at 17:40; Start 03/08/19 at 16:04; Stop 03/08/19 at 17:04; Status DC Piperacillin Sod/ Tazobactam Sod 4.5 gm/Sodium Chloride 100 ml @ 200 mls/hr 1X ONCE IV Last administered on 03/08/19at 16:41; Start 03/08/19 at 16:15; Stop 03/08/19 at 16:44; Status DC Vancomycin HCl (Vanco Per Pharmacy) 1 each 1X ONCE MC ; Start 03/08/19 at 16:15; Stop 03/08/19 at 16:24; Status DC Morphine Sulfate (Morphine Sulfate) 4 mg PRN Q15MIN PRN IV/SQ PAIN GREATER THAN 3/10; Start 03/08/19 at 16:15; Stop 03/09/19 at 08:35; Status DC Vancomycin HCl 1.25 gm/Sodium Chloride 250 ml @ 167 mls/hr ONCE ONCE IV Last administered on 03/08/19at 17:40; Start 03/08/19 at 16:30; Stop 03/08/19 at 17:59; Status DC Ondansetron HCl (Zofran) 4 mg PRN Q8HRS PRN IV NAUSEA/VOMITING; Start 03/08/19 at 18:15; Stop 03/08/19 at 21:18; Status DC Morphine Sulfate (Morphine Sulfate) 4 mg PRN Q2HR PRN IV SEVERE PAIN 7-10; Start 03/08/19 at 18:15; Stop 03/09/19 at 08:35; Status DC Sodium Chloride 1,000 ml @ 75 mls/hr 1X ONCE IV Last administered on 03/08/19at 21:25; Start 03/08/19 at 18:15; Stop 03/09/19 at 07:34; Status DC Ondansetron HCl (Zofran) 4 mg PRN Q6HRS PRN IV NAUSEA/VOMITING 1ST CHOICE; Start 03/08/19 at 21:15 Lactic Acid (Lac-Hydrin) 1 nando BID TP Last administered on 03/15/19at 08:16; Start 03/09/19 at 09:00; Stop 03/15/19 at 19:58; Status DC Non-Formulary Medication (Alendronate Sodium (Fosamax)) 70 mg WEEKLY PO ; Start 03/15/19 at 09:00; Status UNV Vitamin D (Vitamin D3) 5,000 unit WEEKLY PO Last administered on 03/22/19at 08:27; Start 03/15/19 at 09:00 Piperacillin Sod/ Tazobactam Sod 3.375 gm/Sodium Chloride 50 ml @ 100 mls/hr Q6HRS IV ; Start 03/09/19 at 00:00; Status UNV Tramadol HCl (Ultram) 50 mg PRN Q6HRS PRN PO MODERATE PAIN Last administered on 03/14/19at 13:13; Start 03/08/19 at 21:15 Insulin Human Lispro (HumaLOG) 0-5 UNITS TIDACHC SQ ; Start 03/09/19 at 07:30; Stop 03/09/19 at 08:31; Status DC Dextrose (Dextrose 50%-Water Syringe) 12.5 gm PRN Q15MIN PRN IV SEE COMMENTS Last administered on 03/21/19 07:04; Start 03/08/19 at 21:15 Enoxaparin Sodium (Lovenox 40mg Syringe) 40 mg Q24H SQ Last administered on 03/22/19at 20:51; Start 03/08/19 at 22:00 Piperacillin Sod/ Tazobactam Sod 2.25 gm/Sodium Chloride 50 ml @ 100 mls/hr Q6HRS IV Last administered on 03/09/19 05:54; Start 03/09/19 at 00:00; Stop 03/09/19 at 10:17; Status DC Potassium Chloride (Klor-Con) 40 meq 1X ONCE PO Last administered on 03/08/19at 22:20; Start 03/08/19 at 22:00; Stop 03/08/19 at 22:01; Status DC Acetaminophen (Tylenol) 500 mg PRN Q6HRS PRN PO TEMP/HEADACHE; Start 03/09/19 at 08:30 Acetaminophen/ Codeine Phosphate (Tylenol #3) 1 tab PRN Q6HRS PRN PO MILD PAIN 1-3; Start 03/09/19 at 08:30 Morphine Sulfate (Morphine Sulfate) 2 mg PRN Q2HR PRN IV PAIN Last administered on 03/14/19at 16:10; Start 03/09/19 at 08:30 Oxycodone/ Acetaminophen (Percocet 5/325) 1 tab PRN Q4HRS PRN PO SEVERE PAIN 7- 10 Last administered on 03/21/19at 20:27; Start 03/09/19 at 08:30 Piperacillin Sod/ Tazobactam Sod 3.375 gm/Sodium Chloride 50 ml @ 100 mls/hr Q6HRS IV Last administered on 03/15/19at 05:39; Start 03/09/19 at 12:00; Stop 03/15/19 at 08:43; Status DC Micafungin Sodium 100 mg/Dextrose 100 ml @ 100 mls/hr Q24H IV Last administered on 03/13/19at 11:57; Start 03/09/19 at 11:00; Stop 03/14/19 at 08:23; Status DC Vancomycin HCl (Vanco Per Pharmacy) 1 each PRN DAILY PRN MC SEE COMMENTS Last administered on 03/13/19at 16:16; Start 03/09/19 at 11:15; Stop 03/14/19 at 08:23; Status DC Vancomycin HCl 750 mg/Sodium Chloride 250 ml @ 250 mls/hr Q24H IV Last administered on 03/09/19at 17:11; Start 03/09/19 at 17:00; Stop 03/10/19 at 17:02; Status DC Vancomycin HCl (Vancomycin Trough Level) 1 each 1X ONCE MC Last administered on 03/10/19 16:30; Start 03/10/19 at 16:30; Stop 03/10/19 at 16:31; Status DC Multivitamins (Thera M Plus) 1 tab DAILY PO Last administered on 03/22/19 08:27; Start 03/10/19 at 09:00 Dextrose/Sodium Chloride 1,000 ml @ 75 mls/hr [id number] IV Last administered on 03/09/19 17:30; Start 03/09/19 at 17:30; Stop 03/10/19 at 06:49; Status DC Lactobacillus Rhamnosus (Culturelle) 1 cap BID PO Last administered on 03/22/19at 20:49; Start 03/10/19 at 21:00 Vancomycin HCl 1 gm/Sodium Chloride 250 ml @ 250 mls/hr Q24H IV Last administered on 03/13/19at 17:41; Start 03/10/19 at 17:30; Stop 03/14/19 at 08:23; Status DC Vancomycin HCl (Vancomycin Trough Level) 1 each 1X ONCE MC Last administered on 03/12/19at 17:00; Start 03/12/19 at 17:00; Stop 03/12/19 at 17:01; Status DC Bupivacaine HCl/ Epinephrine Bitart (Sensorcaine-Epi 0.25%-1:119403 Mpf) 30 ml 1X ONCE INJ Last administered on 03/12/19 18:04; Start 03/12/19 at 08:00; Stop 03/12/19 at 08:01; Status DC Aspirin (Ecotrin) 81 mg DAILYWBKFT PO Last administered on 03/22/19 08:27; Start 03/12/19 at 08:00 Atorvastatin Calcium (Lipitor) 10 mg QHS PO Last administered on 03/22/19at 20:49; Start 03/11/19 at 21:00 Metoprolol Tartrate (Lopressor Vial) 5 mg PRN Q6HRS PRN IVP HYPERTENSION; Start 03/11/19 at 16:00 Ondansetron HCl (Zofran) 4 mg PRN Q6HRS PRN IV NAUSEA/VOMITING; Start 03/12/19 at 07:00; Stop 03/13/19 at 06:59; Status DC Fentanyl Citrate (Fentanyl 2ml Vial) 25 mcg PRN Q5MIN PRN IV MILD PAIN 1-3 Last administered on 03/12/19at 21:28; Start 03/12/19 at 07:00; Stop 03/13/19 at 06:59; Status DC Fentanyl Citrate (Fentanyl 2ml Vial) 50 mcg PRN Q5MIN PRN IV MODERATE TO SEVERE PAIN; Start 03/12/19 at 07:00; Stop 03/13/19 at 06:59; Status DC Morphine Sulfate (Morphine Sulfate) 1 mg PRN Q10MIN PRN IV SEVERE PAIN 7-10; Start 03/12/19 at 07:00; Stop 03/13/19 at 06:59; Status DC Ringer's Solution 1,000 ml @ 30 mls/hr Q24H IV Last administered on 03/12/19at 17:12; Start 03/12/19 at 07:00; Stop 03/12/19 at 18:59; Status DC Lidocaine HCl (Xylocaine-Mpf 1% 2ml Vial) 2 ml PRN 1X PRN ID PRIOR TO IV START; Start 03/12/19 at 07:00; Stop 03/13/19 at 06:59; Status DC Hydromorphone HCl (Dilaudid) 0.5 mg PRN Q10MIN PRN IV SEV PAIN, Second choice; Start 03/12/19 at 07:00; Stop 03/13/19 at 06:59; Status DC Prochlorperazine Edisylate (Compazine) 5 mg PACU PRN PRN IV NAUSEA, MRX1; Start 03/12/19 at 07:00; Stop 03/13/19 at 06:59; Status DC Potassium Chloride/Dextrose/ Sod Cl 1,000 ml @ 80 mls/hr [id number] IV Last administered on 03/17/19at 00:12; Start 03/12/19 at 07:45; Stop 03/18/19 at 07:03; Status DC Amino Acids/ Glycerin/ Electrolytes 1,000 ml @ 80 mls/hr [id number] IV ; Start 03/12/19 at 09:30; Stop 03/12/19 at 09:47; Status DC Sevoflurane (Ultane) 90 ml STK-MED ONCE IH ; Start 03/12/19 at 15:32; Stop 03/12/19 at 15:33; Status DC Rocuronium Buckner (Zemuron) 50 mg STK-MED ONCE .ROUTE ; Start 03/12/19 at 15:32; Stop 03/12/19 at 15:33; Status DC Fentanyl Citrate (Fentanyl 2ml Vial) 100 mcg STK-MED ONCE .ROUTE ; Start 03/12/19 at 15:32; Stop 03/12/19 at 15:33; Status DC Neostigmine Methylsulfate (Neostigmine Methylsulfate) 5 mg STK-MED ONCE .ROUTE ; Start 03/12/19 at 15:33; Stop 03/12/19 at 15:33; Status DC Glycopyrrolate (Robinul) 1 mg STK-MED ONCE .ROUTE ; Start 03/12/19 at 15:33; Stop 03/12/19 at 15:33; Status DC Dexamethasone Sodium Phosphate (Decadron) 4 mg STK-MED ONCE .ROUTE ; Start 03/12/19 at 15:33; Stop 03/12/19 at 15:33; Status DC Propofol 20 ml @ As Directed STK-MED ONCE IV ; Start 03/12/19 at 15:33; Stop 03/12/19 at 15:33; Status DC Lidocaine HCl (Lidocaine Pf 2% Vial) 5 ml STK-MED ONCE .ROUTE ; Start 03/12/19 at 15:33; Stop 03/12/19 at 15:33; Status DC Ondansetron HCl (Zofran) 4 mg STK-MED ONCE .ROUTE ; Start 03/12/19 at 15:33; Stop 03/12/19 at 15:33; Status DC Phenylephrine HCl (PHENYLEPHRINE in 0.9% NACL PF) 1 mg STK-MED ONCE IV ; Start 03/12/19 at 17:27; Stop 03/12/19 at 17:27; Status DC Ephedrine Sulfate (ePHEDrine PF IN SALINE SYRINGE) 50 mg STK-MED ONCE IV ; Start 03/12/19 at 17:43; Stop 03/12/19 at 17:43; Status DC Albuterol Sulfate (Ventolin Neb Soln) 2.5 mg STK-MED ONCE .ROUTE ; Start 03/12/19 at 20:06; Stop 03/12/19 at 20:07; Status DC Albuterol Sulfate (Ventolin Neb Soln) 2.5 mg 1X ONCE NEB Last administered on 03/12/19at 20:21; Start 03/12/19 at 20:15; Stop 03/12/19 at 20:32; Status DC Amoxicillin/ Clavulanate Potassium (Augmentin 500/ 125mg) 1 tab BID PO Last administered on 03/22/19at 20:49; Start 03/15/19 at 09:00 Fluoxetine HCl (PROzac) 20 mg DAILY PO Last administered on 03/22/19at 08:27; Start 03/18/19 at 09:00 Nicotine Polacrilex (Nicorette Gum) 1 each PRN Q1HR PRN BC SMOKING CESSATION Last administered on 03/19/19at 16:59; Start 03/19/19 at 17:00 Dextrose/Sodium Chloride 1,000 ml @ 80 mls/hr 1X ONCE IV Last administered on 03/21/19at 10:25; Start 03/21/19 at 09:45; Stop 03/21/19 at 22:14; Status DC Active Scripts Active Augmentin 875-125 Tablet (Amoxicillin/Potassium Clav) 1 Each Tablet 1 Tab PO BID 10 Days Thera-M Tablet (Multivits,Ca,Minerals/Iron/Fa) 1 Each Tablet 1 Tab PO DAILY Aspirin Ec (Aspirin) 81 Mg Tablet. 81 Mg PO DAILYWBKFT Atorvastatin Calcium 10 Mg Tablet 10 Mg PO QHS Percocet 5-325 Mg Tablet (Oxycodone/Acetaminophen) 1 Each Tablet 1 Tab PO PRN Q4HRS PRN 10 Days Ammonium Lactate 226 Gm Lotion 1 Nando TP BID 10 Days Eliquis (Apixaban) 2.5 Mg Tablet 2.5 Mg PO BID 14 Days Reported Tizanidine Hcl 4 Mg Tablet 1 Tab PO QHS Fosamax (Alendronate Sodium) 70 Mg Tablet 70 Mg PO WEEKLY pt takes medication on friday Vitamin D3 (Cholecalciferol (Vitamin D3)) 5,000 Unit Tablet 5,000 Unit PO WEEKLY Vitals/I & O Vital Sign - Last 24 Hours 03/22/19 03/22/19 03/22/19 03/22/19 11:00 15:00 19:00 20:06 Temp 98.1 98.8 98.2 98.1 98.8 98.2 Pulse 71 76 80 Resp 18 18 14 B/P (MAP) 107/63 (78) 105/60 (75) 106/66 (79) Pulse Ox 99 98 96 O2 Delivery Room Air Room Air Room Air Room Air 03/22/19 03/23/19 03/23/19 23:00 03:00 07:00 Temp 98.0 98.0 97.9 98.0 98.0 97.9 Pulse 74 72 72 Resp 16 18 16 B/P (MAP) 101/61 (74) 114/72 (86) 105/74 (84) Pulse Ox 97 98 99 O2 Delivery Room Air Room Air Room Air Intake and Output 03/22/19 03/22/19 03/23/19 15:00 23:00 07:00 Output Total 150 ml 120 ml 550 ml Balance -150 ml -120 ml -550 ml Nutrition Consultation Dietary Evaluation: Recommendations by RD: Dietary education by RD, Protein supplementation Comments: REC continue liberlized diet : regular rosa bid REC continue mvi q day per wound protocal Expected Outcomes/Goals: to meet >75% est nutr needs improved wound status BS control Interpretation of weight loss: >1-2% in 1 week Malnutrition Findings: Body Fat Depletion (Non Severe: Mod to Severe Weight Status: Underweight CARMEN CONKLIN MD Mar 23, 2019 08:16
[2019-03-23] MEDS: AMOXICILLIN/K CLAV 500/125MG TABLET. PO SCH (08:24)
[2019-03-23] MEDS: LACTOBACILLUS RHAMNOSUS GG 1 CAPSULE. PO SCH (08:24)
[2019-03-23] MEDS: FLUoxetine HCL 20 MG CAPSULE PO SCH (08:24)
[2019-03-23] MEDS: MULTIVITAMIN with MINERAL TABLET. PO SCH (08:24)
[2019-03-23] MEDS: ASPIRIN ENTERIC COATED 81 MG TABLET.DR. PO SCH (08:25)
--- NOTE | 2019-03-23 09:02 | NUR ---
ADALBERTO following. Discussed with RN. Pt can discharge to [facility] LT today. Discharge order to say "emergency admit to LTC less than 30 days". ADALBERTO notified RN. Pt's , Malcolm is agreeable to [facility]. SW to notify Malcolm of acceptance and potential discharge today. ADALBERTO will continue to follow. Addendum: 03/23/19 at 1324 by LORA GLOVER ADALBERTO following. Pt will discharge to [facility] between [id number]. ADALBERTO left voicemail for pt's , Malcolm. RN notified. No further SW needs.
--- NOTE | 2019-03-23 09:30 | SNU/HH DC ---
DISCHARGE ORDERS DISCHARGE INFORMATION: DISCHARGE DATE: Mar 23, 2019 FINAL DIAGNOSIS Problems Medical Problems: (1) Necrotic toes Status: Acute (2) Ulcer of left heel Status: Acute CONDITION ON DISCHARGE: Stable CODE STATUS: Code Status: Full MCFP: SNF STAY <30 DAYS: Yes (Emergency admit to [facility] intermediate care less than 30 days) POST DISCHARGE ORDERS: ACTIVITY ORDERS: Activity as tolerated WEIGHT BEARING STATUS: As tolerated DIET AFTER DISCHARGE: Cardiac WOUND/INCISION CARE: Keep wound/cast CDI, Change dressing CHECKS AFTER DISCHARGE: CHECKS AFTER DISCHARGE: Check blood press - daily FOLLOW-UP: PHYSICIAN FOLLOW-UP: stump dressing change/care daily Additional Instructions: Emergency admit to halfway care less than 30 days DISCHARGE MEDICATIONS: Home Meds Active Scripts Multivits,Ca,Minerals/Iron/Fa (THERA-M TABLET) 1 Each Tablet, 1 TAB PO DAILY for mvi, #60 TAB Prov:HANSA SIMMS MD 03/15/19 Aspirin (ASPIRIN EC) 81 Mg Tablet.dr, 81 MG PO DAILYWBKFT for PAD, #60 TAB.SR Prov:HANSA SIMMS MD 03/15/19 Atorvastatin Calcium (ATORVASTATIN CALCIUM) 10 Mg Tablet, 10 MG PO QHS for lipids, #60 TAB Prov:HANSA SIMMS MD 03/15/19 Oxycodone/Apap 5-325 (PERCOCET 5-325 MG TABLET ) 1 Each Tablet, 1 TAB PO PRN Q4HRS PRN for SEVERE PAIN 7-10 for 10 Days, #20 TAB Prov:HANSA SIMMS MD 03/15/19 Ammonium Lactate (Ammonium Lactate) 226 Gm Lotion, 1 SACHIN TP BID for DRY SKIN for 10 Days, #90 MISC Prov:NIHARIKA BONNER MD 12/31/18 Apixaban (ELIQUIS) 2.5 Mg Tablet, 2.5 MG PO BID for DVT PREVENTION for 14 Days, #28 TAB Prov:NIHARIKA BONNER MD 12/31/18 Reported Medications Tizanidine Hcl (TIZANIDINE HCL) 4 Mg Tablet, 1 TAB PO QHS for muscle relaxer, #30 TAB 03/09/19 Alendronate Sodium (FOSAMAX) 70 Mg Tablet, 70 MG PO WEEKLY for bones, TAB pt takes medication on norberto 8/16/19 Cholecalciferol (Vitamin D3) (VITAMIN D3) 5,000 Unit Tablet, 5000 UNIT PO WEEKLY for bones 11/17/14 CARMEN CONKLIN MD Mar 23, 2019 09:30
--- NOTE | 2019-03-23 09:35 | PDOC3 ---
Discharge Summary Visit Information Date of Admission: Mar 08, 2019 Date of Discharge: Mar 23, 2019 Admitting Diagnosis: Necrotic toes Final Diagnosis Problems Medical Problems: (1) Necrotic toes Status: Acute (2) Ulcer of left heel Status: Acute Brief Hospital Course Allergies Allergies Coded Allergies Type Severity Reaction Last Updated Verified No Known Drug Allergies 11/17/14 No Vital Signs Vital Signs Date Time Temp Pulse Resp B/P (MAP) Pulse Ox O2 Delivery O2 Flow Rate FiO2 03/23/19 08:00 Room Air 03/23/19 07:00 97.9 72 16 105/74 (84) 99 97.9 Lab Results Laboratory Tests Test 03/21/19 11:20 03/21/19 16:36 03/21/19 20:38 03/22/19 03:20 Glucose (Fingerstick) 118 mg/dL (70-99) 118 mg/dL (70-99) 84 mg/dL (70-99) White Blood Count 5.9 x10^3/uL (4.0-11.0) Red Blood Count 2.90 x10^6/uL (4.30-5.70) Hemoglobin 8.3 g/dL (13.0-17.5) Hematocrit 25.0 % (39.0-53.0) Mean Corpuscular Volume 86 fL (79-100) Mean Corpuscular Hemoglobin 29 pg (25-35) Mean Corpuscular Hemoglobin Concent 33 g/dL (31-37) Red Cell Distribution Width 16.7 % (11.5-14.5) Platelet Count 657 x10^3/uL (140-400) Neutrophils (%) (Auto) 63 % (31-73) Lymphocytes (%) (Auto) 21 % (24-48) Monocytes (%) (Auto) 10 % (0-9) Eosinophils (%) (Auto) 3 % (0-3) Basophils (%) (Auto) 3 % (0-3) Neutrophils # (Auto) 3.7 x10^3/uL (1.8-7.7) Lymphocytes # (Auto) 1.3 x10^3/uL (1.0-4.8) Monocytes # (Auto) 0.6 x10^3/uL (0.0-1.1) Eosinophils # (Auto) 0.2 x10^3/uL (0.0-0.7) Basophils # (Auto) 0.2 x10^3/uL (0.0-0.2) Sodium Level 137 mmol/L (136-145) Potassium Level 4.1 mmol/L (3.5-5.1) Chloride Level 102 mmol/L (98-107) Carbon Dioxide Level 30 mmol/L (21-32) Anion Gap 5 (6-14) Blood Urea Nitrogen 14 mg/dL (8-26) Creatinine 0.8 mg/dL (0.7-1.3) Estimated GFR (Cockcroft-Gault) 114.7 BUN/Creatinine Ratio 18 (6-20) Glucose Level 76 mg/dL (70-99) Calcium Level 8.2 mg/dL (8.5-10.1) Total Bilirubin 0.3 mg/dL (0.2-1.0) Aspartate Amino Transf (AST/SGOT) 38 U/L (15-37) Alanine Aminotransferase (ALT/SGPT) 24 U/L (16-63) Alkaline Phosphatase 66 U/L (46-116) Total Protein 6.4 g/dL (6.4-8.2) Albumin 2.0 g/dL (3.4-5.0) Albumin/Globulin Ratio 0.5 (1.0-1.7) Test 03/22/19 07:20 03/22/19 11:25 03/22/19 16:52 03/22/19 20:09 Glucose (Fingerstick) 73 mg/dL (70-99) 90 mg/dL (70-99) 78 mg/dL (70-99) 76 mg/dL (70-99) Test 03/23/19 04:00 03/23/19 07:03 White Blood Count 6.5 x10^3/uL (4.0-11.0) Red Blood Count 2.92 x10^6/uL (4.30-5.70) Hemoglobin 8.5 g/dL (13.0-17.5) Hematocrit 25.8 % (39.0-53.0) Mean Corpuscular Volume 88 fL (79-100) Mean Corpuscular Hemoglobin 29 pg (25-35) Mean Corpuscular Hemoglobin Concent 33 g/dL (31-37) Red Cell Distribution Width 17.0 % (11.5-14.5) Platelet Count 607 x10^3/uL (140-400) Neutrophils (%) (Auto) 66 % (31-73) Lymphocytes (%) (Auto) 18 % (24-48) Monocytes (%) (Auto) 10 % (0-9) Eosinophils (%) (Auto) 3 % (0-3) Basophils (%) (Auto) 3 % (0-3) Neutrophils # (Auto) 4.3 x10^3/uL (1.8-7.7) Lymphocytes # (Auto) 1.2 x10^3/uL (1.0-4.8) Monocytes # (Auto) 0.6 x10^3/uL (0.0-1.1) Eosinophils # (Auto) 0.2 x10^3/uL (0.0-0.7) Basophils # (Auto) 0.2 x10^3/uL (0.0-0.2) Sodium Level 138 mmol/L (136-145) Potassium Level 5.0 mmol/L (3.5-5.1) Chloride Level 104 mmol/L (98-107) Carbon Dioxide Level 27 mmol/L (21-32) Anion Gap 7 (6-14) Blood Urea Nitrogen 24 mg/dL (8-26) Creatinine 0.8 mg/dL (0.7-1.3) Estimated GFR (Cockcroft-Gault) 114.7 BUN/Creatinine Ratio 30 (6-20) Glucose Level 71 mg/dL (70-99) Calcium Level 8.4 mg/dL (8.5-10.1) Total Bilirubin 0.2 mg/dL (0.2-1.0) Aspartate Amino Transf (AST/SGOT) 43 U/L (15-37) Alanine Aminotransferase (ALT/SGPT) 28 U/L (16-63) Alkaline Phosphatase 74 U/L (46-116) Total Protein 6.0 g/dL (6.4-8.2) Albumin 2.1 g/dL (3.4-5.0) Albumin/Globulin Ratio 0.5 (1.0-1.7) Glucose (Fingerstick) 71 mg/dL (70-99) Laboratory Tests Test 03/22/19 11:25 03/22/19 16:52 03/22/19 20:09 03/23/19 04:00 Glucose (Fingerstick) 90 mg/dL (70-99) 78 mg/dL (70-99) 76 mg/dL (70-99) White Blood Count 6.5 x10^3/uL (4.0-11.0) Red Blood Count 2.92 x10^6/uL (4.30-5.70) Hemoglobin 8.5 g/dL (13.0-17.5) Hematocrit 25.8 % (39.0-53.0) Mean Corpuscular Volume 88 fL (79-100) Mean Corpuscular Hemoglobin 29 pg (25-35) Mean Corpuscular Hemoglobin Concent 33 g/dL (31-37) Red Cell Distribution Width 17.0 % (11.5-14.5) Platelet Count 607 x10^3/uL (140-400) Neutrophils (%) (Auto) 66 % (31-73) Lymphocytes (%) (Auto) 18 % (24-48) Monocytes (%) (Auto) 10 % (0-9) Eosinophils (%) (Auto) 3 % (0-3) Basophils (%) (Auto) 3 % (0-3) Neutrophils # (Auto) 4.3 x10^3/uL (1.8-7.7) Lymphocytes # (Auto) 1.2 x10^3/uL (1.0-4.8) Monocytes # (Auto) 0.6 x10^3/uL (0.0-1.1) Eosinophils # (Auto) 0.2 x10^3/uL (0.0-0.7) Basophils # (Auto) 0.2 x10^3/uL (0.0-0.2) Sodium Level 138 mmol/L (136-145) Potassium Level 5.0 mmol/L (3.5-5.1) Chloride Level 104 mmol/L (98-107) Carbon Dioxide Level 27 mmol/L (21-32) Anion Gap 7 (6-14) Blood Urea Nitrogen 24 mg/dL (8-26) Creatinine 0.8 mg/dL (0.7-1.3) Estimated GFR (Cockcroft-Gault) 114.7 BUN/Creatinine Ratio 30 (6-20) Glucose Level 71 mg/dL (70-99) Calcium Level 8.4 mg/dL (8.5-10.1) Total Bilirubin 0.2 mg/dL (0.2-1.0) Aspartate Amino Transf (AST/SGOT) 43 U/L (15-37) Alanine Aminotransferase (ALT/SGPT) 28 U/L (16-63) Alkaline Phosphatase 74 U/L (46-116) Total Protein 6.0 g/dL (6.4-8.2) Albumin 2.1 g/dL (3.4-5.0) Albumin/Globulin Ratio 0.5 (1.0-1.7) Test 03/23/19 07:03 Glucose (Fingerstick) 71 mg/dL (70-99) Brief Hospital Course Mr Jaimes is a 73 yo male w/ PMHx CAD s/p stenting, HTN, colorectal cancer in remission, DJD of spine, DM2 presenting to the ED per his with right heel ulcer and right necrotic appearing toes. He appears to have cognitive impairment and not a reliable historian. 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 Had some hypoglycemia 60s now in daytime, no insulin required for days He has some personality.depression issues that unfolded in his stay, likely from the AKA he got THIS admission bec of bad feet/leg wounds Started on SSRi , he is very depressed still. 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 Severe Protein Calorie Malnutrition PAD, mild to mod, medical mx/ now s.p AKA DM 2 with hypoglycemia episodes Dementia HTN controlled Underweight Gen weakness Dry skin Cad with remote stenting hx on eliquis NORBERTO VMN resolved PLAN: Still able to dc to SNF, Emergency admit to care home care less than 30 days Wound care - i inspected stumps, looks ok Greater than 30 minutes spent on d/c Discharge Information Condition at Discharge: Stable Follow Up: Weeks Disposition/Orders: D/C to Another Facility ([facility] operator care) Scheduled Alendronate Sodium (Fosamax) 70 Mg Tablet, 70 MG PO WEEKLY for bones, (Reported) pt takes medication on friday Entered as Reported by: BUNNY CAPONE on 12/25/18 0713 Last Action: Converted on 03/08/192117 by CARMEN CONKLIN MD Ammonium Lactate (Ammonium Lactate) 226 Gm Lotion, 1 SACHIN TP BID for DRY SKIN for 10 Days, #90 Prescribed by: NIHARIKA BONNER MD on 12/31/181799 Last Action: Continued on 03/08/192117 by CARMEN CONKLIN MD Apixaban (Eliquis) 2.5 Mg Tablet, 2.5 MG PO BID for DVT PREVENTION for 14 Days, #28 Prescribed by: NIHARIKA BONNER MD on 12/31/18 1800 Aspirin (Aspirin Ec) 81 Mg Tablet.dr, 81 MG PO DAILYWBKFT for PAD, #60 Prescribed by: HANSA SIMMS on 03/15/19 0810 Atorvastatin Calcium (Atorvastatin Calcium) 10 Mg Tablet, 10 MG PO QHS for lipids, #60 Prescribed by: HANSA SIMMS on 03/15/1910 Cholecalciferol (Vitamin D3) (Vitamin D3) 5,000 Unit Tablet, 5,000 UNIT PO WEEKLY for bones, (Reported) Entered as Reported by: ERI ABEL on 11/17/14 1105 Last Action: Converted on 03/08/192117 by CARMEN CONKLIN MD Multivits,Ca,Minerals/Iron/Fa (Thera-M Tablet) 1 Each Tablet, 1 TAB PO DAILY for mvi, #60 Prescribed by: HANSA SIMMS on 03/15/19 0810 Tizanidine Hcl (Tizanidine Hcl) 4 Mg Tablet, 1 TAB PO QHS for muscle relaxer, #30 (Reported) Entered as Reported by: SARAH RENO RN on 03/09/191417 Last Action: New Order on 03/09/191417 by SARAH RENO RN Scheduled PRN Oxycodone/Apap 5-325 (Percocet 5-325 Mg Tablet ) 1 Each Tablet, 1 TAB PO PRN Q4HRS PRN for SEVERE PAIN 7-10 for 10 Days, #20 Prescribed by: HANSA SIMMS on 03/15/19 08 CARMEN CONKLIN MD Mar 23, 2019 09:35
[2019-03-23 11:00] VITALS: BP 114/61
--- NOTE | 2019-03-23 15:30 | NUR ---
Discharge Note: ROSALIA GONZALEZ WESSINGTON Discharge instructions and discharge home medications reviewed with Other facility and a copy given. All questions have been answered and understanding verbalized. The following instructions and handouts were given: Diet, activity, medication list and follow up instructions provided to [facility]. Report called to patient's nurseMarija. Discontinued lines and drains: Peripheral IV discontinued and catheter intact. Patient discharged to [facility] with Self via Wheelchair
== END 2019-03-23 15:30 | DRG 239 ==
LOC: ER 14:02 → 4 NORTH 17:30
PROVIDERS: ADMIT Internal Medicine; ATTEND Internal Medicine
PROC: 0Y6C0Z1 Detachment at Right Upper Leg, High, Open Approach (ICD-10-PCS; 2019-03-12)
PROC: 0Y6D0Z1 Detachment at Left Upper Leg, High, Open Approach (ICD-10-PCS; principal; 2019-03-12 15:30)
DX: I70.269 Atherosclerosis of native arteries of extremities with gangrene, unspecified extremity (principal); J96.01 Acute respiratory failure with hypoxia; E43 Unspecified severe protein-calorie malnutrition; L03.115 Cellulitis of right lower limb; D62 Acute posthemorrhagic anemia; M86.9 Osteomyelitis, unspecified; L03.116 Cellulitis of left lower limb; L97.413 Non-pressure chronic ulcer of right heel and midfoot with necrosis of muscle; L97.429 Non-pressure chronic ulcer of left heel and midfoot with unspecified severity; R64 Cachexia; E11.52 Type 2 diabetes mellitus with diabetic peripheral angiopathy with gangrene; B35.9 Dermatophytosis, unspecified; E11.621 Type 2 diabetes mellitus with foot ulcer; E11.649 Type 2 diabetes mellitus with hypoglycemia without coma; E11.69 Type 2 diabetes mellitus with other specified complication; F03.90 Unspecified dementia, unspecified severity, without behavioral disturbance, psychotic disturbance, mood disturbance, and anxiety; F32.9 Major depressive disorder, single episode, unspecified; I10 Essential (primary) hypertension; I25.10 Atherosclerotic heart disease of native coronary artery without angina pectoris; J44.9 Chronic obstructive pulmonary disease, unspecified; L97.519 Non-pressure chronic ulcer of other part of right foot with unspecified severity; M19.90 Unspecified osteoarthritis, unspecified site; M85.80 Other specified disorders of bone density and structure, unspecified site; Z79.01 Long term (current) use of anticoagulants; Z79.83 Long term (current) use of bisphosphonates; Z83.3 Family history of diabetes mellitus; Z85.048 Personal history of other malignant neoplasm of rectum, rectosigmoid junction, and anus; Z95.5 Presence of coronary angioplasty implant and graft; Z87.19 Personal history of other diseases of the digestive system; Z74.01 Bed confinement status
CPT/HCPCS: 36415; 36600; 71045; 73630; 80048; 80053; 80202; 81001; 82140; 82306; 82553; 82565; 82805; 82962; 83036; 83605; 83690; 84145; 85007; 85025; 85610; 85730; 86850; 86900; 86901; 87040; 88307; 88311; 93005; 93925; 93970; 96365; 96368; 99406; A7015; J0171; J1100; J1650; J1815; J2001; J2248; J2270; J2370; J2405; J2543; J2704; J2710; J3010; J3370; J3490; J7030; J7042; J7050; J7120; J7613; 97110; 97112; 97530; 97535; 99285-25; G0378

== ENCOUNTER 2019-04-01 18:08 | Emergency (ER) | payer OTHER ==
[~2019-04-01] VITALS: Ht 96.5 cm; Wt 41.7 kg
[~2019-04-01 18:08] MED LIST changes: +AMOX1TAB61 PO; +ASPI-612 PO; +ATOR10TA60 PO; +MULT1TAB90 PO; +TIZA4TAB2 PO
--- NOTE | 2019-04-01 18:27 | PHYS DOC ---
Past Medical History Past Medical History: CAD, Diabetes-Type II, Hypertension Additional Past Medical Histor: colorectal cancer, DJD spine Past Surgical History: Other Additional Past Surgical Histo: lumbar back surgery, L hip Alcohol Use: None Drug Use: None Adult General Chief Complaint Chief Complaint: MECHANICAL FALL HPI HPI 73-year-old male with underlying history of dementia presents to the emergency department via EMS after a fall unwitnessed at the nursing facility he lives. Patient is alert to person which is his baseline. He is a bilateral [id number] amputee. Patient denies any acute complaints at this time. He denies any chest pain, shortness breath, nausea, vomiting, abdominal pain. Patient denies any headache or visual changes. Patient is able to identify himself and birthdate. He has no complaints of pain on examination. All other ROS negative unless documented in HPI Review of Systems Review of Systems See Above Allergies Allergies Allergies Coded Allergies Type Severity Reaction Last Updated Verified No Known Drug Allergies 11/17/14 No Physical Exam Physical Exam See Above Constitutional: Well developed, well nourished, no acute distress, non-toxic appearance. [] HENT: Normocephalic, atraumatic, bilateral external ears normal, oropharynx moist, no oral exudates, nose normal. [] Eyes: PERRLA, EOMI, conjunctiva normal, no discharge. [] Neck: Normal range of motion, no tenderness, supple, no stridor. [] Cardiovascular:Heart rate regular rhythm, no murmur [] Lungs & Thorax: Bilateral breath sounds clear to auscultation [] Abdomen: Bowel sounds normal, soft, no tenderness, no masses, no pulsatile masses. [] Skin: Warm, dry, no erythema, no rash. [] Back: No tenderness, no CVA tenderness. [] Extremities: bilateral above the knee amputations Neurologic: Alert and oriented X 1, no focal deficits noted. [] Psychologic: Affect normal, judgement normal, mood normal. [] EKG EKG [] Radiology/Procedures Radiology/Procedures [] Course & Med Decision Making Course & Med Decision Making Pertinent Labs and Imaging studies reviewed. (See chart for details) []73-year-old male with underlying history of dementia presents to the emergency department via EMS after a fall unwitnessed at the nursing facility he lives. Patient is alert to person which is his baseline. He is a bilateral [id number] amputee. Patient denies any acute complaints at this time. He denies any chest pain, shortness breath, nausea, vomiting, abdominal pain. Patient denies any headache or visual changes. Patient is able to identify himself and birthdate. He has no complaints of pain on examination. Patient without acute signs of injury Patient on no blood thinning medications Given no evidence of injury, normal exam will plan dc back to [place] Discussed with patient at bedside Luca Disclaimer Luca Disclaimer This electronic medical record was generated, in whole or in part, using a voice recognition dictation system. Departure Departure Impression: Primary Impression: Fall Disposition: 03 TRANSFER SNF Condition: STABLE Referrals: VIMAL ROBERT MD (PCP) Patient Instructions: Fall Prevention and Home Safety, [id number] Additional Instructions: Recommend follow up with PCP 3 - 5 days Return to the ER with worsening symptoms, intractable pain, fever, altered mental status Tylenol/Motrin as needed for pain Problem Qualifiers Primary Impression: Fall Encounter type: initial encounter Qualified Codes: W19.XXXA - Unspecified fall, initial encounter RAJESH MUHAMMAD MD Apr 01, 2019 18:27
[2019-04-01 19:32] VITALS: BP 114/72
== END 2019-04-01 21:18 | disposition home or self-care (01) ==
LOC: ER 18:08
DX: Z04.3 Encounter for examination and observation following other accident (principal); I25.10 Atherosclerotic heart disease of native coronary artery without angina pectoris; E11.9 Type 2 diabetes mellitus without complications; I10 Essential (primary) hypertension; F03.90 Unspecified dementia, unspecified severity, without behavioral disturbance, psychotic disturbance, mood disturbance, and anxiety; Z89.612 Acquired absence of left leg above knee; Z89.611 Acquired absence of right leg above knee; W18.39XA Other fall on same level, initial encounter; Y93.89 Activity, other specified; Y92.128 Other place in nursing home as the place of occurrence of the external cause; Y99.8 Other external cause status
CPT/HCPCS: 99284